=== PATIENT | male | born 1940 | race Caucasian/White ===

== ENCOUNTER 2019-08-16 14:55 | Outpatient (CLI) | payer MEDICARE, SELFPAY ==
--- NOTE | ~2019-08-16 | XR_ITS ---
EXAMINATION: XR wrist RT 2V DATE: 08/16/2019 15:08 INDICATION: Right wrist pain. TECHNIQUE: 2 views of right wrist were obtained. COMPARISON: None. FINDINGS: Bone alignment is normal. No fracture. Joint spaces are normal. There are periarticular home cifications in the wrist and second through fifth metacarpophalangeal joints. IMPRESSION: 1. No fracture. Reviewed, dictated and finalized at location A. DRIVER OPERATOR IMPRESSION: 1. No fracture.
== END 2019-08-16 14:56 | disposition home or self-care (01) ==
LOC: CHSIMG 14:57
PROVIDERS: PCP Family Medicine; Visit Provider Nurse Practitioner Family
DX: M25.531 Pain in right wrist (principal)
CPT/HCPCS: 73100

== ENCOUNTER 2020-01-17 09:32 | Outpatient (CLI) | payer MEDICARE, SELFPAY ==
[2020-01-17 09:49] LABS: Basophils Absolute Auto 0.03 K/mm3 (0.00-0.10); Basophils Percent Auto 0.5 % (0.0-1.0); Eosinophils Absolute Auto 0.09 K/mm3 (0.02-0.50); Eosinophils Percent Auto 1.4 % (1.0-6.0); Hematocrit 40.7 % (37.0-46.0); Hemoglobin 13.8 g/dL (12.4-15.3); Immature Granulocyte Absolute 0.07 K/mm3 (0.00-0.00); Immature Granulocyte Percent A 1.1 % (0.0-0.0); Lymphocytes Percent Auto 28.2 % (18.0-42.0); Mean Corpuscular HGB Conc 33.9 g/dL (32.0-36.0); Mean Corpuscular Hemoglobin 29.5 pg (27.0-31.0); Mean Platelet Volume 9.3 fl (8.7-11.0); Monocytes Absolute Auto 0.36 K/mm3 (0.10-0.90); Monocytes Percent Auto 5.6 % (2.0-11.0); Neutrophils Percent Auto 63.2 % (50.0-70.0); Platelet Count Result 204 K/mm3 (150-420); Red Blood Count 4.68 M/mm3 (4.70-6.10); Red Cell Distribution Width 12.2 % (11.6-14.4); White Blood Count 6.4 K/mm3 (4.8-10.8)
[2020-01-17 10:05] LABS: Microalbumin Urine Random 10.2 mg/L
[2020-01-17 10:12] LABS: Hemoglobin A1C 7.4 % (<5.7)
[2020-01-17 10:40] LABS: Alanine Aminotransferase 17 U/L (16-63); Albumin Level 3.7 g/dL (3.4-5.0); Alkaline Phosphatase 58 U/L (46-116); Anion Gap 12.3 mmol/L (7-16); Aspartate Amino Transferase 19 U/L (15-37); Bilirubin,Total 0.3 mg/dL (0.00-1.00); Blood Urea Nitrogen 17 mg/dL (7-18); Calcium 9.4 mg/dL (8.5-10.1); Carbon Dioxide 29 mmol/L (21-32); Chloride 99 mmol/L (98-108); Cholesterol 145 mg/dL (0-200); Estimated Glomerular Filt Rate > 60; Glucose 319 mg/dL (70-99); HDL Direct 33 mg/dL (40-60); LDL Cholesterol Calculated 81 mg/dL (<130); Magnesium 1.9 mg/dL (1.8-2.4); Osmolality Calculated 295 mOsm/kg (285-295); Potassium 4.3 mmol/L (3.5-5.1); Sodium 136 mmol/L (136-145); Total Protein 7.1 g/dL (6.4-8.2); Triglycerides 156 mg/dL (0-150)
[2020-01-20 11:05] LABS: Vitamin D 25 Hydroxy 28 ng/mL (30-100)
== END 2020-01-17 09:33 | disposition home or self-care (01) ==
LOC: CHSLAB 09:35
PROVIDERS: PCP Nurse Practitioner Family; Visit Provider Nurse Practitioner Family
DX: E78.5 Hyperlipidemia, unspecified (principal); E11.59 Type 2 diabetes mellitus with other circulatory complications; I10 Essential (primary) hypertension; E11.69 Type 2 diabetes mellitus with other specified complication; R42 Dizziness and giddiness; Z79.899 Other long term (current) drug therapy
CPT/HCPCS: 36415; 80053; 80061; 82043; 82306; 83036; 83735; 85025

== ENCOUNTER 2020-03-23 13:11 | Outpatient (RCR) | payer MEDICARE, SELFPAY | END 2020-04-06 14:00 | disposition home or self-care (01) | LOC: CHSSENLIFE 13:11 | PROVIDERS: PCP Nurse Practitioner Family; Visit Provider Psychiatry & Neurology Psychiatry | DX: F32.0 Major depressive disorder, single episode, mild (principal) | CPT/HCPCS: 90792; 90837 ==

== ENCOUNTER 2020-04-04 13:38 | Outpatient (CLI) | payer MEDICARE, SELFPAY ==
[2020-04-04 23:22] LABS: SARS-CoV-2 RNA PCR Negative
== END 2020-04-04 13:39 | disposition home or self-care (01) ==
LOC: CHSLAB 13:40
PROVIDERS: PCP Nurse Practitioner Family; Visit Provider Nurse Practitioner Family
DX: Z20.828 Contact with and (suspected) exposure to other viral communicable diseases (principal)
CPT/HCPCS: 87635; C9803; U0003

== ENCOUNTER 2020-06-15 11:00 | Outpatient (RCR) | payer MEDICARE, SELFPAY ==
[2020-04-11 07:56] VITALS: BMI 24.2
[2020-06-15 10:58] VITALS: BMI 24.1
[2020-06-15 11:01] VITALS: BMI 24.1
== END 2020-06-27 14:01 | disposition home or self-care (01) ==
LOC: ANHDMC 11:00
PROVIDERS: PCP Nurse Practitioner Family
DX: E11.65 Type 2 diabetes mellitus with hyperglycemia (principal); Z71.3 Dietary counseling and surveillance; Z71.89 Other specified counseling
CPT/HCPCS: 97802; 97803; G0108

== ENCOUNTER 2020-08-22 13:00 | Outpatient (RCR) | payer MEDICARE, SELFPAY | END 2020-09-25 15:52 | disposition home or self-care (01) | LOC: ANHDMC 13:00 | PROVIDERS: PCP Nurse Practitioner Family; Referring Provider Internal Medicine Endocrinology, Diabetes & Metabolism | DX: E11.65 Type 2 diabetes mellitus with hyperglycemia (principal); Z71.89 Other specified counseling | CPT/HCPCS: G0108 ==

== ENCOUNTER 2020-11-14 09:39 | Outpatient (CLI) | payer MEDICARE, SELFPAY ==
[2020-11-14 10:04] LABS: Hemoglobin A1C 7.3 % (<5.7)
== END 2020-11-14 09:40 | disposition home or self-care (01) ==
LOC: CHSLAB 09:41
PROVIDERS: PCP Nurse Practitioner Family; Visit Provider Nurse Practitioner Family
DX: E11.9 Type 2 diabetes mellitus without complications (principal)
CPT/HCPCS: 36415; 83036

== ENCOUNTER 2021-04-17 09:48 | Outpatient (CLI) | payer MEDICARE, SELFPAY ==
[2021-04-17 09:58] LABS: Basophils Absolute Auto 0.04 K/mm3 (0.00-0.10); Basophils Percent Auto 0.6 % (0.0-1.0); Eosinophils Absolute Auto 0.07 K/mm3 (0.02-0.50); Eosinophils Percent Auto 1.1 % (1.0-6.0); Hematocrit 44.1 % (37.0-46.0); Hemoglobin 14.9 g/dL (12.4-15.3); Immature Granulocyte Absolute 0.06 K/mm3 (0.00-0.00); Immature Granulocyte Percent A 0.9 % (0.0-0.0); Lymphocytes Percent Auto 19.7 % (18.0-42.0); Mean Corpuscular HGB Conc 33.8 g/dL (32.0-36.0); Mean Corpuscular Hemoglobin 29.6 pg (27.0-31.0); Mean Corpuscular Volume 87.5 fL (78.0-102.0); Mean Platelet Volume 9.2 fl (8.7-11.0); Monocytes Absolute Auto 0.51 K/mm3 (0.10-0.90); Monocytes Percent Auto 7.7 % (2.0-11.0); Neutrophils Absolute Auto 4.6 K/mm3 (1.7-7.2); Platelet Count Result 215 K/mm3 (150-420); Red Blood Count 5.04 M/mm3 (4.70-6.10); Red Cell Distribution Width 12.5 % (11.6-14.4); White Blood Count 6.6 K/mm3 (4.8-10.8)
[2021-04-17 10:10] LABS: Hemoglobin A1C 7.1 % (<5.7)
[2021-04-17 11:17] LABS: Alanine Aminotransferase 19 U/L (16-63); Albumin Level 3.9 g/dL (3.4-5.0); Alkaline Phosphatase 69 U/L (46-116); Anion Gap 11 mmol/L (8-16); Aspartate Amino Transferase 13 U/L (15-37); Bilirubin,Total 0.7 mg/dL (0.00-1.00); Blood Urea Nitrogen 21 mg/dL (7-18); Calcium 9.6 mg/dL (8.5-10.1); Carbon Dioxide 30 mmol/L (21-32); Chloride 102 mmol/L (98-108); Cholesterol 138 mg/dL (0-200); Estimated Glomerular Filt Rate > 60; Glucose 181 mg/dL (70-99); HDL Direct 34 mg/dL (40-60); LDL Cholesterol Calculated 76 mg/dL (<130); Osmolality Calculated 304 mOsm/kg (285-295); Potassium 4.4 mmol/L (3.5-5.1); Sodium 143 mmol/L (136-145); Total Protein 7.1 g/dL (6.4-8.2); Triglycerides 141 mg/dL (0-150)
[2021-04-18 14:13] LABS: Magnesium 2.2 mg/dL (1.8-2.4)
[2021-04-21 14:33] LABS: Vitamin D 25 Hydroxy 29 ng/mL (30-100)
== END 2021-04-17 09:49 | disposition home or self-care (01) ==
LOC: CHSLAB 09:50
PROVIDERS: PCP Nurse Practitioner Family; Visit Provider Nurse Practitioner Family
DX: E11.59 Type 2 diabetes mellitus with other circulatory complications (principal); I10 Essential (primary) hypertension; E11.69 Type 2 diabetes mellitus with other specified complication; Z79.899 Other long term (current) drug therapy
CPT/HCPCS: 36415; 80053; 80061; 82306; 83036; 83735; 85025

== ENCOUNTER 2021-10-04 15:41 | Outpatient (RCR) | payer MEDICARE, SELFPAY ==
--- NOTE | 2021-10-05 06:56 | PTOPEVAL ---
Thank you for referring Eddy Vasquez to [facility] The patient is scheduled to be seen for therapy? __3__x/week for 12 visits. Please review, sign, date and return this plan of care CHEYANNE. I agree with and certify that the following plan of care is medically necessary. Referring Physician Date Admitting Provider: Attending Provider: Krysta Lopes NP Referring Provider: *PT Outpatient Evaluation Start: 10/04/21 15:44 Freq: Status: Active Protocol: Document 10/04/21 15:45 IVETTE (Rec: 10/04/21 17:32 IVETET [email or web address]) Therapy Assessment Status Assessment Status Assessment Status Evaluation Outpatient Past Medical History Neurological History Hx Neurological Disorders No Significant History Cardiovascular History Hx Hypertension Yes Respiratory History Hx Respiratory Disorders No Significant History Genitourinary History Hx Genitourinary Disorders No Significant History Musculoskeletal History Hx Musculoskeletal Disorders No Significant History Hematological History Hx Hematological Disorders No Significant History Endocrine History Hx Diabetes Yes HEENT History Hx HEENT Disorders No Significant History Integumentary History Hx Skin Disorders No Significant History Psychosocial History Hx Anxiety Yes Hx Depression Yes Pain History History of Any Previous or Ongoing No Significant History Instance of Pain Anesthesia History Hx Anesthesia Reactions No Significant History Evaluation Information Problem Diagnosis BPPV, weakness Onset 09/27/21 Subjective Information Pt. reports that he began to Query Text:As Reported By Patient/ notice some dizziness while Family making his bed. He reports that he bent over and noticed he was dizzy. He reports that the dizziness is only noticable with bending forward to the floor. He reports that he has also noticed developing weakness into both of his legs. He notices that it is difficult to get up off the ground. He reports that his activity level has been decreased over the past several months. he reports he has underwent testing without any significant findings. He reports that his goal is to reduce his dizzines
== END 2021-10-16 09:33 | disposition home or self-care (01) ==
LOC: CHSPT 15:41
PROVIDERS: PCP Nurse Practitioner Family; Visit Provider Nurse Practitioner Family
DX: H81.10 Benign paroxysmal vertigo, unspecified ear (principal); R53.1 Weakness
CPT/HCPCS: 97110; 97112; 97161

== ENCOUNTER 2022-03-18 10:00 | Outpatient (RCR) | payer MEDICARE, SELFPAY ==
--- NOTE | 2022-03-15 09:52 | OTOPEVAL1 ---
Evaluation Information Assessment Status Evaluation Diagnosis L hand pain, L hand numbness/tingling Onset 02/22/22 Subjective Information The patient reports he worked for [employer] where he gripped tools tightly. The patient reports numbness and tingling in B thumbs, pain in B 2nd digit, and stiffness in B hands with decreased ability to make a full grasp. 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 Reported Pain Level Pain Score 8: Self Report Assessment OT Clinical Summary The patient is an 81 year old male who was referred to outpatient OT due to B hand pain and numbness/tingling. 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 The patient previously experienced no pain, WNL digit ROM and full service supervisor/pinch strength, and no issues performing daily tasks such as playing the guitar. The patient requires the skills of OT to address current deficits and improve the patient's ability to engage in leisure activities. Plan of Care Interventions Therapeutic Exercise,Manual Therapy,Therapeutic Activities,Hot Pack/Cold Pack,Electrical Stimulation OT Services Indicated Yes These treatments will address the objective and functional deficits as defined above. The patient will be advanced safely and appropriately in order for the patient to progress towards his/her prior level of function. Additional exercises will be introduced and as well as a comprehensive home exercise program upon discharge, if needed, ?to ensure carryover of functional gains achieved in the clinic. This treatment plan has been reviewed and agreement upon by the patient.
--- NOTE | 2022-03-21 12:19 | PTOPEVAL1 ---
Assessment and note entered by Amelie Strange, PT Evaluation Information Assessment Status Evaluation Diagnosis Anathesia/parasthesia of skin; LE weakness Onset 03/12/22 Subjective Information Eddy Vasquez reports that he notices weakness in his legs when he tries to get up from the floor in his garage. He denies pain, numbness, and tingling in his legs. He reports he likes to lanny with his lawnmower and other things in the garage and it requires him to get down on all fours often. He is having trouble getting back up to standing without something to push up on. Reported Pain Level Pain Score 0: Self Report Pain Score 0: Self Report Assessment PT Clinical Summary Eddy Vasquez presents with complaints of weakness his legs when getting up from kneeling or quadruped when working in his garage. He denies pain, numbness, tingling, or falls. He objectively demonstrates functional lower extremity weakness with squatting and kneeling, decreased bilateral hip and core strength, and increased fall risk per his 5 times sit to stand time. He will benefit from skilled PT to address these limitations. Plan of Care Interventions Neuro Re-education,Therapeutic Activities, Therapeutic Exercise PT Services Indicated Yes Treatment Frequency and 2 times a week for 12 visits Duration These treatments will address the objective and functional deficits as defined above. The patient will be advanced safely and appropriately in order for the patient to progress towards his/her prior level of function. Additional exercises will be introduced and as well as a comprehensive home exercise program upon discharge, if needed, ?to ensure carryover of functional gains achieved in the clinic. This treatment plan has been reviewed and agreement upon by the patient.
--- NOTE | 2022-04-19 11:11 | OTOPPROG ---
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 The patient did not make progress in pain symptoms and stiffness during the morning which affects his ability to perform leisure tasks of playing the guitar. Per patient report, the patent's pain has decreased after therapy sessions with improvement in digit AROM and function of B hands following treatment. The patient continues to require skilled OT to address digit ROM, hand strength and pain in order to improve patient's quality of life to perform desired tasks and IADLs. The patient to continue to engage in skilled OT 1x/week for 10 visits. Plan of Care Interventions Therapeutic Exercise,Manual Therapy,Therapeutic Activities,Hot Pack/Cold Pack,Electrical Stimulation,Self-Care/Home Management,Ultrasound OT Services Indicated Yes Treatment Frequency and 1x/week for 10 visits. Duration These treatments will address the objective and functional deficits as defined above. The patient will be advanced safely and appropriately in order for the patient to progress towards his/her prior level of function. Additional exercises will be introduced and as well as a comprehensive home exercise program upon discharge, if needed, ?to ensure carryover of functional gains achieved in the clinic. This treatment plan has been reviewed and agreement upon by the patient.
--- NOTE | 2022-07-10 14:45 | PCPTNOTE ---
07/10/22: The patient has not attended skilled PT since 04/25/22. He is being discharged. Goals were not met as of last visit. Amelie Strange, PT
== END 2022-04-25 10:03 | disposition still patient (30) ==
LOC: CHSOT 10:00
PROVIDERS: PCP Nurse Practitioner Family; Visit Provider Nurse Practitioner Family
DX: M79.642 Pain in left hand (principal); R20.0 Anesthesia of skin
CPT/HCPCS: 97110; 97112; 97140; 97161; 97165; 97530

== ENCOUNTER 2022-04-29 08:30 | Outpatient (CLI) | payer MEDICARE, SELFPAY ==
--- NOTE | ~2022-04-29 | XR_ITS ---
EXAMINATION: XR ribs LT 2V w CXR 2V DATE: 04/29/2022 09:14 INDICATION: Left chest pain. TECHNIQUE: Frontal and lateral views of the chest and 2 views on 3 radiographs of the left ribs were obtained. COMPARISON: CT abdomen and pelvis 02/23/2013 FINDINGS: CHEST TWO VIEWS: There is no pneumonia, pleural effusion, pneumothorax or the heart size is normal. T here are old healed right rib fractures. LEFT RIBS: There is no acute left rib fracture. IMPRESSION: 1. No acute rib fracture. Reviewed, dictated and finalized at location A. IMPRESSION: 1. No acute rib fracture.
== END 2022-04-29 08:31 | disposition home or self-care (01) ==
LOC: CHSIMG 08:32
PROVIDERS: PCP Nurse Practitioner Family; Visit Provider Nurse Practitioner Family
DX: R07.81 Pleurodynia (principal)
CPT/HCPCS: 71046; 71100

== ENCOUNTER 2022-05-07 09:10 | Outpatient (CLI) | payer MEDICARE, SELFPAY ==
--- NOTE | ~2022-05-07 | XR_ITS ---
XR wrist LT 2V DATE: 05/07/2022 09:36 INDICATION: Left wrist pain, pain at base of thumb after fall 3 days ago TECHNIQUE: AP and lateral views COMPARISON: 12/09/2018 left hand FINDINGS: There is chondrocalcinosis at the triangular cartilage and wrist joint. No fracture, dislocation, periosteal reaction or bone destruction is detected. 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
== END 2022-05-07 09:11 | disposition home or self-care (01) ==
LOC: CHSIMG 09:12
PROVIDERS: PCP Nurse Practitioner Family; Visit Provider Nurse Practitioner Family
DX: M25.532 Pain in left wrist (principal)
CPT/HCPCS: 73100

== ENCOUNTER 2022-05-09 10:30 | Outpatient (CLI) | payer MEDICARE, SELFPAY ==
[2022-05-09 10:44] LABS: Basophils Absolute Auto 0.03 K/mm3 (0.00-0.10); Basophils Percent Auto 0.4 % (0.0-1.0); Eosinophils Absolute Auto 0.07 K/mm3 (0.02-0.50); Hematocrit 41.4 % (37.0-46.0); Hemoglobin 13.9 g/dL (12.4-15.3); Immature Granulocyte Absolute 0.07 K/mm3 (0.00-0.00); Lymphocytes Absolute Auto 1.78 K/mm3 (1.10-4.50); Lymphocytes Percent Auto 24.7 % (18.0-42.0); Mean Corpuscular HGB Conc 33.6 g/dL (32.0-36.0); Mean Corpuscular Hemoglobin 29.7 pg (27.0-31.0); Mean Corpuscular Volume 88.5 fL (78.0-102.0); Mean Platelet Volume 9.2 fl (8.7-11.0); Monocytes Absolute Auto 0.42 K/mm3 (0.10-0.90); Monocytes Percent Auto 5.8 % (2.0-11.0); Neutrophils Absolute Auto 4.9 K/mm3 (1.7-7.2); Neutrophils Percent Auto 67.1 % (50.0-70.0); Platelet Count Result 210 K/mm3 (150-420); Red Blood Count 4.68 M/mm3 (4.70-6.10); Red Cell Distribution Width 12.3 % (11.6-14.4); White Blood Count 7.2 K/mm3 (4.8-10.8)
[2022-05-09 10:56] LABS: Creatinine Urine 25.97 mg/dL (40-278); MALB Creatinine Ratio 57.7 mg/g (0-30)
[2022-05-09 11:05] LABS: Alanine Aminotransferase 12 U/L (16-63); Albumin Level 3.7 g/dL (3.4-5.0); Alkaline Phosphatase 71 U/L (46-116); Anion Gap 7 mmol/L (8-16); Aspartate Amino Transferase 14 U/L (15-37); Bilirubin,Total 0.3 mg/dL (0.00-1.00); Blood Urea Nitrogen 23 mg/dL (7-18); Calcium 9.2 mg/dL (8.5-10.1); Carbon Dioxide 28 mmol/L (21-32); Chloride 106 mmol/L (98-108); Cholesterol 142 mg/dL (0-200); Estimated Glomerular Filt Rate > 60; Glucose 197 mg/dL (70-99); HDL Direct 38 mg/dL (40-60); LDL Cholesterol Calculated 75 mg/dL (<130); Osmolality Calculated 300 mOsm/kg (285-295); Potassium 4.2 mmol/L (3.5-5.1); Sodium 141 mmol/L (136-145); Triglycerides 144 mg/dL (0-150)
[2022-05-09 11:08] LABS: Hemoglobin A1C 7.7 % (<5.7)
== END 2022-05-09 10:31 | disposition home or self-care (01) ==
LOC: CHSLAB 10:32
PROVIDERS: PCP Nurse Practitioner Family; Visit Provider Nurse Practitioner Family
DX: E78.5 Hyperlipidemia, unspecified (principal); E11.59 Type 2 diabetes mellitus with other circulatory complications; I10 Essential (primary) hypertension; E11.69 Type 2 diabetes mellitus with other specified complication
CPT/HCPCS: 36415; 80053; 80061; 82043; 83036; 85025

== ENCOUNTER 2022-05-10 14:43 | Outpatient (CLI) | payer MEDICARE, SELFPAY ==
--- NOTE | ~2022-05-10 | CT_ITS ---
EXAMINATION: CT brain wo con DATE: 05/10/2022 14:59 INDICATION: Left anterior head injury and loss of consciousness post fall 6 days prior TECHNIQUE: Computed tomography (CT) of the head was performed without intravenous contrast. Sagittal and coronal reconstructions were performed. The mA was adjusted according to patient size. Iterative reconstruction technique was employed. The dose-length product was 605.33 mGy-cm. COMPARISON: head CT dated 03/02/2015 FINDINGS: No fracture. No acute intracranial hemorrhage, acute infarction or abnormal extra axial fluid collect ion. There is moderate to severe scattered white matter hypoattenuation consistent with chronic small vessel ischemic disease. Symmetric prominence of the sulci and ventricles consistent with moderate a ge-appropriate diffuse cerebral volume loss. No mass/mass effect. Sclerotic wall thickening at the le ft maxillary sinus likely sequela of chronic sinusitis. The orbits and mastoid air cells are normal. IMPRESSION: 1. No fracture or acute intracranial process. 2. Age-related changes including moderate diffuse volume loss and moderate to severe scattered white matter hypoattenuation consistent with chronic small vessel ischemic disease. Reviewed, dictated and finalized at location B. IMPRESSION: 1. No fracture or acute intracranial process. 2. Age-related changes including moderate diffuse volume loss and moderate to s evere scattered white matter hypoattenuation consistent with chronic small vess el ischemic disease.
== END 2022-05-10 14:44 | disposition home or self-care (01) ==
LOC: CHSIMG 14:46
PROVIDERS: PCP Nurse Practitioner Family; Visit Provider Nurse Practitioner Family
DX: S09.90XA Unspecified injury of head, initial encounter (principal)
CPT/HCPCS: 70450

== ENCOUNTER 2022-06-12 09:21 | Outpatient (CLI) | payer SELFPAY | END 2022-06-12 09:22 | disposition home or self-care (01) | PROVIDERS: PCP Nurse Practitioner Family; Visit Provider Nurse Practitioner Family | DX: E11.9 Type 2 diabetes mellitus without complications (principal) | CPT/HCPCS: 99199 ==

== ENCOUNTER 2022-06-24 10:06 | Outpatient (RCR) | payer MEDICARE, SELFPAY ==
--- NOTE | 2022-06-24 13:29 | OTOPREEVAL ---
Assessment and note entered by Roseann Castellanos OT Evaluation Information Assessment Status Progress Assessment Status Re-evaluation Diagnosis L hand pain, L hand numbness/tingling Diagnosis L wrist pain Onset 02/22/22 Onset May 2022 Subjective Information The patient reports he worked for [employer] where he gripped tools tightly. The patient reports numbness and tingling in B thumbs, pain in B 2nd digit, and stiffness in B hands with decreased ability to make a full grasp. 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 Reported Pain Level Pain Score 0: Self Report Pain Score 0: Self Report Assessment OT Clinical Summary The patient has demonstrated significant progress in digit AROM, house sitter strength and pinch strength affecting his ability to use B hands during morning activities. The patient did not make progress in pain symptoms and stiffness during the morning which affects his ability to perform leisure tasks of playing the guitar. Per patient report, the patent's pain has decreased after therapy sessions with improvement in digit AROM and function of B hands following treatment. The patient continues to require skilled OT to address digit ROM, hand strength and pain in order to improve patient's quality of life to perform desired tasks and IADLs. The patient to continue to engage in skilled OT 1x/week for 10 visits. OT Clinical Summary The patient is an 82 year old male who was referred to outpatient OT due to L wrist pain. The patient demonstrates decreased wrist strength, house sitter/pinch strength, decreased fine motor coordination and pain symptoms that affect his ability to perform self care tasks such as buttoning his shirt. The patient previously demonstrated no pain and increase house sitter strength. The patient requires skilled OT to address current deficits and return to OF. Plan of Care Interventions Therapeutic Exercise,Ultrasound,Manual Therapy, Therapeutic Activities,Hot Pack/Cold Pack, Electrical Stimulation,Self-Care/Home Management Interventions Therapeutic Exercise,Manual Therapy,Neuro Re- education,Therapeutic Activities,Hot Pack/Cold P
== END 2022-07-23 23:59 | disposition home or self-care (01) ==
LOC: CHSOT 10:06
PROVIDERS: PCP Nurse Practitioner Family; Visit Provider Nurse Practitioner Family
DX: M79.642 Pain in left hand (principal); R20.0 Anesthesia of skin
CPT/HCPCS: 97110; 97140; 97165; 97530

== ENCOUNTER 2022-07-18 07:46 | Outpatient (CLI) | payer MEDICARE, SELFPAY ==
--- NOTE | ~2022-07-18 | MR_ITS ---
EXAMINATION: MR hand LT wo con DATE: 07/18/2022 08:36 INDICATION: 2 months of pain and swelling at the left hand TECHNIQUE: Magnetic resonance imaging (MRI) of the left hand was performed without intravenous contra st to include the metacarpals and proximal phalanges. Sequences included sagittal, coronal, and axial proton-density weighted fast spin echo without and with fat saturation. COMPARISON: 05/07/2022 FINDINGS: Bone alignment is normal. No fracture or pathologic marrow replacing process. The flexor and extensor tendons are normal with no tenosynovitis. Although suboptimally evaluated at the margin of the field -of-view imaging, thereappears be a tear of the triangular fibrocartilage complex. Mild osteoarthriti s at the triscaphe, first carpometacarpal and first metacarpophalangeal joints. No increased signal s uggesting possible erosions along the dorsal and volar margins of the lunate, the capitate and along the palmar margin of the distal pole of the scaphoid which could be related to inflammatory or guadalupe lline arthropathy such as calcium pyrophosphate deposition (CPPD) disease or gout. The latter would b e favored given the chondrocalcinosis seen at the wrist joint, the triangular fibrocartilage complex and along the palmar margin of the distal pole of the scaphoid. Thickening and mild increased signal of the ligaments at the dorsal aspect of the first carpometacarpal joint where there is an additional tiny focus of calcification on the prior radiographs which could represent either sequela of chronic sprain or more likely additional dystrophic calcification related to a crystalline enthesitis. There is hypertrophic change at the first metacarpal origin of the radial collateral ligament suggesting s equela of chronic trauma. Foci of susceptibility artifact along the skin surface at the thenar eminen ce potentially related to prior surgery, potentially carpal tunnel release a appears to be some scarr ing superficial to the carpal tunnel are IMPRESSION: 1. Thickening of the stabilizing ligaments of the dorsal aspect of the first carpometacarpal joint wh ere there is a small dystrophic calcification on the prior radiographs suggests either sequela of old trauma or more likely a crystalline enthesitis related to either calcium pyrophosphate deposition (C PPD) disease or gout given the distal chondrocalcinosis at the triscaphe and wrist joint including th e triangular fibrocartilage complex also evident on prior radiographs. 2. Suggestion of a few possible small carpal erosions also suspicious for crystalline arthropathy alt [place] differential would include either other inflammatory arthritis or degenerative cystic change re lated to osteoarthritis. Reviewed, dictated and finalized at location A. ARIAL MATHEMATICIAN IMPRESSION: 1. Thickening of the stabilizing ligaments of the dorsal aspect of the first ca rpometacarpal joint where there is a small dystrophic calcification on the prio r radiographs suggests either sequela of old trauma or more likely a crystallin e enthesitis related to either calcium pyrophosphate deposition (CPPD) disease or gout given the distal chondrocalcinosis at the triscaphe and wrist joint inc luding the triangular fibrocartilage complex also evident on prior radiographs. 2. Suggestion of a few possible small carpal erosions also suspicious for cryst alline arthropathy although differential would include either other inflammator y arthritis or degenerative cystic change related to osteoarthritis.
== END 2022-07-18 07:47 | disposition home or self-care (01) ==
LOC: CHSIMG 07:51
PROVIDERS: PCP Nurse Practitioner Family; Visit Provider Nurse Practitioner Family
DX: S69.90XA Unspecified injury of unspecified wrist, hand and finger(s), initial encounter (principal); M25.532 Pain in left wrist; R93.6 Abnormal findings on diagnostic imaging of limbs
CPT/HCPCS: 73218

== ENCOUNTER 2022-10-22 08:37 | Outpatient (CLI) | payer MEDICARE, SELFPAY ==
--- NOTE | 2022-10-22 11:00 | NEURO_ITS ---
Impression: # Diabetic complains of numbness of hands. 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 Nerve Conduction Studies Anti Sensory Summary Table Stim Site NR Peak (ms) P-T Amp (?V) Site1 Site2 Delta-P (ms) Dist (cm) Sunny (m/s) Left Median Anti Sensory (2-3nd Digit) NO RESPONSE Wrist NR Wrist 2-3nd Digit 14.0 Wrist NR Wrist 2-3nd Digit 14.0 Right Median Anti Sensory (2-3nd Digit) NO RESPONSE Wrist 5.2 8.4 Wrist 2-3nd Digit 5.2 14.0 27 Wrist NR Wrist 2-3nd Digit 5.2 14.0 27 Left Radial Anti Sensory (Base 1st Digit) Wrist 2.8 6.7 Wrist Base 1st Digit 2.8 0.0 Right Radial Anti Sensory (Base 1st Digit) Wrist 2.5 12.7 Wrist Base 1st Digit 2.5 0.0 Left Ulnar Anti Sensory (5th Digit) Wrist 2.7 11.0 Wrist 5th Digit 2.7 14.0 52 Right Ulnar Anti Sensory (5th Digit) Wrist 2.8 21.5 Wrist 5th Digit 2.8 14.0 50 Motor Summary Table Stim Site NR Onset (ms) O-P Amp (mV) Site1 Site2 Delta-0 (ms) Dist (cm) Sunny (m/s) Left Median Motor (Abd Poll Brev) NO RESPONSE Wrist NR Elbow NR Right Median Motor (Abd Poll Brev) Wrist 6.8 0.6 Elbow Wrist 4.8 28.0 58 Elbow 11.6 1.2 Left Ulnar Motor (Abd Dig Minimi) Wrist 3.0 1.2 A Elbow Wrist 6.1 30.0 49 A Elbow 9.1 3.2 B Elbow Wrist 3.9 23.0 59 B Elbow 6.9 3.3 Right Ulnar Motor (Abd Dig Minimi) Wrist 2.9 5.1 A Elbow Wrist 5.9 29.0 49 A Elbow 8.8 4.0 B Elbow Wrist 3.6 21.0 58 B Elbow 6.5 3.4 F Wave Studies NR F-Lat (ms) L-R F-Lat (ms) Left Median (Mrkrs) (Abd Poll Brev) NO RESPONSE NR Right Median (Mrkrs) (Abd Poll Brev) 35.71 Left Ulnar (Mrkrs) (Abd Dig Min) 31.60 0.58 Right Ulnar (Mrkrs) (Abd Dig Min) 32.19 0.58 EMG Side Muscle Nerve Root Ins Act Fibs Amp Dur Recrt Comment Right 1stDorInt Ulnar C8-T1 Nml Nml Decr >12ms Reduced Right Ext Indicis Radial (Post Int) C7-8 Nml Nml Nml Nml Nml Right Ext Digitorum Radial (Post Int) C7-8 Nml Nml Nml Nml Nml Right BrachioRad Radial C5-6 Nml Nml Nml Nml Nml Right PronatorTeres Median C6-7 Nml Nml Nml Nml Nml Right Abd Poll Brev Median C8-T1 Nml Nml Nml Nml Nml Left 1stDorInt Ulnar C8-T1 Nml Nml Decr >12ms Reduced Left Ext Indicis Radial (Post Int) C7-8 Nml Nml Nml Nml Nml Left Ext Digitorum Radial (Post Int) C7-8 Nml Nml Nml Nml Nml Left BrachioRad Radial C5-6 Nml Nml Nml Nml Nml Left PronatorTeres Median C6-7 Nml Nml Decr >12ms Reduced Left Abd Poll Brev Median C8-T1 Nml Nml Decr >12ms Reduced Right ABD Dig Min Ulnar C8-T1 Nml Nml Decr >12ms Reduced Left ABD Dig Min Ulnar C8-T1 Nml Nml Decr >12ms Reduced MTDD
== END 2022-10-22 08:38 | disposition home or self-care (01) ==
PROVIDERS: PCP Nurse Practitioner Family; Visit Provider Nurse Practitioner Family
DX: E11.40 Type 2 diabetes mellitus with diabetic neuropathy, unspecified (principal); G56.03 Carpal tunnel syndrome, bilateral upper limbs
CPT/HCPCS: 95886; 95911

== ENCOUNTER 2023-02-04 10:07 | Outpatient (CLI) | payer OTHER, SELFPAY ==
[2023-02-04 10:23] LABS: Basophils Absolute Auto 0.02 K/mm3 (0.00-0.10); Basophils Percent Auto 0.3 % (0.0-1.0); Eosinophils Absolute Auto 0.05 K/mm3 (0.02-0.50); Eosinophils Percent Auto 0.7 % (1.0-6.0); Hematocrit 41.2 % (37.0-46.0); Hemoglobin 14.1 g/dL (12.4-15.3); Immature Granulocyte Absolute 0.09 K/mm3 (0.00-0.00); Immature Granulocyte Percent A 1.3 % (0.0-0.0); Lymphocytes Percent Auto 21.7 % (18.0-42.0); Mean Corpuscular HGB Conc 34.2 g/dL (32.0-36.0); Mean Corpuscular Hemoglobin 30.4 pg (27.0-31.0); Mean Corpuscular Volume 88.8 fL (78.0-102.0); Mean Platelet Volume 9.3 fl (8.7-11.0); Monocytes Absolute Auto 0.41 K/mm3 (0.10-0.90); Monocytes Percent Auto 5.9 % (2.0-11.0); Neutrophils Absolute Auto 4.9 K/mm3 (1.7-7.2); Neutrophils Percent Auto 70.1 % (50.0-70.0); Platelet Count Result 201 K/mm3 (150-420); Red Blood Count 4.64 M/mm3 (4.70-6.10); Red Cell Distribution Width 11.9 % (11.6-14.4); White Blood Count 6.9 K/mm3 (4.8-10.8)
[2023-02-04 10:59] LABS: Alanine Aminotransferase 19 U/L (16-63); Albumin Level 3.5 g/dL (3.4-5.0); Alkaline Phosphatase 75 U/L (46-116); Aspartate Amino Transferase 11 U/L (15-37); Bilirubin,Total 0.4 mg/dL (0.00-1.00); Blood Urea Nitrogen 24 mg/dL (7-18); Calcium 9.1 mg/dL (8.5-10.1); Chloride 102 mmol/L (98-108); Cholesterol 178 mg/dL (0-200); Estimated Glomerular Filt Rate > 60; HDL Direct 39 mg/dL (40-60); LDL Cholesterol Calculated 86 mg/dL (<130); Osmolality Calculated 309 mOsm/kg (285-295); Prostate Specific Antigen 1.2 ng/mL (< OR = 4.0); Sodium 139 mmol/L (136-145); Total Protein 6.7 g/dL (6.4-8.2); Triglycerides 267 mg/dL (0-150)
[2023-02-04 11:10] LABS: Anion Gap 9 mmol/L (8-16); Carbon Dioxide 28 mmol/L (21-32)
[2023-02-04 11:16] LABS: Glucose 413 mg/dL (70-99)
[2023-02-04 11:26] LABS: Appearance Urine Clear (Clear); Bilirubin Urine Negative (Negative); Blood Urine Negative (Negative); Color Urine Light Yellow (Yellow); Glucose Urine UA 3+ (Negative); Ketones Urine Negative (Negative); Leukocyte Esterase Ur Negative LEU/UL (Negative); Nitrate Urine Negative (Negative); Protein Urine Negative (Negative); Specific Grav Ur <= 1.005 (1.010-1.020); Urobilinogen Urine 0.2 mg/dL (0.2-1.0); pH Urine 6.5 (5.0-8.0)
[2023-02-04 11:40] LABS: Add Urine Microscopic? YES; Bacteria Urine Trace /hpf; RBC Urine None seen /hpf (0-2); Squamous Epithelial Cell Urine Rare /hpf (Few); WBC Urine None seen /hpf (0-3)
[2023-02-06 18:03] LABS: Vitamin D 25 Hydroxy 27 ng/mL (30-100)
== END 2023-02-04 10:08 | disposition home or self-care (01) ==
PROVIDERS: PCP Nurse Practitioner Family; Visit Provider Nurse Practitioner Family
DX: I10 Essential (primary) hypertension (principal); E78.5 Hyperlipidemia, unspecified; E11.69 Type 2 diabetes mellitus with other specified complication; R35.0 Frequency of micturition; E11.9 Type 2 diabetes mellitus without complications; Z79.899 Other long term (current) drug therapy
CPT/HCPCS: 36415; 80053; 80061; 81001; 82306; 84153; 85025

== ENCOUNTER 2023-02-19 10:00 | Outpatient (CLI) | payer OTHER, SELFPAY ==
--- NOTE | 2023-02-19 10:23 | ECG_ITS ---
Measurements Intervals [place] Rate: 58 P: 19 NM: 218 QRS: 4 QRSD: 98 T: 25 QT: 433 QTc: 427 Interpretive Statements SINUS BRADYCARDIA WITH FIRST DEGREE AV BLOCK BASELINE ARTIFACT BORDERLINE ECG NO PREVIOUS ECG AVAILABLE FOR COMPARISON Electronically Signed On 02-19-2023 12:22:31 CDT by Nima Vazquez M.D.
[2023-02-19 10:53] LABS: Glucose 288 mg/dL (70-99)
== END 2023-02-19 10:01 | disposition home or self-care (01) ==
LOC: CHSLAB 10:03
PROVIDERS: PCP Nurse Practitioner Family; Visit Provider Anesthesiology
DX: Z01.818 Encounter for other preprocedural examination (principal); E11.9 Type 2 diabetes mellitus without complications; R73.09 Other abnormal glucose; R00.1 Bradycardia, unspecified
CPT/HCPCS: 36415; 82947; 93005

== ENCOUNTER 2023-02-24 03:33 | Day surgery (SDC) | payer MEDICARE, SELFPAY ==
[2023-02-18 14:02] VITALS: BMI 19.2
--- NOTE | 2023-02-18 14:07 | PC.NURSE ---
Report to the Outpatient Waiting Room, entrance under the green pavilion located off [facility], at time ___0830____ on date ___02/24/23____. Planned Procedure Time: ___1030 . Time changes happen often and if your time is changed the preop area will call you the afternoon before. - You and your visitor will be asked to self-screen and do not enter if you have any COVID symptoms. - A mask is optional within the hospital at this time. Patients may have clear liquids (water, carbonated beverages, clear teas, apple juice) until 3 hours prior to surgery (0730 AM) with a maximum of 20 ounces. - No food from midnight until time of surgery - Infants may have breast milk until 4 hours before surgery, formula 6 hours prior to surgery. - Children will be allowed to drink immediately following surgery. If applicable, please bring a bottle or sippy cup to assist with drinking. Juice, water, soda, and popsicles are readily available. For infants on formula, please bring formula the day of surgery. Pacifiers are allowed. Take the following medications with a SIP of water the morning of surgery: _CARVEDILOL__ DO NOT STOP ANY OF YOUR OTHER PRESCRIPTION MEDICATIONS PRIOR TO SURGERY ?EXCEPT THE FOLLOWING Medications to discontinue per physician N/A Date to take last dose Please no make-up, nail mauritian, hairspray, perfume, deodorant, or body powder the day of surgery. No jewelry (including any body piercings) or valuables the day of surgery, leave them at home. Please take a shower or bath the night before, or the morning of, surgery with an antibacterial soap. Wear comfortable, loose fitting clothing. Children are encouraged to wear pajamas. - Jewelry must be removed prior to entering the operating room. Rings and piercings that are not removed may be cut off. - The hospital will not accept responsibility for valuables. - Please leave all valuables, including medications, at home the day of surgery. If you are going home after surgery, a licensed minibus driver must drive you home. - NO public transportation without another adult if you receive anesthesia. - We recommend that an adult stay with you for 24 hours following discharge. - We also recommend that you do not drive, make important decision, drink alcoholic beverages, or take any drugs that were not prescribed by your health care provider for at least 24 hours after your discharge time. For Pediatric surgeries, we recommend two adults accompany the child home. Follow any additional instructions given to you from your surgeon. If you or anyone in your household have experienced Covid symptoms in the past week, please notify your surgeon or the nurse liaison at the phone number below for possible testing. Telephone instructions given to ___PATIENT and asked if any additional questions and then verbalized understanding. Patient advised to call surgeon office or pre surgery nurse liaison [phone] if any additional questions.
--- NOTE | 2023-02-24 07:08 | WPDHPUPDATE1 ---
History and Physical Update Update Date/Time: 02/24/23 07:08 History and Physical has been reviewed, including an updated exam of the patient. There are NO changes in the patient's condition. Risks, benefits, and alternatives have been discussed and questions answered. Patient agrees to proceed with procedure.
[2023-02-24] MEDS: ACETAMINOPHEN 500 MG TABLET 1000 MG PO (09:02)
[2023-02-24] MEDS: LACTATED RINGERS 1,000 ML 30 ML IV CONT (09:15)
[2023-02-24 09:59] VITALS: BP 176/74; PULSE 64; RESP 16; TEMP 36.2; O2SAT 99
[2023-02-24] MEDS: KETOROLAC 15 MG/ML VIAL (*BKC) IV PUSH (10:02)
--- NOTE | 2023-02-24 10:10 | WPDANESEPPF ---
Anes - Initial Pre Proc Eval Procedure: Operation Date: 02/24/23 10:30 Proposed Procedures p Left Carpal Tunnel Release, Bilateral Hand Injections - Karl Abdi MD Date/Time: 02/24/23 10:10 Surgeon: Karl Abdi MD Pre Op Diagnosis: Left Carpal Tunnel syndrome, mark hand arthritis Patient Data Age: 82 Gender: M Height: 1.73 m Weight: 64.6 kg Last Vital Signs Temp 36.2 C L 02/24/23 09:59 Pulse 64 02/24/23 09:59 Resp 16 02/24/23 09:59 BP 176/74 H 02/24/23 09:59 Pulse Ox 99 02/24/23 09:59 O2 Del Method Room Air 02/24/23 09:59 Allergies Allergy/AdvReac Type Severity Reaction Status Date / Time No Known Allergies Allergy Verified 02/24/23 08:34 Home Medications Medication Instructions Recorded Confirmed Type lisinopril 20 See Rx Instructions .Route 05/28/22 02/24/23 Rx mg-hydrochlorothiazide 12.5 mg .COMPLEX #90 tabs tablet carvedilol 6.25 mg tablet See Rx Instructions .Route 07/02/22 02/24/23 Rx .COMPLEX #180 tabs glimepiride 1 mg tablet 1 mg PO BID 90 days #180 tabs 07/22/22 02/24/23 Rx simvastatin 20 mg tablet 20 mg PO DAILY #90 tabs 07/22/22 02/24/23 Rx dulaglutide 1.5 mg/0.5 mL 1.5 mg (0.5 mL) subcut WEEKLY #6 mL 08/06/22 02/24/23 Rx subcutaneous pen injector (Trulicity) empagliflozin 25 mg tablet See Rx Instructions .Route 12/25/22 02/24/23 Rx (Jardiance) .COMPLEX #90 tabs cholecalciferol (vitamin D3) 50 50 mcg PO DAILY #30 caps 02/10/23 02/24/23 Rx mcg (2,000 unit) capsule magnesium glycinate 200 mg PO .HS 02/18/23 02/24/23 History tramadol 50 mg tablet 50 mg PO Q6H PRN pain #14 tabs 02/24/23 Rx Patient hx anesthesia problems: none Family hx anesthesia problems: none Results Review: All pre-operative results and documents have been reviewed as part of the pre-operative evaluation. [facility] Past Medical History Medical History Calcific tendinitis of left shoulder GERD (gastroesophageal reflux disease) Hyperlipidemia associated with type 2 diabetes mellitus Hypertension associated with diabetes Left carpal tunnel syndrome Major depression, recurrent Stiffness of finger joint of left hand Type 2 diabetes mellitus Surgical History Surgical History History of release of tendon (~05/2018) Family History Family History Father No problems noted. Mother No problems noted. Other Diabetes mellitus Social History Social History Smoking status: Never smoker Second hand tobacco smoke exposure: No Alcohol intake: current Drinks per week: 2 Substance use: never Substance use type: does not use Lack of Transportation: No Lack of Food: Never True Current Housing: I Have Housing Concerned About Future Housing: No Difficulty Paying Gas/Electric Bills: No Difficulty Paying for Meds: No Currently Unemployed: No Education: High School Diploma/GED Difficulty w/ Childcare or Family Care: No Living arrangements: alone Additional living arrangements comments: in 2018 Occupation/Education: retired Spiritual care concerns: No Anes - Eval Final PreProcedure Day of Procedure 02/24/23 10:10 Patient weight: normal Heart: regular rate and rhythm Lungs: clear to auscultation Airway: Mallampati scale class II Neurological: alert and oriented Last oral intake: >/= 8 hours ASA classification: III Emergent: no Anesthetic plan: proceed Anesthesia type and monitoring: general GIVS and standard monitoring Results Review: All pre-operative results and documents have been reviewed as part of the pre-operative evaluation. Informed Consent: The patient's anesthetic plan and its attendant risks and benefits were discussed with the patient/family/POA.
[2023-02-24] MEDS: ceFAZolin 2 GM/D5W 50 ML 2 GM/50 ML BAG IVPB (10:59)
[2023-02-24] MEDS: BUPivacaine HCL 0.5% 10 ML AMP INFILTRATE (11:31)
[2023-02-24] MEDS: methylPREDNISolone ACETATE 40 MG/ML VIAL 80 MG IM (11:32)
[2023-02-24] MEDS: LIDOCAINE HCL 2% LOCAL INJ 20 ML VIAL 10 ML INFILTRATE (11:34)
[2023-02-24] MEDS: BUPIVACAINE/EPINEPHRINE 0.5% 30 ML VIAL 10 ML INFILTRATE (11:35)
[2023-02-24 11:47] VITALS: BP 122/63; PULSE 68; RESP 16; O2SAT 96
--- NOTE | 2023-02-24 11:48 | W.PM.PROC2 ---
Procedure Note - Detailed Date of Procedure 02/24/23 Pre-op Diagnosis Left Carpal Tunnel syndrome, mark hand arthritis Post-op Diagnosis Same Procedure Performed Left carpal tunnel release, bilateral hand injection Depo-Medrol Surgeon Karl Abdi MD Technical Program Manager 1st technician assistant Anesthesia MAC Indications The patient has history, exam findings, and electrodiagnostic findings consistent with carpal tunnel syndrome. Conservative treatment with bracing/ splinting, activity modifications, medication, ergonomics, injections has failed. Symptoms are daily and affect ability to use hand. The patient desires operative treatment. In addition he has arthritis of both hands. Desires cortisone injection while under sedation. Description of Procedure After informed consent was given, the operative extremity was marked in the preoperative holding area. Intravenous antibiotics were given. The patient was taken to the operating room and underwent conscious sedation by the anesthesia team. A time-out was performed confirming patient, procedure, and operative site. Local infiltrate at the carpal tunnel was done with 0.5% marcaine. Prepping and draping was done using chloraprep skin solution with usual surgical sterile technique. Anatomic landmarks marked on skin. Hand was exsanguinated and arm tourniquet inflated to 225mmHg. Incision was made with #15 blade knife in skin crease on volar palm. Hemostasis was achieved with electrocautery. Careful dissection was carried down to the transverse carpal ligament. Retractors were placed. Ligament overlying median nerve was incised in line with skin incision using nikolai blade. Proximal and distal release was done with metzenbaum scissors under direct visualization. Mosquito clamp was placed deep to ligament to protect nerve during release. The nerve was inspected and noted to be intact with mild flattening. Tendons had good excursion. The tourniquet was then released and pressure held. Bleeding points were coagulated with bipolar cautery. The wound was thoroughly irrigated with antibiotic solution. The skin was closed with 4-0 nylon interrupted suture. A sterile dressing was applied. Good capillary refill in the fingers and thumb was noted. The patient was transported to the recovery room in stable condition. All sponge, needle, instrument counts were correct at the end of the case. 25 gauge needle then used to inject 40 mg of Depo-Medrol and 3 cc of 0.5% Marcaine plain into the middle and ring finger metacarpal phalangeal joints left hand. Half solution was divided and placed into each joint. Sterile dressing applied. 25 gauge needle then used to inject 40 mg of Depo-Medrol and 3 cc of 0.5% Marcaine plain into the middle and ring finger metacarpal phalangeal joints right hand. Half solution was divided and placed into each joint. Sterile dressing applied. Estimated Blood Loss 2 Packing No Pathology None sent Complications None Condition Stable Disposition PACU [facility] Billing Surgery - Charge Forward: Surgery Billing ([id number], [id number] X 2)
[2023-02-24 12:00] VITALS: BP 136/68; PULSE 65; RESP 16; O2SAT 95
[2023-02-24 12:30] VITALS: BP 161/77; PULSE 64; RESP 16; O2SAT 95
[2023-02-24 13:00] VITALS: BP 156/99; PULSE 72; RESP 16; O2SAT 99
[2023-02-24 17:01] LABS: Glucose Point of Care 160 mg/dl (65-105)
[2023-02-25 13:58] LABS: Glucose Point of Care 209 mg/dl (65-105)
== END 2023-02-24 13:12 | disposition home or self-care (01) ==
PROVIDERS: PCP Nurse Practitioner Family; Visit Provider Orthopaedic Surgery
PROC: (CPT 64721; principal; 2023-02-24 10:30)
DX: G56.02 Carpal tunnel syndrome, left upper limb (principal); M19.042 Primary osteoarthritis, left hand; M19.041 Primary osteoarthritis, right hand; I10 Essential (primary) hypertension; E11.9 Type 2 diabetes mellitus without complications; E78.5 Hyperlipidemia, unspecified; F33.9 Major depressive disorder, recurrent, unspecified; K21.9 Gastro-esophageal reflux disease without esophagitis; Z79.899 Other long term (current) drug therapy; Z79.84 Long term (current) use of oral hypoglycemic drugs
CPT/HCPCS: 64721; 20600; 82948; A9270; J0690; J1030; J1100; J1885; J2405; J2704; J3010; J7120

== ENCOUNTER 2023-06-03 13:56 | Outpatient (RCR) | payer MEDICARE, SELFPAY ==
--- NOTE | 2023-06-06 08:43 | BUOTOPEVAL ---
Assessment and note entered by Roseann Castellanos OT Evaluation Information Assessment Status Evaluation Diagnosis Carpal tunnel syndrome, left upper limb Onset 05/27/23 Subjective Information The patient reports that he is having a hard time buttoning his jeans and his shirts. He has pain in palm of hand at night but the pain goes away eventually and does not disrupt his sleep. The patient reports severe numbness and tingling in first three fingers and weakness that make it difficult to perform grooming/dressing tasks. Reported Pain Level Pain Score 0: Self Report Assessment OT Clinical Summary The patient is an 83 year old male who was referred to outpatient OT due to L carpal tunnel release resulting in numbness/tingling, hand weakness and decreased coordination. The patient previously demonstrate WFL fine motor coordination , no numbness/tingling and improved privacy specialist/pinch strength, the patient now demonstrates significant deficits with strength, sensation and coordination. The patient requires skilled OT to address these deficits and return to PLOF in order to perform ADLs with independence. Plan of Care Interventions Therapeutic Exercise,Manual Therapy,Neuro Re- education,Therapeutic Activities,Hot Pack/Cold Pack,Electrical Stimulation,Sensory Integrative Techn,Self-Care/Home Management,Prosthetic Training,Ultrasound OT Services Indicated Yes Treatment Frequency and 2x/week for 10 visits. Duration These treatments will address the objective and functional deficits as defined above. The patient will be advanced safely and appropriately in order for the patient to progress towards his/her prior level of function. Additional exercises will be introduced and as well as a comprehensive home exercise program upon discharge, if needed, ?to ensure carryover of functional gains achieved in the clinic. This treatment plan has been reviewed and agreement upon by the patient.
--- NOTE | 2023-07-14 15:23 | OTOPPROG ---
Assessment and note entered by Roseann Castellanos OT Evaluation Information Assessment Status Progress Subjective Information The patient reports that his L hand is worse than his R and the left is the hand he had surgery on, the patient reports that he wants to improve the dexterity in his L hand and strength in R hand. He stated that he has been doing stretches at home. 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 The patient demonstrates limited progress toward goals due to the patient's decreased attendance to therapy and limited engagement in HEP, the therapist educated the patient on the importance of attendance and completing exercises. The patient to continue to address deficits and improve dexterity/strength in order to use B hands during ADLs. Plan of Care Interventions Therapeutic Exercise,Manual Therapy,Neuro Re- education,Therapeutic Activities,Hot Pack/Cold Pack,Sensory Integrative Techn,Self-Care/Home Management,Ultrasound OT Services Indicated Yes Treatment Frequency and 2x/week for 10 visits. Duration These treatments will address the objective and functional deficits as defined above. The patient will be advanced safely and appropriately in order for the patient to progress towards his/her prior level of function. Additional exercises will be introduced and as well as a comprehensive home exercise program upon discharge, if needed, ?to ensure carryover of functional gains achieved in the clinic. This treatment plan has been reviewed and agreement upon by the patient.
--- NOTE | 2023-07-25 08:11 | PCOTNOTE ---
Patient cancelled appointment 07/21/23 because he could not get his car out of his garage due to cold.
--- NOTE | 2023-07-25 16:45 | PCOTNOTE ---
The patient cancelled due to not getting out into the cold 07/25/23.
--- NOTE | 2023-08-05 16:06 | OTOPDC ---
Assessment and note entered by Roseann Castellanos, OT Evaluation Information Assessment Status Discharge Subjective Information The patient stated, I can tell I've gotten a little bit better. The patient stated he has always had his strength but can't feel with his first three digits of L hand and make it hard for him to do his daily tasks. The patient stated he has a hard time with fastening a nut and bolt together. Reported Pain Level Pain Score 0: Self Report Assessment OT Clinical Summary The patient demonstrates significant progress in fine motor coordination leading to decreased risk of dropping items during daily tasks and maintaining independence with manual tasks. 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 The patient was educated on HEP to maintain progress and make further progress at home, the patient does not require skilled OT at this time due to plateau in progress. Plan of Care OT Services Indicated No
--- NOTE | 2023-08-08 11:12 | BUOTOPDC ---
Assessment and note entered by Roseann Castellanos, OT Evaluation Information Assessment Status Discharge Diagnosis Carpal tunnel syndrome, left upper limb Onset 05/27/23 Subjective Information The patient stated, I can tell I've gotten a little bit better. The patient stated he has always had his strength but can't feel with his first three digits of L hand and make it hard for him to do his daily tasks. The patient stated he has a hard time with fastening a nut and bolt together. Reported Pain Level Pain Score 0: Self Report Pain Score 0: Self Report Pain Score 0: Self Report Pain Score 0: Self Report Pain Score 0: Self Report Pain Score 0: Self Report Pain Score 0: Self Report Pain Score 0: Self Report Pain Score 0: Self Report Pain Score 0: Self Report Pain Score 0: Self Report Pain Score 0: Self Report Additional Pain Score Comments NT due to patient not present Additional Pain Score Comments Pt. reports having numbness in in L thumb, index finer, and middle finger. Additional Pain Score Comments Pt. denies having any pain. Assessment OT Clinical Summary The patient demonstrates significant progress in fine motor coordination leading to decreased risk of dropping items during daily tasks and maintaining independence with manual tasks. 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 The patient was educated on HEP to maintain progress and make further progress at home, the patient does not require skilled OT at this time due to plateau in progress. Plan of Care Interventions Therapeutic Exercise,Manual Therapy,Neuro Re- education,Therapeutic Activities,Hot Pack/Cold Pack,Electrical Stimulation,Sensory Integrative Techn,Self-Care/Home Management,Check Out for Orthotic/Pr,Ultrasound OT Services Indicated No Treatment Frequency and 2x/week for 10 visits. Duration
== END 2023-08-05 10:00 | disposition home or self-care (01) ==
LOC: CHSOT 13:56
PROVIDERS: PCP Nurse Practitioner Family; Visit Provider Orthopaedic Surgery
DX: G56.02 Carpal tunnel syndrome, left upper limb (principal)
CPT/HCPCS: 97110; 97140; 97165; 97530

== ENCOUNTER 2023-07-29 09:36 | Outpatient (CLI) | payer MEDICARE, SELFPAY ==
[2023-07-29 09:49] LABS: Basophils Absolute Auto 0.05 K/mm3 (0.00-0.10); Basophils Percent Auto 0.7 % (0.0-1.0); Eosinophils Absolute Auto 0.06 K/mm3 (0.02-0.50); Eosinophils Percent Auto 0.9 % (1.0-6.0); Hematocrit 43.3 % (37.0-46.0); Hemoglobin 14.6 g/dL (12.4-15.3); Immature Granulocyte Percent A 1.4 % (0.0-0.0); Lymphocytes Absolute Auto 1.87 K/mm3 (1.10-4.50); Lymphocytes Percent Auto 26.9 % (18.0-42.0); Mean Corpuscular HGB Conc 33.7 g/dL (32.0-36.0); Mean Corpuscular Hemoglobin 29.2 pg (27.0-31.0); Mean Corpuscular Volume 86.6 fL (78.0-102.0); Mean Platelet Volume 9.1 fl (8.7-11.0); Monocytes Absolute Auto 0.39 K/mm3 (0.10-0.90); Monocytes Percent Auto 5.6 % (2.0-11.0); Neutrophils Absolute Auto 4.5 K/mm3 (1.7-7.2); Neutrophils Percent Auto 64.5 % (50.0-70.0); Platelet Count Result 202 K/mm3 (150-420); Red Cell Distribution Width 11.9 % (11.6-14.4)
[2023-07-29 10:01] LABS: Hemoglobin A1C 11.3 % (<5.7)
[2023-07-29 10:10] LABS: Appearance Urine Clear (Clear); Bilirubin Urine Negative (Negative); Blood Urine Negative (Negative); Color Urine Light Yellow (Yellow); Glucose Urine UA 3+ (Negative); Ketones Urine Negative (Negative); Leukocyte Esterase Ur Negative LEU/UL (Negative); Nitrate Urine Negative (Negative); Protein Urine Negative (Negative); Urobilinogen Urine 0.2 mg/dL (0.2-1.0)
[2023-07-29 10:15] LABS: Add Urine Microscopic? YES; Bacteria Urine Rare /hpf; RBC Urine None seen /hpf (0-2); WBC Urine None seen /hpf (0-3)
[2023-07-29 10:46] LABS: Alanine Aminotransferase 9 U/L (16-63); Albumin Level 3.5 g/dL (3.4-5.0); Alkaline Phosphatase 58 U/L (46-116); Anion Gap 9 mmol/L (8-16); Aspartate Amino Transferase 17 U/L (15-37); Bilirubin,Total 0.6 mg/dL (0.00-1.00); Blood Urea Nitrogen 23 mg/dL (7-18); Calcium 9.1 mg/dL (8.5-10.1); Carbon Dioxide 31 mmol/L (21-32); Chloride 101 mmol/L (98-108); Cholesterol 190 mg/dL (0-200); Estimated Glomerular Filt Rate > 60; Glucose 264 mg/dL (70-99); HDL Direct 43 mg/dL (40-60); LDL Cholesterol Calculated 111 mg/dL (<130); Osmolality Calculated 304 mOsm/kg (285-295); Potassium 4.3 mmol/L (3.5-5.1); Prostate Specific Antigen 1.1 ng/mL (< OR = 4.0); Sodium 141 mmol/L (136-145); Total Protein 6.8 g/dL (6.4-8.2); Triglycerides 181 mg/dL (0-150)
[2023-07-31 11:38] LABS: Vitamin D 25 Hydroxy 36 ng/mL (30-100)
== END 2023-07-29 09:37 | disposition home or self-care (01) ==
LOC: CHSLAB 09:38
PROVIDERS: PCP Nurse Practitioner Family; Visit Provider Nurse Practitioner Family
DX: E78.5 Hyperlipidemia, unspecified (principal); R39.15 Urgency of urination; R53.1 Weakness; Z12.5 Encounter for screening for malignant neoplasm of prostate; I10 Essential (primary) hypertension; Z87.898 Personal history of other specified conditions; E11.69 Type 2 diabetes mellitus with other specified complication; E11.59 Type 2 diabetes mellitus with other circulatory complications
CPT/HCPCS: 36415; 80053; 80061; 81001; 82306; 83036; 83735; 84153; 85025; G0103

== ENCOUNTER 2023-10-29 12:02 | Outpatient (CLI) | payer MEDICARE, SELFPAY ==
--- NOTE | 2023-10-29 12:12 | ECG_ITS ---
SEE SCANNED COPY FOR CONFIRMED REPORT MTDD
[2023-10-29 12:14] LABS: Basophils Absolute Auto 0.03 K/mm3 (0.00-0.10); Basophils Percent Auto 0.4 % (0.0-1.0); Eosinophils Absolute Auto 0.06 K/mm3 (0.02-0.50); Eosinophils Percent Auto 0.8 % (1.0-6.0); Hematocrit 40.8 % (37.0-46.0); Hemoglobin 14.1 g/dL (12.4-15.3); Immature Granulocyte Absolute 0.12 K/mm3 (0.00-0.00); Immature Granulocyte Percent A 1.7 % (0.0-0.0); Lymphocytes Absolute Auto 1.84 K/mm3 (1.10-4.50); Lymphocytes Percent Auto 25.7 % (18.0-42.0); Mean Corpuscular HGB Conc 34.6 g/dL (32-36); Mean Corpuscular Hemoglobin 30.1 pg (27.0-31.0); Mean Platelet Volume 9.1 fl (8.7-11.0); Monocytes Absolute Auto 0.39 K/mm3 (0.10-0.90); Monocytes Percent Auto 5.4 % (2.0-11.0); Neutrophils Absolute Auto 4.73 K/mm3 (1.70-7.20); Platelet Count Result 206 K/mm3 (150-420); Red Blood Count 4.69 M/mm3 (4.70-6.10); Red Cell Distribution Width 12.2 % (11.6-14.4); White Blood Count 7.2 K/mm3 (4.8-10.8)
[2023-10-29 12:53] LABS: Hemoglobin A1C 10.6 % (<5.7)
[2023-10-29 13:48] LABS: Alanine Aminotransferase 14 U/L (16-63); Albumin Level 3.5 g/dL (3.4-5.0); Alkaline Phosphatase 67 U/L (46-116); Anion Gap 9 mmol/L (4-12); Aspartate Amino Transferase 36 U/L (15-37); Bilirubin,Total 0.3 mg/dL (0.00-1.00); Blood Urea Nitrogen 15 mg/dL (7-18); Calcium 8.8 mg/dL (8.5-10.1); Carbon Dioxide 29 mmol/L (21-32); Chloride 104 mmol/L (98-108); Cholesterol 193 mg/dL (0-200); Estimated Glomerular Filt Rate > 60; Free T4 Free Thyroxine 0.85 ng/dL (0.76-1.46); Glucose 251 mg/dL (70-99); HDL Direct 42 mg/dL (40-60); Iron 81 ug/dL (65-175); LDL Cholesterol Calculated 112 mg/dL (<130); Osmolality Calculated 302 mOsm/kg (285-295); Potassium 4.6 mmol/L (3.5-5.1); Sodium 142 mmol/L (136-145); Thyroid Stimulating Hormone 2.67 uIU/mL (0.36-3.74); Total Protein 6.6 g/dL (6.4-8.2); Triglycerides 197 mg/dL (0-150); Vitamin B12 508 pg/mL (193-986)
[2023-10-30 13:59] LABS: Vitamin D 25 Hydroxy 41 ng/mL (30-100)
[2023-11-01 17:04] LABS: Testosterone Free 44.2 pg/mL (30.0-135.0); Testosterone Total 256 ng/dL (250-1100)
== END 2023-10-29 12:03 | disposition home or self-care (01) ==
LOC: CHSLAB 12:04
PROVIDERS: PCP Nurse Practitioner Family; Visit Provider Nurse Practitioner Family
DX: E11.59 Type 2 diabetes mellitus with other circulatory complications (principal); I10 Essential (primary) hypertension; R42 Dizziness and giddiness; E11.69 Type 2 diabetes mellitus with other specified complication; E78.5 Hyperlipidemia, unspecified; Z79.899 Other long term (current) drug therapy
CPT/HCPCS: 36415; 80053; 80061; 82306; 82607; 83036; 83540; 83735; 84402; 84403; 84439; 84443; 85025; 93005

== ENCOUNTER 2023-11-11 14:04 | Outpatient (RCR) | payer MEDICARE, SELFPAY ==
--- NOTE | 2023-11-11 13:50 | OTOPEVAL1 ---
Assessment and note entered by Roseann Castellanos OT Evaluation Information Assessment Status Evaluation Diagnosis Carpal tunnel syndrome R UE Subjective Information The patient reports that he is unable to go fishing anymore with difficulty threading his string through the hook, playing guitar, and buttoning his shirts. He reports that he cannot feel with his L hand digits 1-3 anymore and he has no dexterity in L UE. The patient stated that he wants to be able to use his hand better. Reported Pain Level Pain Score 0: Self Report Assessment OT Clinical Summary The patient is an 83 year old male who was referred to outpatient therapy due to L carpal tunnel syndrome, s/p release that has caused sensation deficits that result in decreased pinch strength and coordination. The patient demonstrates moderately impaired L lateral pinch strength and L fine motor coordination that affect his ability to perform ADLs and leisure activities. The patient requires skilled OT to address deficits and return to maximal independence. Plan of Care Interventions Therapeutic Exercise,Manual Therapy,Neuro Re- education,Therapeutic Activities,Hot Pack/Cold Pack,Electrical Stimulation,Sensory Integrative Techn,Self-Care/Home Management,Prosthetic Training,Ultrasound OT Services Indicated Yes Treatment Frequency and 2x/week for 10 visits. Duration These treatments will address the objective and functional deficits as defined above. The patient will be advanced safely and appropriately in order for the patient to progress towards his/her prior level of function. Additional exercises will be introduced and as well as a comprehensive home exercise program upon discharge, if needed, ?to ensure carryover of functional gains achieved in the clinic. This treatment plan has been reviewed and agreement upon by the patient.
--- NOTE | 2023-12-12 11:28 | OTOPDC ---
Assessment and note entered by Roseann Castellanos OT Evaluation Information Assessment Status Discharge Reported Pain Level Pain Score 0: Self Report Assessment OT Clinical Summary The patient demonstrates significant progress in lateral pinch strength, HEP education and fine motor coordination making patient more independence to perform ADLs and homemaking tasks using small movements of his hand. He continues to demonstrate severe sensation deficits, after visit with hand specialist, the patient will be having surgery on L hand to rework nerves of hand and repair function. The patient is to call and make an appointment to schedule surgery, therapist educated the patient on importance of early innervation and to continue with UE HEP to maintain function achieved during therapy. He demonstrates 5.5 lb increase in lateral pinch and met goal for fine motor coordination performing 9- hole peg test in <55 seconds. He scored 36.4% on QuickDASH questionnaire at the time of discharge and demonstrates minimally increased function of hand. The patient is discharged at this time due to meeting goals at highest level of function at this time prior to surgery. To re-evaluate patient upon completion of surgery and referral from MD if needed. Plan of Care OT Services Indicated No
== END 2023-12-12 14:02 | disposition home or self-care (01) ==
LOC: CHSOT 14:04
PROVIDERS: Visit Provider Nurse Practitioner Family
DX: G56.01 Carpal tunnel syndrome, right upper limb (principal)
CPT/HCPCS: 97110; 97112; 97165; 97530

== ENCOUNTER 2024-02-03 15:52 | Outpatient (NON) | payer MEDICARE, SELFPAY | END 2024-02-03 15:53 | disposition home or self-care (01) | LOC: CHSLAB 15:54 | PROVIDERS: Visit Provider Family Medicine | DX: L57.0 Actinic keratosis (principal) | CPT/HCPCS: 88305 ==

== ENCOUNTER 2024-02-24 13:39 | Emergency (ER) | payer MEDICARE, SELFPAY ==
--- NOTE | ~2024-02-24 | CT_ITS ---
EXAMINATION: CT facial bones wo con DATE: 02/24/2024 14:08 INDICATION: Right mandibular pain. Fall. TECHNIQUE: Computed tomography (CT) of the facial bones and maxillofacial region was performed withou t intravenous contrast. Automated exposure control and iterative reconstruction technique were employ ed. The dose-length product was 360.42 mGy-cm. COMPARISON: None. FINDINGS: There are likely changes of ocular lens replacement surgeries. There is rightward deviation of anterior nasal septum and leftward deviation of posterior nasal septum. There is mild mucosal thi ckening in the paranasal sinuses. There is an oblique fracture of neck of right mandibular ramus. The inferior fracture fragment demonstrates 3 mm posterior displacement, 2 mm lateral displacement, and impaction. IMPRESSION: 1. Oblique fracture of neck of right mandibular ramus. Reviewed, dictated and finalized at location A.
[2024-02-24 13:40] VITALS: BP 153/95; PULSE 68; RESP 18; TEMP 36.5; O2SAT 98
[2024-02-24 13:49] VITALS: BP 153/95; PULSE 68; RESP 18; TEMP 36.5; O2SAT 98
--- NOTE | 2024-02-24 13:58 | ED.HEATRA ---
HPI - Head Injury General Chief complaint: Trauma Stated complaint: jaw pain Source: patient Mode of arrival: ambulatory Limitations: no limitations History of Present Illness HPI Narrative: Patient is 81-year-old male with a significant past medical history that presents today for Related Data Home Medications Medication Instructions Recorded Confirmed duloxetine 30 mg capsule,delayed 30 mg PO DAILY 02/24/24 02/24/24 release oxycodone 5 mg tablet 5 mg PO DAILY 02/24/24 02/24/24 Allergies Allergy/AdvReac Type Severity Reaction Status Date / Time No Known Allergies Allergy Verified 02/24/24 13:41 [facility] Past Medical History Medical History Calcific tendinitis of left shoulder GERD (gastroesophageal reflux disease) Hyperlipidemia associated with type 2 diabetes mellitus Hypertension associated with diabetes Left carpal tunnel syndrome Major depression, recurrent Right carpal tunnel syndrome Stiffness of finger joint of left hand Type 2 diabetes mellitus Surgical History Surgical History History of release of tendon (~05/2018) Family History Family History Father No problems noted. Mother No problems noted. Other Diabetes mellitus Social History Social History (Updated 01/14/24 @ 13:16 by Sanjuana Gonzalez RN) Smoking status: Never smoker Second hand tobacco smoke exposure: No Alcohol intake: current Drinks per week: 3 Substance use: never Substance use type: does not use Do You Feel Safe in your Home?: Yes Lack of Transportation: No Lack of Food: Never True Current Housing: I Have Housing Concerned About Future Housing: No Difficulty Paying Gas/Electric Bills: No Difficulty Paying for Meds: No Currently Unemployed: No Education: High School Diploma/GED Difficulty w/ Childcare or Family Care: No Living arrangements: alone Additional living arrangements comments: in 2018 Occupation/Education: retired Spiritual care concerns: No Course Reevaluation(s) Reevaluation #1: CT scan showed a displaced fracture of the right mandible. He has been accepted at [facility] for ADD transfer to see the maxillofacial a surgeon. Date: 02/24/24 Time: 15:17 Vital Signs Vital signs: Vital Signs Oxygen Delivery Room Air 02/24/24 13:39 Temperature 97.7 F 02/24/24 13:49 Pulse Rate 68 02/24/24 13:49 Respiratory Rate 18 02/24/24 13:49 Blood Pressure 153/95 H 02/24/24 13:49 Pulse Oximetry 98 02/24/24 13:49 Oxygen Delivery Room Air 02/24/24 13:49 Transfer Transfered to: [facility] Transfer rationale: maxillofacial surgeon Accepting physician: Dr. Vail Discharge Plan Discharge Clinical Impression: Fracture of mandible, Facial injury Patient Disposition: Acute Care Hospital Condition: Stable Instructions: Jaw Fracture in Adults (ED) Prescriptions: No Action oxycodone 5 mg tablet 5 mg PO DAILY duloxetine 30 mg capsule,delayed release(DR/EC) 30 mg PO DAILY Jardiance 25 mg tablet See Rx Instructions .ROUTE .COMPLEX Qty: 90 3RF Dose Instruction: TAKE 1 TABLET DAILY Rx Instructions: TAKE 1 TABLET DAILY cholecalciferol (vitamin D3) 50 mcg (2,000 unit) capsule 50 mcg PO DAILY Qty: 90 2RF meloxicam 15 mg tablet 15 mg PO DAILY Qty: 90 3RF lisinopril-hydrochlorothiazide 20-12.5 mg tablet See Rx Instructions .ROUTE .COMPLEX Qty: 90 3RF Dose Instruction: TAKE 1 TABLET DAILY Rx Instructions: TAKE 1 TABLET DAILY carvedilol 6.25 mg tablet See Rx Instructions .ROUTE .COMPLEX Qty: 180 3RF Dose Instruction: TAKE 1 TABLET TWICE A DAY Rx Instructions: TAKE 1 TABLET TWICE A DAY simvastatin 20 mg tablet See
[2024-02-24] MEDS: KETOROLAC (*BKC) 60 MG/2 ML VIAL IM (14:47)
[2024-02-24 15:16] VITALS: BP 162/82; PULSE 68; RESP 18; TEMP 36.5; O2SAT 97
--- NOTE | 2024-02-24 15:53 | PC.NURSE ---
Pt resting comfortably in his room. Waiting on friend to arrive to ED so that he may give him his keys to his house.
--- NOTE | 2024-02-24 15:59 | PC.NURSE ---
Pt denies any neck tenderness upon palpation. No C-collar recommended at this time. Pt reports that he is pain free. No neuro status changes noted. Pt denies any other injury. None noted, aside from facial injuries noted on arrival. Moves all extremities well. Ambulates in pt room with no difficulty.
--- NOTE | 2024-02-24 16:16 | PC.NURSE ---
[facility] reports 30 min arrival time for transfer of pt.
[2024-02-24 16:50] VITALS: BP 180/95; PULSE 67; RESP 20; TEMP 36.3; O2SAT 99
--- NOTE | 2024-02-24 17:23 | PC.NURSE ---
PT CONTINUES TO AWAIT ARRIVAL OF EMS FOR TRANSPORT. [facility] ARRIVES IN ER TO STATE THAT THEY ARE AWAITING THE ARRIVAL OF A BLS TRUCK FOR TRANSPORT. [facility] CALLED FOR A STATUS UPDATE, TO NOTIFY THEM WHEN PT LEAVES ER AT [phone]. PT IS SITTING IN CHAIR IN EXAM ROOM WITHOUT DISTRESS, AMBULATORY TO RR WITHOUT DIFFICULTY. FRIEND HAS CAME AND DROPPED OF PT'S CELL PHONE AND LOCKED UP PT'S HOUSE. WILL CONTINUE TO MONITOR.
== END 2024-02-24 17:35 | disposition short-term general hospital (02) ==
PROVIDERS: Emergency Provider Family Medicine; PCP Nurse Practitioner Family
DX: S02.609A Fracture of mandible, unspecified, initial encounter for closed fracture (principal); E11.9 Type 2 diabetes mellitus without complications; I10 Essential (primary) hypertension; E78.5 Hyperlipidemia, unspecified; Z79.891 Long term (current) use of opiate analgesic; W18.39XA Other fall on same level, initial encounter
CPT/HCPCS: 70486; 96372; 99285; J1885

== ENCOUNTER 2024-03-24 08:51 | Outpatient (RCR) | payer MEDICARE, SELFPAY ==
--- NOTE | 2024-03-26 08:54 | BUOTOPEVAL ---
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 The patient previously was experiencing mild numbness , weakness, and moderate difficulty with fine motor coordination tasks. He now demonstrates significant issues of L UE with severe numbness, scored moderately below norms for fine motor coordination, significant hand and pinch weakness that affects his ability to perform cooking tasks safely, perform grooming and dressing tasks with fine motor control, and engage in IADLs of working in his garage and playing guitar. The patient requires skilled OT to address muscle weakness, coordination skills and instruction on HEP and adaptive techniques needed to maximize independence and decrease risk of injury. Plan of Care Interventions Therapeutic Exercise,Manual Therapy,Neuro Re- education,Therapeutic Activities,Hot Pack/Cold Pack,Electrical Stimulation,Sensory Integrative Techn,Self-Care/Home Management,Check Out for Orthotic/Pr OT Services Indicated Yes Treatment Frequency and 2x/week for 10 visits. Duration These treatments will address the objective and functional deficits as defined above. The patient will be advanced safely and appropriately in order for the patient to progress towards his/her prior level of function. Additional exercises will be introduced and as well as a comprehensive home exercise program upon discharge, if needed, ?to ensure carryover of functional gains achieved in the clinic. This treatment plan has been reviewed and agreement upon by the patient.
--- NOTE | 2024-03-26 08:54 | OPREHPOC ---
Outpatient Therapy Plan of Care This is a Multidisciplinary Plan of Care that may contain components documented by all disciplines (PT, OT, and ST.) OT Problem 1 OT Problem #1 Knowledge Deficit OT Goal 1 Goal / Goal Update The patient will demonstrate 100% knowledge and return demonstration of UE HEP, use of adaptive tools and techniques, and scar massage implementation in order to improve strength and function of L hand. Target Visit 20 OT Problem 2 OT Problem #2 Impaired Range of Motion OT Goal 1 Goal / Goal Update The patient will demonstrate increased AROM of L hand with no space between thumb and small finger during opposition and >40 degrees wrist flexion and >45 degrees wrist extension of L hand/wrist needed to achieve dexterity of hand. 1.5 cm between thumb and small finger digit opposition L wrist flexion: 38 degrees L wrist extension: 45 degrees OT Problem 3 OT Problem #3 Impaired Strength OT Goal 1 Goal / Goal Update The patient will demonstrate increase UE strength of L wrist by demonstrating 5/5 muscle strength, > 40 lbs of tire center manager strength, >3 lbs of lateral pinch strength and >2 lbs of two point pinch strength that is needed to improve the coordination of hand for using tools in garage. Target Visit 20 OT Problem 4 OT Problem #4 Impaired Coordination OT Goal 1 Goal / Goal Update Demonstrate increased fine motor coordination performing 9-hole peg test in <75 seconds in order to use small movements of hand during cooking tasks. Target Visit 20
--- NOTE | 2024-05-12 15:46 | BUOTOPEVAL ---
Assessment and note entered by Roseann Castellanos, OT Evaluation Information Assessment Status Progress Diagnosis Severe median neuropathy Other ICD-10 Condition Codes ( Carpal tunnel syndrome OT) Reported Pain Level Pain Score 0: Self Report Pain Score 0: Self Report Pain Score 0: Self Report Pain Score 0: Self Report Pain Score 0: Self Report Pain Score 0: Self Report Pain Score 0: Self Report Pain Score 0: Self Report Pain Score 0: Self Report Pain Score 0: Self Report Assessment OT Clinical Summary The patient demonstrates significant progress in fine motor coordination, emergency department director strength, pinch strength, wrist strength, and wrist ROM at this time that has increased strength of L hand and resulted in decreased times of dropping items during daily tasks. The patient demonstrates difficulty performing digit opposition to small finger, moderately impaired sensation of L hand and demonstrates moderately below norm for fine motor coordination. These deficits affect his ability to fully use his hand for ADLs and IADLs such as playing guitar and meal preparation. The patient to return to MD next week to determine continued POC and discuss options and prognosis for present surgery and diagnosis. Therapist educated patient on UE HEP and to communicate with therapist on what he finds at the doctor. The patient demonstrates understanding of UE HEP and to assess at later date with continued POC. Plan of Care Interventions Therapeutic Exercise,Manual Therapy,Therapeutic Activities,Sensory Integrative Techn,Self-Care/ Home Management,Prosthetic Training OT Services Indicated Yes Treatment Frequency and 1x/week for 10 visits. Duration These treatments will address the objective and functional deficits as defined above. The patient will be advanced safely and appropriately in order for the patient to progress towards his/her prior level of function. Additional exercises will be introduced and as well as a comprehensive home exercise program upon discharge, if needed, ?to ensure carryover of functional gains achieved in the clinic. This treatment plan has been reviewed and agreement upon by the patient.
--- NOTE | 2024-05-12 15:46 | OPREHPOC ---
Outpatient Therapy Plan of Care This is a Multidisciplinary Plan of Care that may contain components documented by all disciplines (PT, OT, and ST.) OT Problem 1 OT Problem #1 Knowledge Deficit OT Goal 1 Goal / Goal Update The patient will demonstrate 100% knowledge and return demonstration of UE HEP, use of adaptive tools and techniques, and scar massage implementation in order to improve strength and function of L hand. GOAL MET Target Visit 20 Progress Met OT Problem 2 OT Problem #2 Impaired Range of Motion OT Goal 1 Goal / Goal Update The patient will demonstrate increased AROM of L hand with no space between thumb and small finger during opposition and >40 degrees wrist flexion and >45 degrees wrist extension of L hand/wrist needed to achieve dexterity of hand. PN 05/07/2024: 1.5 cm between thumb and small finger digit opposition L wrist flexion: 45 degrees L wrist extension: 61 degrees Target Visit 10 Progress Partially Met OT Problem 3 OT Problem #3 Impaired Strength OT Goal 1 Goal / Goal Update The patient will demonstrate increase UE strength of L wrist by demonstrating 5/5 muscle strength, > 40 lbs of rod bending machine operator strength, >3 lbs of lateral pinch strength and >2 lbs of two point pinch strength that is needed to improve the coordination of hand for using tools in garage. PN 05/07/24: MMT: 5/5 Generator Rebuilder: L - 38 lbs, R - 45 lbs Lateral Pinch: 5 lbs 2-pt pinch: 2 lbs Target Visit 20 Progress Partially Met OT Problem 4 OT Problem #4 Impaired Coordination OT Goal 1 Goal / Goal Update Demonstrate increased fine motor coordination performing 9-hole peg test in <75 seconds in order to use small movements of hand during cooking tasks. 9-hole: 85 seconds Target Visit 20 Progress Partially Met
== END 2024-06-22 23:59 | disposition home or self-care (01) ==
LOC: CHSOT 08:51
DX: G56.02 Carpal tunnel syndrome, left upper limb (principal)
CPT/HCPCS: 97110; 97140; 97166; 97530

== ENCOUNTER 2024-04-13 08:05 | Emergency (ER) | payer MEDICARE, SELFPAY ==
--- NOTE | ~2024-04-13 | XR_ITS ---
Right ankle Technique: AP, oblique, and lateral views were obtained. Clinical History: Injury Findings: Suspected tiny avulsion fracture of dorsal aspect of the talar head. No other fracture or d islocation. Osseous alignment is anatomic. Ankle mortise and other visualized joint spaces are preser suraj. Soft tissues are otherwise unremarkable. Impression: Suspected tiny avulsion fracture from the dorsal aspect of the talar head. Reviewed, dictated and finalized at location M. Impression: Suspected tiny avulsion fracture from the dorsal aspect of the talar head.
[2024-04-13 08:05] VITALS: BP 123/72; PULSE 76; RESP 20; TEMP 36.3; O2SAT 99
--- NOTE | 2024-04-13 08:16 | ED.LOWEXIN ---
HPI - Extremity Injury (Lower) General Chief Complaint: Extremity Injury, Lower Stated Complaint: ANKLE INJURY Time Seen by Provider: 04/13/24 08:12 Source: patient Mode of arrival: ambulatory History of Present Illness HPI Narrative: patient is 81-year-old male a significant past medical history presents today for right ankle injury. Patient states he was picking weeds bushes and twisted his right ankle. He says most pains on the lateral and medial malleolus area. States it does hurt to walk using walking stick to walk. He denies any other injuries or any other pain. complaint: ankle injury ( Right) Onset (ago): hour(s) Injury: Right: ankle Type of Injury: inversion Place: home Severity: mild Severity scale (1-10): 3 Relieving factors: nothing Exacerbating factors: nothing Context: direct blow Associated symptoms: swelling Other symptoms: none Related Data Home Medications Medication Instructions Recorded Confirmed duloxetine 30 mg capsule,delayed 30 mg PO DAILY 02/24/24 04/13/24 release oxycodone 5 mg tablet 5 mg PO DAILY 02/24/24 04/13/24 Allergies Allergy/AdvReac Type Severity Reaction Status Date / Time No Known Allergies Allergy Verified 04/13/24 08:28 Review of Systems Review of Systems: All systems reviewed & are unremarkable except as noted in HPI and below Constitutional: Constitutional: Reports as per HPI Eyes: Eyes: Reports as per HPI ENT: Reports system reviewed and no additional complaints, except as documented Cardiovascular: Cardiovascular: Reports as per HPI Respiratory: Respiratory: Reports as per HPI Gastrointestinal: Gastrointestinal: Reports as per HPI Genitourinary: Genitourinary: Reports no additional male genitourinary complaints Musculoskeletal: Musculoskeletal: Reports no additional musculoskeletal complaints Integumentary/Breasts: Skin/Breast: Reports system reviewed and no additional complaints, except as docu Neurologic: Reports system reviewed and no additional complaints, except as documented Psychiatric: Psychiatric: Reports no additional psychiatric complaints Endocrine: Endocrine: Reports no additional endocrine complaints Hematologic/Lymphatic: Hematologic/Lymphatic: Reports no additional hematologic/lymphatic complaints Allergic/Immunologic: Allergic/Immunologic: Reports no additional allergic/immunologic complaints PMFSH Past Medical History Medical History Calcific tendinitis of left shoulder GERD (gastroesophageal reflux disease) Hyperlipidemia associated with type 2 diabetes mellitus Hypertension associated with diabetes Left carpal tunnel syndrome Major depression, recurrent Right carpal tunnel syndrome Stiffness of finger joint of left hand Type 2 diabetes mellitus Surgical History Surgical History History of release of tendon (~05/2018) Family History Family History Father No problems noted. Mother No problems noted. Other Diabetes mellitus Social History Social History Smoking status: Never smoker Second hand tobacco smoke exposure: No Alcohol intake: current Drinks per week: 3 Substance use: never Substance use type: does not use Do You Feel Safe in your Home?: Yes Lack of Transportation: No Lack of Food: Never True Current Housing: I Have Housing Concerned About Future Housing: No Difficulty Paying Gas/Electric Bills: No Difficulty Paying for Meds: No Currently Unemployed: No Education: High School Diploma/GED Difficulty w/ Childcare or Family Care: No Living arrangements: alone Additional living arrangements comments: in 2018 Occupation/Education: retired Spiritual care concerns: No Course Course Emergency C
[2024-04-13 09:28] VITALS: BP 122/70; PULSE 72; RESP 16; O2SAT 98
--- NOTE | 2024-04-13 09:44 | PC.NURSE ---
+PMS POST JUS AND AIRCAST APPLICATION.
--- NOTE | 2024-04-13 09:47 | PC.NURSE ---
SPLINT AND JUS APPLIED BY ERP.
== END 2024-04-13 09:28 | disposition home or self-care (01) ==
PROVIDERS: Emergency Provider Family Medicine; PCP Nurse Practitioner Family
DX: S92.101A Unspecified fracture of right talus, initial encounter for closed fracture (principal); X50.0XXA Overexertion from strenuous movement or load, initial encounter; Y92.009 Unspecified place in unspecified non-institutional (private) residence as the place of occurrence of the external cause
CPT/HCPCS: 29515; 73610; 99284; L4350

== ENCOUNTER 2024-08-18 16:49 | Emergency (ER) | payer MEDICARE, SELFPAY ==
[2024-08-18] VITALS (8 sets, daily range): BP systolic 162–195; BP diastolic 82–108; PULSE 67–88; RESP 16–18; TEMP 36.6–36.7; O2SAT 96–99
--- NOTE | ~2024-08-18 | CT_ITS ---
History: Fall or PROCEDURE: CT head without contrast. COMPARISON: 05/10/2022 TECHNIQUE: Axial imaging of the head performed from the skull base to the vertex without IV contrast. Sagittal a nd coronal reformations obtained. DLP: 681 mGy-cm FINDINGS: The ventricles are enlarged. The dilatation of the ventricles is proportional to the degree of sulcal prominence, not uncommon in the senescent brain. Decreased attenuation is identified within the periventricular white matter, likely secondary to micr ovascular ischemic disease, in a patient of this age. There is no mass, mass effect or midline shift. There is no abnormal extra-axial fluid collection or intracranial hemorrhage. Visualized paranasal sinuses are clear. The mastoid air cells are well aerated. No acute displaced fractures within the overlying cranium. Impression: No acute intracranial hemorrhage or suspicious mass effect. Reviewed, dictated and finalized at location A. E[employer]ION[employer]ORTS SCOUT Impression: No acute intracranial hemorrhage or suspicious mass effect.
--- NOTE | ~2024-08-18 | CT_ITS ---
History: Fall PROCEDURE: CT cervical spine without intravenous contrast. COMPARISON: None TECHNIQUE: Multiple contiguous axial images of the cervical spine were performed without the administration of i ntravenous contrast. DLP: 342 mGy-cm FINDINGS: Acute fracture of the base of the odontoid process is identified with trace anterior displacement of the superior fracture fragment. Significant degenerative disease is also noted, with osteophyte formation, disc space narrowing, endp late changes and vacuum phenomena. No additional fractures are appreciated. The airway is patent. The bilateral lung apices are unremarkable. No soft tissue abnormality is present. The airway is unremarkable. Impression: Acute fracture of the base of the odontoid process with trace anterior displacement of the superior f racture fragment. This would be considered a type II fracture, which is unstable and has a high risk of nonunion. These findings were discussed with Dr. Cancino at 6:00 PM on 08/18/2024 Reviewed, dictated and finalized at location A. [facility] Impression: Acute fracture of the base of the odontoid process with trace anterior displace ment of the superior fracture fragment. This would be considered a type II fracture, which is unstable and has a high r isk of nonunion. These findings were discussed with Dr. Cancino at 6:00 PM on 08/18/2024
--- NOTE | ~2024-08-18 | XR_ITS ---
HISTORY: left thumb pain COMPARISON: 12/09/2018 TECHNIQUE: 3 views of the left hand were performed. FINDINGS: No acute fracture is identified. The joint spaces are preserved. The carpal arcs are intact. Bone mineralization is age-appropriate. No significant soft tissue swelling. No radiopaque foreign body is identified. Significant degenerative disease is identified, with osteophyte formation and joint space narrowing. Irregularity of the contour of the first metacarpal phalangeal joint as well as the distal interphala ngeal joint space, unchanged from 2019, likely representing chronic degenerative disease. IMPRESSION: Significant degenerative disease, without acute fracture or dislocation within the left hand, (specif ically the left first digit) as detailed above. Reviewed, dictated and finalized at location A. RESCENT LAMP REPLACER IMPRESSION: Significant degenerative disease, without acute fracture or dislocation within the left hand, (specifically the left first digit) as detailed above.
--- NOTE | ~2024-08-18 | XR_ITS ---
CHEST RADIOGRAPH CLINICAL HISTORY: accidental fall . COMPARISON: 04/29/2022 TECHNIQUE: Single portable view of the chest. FINDINGS The cardiomediastinal silhouette is unremarkable. Multiple prior right-sided rib fractures are identified. Blunting of the left costophrenic sulcus is now noted, an interval change for which a left-sided pleu ral effusion is suspected. The remainder of the lungs are clear. IMPRESSION: Left-sided pleural effusion without focal infiltrate. Reviewed, dictated and finalized at location A. ING EQUIPMENT MECHANIC
--- NOTE | ~2024-08-18 | XR_ITS ---
HISTORY: accidental fall COMPARISON: None TECHNIQUE: Single frontal view of the pelvis was performed FINDINGS: Age-appropriate mineralization is present. Superior lateral joint space narrowing and sclerosis is identified within the bilateral femoral aceta bular joint spaces. No acute fracture or dislocation is appreciated. IMPRESSION: Degenerative disease, without acute fracture or dislocation, as detailed above. Reviewed, dictated and finalized at location A. ORY TUTOR
--- OUTSIDE RECORDS SUMMARY | 2024-08-18 16:51 | XMS_ITS | Referral Summary ---
Author Organization [facility] Address [address] [place] [address] Care Team Providers Care District Court Reporter Name Role Phone Elise Bradford MD Primary Care P rovider Karl Abdi MD Unavailable [phone] Encounters Date Type Department Care Team Description 05/31/2024 12:45 PM PRINT MACHINE OPERATOR Office Visit [facility] Surgery [address] [facility] [address] [place] [address] Lucila Cuevas MD Carpal tunnel syndrome of left wrist (Primary Dx) 05/31/2024 11:30 AM PRINT MACHINE OPERATOR Therapy [facility] Occupational Therapy [address] [facility] [address] [place] [address] Darren Patricia OT Carpal tunnel syndrome of left wrist (Primary Dx) 05/27/2024 Telephone [facility] Surgery [address] [facility] [address] [place] [id number] Aretha Magallanes from Last 3 Months Allergies No known active allergies Medications lisinopril-hydr oCHLOROthiazide (ZESTORETIC) 20-12.5 mg per tabletIndicatio ns:hypertension Take 1 tablet by mouth every morning Active simvastatin (ZOCOR) 20 mg tabletIndicatio ns:hyperlipidem ia Take 1 tablet (20 mg total) by mouth every morning Active empagliflozin (JARDIANCE) 25 mg tabletIndicatio ns:type 2 diabetes mellitus Take 1 tablet (25 mg total) by mouth every morning Active carvediloL (COREG) 6.25 mg tabletIndicatio ns:hypertension Take 1 tablet (6.25 mg total) by mouth 2 (two) times a day Active glimepiride (AMARYL) 1 mg tabletIndicatio ns:type 2 diabetes mellitus Take 1 tablet (1 mg total) by mouth 2 (two) times a day Active meloxicam (MOBIC) 15 mg tabletIndicatio ns:Osteoarthrit is,arthritis Take 1 tablet (15 mg total) by mouth every morning [address] (CYMBALTA) 30 mg capsuleIndicati ons:Anxiety with Depression Take 1 capsule (30 mg total) by mouth every morning 4 Active Mounjaro 5 mg/0.5 mL pen injectorIndicat ions:type 2 diabetes mellitus Inject 5 mg under the skin once a week Takes on Friday 4 Active oxyCODONE (ROXICODONE) 5 mg immediate release tabletIndicatio ns:Pain Take 1 tablet (5 mg total) by mouth every 4 (four) hours as needed for pain 15 tablet 4 Active Additional Information Patient not taking.Reported on 05/31/2024 chlorhexidine (PERIDEX) 0.12 % solution Apply 15 mL to the mouth or throat 2 (two) times a day 120 mL 4 Active Additional Information Patient not taking.Reported on 05/31/2024 Active Problems Problem Noted Date Diagnosed Date Left median nerve neuropathy 01/21/2024 Carpal tunnel syndrome of left wrist 01/21/2024 Immunizations Name Administration Dates Next Due Influenza, Quad, Adjuvantate d, Intramuscular 03/25/2023 Influenza, Quadrivalent, Hig h Dose, Preservative Free, Intrr 04/07/2022,05/10/2021,02/22/2020 Influenza, Trivalent, High D ose, Split, Preservative Free, Intramuscular 03/29/2018,03/31/2017,03/31/2016 Pneumococcal Conjugate PCV 13 03/31/2017 Social History Tobacco Use Types Packs/Day Years Used Date Smoking Tobacco: Never Passive Smoke Exposure: Past Smokeless Tobacco: Never Tobacco Cessation:Counseling Given: Not Answered AUDIT-C Answer Date Recorded Q1: How often do you have a drink containing alcohol? 4 or more times a week 01/27/2024 Q2: How many drinks containi ng alcohol do you have on a typical day when you are drinking? 1 or 2 Q3: How often do you have si x or more drinks on one occasion? Never 01/27/2024 Personal Safety Answer Date Recorded Have you ever been in or are you currently in a harmful physical or emotional relationship or is someone making you feel afraid or unsafe? Denies 02/24/2024 Sex and Gender Information Value Date Recorded Sex Assigned at Not on file Legal Sex Male 12:00 AM PRINT MACHINE OPERATOR Gender Identity Not on file Sexual Orientation Not on file Last Filed Vital Signs Vital Sign Reading Time Taken Comments Blood Pressure 172/88 02/24/2024 10:00 PM CDT Pulse 64 02/24/2024 10:00 PM CDT Temperature 37 C (98.6 F) 02/24/2024 6:35 PM CDT Respiratory Rate 15 02/24/2024 10:00 PM CDT Oxygen Saturation 96% 02/24/2024 10:00 PM CDT Inhaled Oxygen Concentration - - Weight 63.5 kg (140 lb) 02/24/2024 6:35 PM CDT Height 172.7 cm (5' 8 ) 02/24/2024 6:35 PM CDT Body Mass Index 21.29 02/24/2024 6:35 PM CDT Plan of Treatment Not on file Insurance [employer]IC[employer] [facility] MEDICARE Address: [address] [place] [id number] [employer] [facility] MED[facility] Address: [address] [place] [phone] Advance Directives For more information, please contact: [phone] * Full Code (Latest Code Status on File) Date Activated Date Inactivated Comments 01/27/2024 6:13 PM 01/28/2024 1:[address] Reporter Relationship Specialty Start Date End Date Elise Bradford MD [address] [place] [address] PCP - General Ophthalmology 11/12/23 Karl Abdi MD [address] [address] [place] [address] Referring Physician Orthopedic Surgery 01/21/24
--- OUTSIDE RECORDS SUMMARY | 2024-08-18 16:51 | XMS_ITS | Clinical Summary ---
Author Organization [facility] Address [address] [place] [address] Care Team Providers Care Systems Administrator Name Role Phone Elise Slaughter MD Primary Care Provider [phone] Allergies No known active allergies Medications lisinopril-hydr oCHLOROthiazide (ZESTORETIC) 20-12.5 MG tablet Take 1 tablet by mouth daily. Active simvastatin (ZOCOR) 20 MG tablet Take 1 tablet (20 mg total) by mouth daily. Active empagliflozin (JARDIANCE) 25 MG tablet Take 1 tablet (25 mg total) by mouth daily. Active carvedilol (COREG) 6.25 MG tablet Take 1 tablet (6.25 mg total) by mouth 2 (two) times daily. Active glimepiride (AMARYL) 1 MG tablet Take 1 tablet (1 mg total) by mouth 2 (two) times a day. Active dulaglutide (TRULICITY) 4.5 MG/0.5ML injection (PEN) Inject 4.5 mg into the skin once a week. Active DULoxetine (CYMBALTA) 30 MG capsule Take 1 capsule (30 mg total) by mouth daily. 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 Gender Identity Not on file Sexual Orientation Not on file Last Filed Vital Signs Vital Sign Reading Time Taken Comments Blood Pressure 151/78 09/24/2023 12:47 PM CDT Pulse 69 09/24/2023 12:47 PM CDT Temperature 36.2 C (97.2 F) 09/24/2023 11:19 AM CDT Respiratory Rate 16 09/24/2023 12:47 PM CDT Oxygen Saturation 98% 09/24/2023 12:47 PM CDT Inhaled Oxygen Concentration - - Weight 63.5 kg (140 lb) 09/16/2023 2:57 PM CDT Height 172.7 cm (5' 8 ) 09/16/2023 2:57 PM CDT Body Mass Index 21.29 09/16/2023 2:57 PM CDT Plan of Treatment Health Maintenance Due Date Last Done Comments DTaP, Tdap and Td Vaccines (1 - Tdap) 1960 Zoster Vaccines (1 of 2) 1991 Annual Medicare Wellness Visit 2006 RSV Immunization or 60+ Years (1 - 1-dose 75+ series) 2016 Pneumococcal Vaccine: 65+ Years (2 of 2 - PPSV23 or PCV20) 03/31/2018 03/31/2017 COVID-19 Vaccine ( - season) 2024 03/25/2023, 01/22/2022, 04/16/2021, Additional history exists Influenza Adult (#1) 2024 03/29/2018, 03/31/2017, 03/31/2016 Meningococcal B Vaccine Aged Out No l onger eligible based on patient's age to complete this topic Meningococcal Vaccine Aged Out No vianey guido eligible based on patient's age to complete this topic RSV Immunizations Under 20 Months Aged Out No longer eligible based on patient's age to complete this topic Medical Devices Implanted Type Area Medical Librarian Device Identifier Shelf Expiration Date Model / Serial / Lot Tecnis Simplicity System Implanted:Qty: 1 on 08/27/2023 by Elise Slaughter MD at [facility] Right: Eye [employer] [id number] 11/26/2025 DCB00 / [id number] / [id number] Tecnis 1-Piece Implanted:Qty: 1 on 09/24/2023 by Elise Slaughter MD at [facility] Left: Eye DCB00 / [id number] / Insurance [facility] Care Teams Systems Administrator Relationship Specialty Start Date End Date Elise Slaughter MD [address] [place] [address] [place] [address] PCP - General OPHTHALMOLOGY 08/26/23
--- OUTSIDE RECORDS SUMMARY | 2024-08-18 16:51 | XMS_ITS | Clinical Summary ---
Author Organization [facility] Address [address] [place] [address] Care Team Providers Care Tractor Crane Operator Name Role Phone Elise Bradford MD Primary Care P rovider Karl Abdi MD Unavailable [phone] Allergies No known active allergies Medications lisinopril-hydr [...] the skin once a week Takes on Fridays 4 Active oxyCODONE (ROXICODONE) 5 mg immediate [...] Carpal tunnel syndrome of left wrist 01/21/2024 Encounters Date Type Department Care Team Description 05/31/2024 12:45 PM RUBBER GOODS INSPECTOR TESTER Office Visit [facility] Surgery [address] [place] [address] 6th [place] [address] Lucila Cuevas MD Carpal tunnel syndrome of left wrist (Primary Dx) 05/31/2024 11:30 AM RUBBER GOODS INSPECTOR TESTER Therapy [facility] Occupational Therapy [address] [place] [address] 6th [place] [address] Darren Patricia OT Carpal tunnel syndrome of left wrist (Primary Dx) 05/27/2024 Telephone [facility] Surgery [address] [place] [address] 6th [place] [address] Aretha Magallanes from Last 3 Months Immunizations Name Administration Dates Next Due Influenza, Quad, Adjuvantate d, Intramuscular 03/25/2023 Influenza, Quadrivalent, Hig h Dose, Preservative Free, Intrr 04/07/2022,05/10/2021,02/22/2020 Influenza, Trivalent, High D ose, Split, Preservative Free, Intramuscular 03/29/2018,03/31/2017,03/31/2016 Pneumococcal Conjugate PCV 13 03/31/2017 Surgical History Surgery Date Site/Laterality Comments CATARACT EXTRACTION W/ INTRAOCULAR LENS IMPLANT Bilateral right-08/2023, left- 09/2023 CARPAL TUNNEL RELEASE 02/04/2023 - 03/06/2023 Left COLONOSCOPY last one 2020 Medical History Medical History Date Comments Hypertension Type 2 diabetes mellitus (HCC) Social History Tobacco Use Types Packs/Day Years [...] on file Legal Sex Male 12:00 AM RUBBER GOODS INSPECTOR TESTER Gender Identity Not on file Sexual Orientation Not on file Obstetrics History Last Filed Vital Signs Vital Sign Reading [...] 02/24/2024 6:35 PM CDT Plan of Treatment Health Maintenance Due Date Last Done Comments Depression Screening 1941 DTaP/Tdap/Td Vaccine (1 - Tdap) 1952 Hepatitis B Screening 1959 Zoster Vaccine (1 of 2) 1991 Well Visit 65+ 2006 Pneumococcal vaccine 65+ (2 of 2 - PPSV23 or PCV20) 03/31/2018 03/31/2017 Covid-19 Vaccine (6 - 4-2 5 season) 2024 03/25/2023, 01/22/2022, 04/16/2021, Additional history exists Influenza Vaccine (#1) 2024 , 04/07/2022, 05/10/2021, Additional history exists Fall Risk Assessment 01/27/2025 01/28/2024 Insurance [employer] Advance Directives For more information, please contact: [phone] * Full Code (Latest Code Status on File) Date Activated Date Inactivated Comments 01/27/2024 6:13 PM 01/28/2024 1:38 PM Care Teams Tractor Crane Operator Relationship Specialty Start Date End Date Elise Brafdord MD [address] [place] [address] PCP - General Ophthalmology 11/12/23 Karl Abdi MD [address] [address] Referring Physician Orthopedic Surgery 01/21/24
--- NOTE | 2024-08-18 17:02 | ED.FALL ---
HPI - Fall General Chief Complaint: Fall Stated Complaint: FALL Time Seen by Provider: 08/18/24 17:02 Source: patient Mode of arrival: ambulatory Limitations: no limitations History of Present Illness HPI Narrative: 84-year-old male with a history of depression, hypertension, diabetes mellitus, dyslipidemia, GERD, tendinitis of the left shoulder, carpal tunnel presents to the ED after he fell down 15 steps at home 1 hour ago. He angie attempting to do something on the wall and lost balance before he fell. He presents with -- head injury with abrasion on the top of his head. no loss of consciousness. -- neck pain. He had placement of a C-collar. No motor or sensory involvement of the upper and lower extremities. he was able to pass urine after the injury. -- Right arm, left posterior abrasion -- left thumb injury complaint: fall Onset (ago): hour(s) ( 1 hour ago) Fall from: standing Fall witnessed: no Place fall occurred: home Loss of consciousness: none Prolonged down time: no Symptoms prior to fall: none Context: tripped/slipped Location of injury: head Location of injury - extremities: Left: hand Severity: moderate Quality: aching Associated symptoms (after fall): neck pain Related Data Home Medications ?Medication ?Instructions ?Recorded ?Confirmed ?Last Taken ?Type duloxetine 30 mg capsule,delayed 30 mg PO DAILY 02/24/24 07/05/24 Unknown History release oxycodone 5 mg tablet 5 mg PO DAILY 02/24/24 07/05/24 Unknown History Allergies Allergy/AdvReac Type Severity Reaction Status Date / Time No Known Allergies Allergy Verified 08/18/24 17:01 Review of Systems Review of Systems: All systems reviewed & are unremarkable except as noted in HPI and below Constitutional: Constitutional: Reports as per HPI and Reports no additional constitutional complaints Eyes: Eyes: Reports as per HPI and Reports no additional eye complaints ENT: Reports system reviewed and no additional complaints, except as documented and Reports as per HPI Cardiovascular: Cardiovascular: Reports as per HPI and Reports no additional cardiovascular complaints Respiratory: Respiratory: Reports as per HPI and Reports no additional respiratory complaints Gastrointestinal: Gastrointestinal: Reports as per HPI and Reports no additional gastrointestinal complaints Genitourinary: Genitourinary: Reports no additional male genitourinary complaints, Reports as per HPI and Reports urinary frequency Musculoskeletal: Comments: Neck pain Integumentary/Breasts: Comments: multiple abrasions on top of his head, right arm left posterior chest Neurologic: Reports system reviewed and no additional complaints, except as documented and Reports as per HPI Psychiatric: Psychiatric: Reports no additional psychiatric complaints and Reports as per HPI Endocrine: Endocrine: Reports no additional endocrine complaints and Reports as per HPI Hematologic/Lymphatic: Hematologic/Lymphatic: Reports no additional hematologic/lymphatic complaints and Reports as per HPI Allergic/Immunologic: Allergic/Immunologic: Reports no additional allergic/immunologic complaints and Reports as per HPI [facility] Past Medical History Medical History Right carpal tunnel syndrome Stiffness of finger joint of left hand Left carpal tunnel syndrome GERD (gastroesophageal reflux disease) Calcific tendinitis of left shoulder Major depression, recurrent Type 2 diabetes mellitus Hypertension associated with diabetes Hyperlipidemia associated with type 2 diabetes mellitus Surgical History Surgical History History of release of tendon (~05/2018) Family History Family History Father No problems noted. Mother No problems noted. Other Diabetes mellitus Social History Social History Smoking status: Never smoker Second hand tobacco smoke exposure: No Alcohol intake: current Drinks per week: 3 Substance use: never Substance use type: does not use Do You Feel Safe in your Home?: Yes Lack of Transportation: No Lack of Food: Never True Current Housing: I Have Housing Concerned About Future Housing: No Difficulty Paying Gas/Electric Bills: No Difficulty Paying for Meds: No Currently Unemployed: No Education: High School Diploma/GED Difficulty w/ Childcare or Family Care: No Living arrangements: alone Additional living arrangements comments: in 2018 Occupation/Education: retired Spiritual care concerns: No Exam Const: General: alert Orientation/consciousness: patient oriented x3 Limitations: no limitations HENMT: Head: normal to inspection Head images:  1. abrasion on the top of his head Ears: external ears normal Face/Nose/Sinus: Normal external nose present Face and sinus: normal facial exam Mouth: Yes Normal oral and palatal mucosa present Throat: posterior oropharynx normal Eyes: Conjunctivae: conjunctivae normal Pupils: Equal, round and reactive pupils present EOM: EOMs intact bilaterally Direct Ophthalmoscopy: no photophobia Neck: Neck: normal visual inspection, no lymphadenopathy and no meningeal signs Chest: Chest palpation & inspection: normal inspection of the chest Resp: Effort & Inspection: normal respiratory effort Auscultation: clear to auscultation bilaterally Other: no chest wall tenderness Cardio: Rate: regular rate Rhythm: regular rhythm GI: Auscultation: normal bowel sounds : General: Yes no CVA tenderness Back/Spine/Pelvis: Back: no CVA tenderness Other: no spinal tenderness. Skin: General skin exam: normal color Other: Multiple bruises on the top of his head, right arm, left posterior chest Neuro: General: patient oriented x3, moves all extremities, no meningeal signs, no focal motor deficits and CN's II-XI intact bilaterally Cranial nerves: Yes Nystagmus not present Speech: normal speech Extrem: General: normal to inspection and no clubbing, cyanosis or edema Other: left thumb pain and swelling right arm bruising Psych: Mental Status: mental status grossly normal Affect: normal affect Attitude: cooperative Course Course Emergency Course: accidental fall head injury-- CT of the head did not show any acute findings. neck pain-- acute fracture of the base of the odontoid with anterior displacement of the superior fragment. No evidence of spinal cord compression. abrasion left posterior chest wall-- left pleural effusion, Chest x-ray revealed left pleural effusion. H&H is noted be 14.2/41.5. multiple abrasions left thumb contusion Vital Signs Vital signs: Vital Signs Temperature 36.6 C 08/18/24 16:50 Pulse Rate 67 08/18/24 16:50 Respiratory Rate 18 08/18/24 16:50 Blood Pressure 195/96 H 08/18/24 16:50 Pulse Oximetry 98 08/18/24 16:50 Oxygen Delivery Room Air 08/18/24 16:50 Temperature 36.6 C 08/18/24 16:50 Pulse Rate 88 08/18/24 18:19 Respiratory Rate 18 08/18/24 18:19 Blood Pressure 174/91 H 08/18/24 18:19 Pulse Oximetry 97 08/18/24 18:19 Oxygen Delivery Room Air 08/18/24 18:19 MDM - Fall MDM Narrative Medical decision making narrative: Accidental fall odontoid fracture chest trauma with left pleural effusion head injury Differential Diagnosis Differential diagnosis: Likely concussion without loss of consciousness Lab Data Attestation: I reviewed the patient's lab results. 08/18/24 17:54 08/18/24 17:54 Labs: Lab Results 08/18/24 08/18/24 Range/Units 17:25 17:54 WBC 6.6 (4.8-10.8) K/mm3 RBC 4.80 (4.70-6.10) M/mm3 Hgb 14.2 (12.4-15.3) g/dL Hct 41.5 (37.0-46.0) % MCV 86.5 (78.0-102.0) fL MCH 29.6 (27.0-31.0) pg MCHC 34.2 (32-36) g/dL RDW 12.0 (11.6-14.4) % Plt Count 227 (150-420) K/mm3 MPV 9.7 (8.7-11.0) fl Immature Gran % (Auto) 1.8 H (0.0-0.0) % Neut % (Auto) 71.3 H (50.0-70.0) % Lymph % (Auto) 19.4 (18.0-42.0) % [place] % (Auto) 6.1 (2.0-11.0) % Eos % (Auto) 0.8 L (1.0-6.0) % Baso % (Auto) 0.6 (0.0-1.0) % Lymph # (Auto) 1.27 (1.10-4.50) K/mm3 [place] # (Auto) 0.40 (0.10-0.90) K/mm3 Eos # (Auto) 0.05 (0.02-0.50) K/mm3 Baso # (Auto) 0.04 (0.00-0.10) K/mm3 Abs Immat Gran (auto) 0.12 H (0.00-0.00) K/mm3 Absolute Neuts (auto) 4.67 (1.70-7.20) K/mm3 Absolute Nucleated RBC 0.00 (0.00-0.00) K/mm3 Nucleated RBC % 0.0 (0-0.0) % Sodium 137 (136-145) mmol/L Potassium 3.9 (3.5-5.1) mmol/L Chloride 98 (98-108) mmol/L Carbon Dioxide 30 (21-32) mmol/L Anion Gap 9 (4-12) mmol/L BUN 20 H (7-18) mg/dL Creatinine 1.13 (0.70-1.30) mg/dL Estim Creat Clear Calc 40 ml/min Estimated GFR > 60 (59 - ) Glucose 435 H* (70-99) mg/dL Calculated Osmolality 305 H (285-295) mOsm/kg Calcium 9.6 (8.5-10.1) mg/dL Total Bilirubin 0.4 (0.00-1.00) mg/dL AST 32 (15-37) U/L ALT 22 (16-63) U/L Alkaline Phosphatase 116 (46-116) U/L Total Protein Pending Albumin 3.7 (3.4-5.0) g/dL Lipase 126 H (16-77) U/L Urine Color Light yellow (Yellow) Urine Appearance Clear (Clear) Urine pH 6.5 (5.0-8.0) Ur Specific [place] 1.010 (1.010-1.020) Urine Protein Negative (Negative) Urine Glucose (UA) 3+ H (Negative) Urine Ketones Negative (Negative) Ur Blood (Man) Negative (Negative) Urine Nitrate Negative (Negative) Urine Bilirubin Negative (Negative) Urine Urobilinogen 0.2 (0.2-1.0) mg/dL Leukocyte Esterase Rfl Negative (Negative) SKY/UL ECG Data EKG #1: ECG completion date: 08/18/24 ECG completion time: 18:34 Interpretation: normal sinus rhythm with first-degree AV block. Normal axis. No ST elevation. Discharge Plan Discharge Clinical Impression: Accidental fall Qualifiers: Encounter type: initial encounter Qualified Code(s): W19.XXXA - Unspecified fall, initial encounter Odontoid fracture Qualifiers: Encounter type: initial encounter Fracture type: closed Qualified Code(s): S12.100A - Unspecified displaced fracture of second cervical vertebra, initial encounter for closed fracture Chest trauma Qualifiers: Encounter type: initial encounter Qualified Code(s): S29.9XXA - Unspecified injury of thorax, initial encounter Hyperglycemia due to type 2 diabetes mellitus Qualifiers: Diabetes mellitus correction insulin use: without local company intermodal truck driver use Qualified Code(s): E11.65 - Type 2 diabetes mellitus with hyperglycemia Patient Disposition: Still a Patient Condition: Unstable Additional Instructions: transfer patient to [facility] in [place]. Patient has been accepted by trauma surgeon Dr. Khoury Patient Language: Georgian Prescriptions: No Action oxycodone 5 mg tablet 5 mg PO DAILY duloxetine 30 mg capsule,delayed release(DR/EC) 30 mg PO DAILY (DME) crutches See Rx Instructions .Route .MEDSUPPLY Qty: 1 0RF Rx Instructions: As directed diclofenac sodium 3 % gel 1 applic topical BID PRN (Reason: pain) Qty: 100 2RF Rx Instructions: Apply to hands magnesium chelate, malate 125 mg magnesium capsule 125 mg PO .hs Qty: 30 1RF cholecalciferol (vitamin D3) 50 mcg (2,000 unit) capsule 50 mcg PO DAILY Qty: 90 2RF meloxicam 15 mg tablet 15 mg PO DAILY Qty: 90 3RF lisinopril-hydrochlorothiazide 20-12.5 mg tablet See Rx Instructions .ROUTE .COMPLEX Qty: 90 3RF Dose Instruction: TAKE 1 TABLET DAILY Rx Instructions: TAKE 1 TABLET DAILY carvedilol 6.25 mg tablet See Rx Instructions .ROUTE .COMPLEX Qty: 180 3RF Dose Instruction: TAKE 1 TABLET TWICE A DAY Rx Instructions: TAKE 1 TABLET TWICE A DAY Mounjaro 5 mg/0.5 mL pen injector See Rx Instructions .ROUTE .COMPLEX Qty: 2 11RF Dose Instruction: INJECT THE CONTENTS OF ONE PEN SUBCUTANEOUSLY WEEKLY DIRECTED Rx Instructions: INJECT THE CONTENTS OF ONE PEN SUBCUTANEOUSLY WEEKLY DIRECTED simvastatin 20 mg tablet See Rx Instructions .ROUTE .COMPLEX Qty: 90 3RF Dose Instruction: TAKE 1 TABLET BY MOUTH DAILY Rx Instructions: TAKE 1 TABLET BY MOUTH DAILY glimepiride 1 mg tablet See Rx Instructions .ROUTE .COMPLEX Qty: 180 3RF Dose Instruction: TAKE 1 TABLET BY MOUTH TWICE DAILY WITH MEALS Rx Instructions: TAKE 1 TABLET BY MOUTH TWICE DAILY WITH MEALS Jardiance 25 mg tablet See Rx Instructions .ROUTE .COMPLEX Qty: 90 3RF Dose Instruction: TAKE 1 TABLET BY MOUTH DAILY Rx Instructions: TAKE 1 TABLET BY MOUTH DAILY Follow-up/Referrals: Krysta Lopes NP [Primary Care Provider] - Time of Disposition: 18:33
--- OUTSIDE RECORDS SUMMARY | 2024-08-18 17:20 | XMS_ITS | Clinical Summary ---
Author Organization [facility] Address [address] [place] [address] Care Team Providers Care Commissary Clerk Name Role Phone Elise Bradford MD Primary Care P rovider Karl Abdi MD Unavailable [phone] Allergies No known active allergies Medications lisinopril-hydr [...] Department Care Team Description 05/31/2024 12:45 PM ENGRAVER OPTICAL FRAMES Office Visit [facility] Surgery [address] [place] [address] 6th [place] [address] Lucila Cuevas MD Carpal tunnel syndrome of left wrist (Primary Dx) 05/31/2024 11:30 AM ENGRAVER OPTICAL FRAMES Therapy [facility] Occupational Therapy [address] [place] [address] 6th [place] [address] Darren Patricia OT Carpal tunnel syndrome of left wrist (Primary Dx) 05/27/2024 Telephone [facility] Surgery [address] [place] [address] 6th [place] [address] Aretha Magallanes from Last 3 Months Immunizations [...] on file Legal Sex Male 12:00 AM ENGRAVER OPTICAL FRAMES Gender Identity Not on file Sexual Orientation [...] Advance Directives For more information, please contact: [phone] * Full Code (Latest Code Status on File) Date Activated Date Inactivated Comments 01/27/2024 6:13 PM 01/28/2024 1:38 PM Care Teams Commissary Clerk Relationship Specialty Start Date End Date Elise Bradford MD [address] [place] [address] PCP - General Ophthalmology 11/12/23 Karl Abdi MD [address] [address] Referring Physician Orthopedic Surgery 01/21/24
--- OUTSIDE RECORDS SUMMARY | 2024-08-18 17:20 | XMS_ITS | Clinical Summary ---
Author Organization [facility] Address [address] [place] [address] Care Team Providers Care Capsule Filling Machine Operator Name Role Phone Elise Slaughter MD Primary Care Provider [phone] Allergies No known active allergies Medications lisinopril-hydr [...] on file Legal Sex Male 10:00 AM LOCATOR SPECIALIST Gender Identity Not on file Sexual Orientation [...] this topic Medical Devices Implanted Type Area Telescope Maintenance Device Identifier Shelf Expiration Date Model / Serial / Lot Tecnis Simplicity System Implanted:Qty: 1 on 08/27/2023 by Elise Slaughter MD at [facility] Right: Eye [employer] [id number] 11/26/2025 DCB00 / [id number] / [id number] Tecnis 1-Piece Implanted:Qty: 1 on 09/24/2023 by Elise Slaughter MD at [facility] Left: Eye DCB00 / [id number] / Insurance [facility] Care Teams Capsule Filling Machine Operator Relationship Specialty Start Date End Date Elise Slaughter MD [address] [place] [address] [place] [address] PCP - General OPHTHALMOLOGY 08/26/23
--- OUTSIDE RECORDS SUMMARY | 2024-08-18 17:20 | XMS_ITS | Referral Summary ---
Author Organization [facility] Address [address] [place] [address] Care Team Providers Care Electrician Rectifier Maintenance Name Role Phone Elise Bradford MD Primary Care P rovider Karl Abdi MD Unavailable [phone] Encounters Date Type Department Care Team Description 05/31/2024 12:45 PM STUDENT LOAN COUNSELOR Office Visit [facility] Surgery [address] [facility] 6th [place] [address] Lucila Cuevas MD Carpal tunnel syndrome of left wrist (Primary Dx) 05/31/2024 11:30 AM STUDENT LOAN COUNSELOR Therapy [facility] Occupational Therapy [address] [facility] 6th [place] [address] Darren Patricia OT Carpal tunnel syndrome of left wrist (Primary Dx) 05/27/2024 Telephone [facility] Surgery [address] [facility] 6th [place] [id number] Aretha Magallanes from Last 3 Months Allergies [...] on file Legal Sex Male 12:00 AM STUDENT LOAN COUNSELOR Gender Identity Not on file Sexual Orientation [...] Treatment Not on file Insurance MED[employer] MEDICARE SOLUTIONS Advance Directives For more information, please contact: [phone] * Full Code (Latest Code Status on File) Date Activated Date Inactivated Comments 01/27/2024 6:13 PM 01/28/2024 1:38 PM Care Teams Electrician Rectifier Maintenance Relationship Specialty Start Date End Date Elise Bradford MD [address] [place] [address] PCP - General Ophthalmology 11/12/23 Karl Abdi MD [address] [facility] [address] [place] [address] Referring Physician Orthopedic Surgery 01/21/24
[2024-08-18 17:42] LABS: Add Urine Microscopic? NO; Appearance Urine Clear (Clear); Bilirubin Urine Negative (Negative); Blood Urine Negative (Negative); Color Urine Light Yellow (Yellow); Glucose Urine UA 3+ (Negative); Ketones Urine Negative (Negative); Leukocyte Esterase Ur Negative LEU/UL (Negative); Nitrate Urine Negative (Negative); Protein Urine Negative (Negative); Urobilinogen Urine 0.2 mg/dL (0.2-1.0); pH Urine 6.5 (5.0-8.0)
[2024-08-18 18:10] LABS: Basophils Absolute Auto 0.04 K/mm3 (0.00-0.10); Basophils Percent Auto 0.6 % (0.0-1.0); Eosinophils Absolute Auto 0.05 K/mm3 (0.02-0.50); Eosinophils Percent Auto 0.8 % (1.0-6.0); Hematocrit 41.5 % (37.0-46.0); Hemoglobin 14.2 g/dL (12.4-15.3); Immature Granulocyte Absolute 0.12 K/mm3 (0.00-0.00); Immature Granulocyte Percent A 1.8 % (0.0-0.0); Lymphocytes Absolute Auto 1.27 K/mm3 (1.10-4.50); Lymphocytes Percent Auto 19.4 % (18.0-42.0); Mean Corpuscular HGB Conc 34.2 g/dL (32-36); Mean Corpuscular Hemoglobin 29.6 pg (27.0-31.0); Mean Corpuscular Volume 86.5 fL (78.0-102.0); Mean Platelet Volume 9.7 fl (8.7-11.0); Monocytes Percent Auto 6.1 % (2.0-11.0); Neutrophils Absolute Auto 4.67 K/mm3 (1.70-7.20); Neutrophils Percent Auto 71.3 % (50.0-70.0); Platelet Count Result 227 K/mm3 (150-420); White Blood Count 6.6 K/mm3 (4.8-10.8)
[2024-08-18 18:28] LABS: Alanine Aminotransferase 22 U/L (16-63); Albumin Level 3.7 g/dL (3.4-5.0); Alkaline Phosphatase 116 U/L (46-116); Anion Gap 9 mmol/L (4-12); Aspartate Amino Transferase 32 U/L (15-37); Bilirubin,Total 0.4 mg/dL (0.00-1.00); Blood Urea Nitrogen 20 mg/dL (7-18); Calcium 9.6 mg/dL (8.5-10.1); Carbon Dioxide 30 mmol/L (21-32); Chloride 98 mmol/L (98-108); Estimated CRCL calculation 40 ml/min; Estimated Glomerular Filt Rate > 60; Lipase 126 U/L (16-77); Osmolality Calculated 305 mOsm/kg (285-295); Potassium 3.9 mmol/L (3.5-5.1); Sodium 137 mmol/L (136-145)
[2024-08-18 18:30] LABS: Glucose 435 mg/dL (70-99)
--- NOTE | 2024-08-18 18:30 | ECG_ITS ---
Test Date: 2024-08-18 18:34:15 Measurements Intervals [place] Rate: 75 P: 45 WA: 222 QRS: -6 QRSD: 86 T: 18 QT: 379 QTc: 424 Interpretive Statements SINUS RHYTHM WITH FIRST DEGREE AV BLOCK CONSIDER INFERIOR INFARCT, AGE INDETERMINATE BASELINE ARTIFACT- I, II, III, AVR, AVL, AVF, V2, V4-V6 ABNORMAL ECG No previous ECG available for comparison Electronically Signed On 08-19-2024 05:34:31 MECHANICAL MAINTENANCE by Pastor Mathis D.O.
[2024-08-18 18:42] LABS: Total Protein 7.3 g/dL (6.4-8.2)
[2024-08-18] MEDS: INSULIN HUMAN REGULAR (*BKC) 1,000 UNITS/10 ML VIAL 5 UNITS SUB-Q (18:44)
== END 2024-08-18 19:09 | disposition short-term general hospital (02) ==
PROVIDERS: Emergency Provider Internal Medicine Critical Care Medicine; PCP Nurse Practitioner Family
DX: S12.100A Unspecified displaced fracture of second cervical vertebra, initial encounter for closed fracture (principal); S29.9XXA Unspecified injury of thorax, initial encounter; S00.01XA Abrasion of scalp, initial encounter; E11.65 Type 2 diabetes mellitus with hyperglycemia; I10 Essential (primary) hypertension; W10.9XXA Fall (on) (from) unspecified stairs and steps, initial encounter; Y92.009 Unspecified place in unspecified non-institutional (private) residence as the place of occurrence of the external cause
CPT/HCPCS: 36415; 70450; 71045; 72125; 72170; 73130; 80053; 81003; 83690; 85025; 93005; 99285; J1815; L0150

== ENCOUNTER 2024-08-20 10:46 | Observation (INO) | payer MEDICARE, SELFPAY ==
[2024-08-20] VITALS (7 sets, daily range): BP systolic 126–167; BP diastolic 68–86; PULSE 16–96; RESP 18–77; TEMP 35.9–36.7; O2SAT 96–98; BMI 20.3
--- NOTE | 2024-08-20 10:58 | ED.FALL ---
HPI - Fall General Chief Complaint: Fall Stated Complaint: neck pain Time Seen by Provider: 08/20/24 10:58 Source: patient History of Present Illness HPI Narrative: patient came to our emergency room 2 days ago because of he fell down 15 steps at home, came to our emergency at that time,, CT cervical spine showed acute fracture of the base of the odontoid process with trace anterior displacement of the posterior fracture fragments. Patient was transferred to [facility] at that time, was discharged few hours later on C-collar, the tramadol and Robaxin. Patient did not refill the prescription yet. Patient lives alone, is telling me that he cannot take care of himself and would like help. Including rehab and/or half-way. Related Data Home Medications ?Medication ?Instructions ?Recorded ?Confirmed ?Last Taken ?Type oxycodone 5 mg tablet 5 mg PO DAILY 02/24/24 07/05/24 Unknown History Allergies Allergy/AdvReac Type Severity Reaction Status Date / Time No Known Allergies Allergy Verified 08/20/24 11:01 Review of Systems Review of Systems: All systems reviewed & are unremarkable except as noted in HPI and below PMFSH Past Medical History Medical History Right carpal tunnel syndrome Stiffness of finger joint of left hand Left carpal tunnel syndrome GERD (gastroesophageal reflux disease) Calcific tendinitis of left shoulder Major depression, recurrent Type 2 diabetes mellitus Hypertension associated with diabetes Hyperlipidemia associated with type 2 diabetes mellitus Surgical History Surgical History History of release of tendon (~05/2018) Family History Family History Father No problems noted. Mother No problems noted. Other Diabetes mellitus Social History Social History Smoking status: Never smoker Second hand tobacco smoke exposure: No Alcohol intake: current Drinks per week: 3 Substance use: never Substance use type: does not use Do You Feel Safe in your Home?: Yes Lack of Transportation: No Lack of Food: Never True Current Housing: I Have Housing Concerned About Future Housing: No Difficulty Paying Gas/Electric Bills: No Difficulty Paying for Meds: No Currently Unemployed: No Education: High School Diploma/GED Difficulty w/ Childcare or Family Care: No Living arrangements: alone Additional living arrangements comments: in 2018 Occupation/Education: retired Spiritual care concerns: No Exam Narrative: General appearance: Well-developed, well-nourished Skin: Normal color Head: Normocephalic, nontraumatic Eyes: Clear conjunctiva ENT: Oropharynx normal, ears normal, nose normal Neck: C-collar on Chest and respiratory: Airway patent, no respiratory distress, no accessory muscle use Heart: Regular rate/rhythm Abdomen: Soft, nontender, no organomegaly, quiet bowel sounds Vascular: Normal peripheral pulses, normal capillary refill. Musculoskeletal: Normal range of motion, nontender back Neurologic: Alert and oriented ?3, MAINTENANCE PIPEFITTER is normal as tested, no gross motor deficit Course Vital Signs Vital signs: Vital Signs Temperature 36.6 C 08/20/24 10:49 Pulse Rate 77 08/20/24 10:49 Respiratory Rate 20 08/20/24 10:49 Blood Pressure 126/78 08/20/24 10:49 Pulse Oximetry 98 08/20/24 10:49 Oxygen Delivery Room Air 08/20/24 10:49 Temperature 36.6 C 08/20/24 10:49 Pulse Rate 77 08/20/24 10:49 Respiratory Rate 20 08/20/24 10:49 Blood Pressure 126/78 08/20/24 10:49 Pulse Oximetry 98 08/20/24 10:49 Oxygen Delivery Room Air 08/20/24 10:49 MDM - Fall MDM Narrative Medical decision making narrative: patient came with neck pain and inability to take care of himself, lives alone, history of neck fracture 2 days ago. Vital signs are stable Physical examination showing a patient with C-collar on Differential diagnosis: cervical fracture, non compliant with treatment, , unable to manage care without assistant farm operations manager product inspection coordinator/ physical therapy evaluation and management came to the emergency room and requested to admit patient 24 hour observation for [facility] facility placement tomorrow. No IV access or blood workup or imaging are required at this time. Differential Diagnosis Differential diagnosis: Likely other ( as above) Medical Records Attestation: I reviewed the patient's medical records. Lab Data Attestation: I reviewed the patient's lab results. Critical Care Time Critical Care Time Critical Care Time: No Discharge Plan Discharge Clinical Impression: Neck fracture, Unable to manage residence-related activities Patient Disposition: Still a Patient Condition: Stable Patient Language: Barbadian Prescriptions: No Action oxycodone 5 mg tablet 5 mg PO DAILY diclofenac sodium 3 % gel 1 applic topical BID PRN (Reason: pain) Qty: 100 2RF Rx Instructions: Apply to hands magnesium chelate, malate 125 mg magnesium capsule 125 mg PO .hs Qty: 30 1RF cholecalciferol (vitamin D3) 50 mcg (2,000 unit) capsule 50 mcg PO DAILY Qty: 90 2RF meloxicam 15 mg tablet 15 mg PO DAILY Qty: 90 3RF Mounjaro 5 mg/0.5 mL pen injector See Rx Instructions .ROUTE .COMPLEX Qty: 2 11RF Dose Instruction: INJECT THE CONTENTS OF ONE PEN SUBCUTANEOUSLY WEEKLY DIRECTED Rx Instructions: INJECT THE CONTENTS OF ONE PEN SUBCUTANEOUSLY WEEKLY DIRECTED simvastatin 20 mg tablet See Rx Instructions .ROUTE .COMPLEX Qty: 90 3RF Dose Instruction: TAKE 1 TABLET BY MOUTH DAILY Rx Instructions: TAKE 1 TABLET BY MOUTH DAILY Follow-up/Referrals: Krysta Lopes NP [Primary Care Provider] -
--- OUTSIDE RECORDS SUMMARY | 2024-08-20 10:58 | XMS_ITS | Referral Summary ---
Author Organization [facility] Address [address] [place] [address] Care Team Providers Care Safety Assistant Name Role Phone Elise Bradford MD Primary Care P rovider Karl Abdi MD Unavailable [phone] Encounters Date Type Department Care Team Description 05/31/2024 12:45 PM CIRCUIT RECORDER Office Visit [facility] Surgery [address] [facility] 6th [place] [address] Lucila Cuevas MD Carpal tunnel syndrome of left wrist (Primary Dx) 05/31/2024 11:30 AM CIRCUIT RECORDER Therapy [facility] Occupational Therapy [address] [facility] 6th [place] [address] Darren Patricia OT Carpal tunnel syndrome of left wrist (Primary Dx) 05/27/[address] [facility] Surgery [address] [facility] 6th [place] [phone] Aretha Magallanes from Last 3 Months Allergies [...] on file Legal Sex Male 12:00 AM CIRCUIT RECORDER Gender Identity Not on file Sexual Orientation [...] Advance Directives For more information, please contact: [phone] * Full Code (Latest Code Status on File) Date Activated Date Inactivated Comments 01/27/2024 6:13 PM 01/28/2024 1:38 PM Care Teams Safety Assistant Relationship Specialty Start Date End Date Elise Bradford MD [address] [place] [address] PCP - General Ophthalmology 11/12/23 Karl Abdi MD [address] [facility] [address] [place] [address] Referring Physician Orthopedic Surgery 01/21/24
--- OUTSIDE RECORDS SUMMARY | 2024-08-20 10:58 | XMS_ITS | Encounter Summary ---
Author Organization [facility] - [facility] Address [address] [place] [address] Care Team Providers Care Director Of Email Marketing Name Role Phone Krysta Lopes Primary Care Provider [phone] Elise Slaughter MD Unavailable [phone] Reason for Referral * (Routine) - New Request Specialty Diagnoses / Procedures Referred By Contac t Referred To Contact Procedures OT eval and treat Alisha Virk FNP [address] [address] Phone: tel: fax: Referral ID Status Reason Start Date Expiration Date V isits Requested Visits Authorized [id number] New Request 08/18/2024 08/18/2025 1 1 P MANAGER * (Routine) - New Request Specialty Diagnoses / Procedures Referred By Contac t Referred To Contact Procedures PT eval and treat Alisha Virk FNP [address] [address] Phone: tel: fax: Referral ID Status Reason Start Date Expiration Date V isits Requested Visits Authorized [id number] New Request 08/18/2024 08/18/2025 1 1 P MANAGER * Imaging (Urgent) - New Request Specialty Diagnoses / Procedures Referred By Contac t Referred To Contact RADIOLOGY Procedures CT CHEST+ABD+PEL W CON [facility] [address] [place] [address] Phone: tel: fax: Referral ID Status Reason Start Date Expiration Date V isits Requested Visits Authorized New Request 08/18/2024 08/18/2025 1 1 P MANAGER * Imaging (Emergency) - New Request Specialty Diagnoses / Procedures Referred By Contac t Referred To Contact RADIOLOGY Procedures CT LUMB SPINE WO CON [facility] [address] [place] [address] Phone: tel: fax: Referral ID Status Reason Start Date Expiration Date V isits Requested Visits Authorized New Request 08/18/2024 08/18/2025 1 1 P MANAGER * Imaging (Urgent) - New Request Specialty Diagnoses / Procedures Referred By Contac t Referred To Contact RADIOLOGY Procedures CT THOR SPINE WO CON [facility] [address] [place] [address] Phone: tel: fax: Referral ID Status Reason Start Date Expiration Date V isits Requested Visits Authorized New Request 08/18/2024 08/18/2025 1 1 P MANAGER Reason for Visit * Reason Comments Trauma * Auth/Cert Specialty Diagnoses / Procedures Referred By Contac t Referred To Contact Diagnoses Fall CATEGORY 3 TRAUMA Procedures NONE Damaris Holguin MD [address] [address] Phone: tel: fax: Referral ID Status Reason Start Date Expiration Date Visits Re quested Visits Authorized [id number] 1 1 Encounter Details Date Type Department Care Team (Latest Contact Info) Description 08/18/2024 8:14 PM SLEEP MANAGER - 08/19/2024 3:08 PM SLEEP MANAGER Hospital Encounter [facility] [address] [place] [address] Damaris Holguin MD [address] [place] [address] Trauma Discharge Disposition: Home with Home Health Care Social History Tobacco Use Types Packs/Day Years Used Date Smoking Tobacco: Never Smokeless Tobacco: Never Alcohol Use Standard Drinks/Week Comments Yes 1.7 (1 standard drink = 0.6 oz p ure alcohol) [facility] Utilities Answer Date Recorded In the past 12 months has e [employer], gas, oil, or water [employer] threatened to shut off services in your home? No 08/19/2024 Humiliation, Afraid, Rape, and Kick questionnair e Answer Date Recorded Within the last year, have y ou been afraid of your partner or ex-partner? No 08/19/2024 Within the last year, have y ou been humiliated or emotionally abused in other ways by your partner or ex-partner? No Within the last year, have y ou been kicked, hit, slapped, or otherwise physically hurt by your partner or ex-partner? No 08/19/2024 Within the last year, have y ou been raped or forced to have any kind of sexual activity by your partner or ex-partner? No 08/19/2024 AUDIT-C Answer Date Recorded Q1: How often do you have a drink containing alc ohol? 2-3 times a week 08/18/2024 Q2: How many drinks containi ng alcohol do you have on a typical day when you are drinking? 1 or 2 08/18/2024 Q3: How often do you have si x or more drinks on one occasion? Never 08/18/2024 Overall Financial Resource Strain (CARDIA) Answe r Date Recorded How hard is it for you to pa y for the very basics like food, housing, medical care, and heating? Not very hard 08/19/2024 Hunger Vital Sign Answer Date Recorded Within the past 12 months, y ou worried that your food would run out before you got the money to buy more. Never true 08/19/19 25 Within the past 12 months, t he food you bought just didn't last and you didn't have money to get more. Never true 08/19/2024 PRAPARE - Transportation Answer Date Re corded In the past 12 months, has l ack of transportation kept you from medical appointments or from getting medications? No 08/07 In the past 12 months, has l ack of transportation kept you from meetings, work, or from getting things needed for daily living? No 08/19/2024 Housing Stability Vital Sign Answer Flako e Recorded In the last 12 months, was t here a time when you were not able to pay the mortgage or rent on time? No 08/19/2024 In the past 12 months, how m any times have you moved where you were living? 0 08/19/2024 At any time in the past 12 m [facility], were you homeless or living in a long term (including now)? No 08/19/2024 Sex and Gender Information Value Date Recorded Sex Assigned at Male 08/18/2024 8:20 PM SLEEP MANAGER Legal Sex Male 10:00 AM SLEEP MANAGER Gender Identity Not on file Sexual Orientation Not on file documented as of this encounter Last Filed Vital Signs Vital Sign Reading Time Taken Comments Blood Pressure 158/71 08/19/2024 11:46 AM SLEEP MANAGER Pulse 65 08/19/2024 11:46 AM SLEEP MANAGER Temperature 36.6 C (97.8 F) 08/19/2024 7:32 AM SLEEP MANAGER Respiratory Rate 17 08/19/2024 3:30 AM SLEEP MANAGER Oxygen Saturation 96% 08/19/2024 11:46 AM SLEEP MANAGER Inhaled Oxygen Concentration - - Weight 63.5 kg (140 lb) 08/18/2024 8:21 PM SLEEP MANAGER Height 172.7 cm (5' 8 ) 08/18/2024 8:21 PM SLEEP MANAGER Body Mass Index 21.29 08/18/2024 8:21 PM SLEEP MANAGER documented in this encounter Functional Status * Question Answer Date of Assessment Author Status Do you have serious difficulty walking or climbing stairs? No 08/19/2024 4:23 AM SLEEP MANAGER Nazia Wharton, RN Ac tive * Question Answer Date of Assessment Author Status Do you have difficulty dressing or bathing? No 08/19/2024 4:23 AM SLEEP MANAGER Nazia Wharton R N Active Because of a physical, mental, or emotional condition, do you have difficulty doing errands alone such as visiting a doctor's office or shopping? No 08/19/2024 4:23 AM Nazia Bejarano RN Act yovany * Are you deaf or do you have serious difficulty hearing Answer Date of Assessment Author Status Yes 08/19/2024 4:23 AM Nazia Bejarano RN Active * Are you blind or do you have serious difficulty seeing, even when wearing glasses? Answer Date of Assessment Author Status Yes 08/19/2024 4:23 AM Nazia Bejarano RN Active * Do you have serious difficulty walking or climbing stairs? Answer Date of Assessment Author Status No 08/19/2024 4:23 AM Nazia Bejarano RN Active * Do you have difficulty dressing or bathing? Answer Date of Assessment Author Status No 08/19/2024 4:23 AM Nazia Bejarano RN Active * Because of a physical, mental, or emotional condition, do you have difficulty doing errands alone such as visiting a doctor's office or shopping? Answer Date of Assessment Author Status No 08/19/2024 4:23 AM Nazia Bejarano RN Active documented as of this encounter Mental Status * Question Answer Entry Date Author Status Because of a physical, mental, or emotional condition, do you have serious difficulty concentrating, remembering, or making decisions? No 08/19/2024 4:23 AM Nazia Bejarano R N Active * Because of a physical, mental, or emotional condition, do you have serious difficulty concentrating, remembering, or making decisions? Answer Entry Date Author Status No 08/19/2024 4:23 AM Nazia Bejarano RN Active documented in this encounter Discharge Instructions * Discharge Instructions* Radha Hernandez MD - 08/18/2024 10:19 PM SLEEP MANAGER Spine Surgery Discharge Instructions: Do not drive or operate heavy machinery while taking narcotic pain medication Avoid bending/twisting your back No lifting greater than 10 lbs Walking every day is encouraged Okay to shower with soft shower collar in place C Collar at all times when up and out of bed and while in bed Avoid taking NSAIDs (Ibuprofen, Advil, naproxen sodium, etc) because it can decrease the rate of fusion Trauma services discharge instructions Call today to schedule a hospital discharge follow up and to discuss incidental finding found on CTscan: Right lower lobe pulmonary nodule measuring less than 0.6 cm. P MANAGER P MANAGER documented in this encounter Medications at Time of Discharge carvedilol (COREG) 6.25 MG tablet Take 1 tablet (6.25 mg total) by mouth 2 (two) times daily. Diclofenac Sodium 3 % Gel Apply 1 Application topically 2 (two) times daily as needed (pain). DULoxetine (CYMBALTA) 30 MG capsule Take 1 capsule (30 mg total) by mouth daily. 08/18/2023 empagliflozin (JARDIANCE) 25 MG tablet Take 1 tablet (25 mg total) by mouth daily. glimepiride (AMARYL) 1 MG tablet Take 1 tablet (1 mg total) by mouth 2 (two) times a day. lisinopril-hydro CHLOROthiazide (ZESTORETIC) 20-12.5 MG tablet Take 1 tablet by mouth daily. methocarbamol (ROBAXIN) 500 MG tabletIndication s:Muscle Spasm with Pain Take 1 tablet (500 mg total) by mouth every 8 (eight) hours for 3 days. Indications: Muscle Spasm with Pain 9 tablet 08/19/2024 simvastatin (ZOCOR) 20 MG tablet Take 1 tablet (20 mg total) by mouth daily. tirzepatide (MOUNJARO) 5 MG/0.5ML injection Inject 5 mg into the skin once a week. 12/31/2023 traMADol (ULTRAM) 50 MG tabletIndication s:Acute Pain < 3 Day Supply Take 1 tablet (50 mg total) by mouth every 6 (six) hours as needed for Pain. Indications: Acute Pain < 3 Day Supply 10 tablet 08/19/2024 documented as of this encounter Progress Notes * Inocencia Escobar RN - 08/19/2024 1:09 PM CST D/c home with hh P MANAGER * Ernestina Wharton OT - 08/19/2024 12:30 PM CSTSummary: OT evaluation OT Initial Evaluation Discharge Recommendation: home with assistance P/T home health OT home health DME equipment recommendation: Activity Recommendation for quality analyst/technical writer: up with SBA 08/19/24 1200 Therapy Visit OT Received On 08/19/24 Reason for admission Pt s/p fall down 12 steps with + LOC. He was admitted 08/18 with a C2 odontoid fx and a R acute avulsion fx coronoid process - ulna...PMH: arthritis, DM, HTN, peripheral neuropathy...Orders: eval and treat...Activity: ambulate, [place] at all times, RUE NWB Ordering Provider CONSTANTINE Mariscal Verified Two Patient Identifiers Yes Patient consents to therapy Yes Acute Inpatient OT Time Calculation OT Start Time 1205 OT Stop Time 1230 OT Time Calculation (min) 25 min Precautions Weight Bearing Status RUE;NWB Neck Brace Applied (Cachil Dehe J on at all times) General Precautions Chair Alarm;Fall Risk Subjective Subjective Pt sitting in a chair upon arrival and agreeable to evaluation - pt is agreeable to evaluation Prior Function PLOF Comments Pt lives alone in a 1 story home with 4 steps to enter with HR x 2. Laundry is in thebasement with 15 steps with HR x 1....Bathroom: tub/shower with grab bars along with tall toilet with sink close...Baseline: independent with self care, mobility, and IADLs. Walks about 5 miles per day...Neighbors can assist and do check on the daily. They can assist with IADLs...Falls: 3 (2 in theyard while doing work)...AE: none Pain Pain Yes Pain Score 8 Location neck Activity Tolerance Endurance Endurance does not limit participation in activity Vision - Basic Assessment Current Vision Wears glasses all the time Vision - Complex Assessment Acuity Able to read employee name badge without difficulty;Able to read clock/calendar on wall without difficulty Additional Comments Pt reports no changes in vision since admit Cognition Overall Cognitive Status WFL Arousal/Alertness Appropriate responses to stimuli Attention Span Appears intact Memory Appears intact Orientation Level Oriented X4 (off by 2 days for day) Following Commands Follows all commands and directions without difficulty Safety Judgment Decreased awareness of need for safety Awareness of Errors Assistance required to identify errors made Deficits Fully aware of deficits Problem Solving Able to problem solve independently Motor Planning Appears intact Perseveration Not present Initiation Appears intact Other (Comment) Pt educated on precautions Overall Extremity Assessment Upper Extremity BUE AROM and strength WFLs Hand Function Gross Grasp Functional Coordination Functional Sensation Light Touch No apparent deficits ADL Eating/Feeding Assistance Independent;Sitting in chair Grooming Assistance Independent;Standing at sink Grooming Deficit Wash/dry hands LE Dressing Assistance Independent;Sitting in chair LE Dressing Deficit Thread RLE into pants;Thread LLE into pants;Pull up over hips;Don/doff R sock;Don/doff L sock Toileting Assistance Independent Bed Mobility Rolling Modified independence Supine to Sit Modified independence Sit to Supine Modified independence Other (Comment) from a flat bed Functional Transfers Sit to Stand Independent Bed to Chair Independent Toilet Transfers Independent Functional Mobility Pt completed functional mobility within his room and hallway 25' and 150' SBA progressing to independence post education on safety and need for pacing of task for personal safety Balance Sitting - Static Independent Sitting - Dynamic Independent Standing - Static Independent Standing - Dynamic Independent Assessment Occupational Profile and History Complexity Moderate (Expanded) Performance Skills Deficits Education;Functional mobility Performance Deficit Level Low (1-3 deficits) Clinical Decision Making Low (no modifications) Complexity Level of Evaluation Low Prognosis Good OT Assess/Eval Other (Comment) Pt reports that at baseline he is independent with self care, mobility, and IADLs. Pt educated on precautions, log roll, and need for assist in the home with pt verbalizing understanding. He was able to complete self care and mobility this date. OT will sign off at this time as he has no further acute care needs. Patient/Family Training Precautions precautions Discharge Recommendation OT Recommendation Home with assistance;Home OT;Home PT OT Equipment Recommended Currently has DME in Place Plan Progress Discontinue OT OT - Next Appointment 08/19/24 If this is the last treatment note, it will serve as the discharge summary Yes End of Session End of Session Safety Call light within reach;Chair alarm set/activated;Nursing aware of session Education: Primary Learners Name: Eddy Vasquez Primary Language of learner: Palestinian Patient was educated on precautions therapy plan. Education was completed one to one this date. Preference of learning new concepts one to one Barriers to education this date were physical impairment. Response to education this date verbalized understanding demos adequately. P MANAGER * Ольга Low, PT - 08/19/2024 12:30 PM CSTSummary: PT EVAL PT Initial Evaluation Discharge Recommendation: home with assistance - home PT/OT safety evaluations No skilled P/T during hospitalization DME equipment recommendation: none Activity Recommendation for quality analyst/technical writer: pt was up independently without AD during therapy session, defer to nursing; maintain spinal precautions with Cachil Dehe J collar donned, maintain NWB RUE 08/19/24 1230 Therapy Visit Ordering Provider CONSTANTINE Mariscal PT Received On 08/19/24 Subjective RN ok'd therapy session. Pt received in sitting in chair at bedside and agreeable to therapy session. Reason for admission Pt s/p fall down 12 steps with + LOC. He was admitted 08/18 with a C2 odontoid fx and a R acute avulsion fx coronoid process - ulna...PMH: arthritis, DM, HTN, peripheral neuropathy...Orders: eval and treat...Activity: ambulate, dot [place] at all times, RUE NWB Verified Two Patient Identifiers Yes Patient consents to therapy Yes Acute Inpatient PT Time Calculation PT Start Time 1205 PT Stop Time 1230 PT Time Calculation (min) 25 min Precautions Spine Precautions Bending;Lifting;Twisting Lifting Precautions Yes Weight Bearing Status RUE;NWB Neck Brace Applied Yes (Cachil Dehe J on at all times) General Precautions Chair Alarm;Fall Risk;Aspiration;Bed Alarm Instructed on Precautions Yes;Verbalizes understanding;Demonstrates understanding Other IV access, telemetry, spinal precautions with C[place]il De[place] J collar donned, NWB RUE Prior Function PLOF Comments Pt lives alone in a 1 story home with 4 steps to enter with HR x 2. Laundry is in thebasement with 15 steps with HR x 1....Bathroom: tub/shower with grab bars along with tall toilet with sink close...Baseline: independent with self care, mobility, and IADLs. Walks about 5 miles per day...Neighbors can assist and do check on the daily. They can assist with IADLs...Falls: 3 (2 in theyard while doing work)...AE: none Pain Pain Yes Pain Score 8 Location neck Activity Tolerance Endurance Endurance does not limit participation in activity Vision - Basic Assessment Current Vision Wears glasses all the time Vision - Complex Assessment Acuity Able to read employee name badge without difficulty;Able to read clock/calendar on wall without difficulty Additional Comments Pt reports no changes in vision since admit Cognition Overall Cognitive Status WFL Arousal/Alertness Appropriate responses to stimuli Attention Span Appears intact Memory Appears intact Orientation Level Oriented X4 (off by 2 days for day) Following Commands Follows all commands and directions without difficulty Safety Judgment Decreased awareness of need for safety Awareness of Errors Assistance required to identify errors made Deficits Fully aware of deficits Problem Solving Able to problem solve independently Comments educated pt regarding spinal precautions, importance of proper pacing during mobility for safety with [place] J collar donned, NWB RUE; pt able to demonstrate compliance with all throughout mobility Motor Planning Appears intact Perseveration Not present Initiation Appears intact Other (Comment) Pt educated on precautions Sensation Light Touch No apparent deficits RLE Assessment RLE Comment MMT: no resistance applied, pt able to move extremity against gravity in sitting into hip flex, knee ext, ankle DF through ROM WFL LLE Assessment LLE Comment MMT: no resistance applied, pt able to move extremity against gravity in sitting into hip flex, knee ext, ankle DF through ROM WFL Bed Mobility Rolling Modified independence Supine to Sit Modified independence Sit to Supine Modified independence Other (Comment) with bed flat, instructed pt regarding proper log roll technique to maintain spinalprecautions and pt demonstrates proper technique; pt maintains NWB RUE as well; C[place] De[place] J collar donned TRANSFERS Sit to Stand Modified independence Other (Comment) pt stands from bed, toilet and chair; requires LUE support; pt maintains NWB RUE; C[place] J collar donned Gait Gait Assistance Independent;With gait belt Assistive Device None Other (Comment) pt amb 20 feet, 150 feet, demonstrates continuous step through gait pattern, no LOB, proper abdias/pacing after instruction; pt maintains NWB RUE; C[place] De[place] J collar donned Stairs Stair Management Assistance Modified independence;With gait belt Stair Management Technique Step to pattern;Forward;One rail L Number of Stairs 4 Other (Comment) requires instruction for step to pattern for safety and then pt demonstrates with proper technique; pt maintains NWB RUE; C[place]il Dehe J collar donned Balance Sitting - Static Independent Sitting - Dynamic Independent Standing - Static Independent Standing - Dynamic Independent;Support of one upper extremity Other (Comment) no LOB during gait without AD nor during stairs negotiation with one handrail use Assessment Personal Factors/Comorbidities Impacting Care 3-4 personal factors/comorbidities Examination of Body Systems Low (1-2 Elements) Clinical Presentation of Patient Stable uncomplicated Complexity Level of Evaluation Low Prognosis Good PT Assess/Eval Other (Comment) Pt is an 84 year old male who was admitted with C2 odontoid fx and aR acute avulsion fx coronoid process - ulna and NWB RUE. At baseline, pt was independent with ADLs,IADLs, bed mobility, transfers, gait without device and stairs negotiation. Pt participates in therapy evaluation and demonstrates the ability to perform bed mobility, transfers, gait without AD and stairs negotiation with one handrail use, all with modified independence/independence and good safety awareness. Pt appears to be close to baseline functional status and pt agrees. Pt does not demonstrate additional inpatient P/T needs at this time and therefore P/T will sign off. Anticipate pt willrequire assist for IADLs and PT/OT home safety evaluation upon discharge from this hospital. Patient/Family Training Other (Comment) educated pt regarding fall precautions, spinal precautions with Darryl rock, NWBud RUE, discharge rec including assist for IADLs, proper pacing for safety, stairs negotiation;pt reports understanding and willingness to comply Discharge Recommendation PT Recommendation Home with assistance;Home OT;Home PT (safety evaluations) PT Equipment Recommended No DME Needed Plan Progress Discontinue PT PT Frequency One time visit PT - Next Appointment 08/19/24 If this is the last treatment note,it will serve as the discharge summary Yes End of Session End of Session Safety Chair alarm set/activated;Call light within reach;Nursing aware of session;Transfer status education Interdisciplinary Collaboration OT and RN-functional status, position in chair, discharge rec End of Session Comment pt sitting in chair at bedside, needs within reach, Darryl rock Education: Primary Learners Name: Eddy Vasquez Primary Language of learner: Palestinian Patient was educated on precautions therapy plan safety stair training joint protection. Education was completed one to one verbal this date. Preference of learning new concepts one to one verbal Barriers to education this date were none. Response to education this date verbalized understanding demos adequately. P MANAGER * Inocencia Escobar RN - 08/19/2024 11:37 AM CST Pt up with instructional writer walked in hallway, gait steady pt states ' he walks 5 miles each day.' I can believe it. Went over color care and pad care. Pt voiced understanding and said he has help. Did talk about no pillows and no driving. Pt voiced understanding. Will continue to monitor for education needsand care plan changes Problem: Reduced risk for falls/injury Goal: Reduced Risk for Falls/Injury Outcome: Met This Shift Goal: Reduced Risk of Confusion (Acute vs Chronic) Outcome: Met This Shift Goal: Reduced Risk of Altered Elimination Outcome: Progressing Goal: Reduced Risk of Polypharmacy Outcome: Completed Problem: Discharge Planning Goal: Knowledge of discharge instructions Outcome: Progressing Problem: Pain control/comfort Goal: Promote pain control/comfort Outcome: Progressing Problem: Skin integrity, Impaired-wound Goal: Absence of new skin breakdown Outcome: Completed Goal: Evidence of wound healing Outcome: Completed P MANAGER * CHAPLAIN Donna - 08/19/2024 11:30 AM CST Pt received Sacrament of the Sick today from Fr. Gomez. P MANAGER * Karie Law RN - 08/19/2024 11:10 AM CST 08/19/24 1103 Referral Data Source of Information Patient Patient Information Primary Caregiver Self Current living Situation Alone (Street level no stairs to enter home.) Type of Residence Private residence Support System Immediate family;Friends;Neighbors Are you employed? Retired Recent Hospitalization Recent Hospitalization within 30 days No Baseline ADL's Functional Status Independent Active DME Other (comment) (Stated none) Behavior Oriented;Cooperative Communication Talks;Understands speaking;Understands Palestinian Psychosocial Need Indicator Mental health concerns No Diagnosis/prognosis resulting in poor adjustment or coping with illness No Diagnosis/prognosis with anticipated outcome of major lifestyle changes, including change in intermediate teacher living environment No Complex Family concerns No Abuse and/or neglect of elder, adult or child No Psychiatric and/or substance abuse issues affecting current hospitalization No Homelessness with lack of safe discharge environment No Need for guardianship petition No Involuntary patient No DC screening tool This is a screening tool it does not take the place of a physical or occupational therapy evaluation. The screening is to screen the patient for what services and destination would be beneficial for patient for next level of care Conversation with the patient/family Will the patient be returning to prior living situation with no new identified needs? Yes Based on the screening the DC plan for consideration is: Patient expects to be discharged to: Home with home health care ([facility] accepted: SN/PT/OT) Adequate Resources Available Adequate Resources Yes Met with patient in room. Patient stated he lives alone/one level home: stairs to basement only. Reported that he is Ind withADL's/IADL's.: stated he does drive or able to take taxi if needed. PCP: Dr. Lopes : Pharm: [facility] Patient stated that he has had HHS in the past: no preference of [facility] agency: agreeable to [facility]:SN/PT/OT : Kati with [facility] has accepted. Reported that he has supportive neighbors/friends in the area Transport: I need help with a ride to home, I would be agreeable to a taxi if is set up. CM will continue to follow. Readmission Risk: 10 1300: Per Unit Nurse: Patient will dc to home today: needs transport via [employer] or Cab. Message to SCOTT Zavala specialist to set up transport Per Sally: [employer] full will need to be [employer]. P MANAGER P MANAGER P MANAGER P MANAGER P MANAGER * Karie Law RN - 08/19/2024 10:39 AM CST 08/19/24 1030 Interdisciplinary Group Conference Team Members Present Case/Care management;Nursing Patient Current Status Paient current status Inpatient Barriers to Discharge Inpatient Review Barriers to Discharge Inpatient No Barrier- Medical Milestone in Process No Barrier- Medical Milestone in Process follow up Cachil Dehe j collar on at all times: PT/OT to eval. Gen diet. Patient expects to be discharged to Patient expects to be discharged to: Home or Self care no new needs P MANAGER * Anita Hutchinson PA-C - 08/19/2024 7:44 AM CST Images from the original note were not included. TRAUMA TERTIARY SURVEY ANITA HUTCHINSON PA-C, 08/19/2024, 1:03 PM [place] [id number] [facility] ACUTE CARE SURGERY SERVICE: EMERGENCY SURGERY, TRAUMA, SURGICAL CRITICAL CARE [address] [place] [id number] TO CONTACT PROVIDERS: Trauma Surgeon/Critical Care Outside Sales Account Executive MD: [id number] Emergency Surgery MD: [id number] Advanced Practice Provider - Trauma: [id number] Advanced Practice Provider - Emergency Surgery [id number] Name: Eddy Vasquez Date of : 1940 Room/Bed: [facility] Date: 08/19/2024 Time: 1:03 PM Mechanism of Injury: Fall CHIEF COMPLAINT: None List all new injuries indentified in this survey: None Plan for new injuries found: none P MANAGER * Cinhtya Fortune - 08/18/2024 8:45 PM CST Consult to Spiritual Care regarding: Trauma 2 Consult from: RN People present: Medical team Need Identified: support Interventions: active listening, care and prayer Patient Eddy crawford that had a tumble and is okay. Follow up needs: Yes, as needed P MANAGER documented in this encounter H&P Notes * CONSTANTINE Mariscal - 08/18/2024 9:19 PM CST Images from the original note were not included. TRAUMA HISTORY AND PHYSICAL CONSTANTINE MARISCAL, 08/18/2024, 9:[address] ACUTE CARE SURGERY SERVICE: EMERGENCY SURGERY, TRAUMA, SURGICAL CRITICAL CARE [address] [place] [id number] TO CONTACT PROVIDERS: Critical Care Outside Sales Account Executive/Trauma Surgeon MD: [id number] Emergency Surgery MD: [id number] Advanced Practice Provider - Trauma: [id number] Advanced Practice Provider - Emergency Surgery [id number] Name: Eddy Vasquez Date of : 1940 Room/Bed: OOED/OOED Date: 08/18/2024 Time: 9:19 PM CHIEF COMPLAINT: neck pain Category 3 Trauma. Mechanism of Injury: Fall. PRIMARY SURVEY Airway: Airway Patent Breathing: Clear to auscultation bilaterally; Supplemental Oxygen: No Circulation: radial=2+/4, femoral=2+/4, dorsalis pedis=2+/4, bilaterally. Disability: PERRL, Arrival GCS: Eye: E4: Opens spontaneously Verbal: V5: Orientated Motor: M6: Obeys commands Total: 15 Exposure: Patient was completely exposed and covered with warm blankets HISTORY OF PRESENT ILLNESS: Eddy Vasquez is a 84-year-old male brought in by EMS, ground, transfer from outlying facility as a Category 3 trauma and was in cervical collar, but not boarded on presentation. The patient was involved in a fall down stairs, with loss of consciousness. Per report, Eddy Vasquez was standing at the top of his stairs when he lost his footing causing him to tumble down the stairs. He believes he lost consciousness for a few seconds. Pt was seen at an O[facility] where he was found to have sustained a c2 odontoid fx. The patient was transferred to [facility] trauma service for further evaluation and a higher level of care. Upon arrival, the patient is GCS 15, A&O x4, endorses neck pain, right elbow pain and left thumb pain. Images of the left thumb were completed at F and found to be negative. He has a hx of peripheral neuropathy. He says his n/t in his bilateral feet is not new or worsening than usual. He denies TEIXEIRA, visual changes, unilateral weakness, SOB, N/V, abd pain. PAST MEDICAL HISTORY: Past Medical History: Diagnosis Date Arthritis Diabetes mellitus ([facility]/HCC) Hypertension PAST SURGICAL HISTORY: History reviewed. No pertinent surgical history. ALLERGIES: No Known Allergies HOME MEDICATIONS: Prior to Admission medications Medication Sig Start Date End Date Taking? Authorizing Provider carvedilol (COREG) 6.25 MG tablet Take 1 tablet (6.25 mg total) by mouth 2 (two) times daily. Default History Genericprovider dulaglutide (TRULICITY) 4.5 MG/0.5ML injection (PEN) Inject 4.5 mg into the skin once a week. Default History Genericprovider DULoxetine (CYMBALTA) 30 MG capsule Take 1 capsule (30 mg total) by mouth daily. 08/18/23 Default History Genericprovider empagliflozin (JARDIANCE) 25 MG tablet Take 1 tablet (25 mg total) by mouth daily. Default History Genericprovider glimepiride (AMARYL) 1 MG tablet Take 1 tablet (1 mg total) by mouth 2 (two) times a day. Default History Genericprovider lisinopril-hydroCHLOROthiazide (ZESTORETIC) 20-12.5 MG tablet Take 1 tablet by mouth daily. DefaultHistory Genericprovider simvastatin (ZOCOR) 20 MG tablet Take 1 tablet (20 mg total) by mouth daily. Default History Genericprovider SOCIAL HISTORY: Social History Tobacco Use Smoking status: Never Smokeless tobacco: Never Substance Use Topics Alcohol use: Yes Alcohol/week: 1.7 standard drinks of alcohol Types: 1 Cans of beer per week FAMILY HISTORY: unknown REVIEW OF SYSTEMS: Pertinent items are noted in HPI. A 12 point comprehensive review of systems was otherwise negative. PHYSICAL EXAMINATION: ED Triage Vitals [08/18/242020] Encounter Vitals Group BP (!) 195/97 Systolic BP Percentile Diastolic BP Percentile Pulse 77 Resp 18 Temp 98.2 ??F (36.8 ??C) Temp src Oral SpO2 96 % Weight 63.5 kg (140 lb) Height 1.727 m (5' 8 ) Head Circumference Peak Flow Pain Score Pain Loc Pain Education Exclude from Growth Chart GCS: 15 General appearance: Lying on stretcher. NAD, Appears comfortable Neurological: Grossly normal neurological examination, appropriate, and conversant, Alert and oriented, Following commands Scalp: Skin intact, no lacerations or lesions noted Face: Structural elements stable, facial soft tissue normal Eyes: Tracking without difficulty, extra-ocular muscles intact Ears: Hearing intact, not deaf, No deformity noted in bilateral ears Nose: Nasal septum midline, no rhinorrhea or epistaxis Mouth: Mucous membranes moist, bottom dentures Neck: Trachea midline, Symmetric, Tenderness noted over cervical spine, Cervical collar in place Chest: No dyspnea or respiratory distress noted, sufficient air movement, broadly clear, Clear, no wheezes, rales or rhonchi, symmetric air entry Heart: S1 and S2 normal, normal rate Abdomen: soft, nontender, nondistended Pelvis: stable pelvis, no signs of structural deformity and Rectal: no lesions or tenderness noted, grossly normal genitourinary exam Back exam: soft tissues broadly normal, no step-offs noted on thoracic or lumbar spine Musculoskeletal: COLES spontaneously and purposefully. Strength and sensation are intact. Right elbowtender with palpation Skin: normal coloration and turgor. Skin tear to right upper arm Psychiatric: Mood and affect appropriate, alert, and oriented LABORATORY RESULTS: No results for input(s): WBC , HGB , HCT , PLT , APTT , INR , PTT , NA , K , CL , CO2 , AGAP , BUN , CR , BUNCREATININ , GLU , CA , TP , ALB , TBIL , ALKP , AST , ALT , MAGNESIUM , PHOS in the last 168 hours. Invalid input(s): LACTATE No results found for: PH , PCO2 , PO2 , [id number] , BICARBWB , BASEDEFICIT , BASEEXCESS No results for input(s): ABORH in the last 168 hours. No results for input(s): CKTOTAL in the last 168 hours. IMAGING: Radiology Results (Last 48 hours) None ASSESSMENT: Eddy Vasquez is a 84-year-old male who presented as a trauma involved in a Fall. INJURY SUMMARY: Head: None Cervical Spine: C2 odontoid fx Thoracic/Lumbar Spine: None Chest: None Abdomen/Pelvis: None Extremities: acute avulsion fracture of the coronoid process of the ulna Skin/Soft tissue: Skin tear right upper arm Incidental finding: Right lower lobe pulmonary nodule measuring less than 0.6 cm. HOSPITAL DIAGNOSES: Fall PLAN: Patient Disposition: IMCU #C2 odontoid fx NSGY Dr Fiore No acute neurosurgical intervention warranted at this time Recommend blood glucose 140-180 mg/dL Cachil Dehe J in place Neuro checks q4hr Awaiting official recs- appreciate assistance #acute avulsion fracture of the coronoid process of the ulna Orthopedic surgery Dr Shayy Benton VIA HALO Sling to right arm NWB. However, May use platform walker if needed. 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 Cosigned by Damaris Holguin MD at 08/20/2024 4:31 AM SLEEP MANAGER P MANAGER P MANAGER Associated attestation - Damaris Holguin MD - 08/20/2024 4:31 AM SLEEP MANAGER I, DAMARIS HOLGUIN MD, participated in the care of this patient today and discussed the plan of care with CONSTANTINE Tee, who shared in this visit. I have reviewed the MATILDE's documentation and agree with the findings except as I have documented. I personally spent 35 minutes, caring for this patient. DAMARIS HOLGUIN MD documented in this encounter Nursing Notes * Inocencia Escobar, RN - 08/19/2024 2:54 PM CST Talked with Alecia and pt. Covered all the D/C orders. Even reinforced the no driving and no pillow.Talked with daughter and pt about skin and pad changes. Daughter worried that he needs to come withthem. Encouraged he to come visit him and see what is going on at his house. P MANAGER documented in this encounter ED Notes * Jen Rivas RN - 08/18/2024 8:40 PM CST ED Handoff to Inpatient Note Triage chief complaint: Trauma Mental Status: A&Ox4 ED Overview: trauma transfer with odontoid fx after fall down 12 stairs today. Patient is A&Ox4, wearing [place] c-collar. Sensation intact. Moves all ext. C/o some pain to right elbow, left hand. Xrays done prehospital, pending them faxing us the reads as they were not sent over. Trauma admitting. No blood thinners. Pt c/o some acid reflux c/o on arrival, states prior chronic hx of this, protonix given down here. O2 demands: On room air Vitals: Blood pressure (!) 165/92, pulse 81, temperature 98.2 ??F (36.8 ??C), temperature source Oral, resp. rate 26, height 1.727 m (5' 8 ), weight 63.5 kg (140 lb), SpO2 97%. Critical lab results: No critical labs reported. Lines/Drains/Airways: 18g right forearm Pending Results: CT scan results pending Special equipment needed: C-collar; needing c-spine precautions Mobility: unable to ambulate Fall risk: yes Sitter: No Family/social needs: none identified Patient Belongings: Isolation: No active isolations Any held meds and reasons: None held Consults: None If any critical questions, call [facility] at [phone] ED Provider Diagnosis: Clinical Impression C2 cervical fracture ([facility] (Primary) Pain of left thumb Abrasion of right elbow Fall Admitting Provider: Damaris Holguin MD Medical History: Past Medical History: Diagnosis Date Arthritis Diabetes mellitus ([facility]) Hypertension Current Facility-Administered Medications Medication Dose Route Frequency Provider Last Rate Last Admin sodium chloride 0.9% infusion Intravenous Continuous Alisha Hutchinson NP Current Outpatient Medications Medication Sig Dispense Refill carvedilol (COREG) 6.25 MG tablet Take 1 tablet (6.25 mg total) by mouth 2 (two) times daily. dulaglutide (TRULICITY) 4.5 MG/0.5ML injection (PEN) Inject 4.5 mg into the skin once a week. DULoxetine (CYMBALTA) 30 MG capsule Take 1 capsule (30 mg total) by mouth daily. empagliflozin (JARDIANCE) 25 MG tablet Take 1 tablet (25 mg total) by mouth daily. glimepiride (AMARYL) 1 MG tablet Take 1 tablet (1 mg total) by mouth 2 (two) times a day. lisinopril-hydroCHLOROthiazide (ZESTORETIC) 20-12.5 MG tablet Take 1 tablet by mouth daily. simvastatin (ZOCOR) 20 MG tablet Take 1 tablet (20 mg total) by mouth daily. P MANAGER * Jen Rivas RN - 08/18/2024 8:37 PM CST Patient here as a cat 3 trauma transfer after a mechanical fall down 12 stairs [employer] today. Patient has an odontoid fx. C-spine precautions maintained throughout entirety of time in ER. Patient A&Ox4. Moving all extremities, neurovascularly intact, sensation intact. P MANAGER * Brii Post MD - 08/18/2024 8:31 PM CST Emergency Department Note Chief Complaint Chief Complaint Patient presents with Trauma History of Present Illness Patient presents as a trauma transfer from outside facility after a fall down 15 stairs. He complains of pain to the neck, left thumb, and right elbow. He was found to have a C2 odontoid fracture at outside facility. Imaging results weren't sent with patient. He has an abrasion of the right elbow and left thumb pain, no reports of LOC, not on blood thinners. Medical History ALLERGIES: Review of patient's allergies indicates: No Known Allergies MEDICATIONS: Prior to Admission medications Medication Sig Start Date End Date Taking? Authorizing Provider carvedilol (COREG) 6.25 MG tablet Take 1 tablet (6.25 mg total) by mouth 2 (two) times daily. Yes Default History Genericprovider Diclofenac Sodium 3 % Gel Apply 1 Application topically 2 (two) times daily as needed (pain). Yes Default History Genericprovider dulaglutide (TRULICITY) 4.5 MG/0.5ML injection (PEN) Inject 4.5 mg into the skin once a week. Yes Default History Genericprovider DULoxetine (CYMBALTA) 30 MG capsule Take 1 capsule (30 mg total) by mouth daily. 08/18/23 Yes Default History Genericprovider empagliflozin (JARDIANCE) 25 MG tablet Take 1 tablet (25 mg total) by mouth daily. Yes Default History Genericprovider glimepiride (AMARYL) 1 MG tablet Take 1 tablet (1 mg total) by mouth 2 (two) times a day. Yes Default History Genericprovider lisinopril-hydroCHLOROthiazide (ZESTORETIC) 20-12.5 MG tablet Take 1 tablet by mouth daily. Yes Default History Genericprovider simvastatin (ZOCOR) 20 MG tablet Take 1 tablet (20 mg total) by mouth daily. Yes Default History Genericprovider PAST MEDICAL HISTORY: Past Medical History: Diagnosis Date Arthritis Diabetes mellitus ([facility]/HCC) Hypertension PAST SURGICAL HISTORY: History reviewed. No pertinent surgical history. FAMILY HISTORY: No family history on file. SOCIAL HISTORY: Social History Tobacco Use Smoking status: Never Smokeless tobacco: Never Substance Use Topics Alcohol use: Yes Alcohol/week: 1.7 standard drinks of alcohol Types: 1 Cans of beer per week Drug use: Never Review of Systems Review of Systems Physical Exam Filed Vitals: 08/18/24 2025 08/18/24 2118 08/18/24 2358 08/19/24 0330 BP: (!) 165/92 (!) 163/104 (!) 146/72 131/71 Pulse: 81 81 79 71 Resp: 26 16 17 Temp: 98.2 ??F (36.8 ??C) 98.4 ??F (36.9 ??C) 97.9 ??F (36.6 ??C) TempSrc: Oral Oral Oral SpO2: 97% 98% 96% 95% Weight: Height: Physical Exam Diagnostic Studies / Procedures PULSE OX INTERPRETATION: SpO2: 96 %, Oxygen delivery: Room air, Interpretation: No hypoxia at this time EKG: No results found for this visit on 08/18/24. LABORATORY STUDIES: Results for orders placed or performed during the hospital encounter of 08/18/24 POCT glucose Result Value Ref Range GLUCOSE POC 236 (H) 70 - 109 POCT glucose Result Value Ref Range GLUCOSE POC 153 (H) 70 - 109 IMAGING STUDIES XR ELBOW RT M3V Final Result by User, [id number] (08/18 2127) [address] [address] INDICATION: Pain trauma COMPARISON: None TECHNIQUE: * Two radiographic images of the right humerus. * Three radiographic images of the right elbow. FINDINGS: Tiny osseous fragment adjacent to the medial aspect of the coronoid process of the ulna, best visualized on the AP view of the humerus and AP view of the elbow. This does not appear to be well-corticated. No evidence of elbow dislocation. No elbow effusion. No other acute osseous abnormality identified in the humerus or elbow. Limited evaluation of the shoulder exhibits no gross acute abnormality. Chronic degenerative changes of the acromioclavicular joint. No soft tissue emphysema. IMPRESSION: 1. Possible acute avulsion fracture of the coronoid process of the ulna. 2. No other acute osseous or articular abnormality identified in the humerus or elbow. 3. No elbow effusion. Referred By: LUIS A HUTCHINSON Interpreted By: Tony Cardoza MD, 08/18/2024 9:14 PM XR HUMERUS RT MIN 2V Final Result by User, [id number] (08/18 2127) [address] [address] INDICATION: Pain trauma COMPARISON: None TECHNIQUE: * Two radiographic images of the right humerus. * Three radiographic images of the right elbow. FINDINGS: Tiny osseous fragment adjacent to the medial aspect of the coronoid process of the ulna, best visualized on the AP view of the humerus and AP view of the elbow. This does not appear to be well-corticated. No evidence of elbow dislocation. No elbow effusion. No other acute osseous abnormality identified in the humerus or elbow. Limited evaluation of the shoulder exhibits no gross acute abnormality. Chronic degenerative changes of the acromioclavicular joint. No soft tissue emphysema. IMPRESSION: 1. Possible acute avulsion fracture of the coronoid process of the ulna. 2. No other acute osseous or articular abnormality identified in the humerus or elbow. 3. No elbow effusion. Referred By: LUIS A HUTCHINSON Interpreted By: Tony Cardoza MD, 08/18/2024 9:[address] THOR SPINE WO CON Final Result by User, [id number] (08/18 2143) [facility] [address], [place] [address] INDICATION: Trauma, fall COMPARISON: None TECHNIQUE: CT images of the chest, abdomen, and pelvis were obtained following the administration of IV contrast. Delayed images were also obtained. CT images of the thoracic spine were obtained without the readministration of IV contrast. CT images of the lumbar spine were obtained without the readministration of IV contrast. Radiation dose reduction technique utilized. FINDINGS: CHEST: Thoracic aorta exhibits no acute abnormality. Cardiac chambers within normal size limits. No significant pericardial effusion. No mediastinal, hilar, or axillary lymphadenopathy. No suspicious thyroid nodule. Esophagus within normal limits. Trachea and central airways are patent. No pneumothorax. No focal airspace consolidation. No pleural effusion. 0.3 cm solid nodule in the right lower lobe, axial image 86. Though this study is not optimized for evaluation for pulmonary emboli, there are no filling defects in the main or segmental pulmonary arteries to suggest pulmonary embolism. ABDOMEN/PELVIS: Normal size liver. No suspicious hepatic lesion. Gallbladder within normal limits. 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 No retroperitoneal lymphadenopathy. Large stool burden in the rectum and descending colon, with moderate colonic stool burden overall. Cecal diverticulosis. Normal appearing appendix. No free gas the abdomen or pelvis. No mesenteric lymphadenopathy. Stomach and duodenum within normal limits. Normal size spleen, exhibiting a physiologic arterial phase contrast enhancement pattern. Pancreas within normal limits. Adrenal glands within normal limits. Kidneys enhance symmetrically. Bilateral renal cortical scarring. Benign-appearing renal cystic foci for which no further follow-up is recommended. No hydronephrosis or hydroureter. On delayed imaging, excreted contrast partially opacifies normal appearing ureters which exhibit physiologic peristalsis. Urinary bladder within normal limits for degree of distention. Prostatomegaly measuring 5.4 cm transversely. No pelvic lymphadenopathy or significant free fluid. Incidental note of benign pelvic phleboliths. THORACIC SPINE: Normal alignment of the thoracic spine without evidence of traumatic subluxation. Vertebral body heights are maintained. Chronic multilevel degenerative disc disease. No evidence of significant impingement on the spinal canal or significant neural foraminal stenosis. No evidence of acute fracture of the thoracic spine. LUMBAR SPINE: Five lumbar type vertebral bodies. No evidence of traumatic subluxation of the lumbar spine. 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 Vertebral body heights and disc spaces are maintained. Posterior disc osteophyte complexes throughout the lumbar spine. Multilevel facet and ligamentous hypertrophy. Moderate spinal canal stenosis L1-L2, L2-L3, L3-L4, and moderate to severe spinal canal stenosis at L4-L5. At least moderate bilateral foraminal stenosis L1-L2, L2-L3, L3-L4, and L4-L5. No acute fracture of the lumbar spine. OTHER MSK: Pelvis is intact. Chronic degenerative changes of the hips, pubic symphysis, and sacroiliac joints. Sternum is intact. No acute rib fracture. Clavicles and visualized aspects of the scapulae are intact. Chronic degenerative changes of the glenohumeral joints. Limited visualization of the inferior cervical structures exhibits no gross acute abnormality; chronic multilevel degenerative change present. C2 odontoid fracture identified on earlier cervical CT is not within the field of view. Visualized body wall exhibits no acute abnormality. IMPRESSION: 1. No evidence of acute traumatic injury in the chest, abdomen, pelvis, or thoracic/lumbar spine. 2. Right lower lobe pulmonary nodule measuring less than 0.6 cm. Per Fleischner Society guidelines, for a low risk patient no further follow-up is indicated. For a high risk patient, optional CT in 12 months. Referred By: LUIS A HUTCHINSON Interpreted By: Tony Cardoza MD, 08/18/2024 9:[address] LUMB SPINE WO CON Final Result by User, [id number] (08/18 2143) [address] [address] INDICATION: Trauma, fall COMPARISON: None TECHNIQUE: CT images of the chest, abdomen, and pelvis were obtained following the administration of IV contrast. Delayed images were also obtained. CT images of the thoracic spine were obtained without the readministration of IV contrast. CT images of the lumbar spine were obtained without the readministration of IV contrast. Radiation dose reduction technique utilized. FINDINGS: CHEST: Thoracic aorta exhibits no acute abnormality. Cardiac chambers within normal size limits. No significant pericardial effusion. No mediastinal, hilar, or axillary lymphadenopathy. No suspicious thyroid nodule. Esophagus within normal limits. Trachea and central airways are patent. No pneumothorax. No focal airspace consolidation. No pleural effusion. 0.3 cm solid nodule in the right lower lobe, axial image 86. Though this study is not optimized for evaluation for pulmonary emboli, there are no filling defects in the main or segmental pulmonary arteries to suggest pulmonary embolism. ABDOMEN/PELVIS: Normal size liver. No suspicious hepatic lesion. Gallbladder within normal limits. 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 No retroperitoneal lymphadenopathy. Large stool burden in the rectum and descending colon, with moderate colonic stool burden overall. Cecal diverticulosis. Normal appearing appendix. No free gas the abdomen or pelvis. No mesenteric lymphadenopathy. Stomach and duodenum within normal limits. Normal size spleen, exhibiting a physiologic arterial phase contrast enhancement pattern. Pancreas within normal limits. Adrenal glands within normal limits. Kidneys enhance symmetrically. Bilateral renal cortical scarring. Benign-appearing renal cystic foci for which no further follow-up is recommended. No hydronephrosis or hydroureter. On delayed imaging, excreted contrast partially opacifies normal appearing ureters which exhibit physiologic peristalsis. Urinary bladder within normal limits for degree of distention. Prostatomegaly measuring 5.4 cm transversely. No pelvic lymphadenopathy or significant free fluid. Incidental note of benign pelvic phleboliths. THORACIC SPINE: Normal alignment of the thoracic spine without evidence of traumatic subluxation. Vertebral body heights are maintained. Chronic multilevel degenerative disc disease. No evidence of significant impingement on the spinal canal or significant neural foraminal stenosis. No evidence of acute fracture of the thoracic spine. LUMBAR SPINE: Five lumbar type vertebral bodies. No evidence of traumatic subluxation of the lumbar spine. 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 Vertebral body heights and disc spaces are maintained. Posterior disc osteophyte complexes throughout the lumbar spine. Multilevel facet and ligamentous hypertrophy. Moderate spinal canal stenosis L1-L2, L2-L3, L3-L4, and moderate to severe spinal canal stenosis at L4-L5. At least moderate bilateral foraminal stenosis L1-L2, L2-L3, L3-L4, and L4-L5. No acute fracture of the lumbar spine. OTHER MSK: Pelvis is intact. Chronic degenerative changes of the hips, pubic symphysis, and sacroiliac joints. Sternum is intact. No acute rib fracture. Clavicles and visualized aspects of the scapulae are intact. Chronic degenerative changes of the glenohumeral joints. Limited visualization of the inferior cervical structures exhibits no gross acute abnormality; chronic multilevel degenerative change present. C2 odontoid fracture identified on earlier cervical CT is not within the field of view. Visualized body wall exhibits no acute abnormality. IMPRESSION: 1. No evidence of acute traumatic injury in the chest, abdomen, pelvis, or thoracic/lumbar spine. 2. Right lower lobe pulmonary nodule measuring less than 0.6 cm. Per Fleischner Society guidelines, for a low risk patient no further follow-up is indicated. For a high risk patient, optional CT in 12 months. Referred By: LUIS A HUTCHINSON Interpreted By: Tony Cardoza MD, 08/18/2024 9:[address] CHEST+ABD+PEL W CON Final Result by User, [id number] (08/18 2143) [address] [address] INDICATION: Trauma, fall COMPARISON: None TECHNIQUE: CT images of the chest, abdomen, and pelvis were obtained following the administration of IV contrast. Delayed images were also obtained. CT images of the thoracic spine were obtained without the readministration of IV contrast. CT images of the lumbar spine were obtained without the readministration of IV contrast. Radiation dose reduction technique utilized. FINDINGS: CHEST: Thoracic aorta exhibits no acute abnormality. Cardiac chambers within normal size limits. No significant pericardial effusion. No mediastinal, hilar, or axillary lymphadenopathy. No suspicious thyroid nodule. Esophagus within normal limits. Trachea and central airways are patent. No pneumothorax. No focal airspace consolidation. No pleural effusion. 0.3 cm solid nodule in the right lower lobe, axial image 86. Though this study is not optimized for evaluation for pulmonary emboli, there are no filling defects in the main or segmental pulmonary arteries to suggest pulmonary embolism. ABDOMEN/PELVIS: Normal size liver. No suspicious hepatic lesion. Gallbladder within normal limits. 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 No retroperitoneal lymphadenopathy. Large stool burden in the rectum and descending colon, with moderate colonic stool burden overall. Cecal diverticulosis. Normal appearing appendix. No free gas the abdomen or pelvis. No mesenteric lymphadenopathy. Stomach and duodenum within normal limits. Normal size spleen, exhibiting a physiologic arterial phase contrast enhancement pattern. Pancreas within normal limits. Adrenal glands within normal limits. Kidneys enhance symmetrically. Bilateral renal cortical scarring. Benign-appearing renal cystic foci for which no further follow-up is recommended. No hydronephrosis or hydroureter. On delayed imaging, excreted contrast partially opacifies normal appearing ureters which exhibit physiologic peristalsis. Urinary bladder within normal limits for degree of distention. Prostatomegaly measuring 5.4 cm transversely. No pelvic lymphadenopathy or significant free fluid. Incidental note of benign pelvic phleboliths. THORACIC SPINE: Normal alignment of the thoracic spine without evidence of traumatic subluxation. Vertebral body heights are maintained. Chronic multilevel degenerative disc disease. No evidence of significant impingement on the spinal canal or significant neural foraminal stenosis. No evidence of acute fracture of the thoracic spine. LUMBAR SPINE: Five lumbar type vertebral bodies. No evidence of traumatic subluxation of the lumbar spine. 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 Vertebral body heights and disc spaces are maintained. Posterior disc osteophyte complexes throughout the lumbar spine. Multilevel facet and ligamentous hypertrophy. Moderate spinal canal stenosis L1-L2, L2-L3, L3-L4, and moderate to severe spinal canal stenosis at L4-L5. At least moderate bilateral foraminal stenosis L1-L2, L2-L3, L3-L4, and L4-L5. No acute fracture of the lumbar spine. OTHER MSK: Pelvis is intact. Chronic degenerative changes of the hips, pubic symphysis, and sacroiliac joints. Sternum is intact. No acute rib fracture. Clavicles and visualized aspects of the scapulae are intact. Chronic degenerative changes of the glenohumeral joints. Limited visualization of the inferior cervical structures exhibits no gross acute abnormality; chronic multilevel degenerative change present. C2 odontoid fracture identified on earlier cervical CT is not within the field of view. Visualized body wall exhibits no acute abnormality. IMPRESSION: 1. No evidence of acute traumatic injury in the chest, abdomen, pelvis, or thoracic/lumbar spine. 2. Right lower lobe pulmonary nodule measuring less than 0.6 cm. Per Fleischner Society guidelines, for a low risk patient no further follow-up is indicated. For a high risk patient, optional CT in 12 months. Referred By: LUIS A HUTCHINSON Interpreted By: Tony Cardoza MD, 08/18/2024 9:22 PM ED Course / Medical Decision Making History Source: Patient External records reviewed: Previous ER visits Discussion with external provider: Admitting provider: Trauma surgery, Dr. Holguin Social determinates of health: None Chronic illnesses impacting care: None Tests considered and not ordered: None MDM Number of Diagnoses or Management Options Abrasion of right elbow: new and requires workup C2 cervical fracture (CMS/HCC HHS/HCC): new and requires workup Fall: new and requires workup Pain of left thumb: new and requires workup Diagnosis management comments: Ddx: Fracture, solid organ injury Patient a trauma transfer for admission for C2 fracture. C-collar changed to Cachil Dehe-J. Seen by Dr. Holguin at bedside who will admit and direct ongoing evaluation and treatment. Risk of Complications, Morbidity, and/or Mortality Presenting problems: moderate Diagnostic procedures: moderate Management options: moderate Patient Progress Patient progress: stable Medications sodium chloride 0.9% infusion ( Intravenous Not Given 08/18/242212) bacitracin ointment ( Topical Given 08/19/244) senna-docusate (SENOKOT-S) 8.6-50 MG tablet 1 tablet (1 tablet Oral Given 08/19/24 014) lidocaine 4 % patch 1 patch (1 patch Transdermal Not Given 08/19/24 0002) naLOXone (NARCAN) injection 0.4 mg (has no administration in time range) ondansetron (ZOFRAN) injection 4 mg (has no administration in time range) acetaminophen (TYLENOL) tablet 975 mg (975 mg Oral Given 08/19/24 014) carvedilol (COREG) tablet 6.25 mg (6.25 mg Oral Given 08/19/24142) Diclofenac Sodium 3 % GEL 1 Application (has no administration in time range) DULoxetine (CYMBALTA) capsule 30 mg (has no administration in time range) lisinopril (PRINIVIL) tablet 20 mg (has no administration in time range) And hydroCHLOROthiazide (HYDRODIURIL) tablet 12.5 mg (has no administration in time range) atorvastatin (LIPITOR) tablet 10 mg (has no administration in time range) pantoprazole EC (PROTONIX) tablet 40 mg (has no administration in time range) insulin lispro (HUMALOG/ADMELOG) injection 0-6 Units ( Subcutaneous Not Given 08/19/2410) dextrose (GLUTOSE) 40 % oral gel 37.5-75 g (has no administration in time range) dextrose 10 % bolus infusion 125-250 mL (has no administration in time range) glucagon injection 1 mg (has no administration in time range) celecoxib (CeleBREX) capsule 100 mg (100 mg Oral Given 08/19/24142) methocarbamol (ROBAXIN) tablet 500 mg (500 mg Oral Given 08/19/24624) traMADol (ULTRAM) tablet 50 mg (has no administration in time range) oxyCODONE immediate release (ROXICODONE) tablet 5 mg (5 mg Oral Given 08/18/242334) pantoprazole (PROTONIX) 40 mg in sodium chloride (PF) 0.9 % 10 mL IV (40 mg Intravenous Given 08/18/242032) iopamidol (ISOVUE-370) 76 % injection 100 mL (100 mLs Intravenous Given 08/18/242101) methocarbamol (ROBAXIN) tablet 500 mg (500 mg Oral Given 08/19/24142) SNOMED CT(R) 1. C2 cervical fracture (CMS/HCC HHS/HCC) FRACTURE OF SECOND CERVICAL VERTEBRA 2. Pain of left thumb PAIN IN LEFT THUMB 3. Abrasion of right elbow ABRASION OF SKIN OF RIGHT ELBOW REGION 4. Fall FALL Current Discharge Medication List Disposition: Admit Follow-Up: Krysta Lopes, [facility] [address] [facility] [address] Follow up Hospital discharge follow and to discuss incidental finding found on CT: Right lower lobe pulmonarynodule measuring less than 0.6 cm. Brii Post MD 08/19/2024 6:40 AM Brii Post MD 08/19/24639 P MANAGER * Nidhi Worthy RN - 08/18/2024 8:28 PM CST See trauma chart. P MANAGER * Jen Rivas RN - 08/18/2024 8:28 PM CST Trauma chart closed, bed request being placed for [facility] admission, patient stable. Patient neurovascularly intact. Moving all extremities, sensation intact, A&Ox4, c-collar Cachil Dehe J remaining in place, appropriate sizing and fit ensured. P MANAGER * Gracia Holt RN - 08/18/2024 8:14 PM CST Bed: C Expected date: Expected time: Means of arrival: Comments: Trauma txf P MANAGER documented in this encounter Plan of Treatment Not on file documented as of this encounter Procedures Procedure Name Priority Date/Time Associated Diagnosis Comments POCT GLUCOSE - RAMOS DOCKED DEVICE Routine 08/19/2024 12:51 PM SLEEP MANAGER BASIC METABOLIC PANEL Routine 08/19/2024 7:30 AM SLEEP MANAGER CBC W/DIFF AUTOMATED Routine 08/19/2024 7:30 AM SLEEP MANAGER PHOSPHORUS, INORGANIC PHOSPHATE Routine 08/19/2024 7:30 AM SLEEP MANAGER MAGNESIUM Routine 08/19/2024 7:30 AM SLEEP MANAGER POCT GLUCOSE - RAMOS DOCKED DEVICE Routine 08/19/2024 6:09 AM SLEEP MANAGER POCT GLUCOSE - RAMOS DOCKED DEVICE Routine 08/18/2024 11:59 PM SLEEP MANAGER XR HUMERUS RT MIN 2V STAT 08/18/2024 9:05 PM SLEEP MANAGER XR ELBOW RT M3V STAT 08/18/2024 9:[address] THOR SPINE WO CON STAT 08/18/2024 9:[address] LUMB SPINE WO CON STAT 08/18/2024 9:[address] CHEST+ABD+PEL W CON STAT 08/18/2024 9:02 PM SLEEP MANAGER documented in this encounter Results * (ABNORMAL) POCT glucose (08/19/2024 12:51 PM SLEEP MANAGER) GLUCOSE POC 230(H) 70 - 109 08/19/2024 2:23 PM SLEEP MANAGER [facility] 08/19/2024 12:5 1 PM SLEEP MANAGER Damaris Holguin MD POCT ORDERABLES - DEVICE Final Result Performing Organization Address City/[facility]/ZIP Co de Phone Number [facility] [address] [place] [address], [id number] * PHOSPHORUS, INORGANIC PHOSPHATE (08/19/2024 7:30 AM SLEEP MANAGER) PHOSPHORUS 3.9 2.5 - 4.9 MG/DL 08/19/2024 8:40 AM SLEEP MANAGER [facility] 08/19/2024 7:30 AM SLEEP MANAGER us Damaris Holguin MD LABORATORY Final Result Performing Organization Address [facility]/ZIP Co de Phone Number [facility] [address] [place] [address], [id number] * MAGNESIUM (08/19/2024 7:30 AM SLEEP MANAGER) MAGNESIUM 2.4 1.6 - 2.6 MG/DL 08/19/2024 8:40 AM SLEEP MANAGER [facility] 08/19/2024 7:30 AM SLEEP MANAGER Damaris Holguin MD LABORATORY Final Result [facility] [address] [place] [address], [id number] * (ABNORMAL) BASIC METABOLIC PANEL (08/19/2024 7:30 AM SLEEP MANAGER) SODIUM S/P/B 137 136 - 145 MMOL/L 08/19/2024 8:40 AM [facility] POTASSIUM S/P/B 3.9 3.5 - 5.1 MMOL/L 08/19/2024 8:40 AM [facility] CHLORIDE S/P/B 104 97 - 115 MMOL/L 08/19/2024 8:40 AM [facility] CO2 27.1 21.0 - 32.0 MMOL/L 08/19/2024 8:40 AM [facility] GLUCOSE 204(H) 74 - 106 MG/DL 08/19/2024 8:40 AM [facility] BUN 17 7 - 18 MG/DL 08/19/2024 8:40 AM [facility] CREATININE S/P/B 0.78 0.70 - 1.30 MG/DL 08/19/2024 8:40 AM [facility] CALCIUM S/P/B 9.4 8.5 - 10.1 MG/DL 08/19/2024 8:40 AM [facility] ANION GAP 5.9 2.0 - 10.0 MMOL/L 08/19/2024 8:40 AM [facility] OSMOLALITY (CALC) 291 MOSM/KG 025 8:40 AM [facility] Comment:REFERENCE RANGE NOT ESTABLISHED GFR ESTIMATE 88(L) >90 ML/MIN/1. 73 M2 08/19/2024 8:40 AM SLEEP MANAGER [facility] GFR NOTES GFR REFERENCE S: 08/19/2024 8:40 AM SLEEP MANAGER [facility] Comment: THE ESTIMATED GFR IS CALCULATED USING THE 2020 CKD-EPI EQUATION. THE FOLLOWING CATEGORIES FOR GRADING RENAL FUNCTION ARE RECOMMENDED BY THE INTERNATIONAL SOCIETY OF NEPHROLOGY (KDIGO 2012 CLINICAL PRACTICE GUIDELINE). G1,NORMAL OR HIGH: >89 ml/min/1.73 m2 G2,MILDLY DECREASED: 60-89 ml/min/1.73 m2 G3A,MILDLY TO MODERATELY DECREASED: 45-59 ml/min/1.73 m2 G3B,MODERATELY TO SEVERELY DECREASED: 30-44 ml/min/1.73 m2 G4,SEVERELY DECREASED: 15-29 ml/min/1.73 m2 G5,KIDNEY FAILURE: <15 ml/min/1.73 m2 08/19/2024 7:30 AM SLEEP MANAGER us Damaris Holguin MD LABORATORY Final Result [facility] [address] [place] [id number], [id number] * (ABNORMAL) CBC W/DIFF AUTOMATED (08/19/2024 7:30 AM SLEEP MANAGER) WBC 9.83 4.00 - 10.80 x10'3/uL 08/19/2024 8:17 AM SLEEP MANAGER [facility] RBC 4.68 4.50 - 6.10 x10'6/uL 08/19/2024 8:17 AM [facility] HGB 14.0 12.0 - 16.0 G/DL 08/19/2024 8:17 AM [facility] HCT 40.9 37.0 - 52.0 % 08/19/2024 8:17 AM [facility] MCV 87.4 78.0 - 100.0 FL 08/19/2024 8:17 AM [facility] MCH 29.9 27.0 - 31.0 PG 08/19/2024 8:17 AM [facility] MCHC 34.2 33.0 - 36.0 G/DL 08/19/2024 8:17 AM [facility] RDW 12.4 11.5 - 14.5 % 08/19/2024 8:17 AM [facility] PLT 231 150 - 350 x10'3/uL 08/19/2024 8:17 AM [facility] MPV 9.9 7.4 - 10.4 FL 08/19/2024 8:17 AM [facility] DIFFERENTIAL TYPE AUTOMATED DIFFERENTIAL 08/19/2024 8:17 AM [facility] SEG NEUTROPHILS 71.6 % 8:17 AM [facility] LYMPHOCYTES 18.6 % 08/19/2024 8:17 AM [facility] MONOCYTES 8.0 % 08/19/2024 8:17 AM [facility] EOSINOPHILS 0.4 % 08/19/2024 8:17 AM [facility] BASOPHILS 0.5 % 08/19/2024 8:17 AM [facility] IMMATURE GRANS % 0.9 % 08/19/19 8:17 AM [facility] ABS. NEUTROPHILS 7.03 1.60 - 8.30 x10'3/uL 08/19/2024 8:17 AM [facility] ABS. LYMPHOCYTES 1.83 0.80 - 4.70 x10'3/uL 08/19/2024 8:17 AM [facility] ABS. MONOCYTES 0.79 0.00 - 1.50 x10'3/uL 08/19/2024 8:17 AM [facility] ABS. EOSINOPHILS 0.04 0.00 - 0.40 x10'3/uL 08/19/2024 8:17 AM [facility] ABS. BASOPHILS 0.05 0.00 - 0.20 x10'3/uL 08/19/2024 8:17 AM SLEEP MANAGER [facility] ABS. IMMATURE GRANULOCYTES 0.09(H) 0.00 - 0.03 x10'3/uL 08/19/2024 8:17 AM SLEEP MANAGER [facility] ABS. NUCLEATED RBC'S 0.00 0.00 - 0.01 x10'3/uL 08/19/2024 8:17 AM SLEEP MANAGER [facility] NRBC % 0.0 % 08/19/2024 8:17 AM SLEEP MANAGER [facility] 08/19/2024 7:30 AM SLEEP MANAGER us Damaris Holguin MD LABORATORY Final Result Performing Organization Address [facility]/[place] Co de Phone Number [facility] [address] [place] [address], [place] [phone] * (ABNORMAL) POCT glucose (08/19/2024 6:09 AM SLEEP MANAGER) GLUCOSE POC 153(H) 70 - 109 08/19/2024 6:11 AM SLEEP MANAGER [facility] 08/19/2024 6:09 AM SLEEP MANAGER us Damaris Holguin MD POCT ORDERABLES - DEVICE Final Result Performing Organization Address [facility] de Phone Number [facility] [address] [place] [address], [place] [phone] * (ABNORMAL) POCT glucose (08/18/2024 11:59 PM SLEEP MANAGER) GLUCOSE POC 236(H) 70 - 109 08/19/2024 12:02 AM SLEEP MANAGER [facility] 08/18/2024 11:5 9 PM SLEEP MANAGER us Damaris Holguin MD POCT ORDERABLES - DEVICE Final Result Performing Organization Address [facility]/[place] Co de Phone Number [id number] [address], [id number] * XR HUMERUS RT MIN 2V (08/18/2024 9:05 PM SLEEP MANAGER) Anatomical Region Laterality Modality Humerus Radiographic Bre ging 08/18/2024 9:14 PM SLEEP MANAGER Impressions 08/18/2024 9:27 PM SLEEP MANAGER IMPRESSION: 1. Possible acute avulsion fracture of the coronoid process of the ulna. 2. No other acute osseous or articular abnormality identified in the humerus or elbow. 3. No elbow effusion. Referred By: LUIS A HUTCHINSON Interpreted By: Tony Cardoza MD, 08/18/2024 9:14 PM Narrative 08/18/2024 9:27 PM SLEEP MANAGER [place] [address] INDICATION: Pain trauma COMPARISON: None TECHNIQUE: * Two radiographic images of the right humerus. * Three radiographic images of the right elbow. FINDINGS: Tiny osseous fragment adjacent to the medial aspect of the coronoid process of the ulna, best visualized on the AP view of the humerus and AP view of the elbow. This does not appear to be well-corticated. No evidence of elbow dislocation. No elbow effusion. No other acute osseous abnormality identified in the humerus or elbow. Limited evaluation of the shoulder exhibits no gross acute abnormality. Chronic degenerative changes of the acromioclavicular joint. No soft tissue emphysema. Procedure Note Tony Cardoza MD - 08/18/2024 [place] [address] INDICATION: Pain trauma COMPARISON: None TECHNIQUE: * Two radiographic images of the right humerus. * Three radiographic images of the right elbow. FINDINGS: Tiny osseous fragment adjacent to the medial aspect of the coronoidprocess of the ulna, best visualized on the AP view of the humerus and APview of the elbow. This does not appear to be well-corticated. No evidenceof elbow dislocation. No elbow effusion. No other acute osseous abnormality identified in the humerus or elbow. Limited evaluation of the shoulder exhibits no gross acute abnormality.Chronic degenerative changes of the acromioclavicular joint. No softtissue emphysema. IMPRESSION: 1. Possible acute avulsion fracture of the coronoid process of the ulna. 2. No other acute osseous or articular abnormality identified in thehumerus or elbow. 3. No elbow effusion. Referred By: LUIS A HUTCHINSON Interpreted By: Tony Cardoza MD, 08/18/2024 9:14 PM Alisha Virk [facility] Final Resul t * XR ELBOW RT M3V (08/18/2024 9:05 PM SLEEP MANAGER) Anatomical Region Laterality Modality Elbow Radiographic Bre ging 08/18/2024 9:14 PM SLEEP MANAGER Impressions 08/18/2024 9:27 PM SLEEP MANAGER IMPRESSION: 1. Possible acute avulsion fracture of the coronoid process of the ulna. 2. No other acute osseous or articular abnormality identified in the humerus or elbow. 3. No elbow effusion. Referred By: LUIS A HUTCHINSON Interpreted By: Tony Cardoza MD, 08/18/2024 9:14 PM Narrative 08/18/2024 9:27 PM SLEEP MANAGER [address] [address] INDICATION: Pain trauma COMPARISON: None TECHNIQUE: * Two radiographic images of the right humerus. * Three radiographic images of the right elbow. FINDINGS: Tiny osseous fragment adjacent to the medial aspect of the coronoid process of the ulna, best visualized on the AP view of the humerus and AP view of the elbow. This does not appear to be well-corticated. No evidence of elbow dislocation. No elbow effusion. No other acute osseous abnormality identified in the humerus or elbow. Limited evaluation of the shoulder exhibits no gross acute abnormality. Chronic degenerative changes of the acromioclavicular joint. No soft tissue emphysema. Procedure Note Tony Cardoza MD - 08/18/[address] [address] INDICATION: Pain trauma COMPARISON: None TECHNIQUE: * Two radiographic images of the right humerus. * Three radiographic images of the right elbow. FINDINGS: Tiny osseous fragment adjacent to the medial aspect of the coronoidprocess of the ulna, best visualized on the AP view of the humerus and APview of the elbow. This does not appear to be well-corticated. No evidenceof elbow dislocation. No elbow effusion. No other acute osseous abnormality identified in the humerus or elbow. Limited evaluation of the shoulder exhibits no gross acute abnormality.Chronic degenerative changes of the acromioclavicular joint. No softtissue emphysema. IMPRESSION: 1. Possible acute avulsion fracture of the coronoid process of the ulna. 2. No other acute osseous or articular abnormality identified in thehumerus or elbow. 3. No elbow effusion. Referred By: LUIS A HUTCHINSON Interpreted By: Tony Cardoza MD, 08/18/2024 9:14 PM Alisha Virk [facility] Final Resul t * CT CHEST+ABD+PEL W CON (08/18/2024 9:02 PM SLEEP MANAGER) Anatomical Region Laterality Modality Chest, Abdomen, Pelvis Computed Tomography 08/18/2024 9:22 PM SLEEP MANAGER Impressions 08/18/2024 9:43 PM SLEEP MANAGER IMPRESSION: 1. No evidence of acute traumatic injury in the chest, abdomen, pelvis, or thoracic/lumbar spine. 2. Right lower lobe pulmonary nodule measuring less than 0.6 cm. Per Fleischner Society guidelines, for a low risk patient no further follow-up is indicated. For a high risk patient, optional CT in 12 months. Referred By: LUIS A HUTCHINSON Interpreted By: Tony Cardoza MD, 08/18/2024 9:22 PM Narrative 08/18/2024 9:43 PM SLEEP MANAGER [address] [address] INDICATION: Trauma, fall COMPARISON: None TECHNIQUE: CT images of the chest, abdomen, and pelvis were obtained following the administration of IV contrast. Delayed images were also obtained. CT images of the thoracic spine were obtained without the readministration of IV contrast. CT images of the lumbar spine were obtained without the readministration of IV contrast. Radiation dose reduction technique utilized. FINDINGS: CHEST: Thoracic aorta exhibits no acute abnormality. Cardiac chambers within normal size limits. No significant pericardial effusion. No mediastinal, hilar, or axillary lymphadenopathy. No suspicious thyroid nodule. Esophagus within normal limits. Trachea and central airways are patent. No pneumothorax. No focal airspace consolidation. No pleural effusion. 0.3 cm solid nodule in the right lower lobe, axial image 86. Though this study is not optimized for evaluation for pulmonary emboli, there are no filling defects in the main or segmental pulmonary arteries to suggest pulmonary embolism. ABDOMEN/PELVIS: Normal size liver. No suspicious hepatic lesion. Gallbladder within normal limits. 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 No retroperitoneal lymphadenopathy. Large stool burden in the rectum and descending colon, with moderate colonic stool burden overall. Cecal diverticulosis. Normal appearing appendix. No free gas the abdomen or pelvis. No mesenteric lymphadenopathy. Stomach and duodenum within normal limits. Normal size spleen, exhibiting a physiologic arterial phase contrast enhancement pattern. Pancreas within normal limits. Adrenal glands within normal limits. Kidneys enhance symmetrically. Bilateral renal cortical scarring. Benign- appearing renal cystic foci for which no further follow-up is recommended. No hydronephrosis or hydroureter. On delayed imaging, excreted contrast partially opacifies normal appearing ureters which exhibit physiologic peristalsis. Urinary bladder within normal limits for degree of distention. Prostatomegaly measuring 5.4 cm transversely. No pelvic lymphadenopathy or significant free fluid. Incidental note of benign pelvic phleboliths. THORACIC SPINE: Normal alignment of the thoracic spine without evidence of traumatic subluxation. Vertebral body heights are maintained. Chronic multilevel degenerative disc disease. No evidence of significant impingement on the spinal canal or significant neural foraminal stenosis. No evidence of acute fracture of the thoracic spine. LUMBAR SPINE: Five lumbar type vertebral bodies. No evidence of traumatic subluxation of the lumbar spine. 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 Vertebral body heights and disc spaces are maintained. Posterior disc osteophyte complexes throughout the lumbar spine. Multilevel facet and ligamentous hypertrophy. Moderate spinal canal stenosis L1-L2, L2-L3, L3-L4, and moderate to severe spinal canal stenosis at L4-L5. At least moderate bilateral foraminal stenosis L1-L2, L2-L3, L3-L4, and L4-L5. No acute fracture of the lumbar spine. OTHER MSK: Pelvis is intact. Chronic degenerative changes of the hips, pubic symphysis, and sacroiliac joints. Sternum is intact. No acute rib fracture. Clavicles and visualized aspects of the scapulae are intact. Chronic degenerative changes of the glenohumeral joints. Limited visualization of the inferior cervical structures exhibits no gross acute abnormality; chronic multilevel degenerative change present. C2 odontoid fracture identified on earlier cervical CT is not within the field of view. Visualized body wall exhibits no acute abnormality. Procedure Note Tony Cardoza MD - 08/18/2024 [place] [id number] INDICATION: Trauma, fall COMPARISON: None TECHNIQUE: CT images of the chest, abdomen, and pelvis were obtained following theadministration of IV contrast. Delayed images were also obtained. CT images of the thoracic spine were obtained without the readministrationof IV contrast. CT images of the lumbar spine were obtained without the readministrationof IV contrast. Radiation dose reduction technique utilized. FINDINGS: CHEST: Thoracic aorta exhibits no acute abnormality. Cardiac chambers withinnormal size limits. No significant pericardial effusion. No mediastinal, hilar, or axillary lymphadenopathy. No suspicious thyroidnodule. Esophagus within normal limits. Trachea and central airways are patent. No pneumothorax. No focal airspaceconsolidation. No pleural effusion. 0.3 cm solid nodule in the right lowerlobe, axial image 86. Though this study is not optimized for evaluation for pulmonary emboli,there are no filling defects in the main or segmental pulmonary arteriesto suggest pulmonary embolism. ABDOMEN/PELVIS: Normal size liver. No suspicious hepatic lesion. Gallbladder within normallimits. 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 Noretroperitoneal lymphadenopathy. Large stool burden in the rectum and descending colon, with moderatecolonic stool burden overall. Cecal diverticulosis. Normal appearingappendix. No free gas the abdomen or pelvis. No mesentericlymphadenopathy. Stomach and duodenum within normal limits. Normal size spleen, exhibiting a physiologic arterial phase contrastenhancement pattern. Pancreas within normal limits. Adrenal glands withinnormal limits. Kidneys enhance symmetrically. Bilateral renal cortical scarring.Benign- appearing renal cystic foci for which no further follow-up isrecommended. No hydronephrosis or hydroureter. On delayed imaging,excreted contrast partially opacifies normal appearing ureters whichexhibit physiologic peristalsis. Urinary bladder within normal limits for degree of distention.Prostatomegaly measuring 5.4 cm transversely. No pelvic lymphadenopathy orsignificant free fluid. Incidental note of benign pelvic phleboliths. THORACIC SPINE: Normal alignment of the thoracic spine without evidence of traumaticsubluxation. Vertebral body heights are maintained. Chronic multileveldegenerative disc disease. No evidence of significant impingement on thespinal canal or significant neural foraminal stenosis. No evidence ofacute fracture of the thoracic spine. LUMBAR SPINE: Five lumbar type vertebral bodies. No evidence of traumatic subluxation ofthe lumbar spine. Trace chronic grade 1 anterolisthesis of L5 on [id number] to bilateral L5 pars defects. Vertebral body heights and discspaces are maintained. Posterior disc osteophyte complexes throughout thelumbar spine. Multilevel facet and ligamentous hypertrophy. Moderatespinal canal stenosis L1-L2, L2-L3, L3-L4, and moderate to severe spinalcanal stenosis at L4-L5. At least moderate bilateral foraminal stenosisL1-L2, L2-L3, L3-L4, and L4-L5. No acute fracture of the lumbar spine. OTHER MSK: Pelvis is intact. Chronic degenerative changes of the hips, pubicsymphysis, and sacroiliac joints. Sternum is intact. No acute rib fracture. Clavicles and visualized aspects of the scapulae are intact. Chronicdegenerative changes of the glenohumeral joints. Limited visualization of the inferior cervical structures exhibits nogross acute abnormality; chronic multilevel degenerative change present.C2 odontoid fracture identified on earlier cervical CT is not within thefield of view. Visualized body wall exhibits no acute abnormality. IMPRESSION: 1. No evidence of acute traumatic injury in the chest, abdomen, pelvis,or thoracic/lumbar spine. 2. Right lower lobe pulmonary nodule measuring less than 0.6 cm. PerFleischner Society guidelines, for a low risk patient no further follow-upis indicated. For a high risk patient, optional CT in 12 months. Referred By: LUIS A HUTCHINSON Interpreted By: Tony Cardoza MD, 08/18/2024 9:22 PM Damaris Holguin MD CT Final Result * CT LUMB SPINE WO CON (08/18/2024 9:02 PM SLEEP MANAGER) Anatomical Region Laterality Modality Spine Computed Tomogra phy 08/18/2024 9:22 PM SLEEP MANAGER Impressions 08/18/2024 9:43 PM SLEEP MANAGER IMPRESSION: 1. No evidence of acute traumatic injury in the chest, abdomen, pelvis, or thoracic/lumbar spine. 2. Right lower lobe pulmonary nodule measuring less than 0.6 cm. Per Fleischner Society guidelines, for a low risk patient no further follow-up is indicated. For a high risk patient, optional CT in 12 months. Referred By: LUIS A HUTCHINSON Interpreted By: Tony Cardoza MD, 08/18/2024 9:22 PM Narrative 08/18/2024 9:43 PM SLEEP MANAGER [address] [address] INDICATION: Trauma, fall COMPARISON: None TECHNIQUE: CT images of the chest, abdomen, and pelvis were obtained following the administration of IV contrast. Delayed images were also obtained. CT images of the thoracic spine were obtained without the readministration of IV contrast. CT images of the lumbar spine were obtained without the readministration of IV contrast. Radiation dose reduction technique utilized. FINDINGS: CHEST: Thoracic aorta exhibits no acute abnormality. Cardiac chambers within normal size limits. No significant pericardial effusion. No mediastinal, hilar, or axillary lymphadenopathy. No suspicious thyroid nodule. Esophagus within normal limits. Trachea and central airways are patent. No pneumothorax. No focal airspace consolidation. No pleural effusion. 0.3 cm solid nodule in the right lower lobe, axial image 86. Though this study is not optimized for evaluation for pulmonary emboli, there are no filling defects in the main or segmental pulmonary arteries to suggest pulmonary embolism. ABDOMEN/PELVIS: Normal size liver. No suspicious hepatic lesion. Gallbladder within normal limits. 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 No retroperitoneal lymphadenopathy. Large stool burden in the rectum and descending colon, with moderate colonic stool burden overall. Cecal diverticulosis. Normal appearing appendix. No free gas the abdomen or pelvis. No mesenteric lymphadenopathy. Stomach and duodenum within normal limits. Normal size spleen, exhibiting a physiologic arterial phase contrast enhancement pattern. Pancreas within normal limits. Adrenal glands within normal limits. Kidneys enhance symmetrically. Bilateral renal cortical scarring. Benign- appearing renal cystic foci for which no further follow-up is recommended. No hydronephrosis or hydroureter. On delayed imaging, excreted contrast partially opacifies normal appearing ureters which exhibit physiologic peristalsis. Urinary bladder within normal limits for degree of distention. Prostatomegaly measuring 5.4 cm transversely. No pelvic lymphadenopathy or significant free fluid. Incidental note of benign pelvic phleboliths. THORACIC SPINE: Normal alignment of the thoracic spine without evidence of traumatic subluxation. Vertebral body heights are maintained. Chronic multilevel degenerative disc disease. No evidence of significant impingement on the spinal canal or significant neural foraminal stenosis. No evidence of acute fracture of the thoracic spine. LUMBAR SPINE: Five lumbar type vertebral bodies. No evidence of traumatic subluxation of the lumbar spine. 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 Vertebral body heights and disc spaces are maintained. Posterior disc osteophyte complexes throughout the lumbar spine. Multilevel facet and ligamentous hypertrophy. Moderate spinal canal stenosis L1-L2, L2-L3, L3-L4, and moderate to severe spinal canal stenosis at L4-L5. At least moderate bilateral foraminal stenosis L1-L2, L2-L3, L3-L4, and L4-L5. No acute fracture of the lumbar spine. OTHER MSK: Pelvis is intact. Chronic degenerative changes of the hips, pubic symphysis, and sacroiliac joints. Sternum is intact. No acute rib fracture. Clavicles and visualized aspects of the scapulae are intact. Chronic degenerative changes of the glenohumeral joints. Limited visualization of the inferior cervical structures exhibits no gross acute abnormality; chronic multilevel degenerative change present. C2 odontoid fracture identified on earlier cervical CT is not within the field of view. Visualized body wall exhibits no acute abnormality. Procedure Note Tony Cardoza MD - 08/18/[address] [address] INDICATION: Trauma, fall COMPARISON: None TECHNIQUE: CT images of the chest, abdomen, and pelvis were obtained following theadministration of IV contrast. Delayed images were also obtained. CT images of the thoracic spine were obtained without the readministrationof IV contrast. CT images of the lumbar spine were obtained without the readministrationof IV contrast. Radiation dose reduction technique utilized. FINDINGS: CHEST: Thoracic aorta exhibits no acute abnormality. Cardiac chambers withinnormal size limits. No significant pericardial effusion. No mediastinal, hilar, or axillary lymphadenopathy. No suspicious thyroidnodule. Esophagus within normal limits. Trachea and central airways are patent. No pneumothorax. No focal airspaceconsolidation. No pleural effusion. 0.3 cm solid nodule in the right lowerlobe, axial image 86. Though this study is not optimized for evaluation for pulmonary emboli,there are no filling defects in the main or segmental pulmonary arteriesto suggest pulmonary embolism. ABDOMEN/PELVIS: Normal size liver. No suspicious hepatic lesion. Gallbladder within normallimits. 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 Noretroperitoneal lymphadenopathy. Large stool burden in the rectum and descending colon, with moderatecolonic stool burden overall. Cecal diverticulosis. Normal appearingappendix. No free gas the abdomen or pelvis. No mesentericlymphadenopathy. Stomach and duodenum within normal limits. Normal size spleen, exhibiting a physiologic arterial phase contrastenhancement pattern. Pancreas within normal limits. Adrenal glands withinnormal limits. Kidneys enhance symmetrically. Bilateral renal cortical scarring.Benign- appearing renal cystic foci for which no further follow-up isrecommended. No hydronephrosis or hydroureter. On delayed imaging,excreted contrast partially opacifies normal appearing ureters whichexhibit physiologic peristalsis. Urinary bladder within normal limits for degree of distention.Prostatomegaly measuring 5.4 cm transversely. No pelvic lymphadenopathy orsignificant free fluid. Incidental note of benign pelvic phleboliths. THORACIC SPINE: Normal alignment of the thoracic spine without evidence of traumaticsubluxation. Vertebral body heights are maintained. Chronic multileveldegenerative disc disease. No evidence of significant impingement on thespinal canal or significant neural foraminal stenosis. No evidence ofacute fracture of the thoracic spine. LUMBAR SPINE: Five lumbar type vertebral bodies. No evidence of traumatic subluxation ofthe lumbar spine. Trace chronic grade 1 anterolisthesis of L5 on [id number] to bilateral L5 pars defects. Vertebral body heights and discspaces are maintained. Posterior disc osteophyte complexes throughout thelumbar spine. Multilevel facet and ligamentous hypertrophy. Moderatespinal canal stenosis L1-L2, L2-L3, L3-L4, and moderate to severe spinalcanal stenosis at L4-L5. At least moderate bilateral foraminal stenosisL1-L2, L2-L3, L3-L4, and L4-L5. No acute fracture of the lumbar spine. OTHER MSK: Pelvis is intact. Chronic degenerative changes of the hips, pubicsymphysis, and sacroiliac joints. Sternum is intact. No acute rib fracture. Clavicles and visualized aspects of the scapulae are intact. Chronicdegenerative changes of the glenohumeral joints. Limited visualization of the inferior cervical structures exhibits nogross acute abnormality; chronic multilevel degenerative change present.C2 odontoid fracture identified on earlier cervical CT is not within thefield of view. Visualized body wall exhibits no acute abnormality. IMPRESSION: 1. No evidence of acute traumatic injury in the chest, abdomen, pelvis,or thoracic/lumbar spine. 2. Right lower lobe pulmonary nodule measuring less than 0.6 cm. PerFleischner Society guidelines, for a low risk patient no further follow-upis indicated. For a high risk patient, optional CT in 12 months. Referred By: LUIS A HUTCHINSON Interpreted By: Tony Cardoza MD, 08/18/2024 9:22 PM us Damaris Holguin MD CT Final Result * CT THOR SPINE WO CON (08/18/2024 9:02 PM SLEEP MANAGER) Anatomical Region Laterality Modality Spine Computed Tomogra phy 08/18/2024 9:22 PM SLEEP MANAGER Impressions 08/18/2024 9:43 PM SLEEP MANAGER IMPRESSION: 1. No evidence of acute traumatic injury in the chest, abdomen, pelvis, or thoracic/lumbar spine. 2. Right lower lobe pulmonary nodule measuring less than 0.6 cm. Per Fleischner Society guidelines, for a low risk patient no further follow-up is indicated. For a high risk patient, optional CT in 12 months. Referred By: LUIS A HUTCHINSON Interpreted By: Tony Cardoza MD, 08/18/2024 9:22 PM Narrative 08/18/2024 9:43 PM SLEEP MANAGER [address] [address] INDICATION: Trauma, fall COMPARISON: None TECHNIQUE: CT images of the chest, abdomen, and pelvis were obtained following the administration of IV contrast. Delayed images were also obtained. CT images of the thoracic spine were obtained without the readministration of IV contrast. CT images of the lumbar spine were obtained without the readministration of IV contrast. Radiation dose reduction technique utilized. FINDINGS: CHEST: Thoracic aorta exhibits no acute abnormality. Cardiac chambers within normal size limits. No significant pericardial effusion. No mediastinal, hilar, or axillary lymphadenopathy. No suspicious thyroid nodule. Esophagus within normal limits. Trachea and central airways are patent. No pneumothorax. No focal airspace consolidation. No pleural effusion. 0.3 cm solid nodule in the right lower lobe, axial image 86. Though this study is not optimized for evaluation for pulmonary emboli, there are no filling defects in the main or segmental pulmonary arteries to suggest pulmonary embolism. ABDOMEN/PELVIS: Normal size liver. No suspicious hepatic lesion. Gallbladder within normal limits. 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 No retroperitoneal lymphadenopathy. Large stool burden in the rectum and descending colon, with moderate colonic stool burden overall. Cecal diverticulosis. Normal appearing appendix. No free gas the abdomen or pelvis. No mesenteric lymphadenopathy. Stomach and duodenum within normal limits. Normal size spleen, exhibiting a physiologic arterial phase contrast enhancement pattern. Pancreas within normal limits. Adrenal glands within normal limits. Kidneys enhance symmetrically. Bilateral renal cortical scarring. Benign- appearing renal cystic foci for which no further follow-up is recommended. No hydronephrosis or hydroureter. On delayed imaging, excreted contrast partially opacifies normal appearing ureters which exhibit physiologic peristalsis. Urinary bladder within normal limits for degree of distention. Prostatomegaly measuring 5.4 cm transversely. No pelvic lymphadenopathy or significant free fluid. Incidental note of benign pelvic phleboliths. THORACIC SPINE: Normal alignment of the thoracic spine without evidence of traumatic subluxation. Vertebral body heights are maintained. Chronic multilevel degenerative disc disease. No evidence of significant impingement on the spinal canal or significant neural foraminal stenosis. No evidence of acute fracture of the thoracic spine. LUMBAR SPINE: Five lumbar type vertebral bodies. No evidence of traumatic subluxation of the lumbar spine. 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 Vertebral body heights and disc spaces are maintained. Posterior disc osteophyte complexes throughout the lumbar spine. Multilevel facet and ligamentous hypertrophy. Moderate spinal canal stenosis L1-L2, L2-L3, L3-L4, and moderate to severe spinal canal stenosis at L4-L5. At least moderate bilateral foraminal stenosis L1-L2, L2-L3, L3-L4, and L4-L5. No acute fracture of the lumbar spine. OTHER MSK: Pelvis is intact. Chronic degenerative changes of the hips, pubic symphysis, and sacroiliac joints. Sternum is intact. No acute rib fracture. Clavicles and visualized aspects of the scapulae are intact. Chronic degenerative changes of the glenohumeral joints. Limited visualization of the inferior cervical structures exhibits no gross acute abnormality; chronic multilevel degenerative change present. C2 odontoid fracture identified on earlier cervical CT is not within the field of view. Visualized body wall exhibits no acute abnormality. Procedure Note Tony Cardoza MD - 08/18/[address] [address] INDICATION: Trauma, fall COMPARISON: None TECHNIQUE: CT images of the chest, abdomen, and pelvis were obtained following theadministration of IV contrast. Delayed images were also obtained. CT images of the thoracic spine were obtained without the readministrationof IV contrast. CT images of the lumbar spine were obtained without the readministrationof IV contrast. Radiation dose reduction technique utilized. FINDINGS: CHEST: Thoracic aorta exhibits no acute abnormality. Cardiac chambers withinnormal size limits. No significant pericardial effusion. No mediastinal, hilar, or axillary lymphadenopathy. No suspicious thyroidnodule. Esophagus within normal limits. Trachea and central airways are patent. No pneumothorax. No focal airspaceconsolidation. No pleural effusion. 0.3 cm solid nodule in the right lowerlobe, axial image 86. Though this study is not optimized for evaluation for pulmonary emboli,there are no filling defects in the main or segmental pulmonary arteriesto suggest pulmonary embolism. ABDOMEN/PELVIS: Normal size liver. No suspicious hepatic lesion. Gallbladder within normallimits. 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 Noretroperitoneal lymphadenopathy. Large stool burden in the rectum and descending colon, with moderatecolonic stool burden overall. Cecal diverticulosis. Normal appearingappendix. No free gas the abdomen or pelvis. No mesentericlymphadenopathy. Stomach and duodenum within normal limits. Normal size spleen, exhibiting a physiologic arterial phase contrastenhancement pattern. Pancreas within normal limits. Adrenal glands withinnormal limits. Kidneys enhance symmetrically. Bilateral renal cortical scarring.Benign- appearing renal cystic foci for which no further follow-up isrecommended. No hydronephrosis or hydroureter. On delayed imaging,excreted contrast partially opacifies normal appearing ureters whichexhibit physiologic peristalsis. Urinary bladder within normal limits for degree of distention.Prostatomegaly measuring 5.4 cm transversely. No pelvic lymphadenopathy orsignificant free fluid. Incidental note of benign pelvic phleboliths. THORACIC SPINE: Normal alignment of the thoracic spine without evidence of traumaticsubluxation. Vertebral body heights are maintained. Chronic multileveldegenerative disc disease. No evidence of significant impingement on thespinal canal or significant neural foraminal stenosis. No evidence ofacute fracture of the thoracic spine. LUMBAR SPINE: Five lumbar type vertebral bodies. No evidence of traumatic subluxation ofthe lumbar spine. Trace chronic grade 1 anterolisthesis of L5 on [id number] to bilateral L5 pars defects. Vertebral body heights and discspaces are maintained. Posterior disc osteophyte complexes throughout thelumbar spine. Multilevel facet and ligamentous hypertrophy. Moderatespinal canal stenosis L1-L2, L2-L3, L3-L4, and moderate to severe spinalcanal stenosis at L4-L5. At least moderate bilateral foraminal stenosisL1-L2, L2-L3, L3-L4, and L4-L5. No acute fracture of the lumbar spine. OTHER MSK: Pelvis is intact. Chronic degenerative changes of the hips, pubicsymphysis, and sacroiliac joints. Sternum is intact. No acute rib fracture. Clavicles and visualized aspects of the scapulae are intact. Chronicdegenerative changes of the glenohumeral joints. Limited visualization of the inferior cervical structures exhibits nogross acute abnormality; chronic multilevel degenerative change present.C2 odontoid fracture identified on earlier cervical CT is not within thefield of view. Visualized body wall exhibits no acute abnormality. IMPRESSION: 1. No evidence of acute traumatic injury in the chest, abdomen, pelvis,or thoracic/lumbar spine. 2. Right lower lobe pulmonary nodule measuring less than 0.6 cm. PerFleischner Society guidelines, for a low risk patient no further follow-upis indicated. For a high risk patient, optional CT in 12 months. Referred By: LUIS A HUTCHINSON Interpreted By: Tony Cardoza MD, 08/18/2024 9:22 PM Damaris Holguin MD CT Final Result documented in this encounter Visit Diagnoses Diagnosis Fall- Primary Unspecified fall C2 cervical fracture ([facility]) Closed fracture of second cervical vertebra without mention of spinal cord injury Pain of left thumb Pain in limb Abrasion of right elbow Elbow, forearm, and wrist, abrasion or friction burn, without mention of infection Fall Unspecified fall C2 cervical fracture ([facility]) Closed fracture of second cervical vertebra without mention of spinal cord injury Abrasion of right elbow Elbow, forearm, and wrist, abrasion or friction burn, without mention of infection Pain of left thumb Pain in limb documented in this encounter Admitting Diagnoses Diagnosis Fall Unspecified fall C2 cervical fracture ([facility]) Closed fracture of second cervical vertebra without mention of spinal cord injury Abrasion of right elbow Elbow, forearm, and wrist, abrasion or friction burn, without mention of infection Pain of left thumb Pain in limb documented in this encounter Administered Medications Inactive Administered Medications - up to 3 most recent administrations Medication Order MAR Action Action Date Dose Rate Site acetaminophen (TYLENOL) tablet 975 mg 975 mg, Oral, Every 6 hours, First dose on Fri08/18/24 at 2245, Until Discontinued, Maximum dose of acetaminophen is 4000 mg from all sources in 24 hours. Given 08/19/2024 2:20 PM SLEEP MANAGER 975 mg Given 08/19/2024 9:56 AM SLEEP MANAGER 975 mg Given 08/19/2024 1:43 AM SLEEP MANAGER 975 mg atorvastatin (LIPITOR) tablet 10 mg 10 mg, Oral, Nightly at bedtime, First dose (after last modification) on Fri08/19/24 at 2100, Until Discontinued bacitracin ointment Topical, 2 times daily, First dose on Fri08/18/24 at 2130, Until Discontinued, Apply a light coat to sutures, beny and/or abrasions Given 08/19/2024 9:56 AM SLEEP MANAGER Given 08/19/2024 1:44 AM SLEEP MANAGER carvedilol (COREG) tablet 6.25 mg 6.25 mg, Oral, 2 times daily, First dose on Fri08/18/24 at 2315, Until Discontinued, Take with meal or snack Given 08/19/2024 9:58 AM SLEEP MANAGER 6.25 mg Given 08/19/2024 1:43 AM SLEEP MANAGER 6.25 mg celecoxib (CeleBREX) capsule 100 mg 100 mg, Oral, 2 times daily, First dose on Fri08/18/24 at 2330, Until Discontinued Given 08/19/2024 9:57 AM SLEEP MANAGER 100 mg Given 08/19/2024 1:43 AM SLEEP MANAGER 100 mg dextrose (GLUTOSE) 40 % oral gel 37.5-75 g 37.5-75 g (15-30 g of dextrose), Oral, As needed, Low blood sugar, Starting on Fri08/18/24 at 2301, Until Fri08/19/24 at 1708, If patient is verbally responsive and taking thickened liquids or oral medications: Blood glucose less than 50 mg/dL - give 30 g of dextrose; repeat until blood glucose reaches 70 mg/dL Blood glucose 50-69 mg/dL - give 15 g of dextrose; repeat until blood glucose reaches 70 mg/dL 37.5 g of glucose gel = 15 g of dextrose dextrose 10 % bolus infusion 125-250 mL 125-250 mL, Intravenous, Administer over 15 Minutes, As needed, Low Blood Sugar, Starting on Fri08/18/24 at 2301, Until Fri08/19/24 at 1708, If patient is verbally responsive and NPO or unable to swallow: Blood glucose less than 50 mg/dL - give 250 mL (25 g) and repeat until blood glucose reaches 70 mg/dL Blood glucose 50-69 mg/dL - give 125 mL (12.5 g) and repeat until blood glucose reaches 70 mg/dL If patient is verbally Unresponsive and NPO or unable to swallow: Blood glucose less than 70 mg/dL - give 250 mL (25 g), repeat until blood glucose reaches 70 mg/dL DULoxetine (CYMBALTA) capsule 30 mg 30 mg, Oral, Daily, First dose on Fri08/19/24 at 0900, Until Discontinued, Swallow capsule whole or it may be opened and the contents sprinkled on applesauce. Given 08/19/2024 9:56 AM SLEEP MANAGER 30 mg glucagon injection 1 mg 1 mg, Intramuscular, Once as needed, Other, Low blood sugar, 1 dose, Starting on Fri08/18/24 at 2301, Until Fri08/19/24 at 1708, If patient is verbally UNresponsive and no IV access with blood glucose less than 70 mg/dL. Do NOT repeat administration. hydroCHLOROthiazide (HYDRODIURIL) tablet 12.5 mg 12.5 mg, Oral, Daily, First dose on Fri08/19/24 at 0900, Until Discontinued Given 08/19/2024 9:57 AM SLEEP MANAGER 12.5 mg insulin lispro (HUMALOG/ADMELOG) injection 0-6 Units 0-6 Units, Subcutaneous, 4 times daily before meals and nightly, First dose on Fri08/18/24 at 2330, Until Discontinued, From sliding scale insulin subcut med order set - For TDI less than 30 units Blood Glucose: (Less than 70, Initiate Hypoglycemia Standing Orders) (70 - 149, administer 0 units) (150 - 199, administer 1 units) (200 - 249, administer 2 units) (250 - 299, administer 3 units) (300 - 349, administer 4 units) (Greater than 349, administer 6 units and Call Physician) Given 08/19/2024 12:57 PM SLEEP MANAGER 2 Units Left Arm Given 08/19/2024 1:44 AM SLEEP MANAGER 3 Units Le ft Arm iopamidol (ISOVUE-370) 76 % injection 100 mL 100 mL, Intravenous, IMG once as needed, Contrast, 1 dose, Starting on Fri08/18/24 at 2102, Until Fri08/18/24 at 2102 Given 08/18/2024 9:02 PM SLEEP MANAGER 100 mLs lidocaine 4 % patch 1 patch 1 patch, Transdermal, Administer over 12 Hours, Every 24 hours, First dose on Fri08/18/24 at 2130, Until Discontinued lisinopril (PRINIVIL) tablet 20 mg 20 mg, Oral, Daily, First dose on Fri08/19/24 at 0900, Until Discontinued Given 08/19/2024 9:57 AM SLEEP MANAGER 20 mg methocarbamol (ROBAXIN) tablet 500 mg 500 mg, Oral, Once, 1 dose, On Fri08/18/24 at 2330 Given 08/19/2024 1:43 AM SLEEP MANAGER 500 mg methocarbamol (ROBAXIN) tablet 500 mg 500 mg, Oral, Every 8 hours, First dose on Fri08/19/24 at 0600, Until Discontinued Given 08/19/2024 2:20 PM SLEEP MANAGER 500 mg Given 08/19/2024 6:25 AM SLEEP MANAGER 500 mg naLOXone (NARCAN) injection 0.4 mg 0.4 mg, Intravenous, As needed, Opioid reversal, Starting on Fri08/18/24 at 2119, Until Fri08/19/24 at 1708, IM administration: Anterolateral aspect of thigh ondansetron (ZOFRAN) injection 4 mg 4 mg, Intravenous, Every 8 hours PRN, Nausea, Vomiting, Starting on Fri08/18/24 at 2119, Until Fri08/19/24 at 1708, Use PRN antiemetics in this order to achieve relief of nausea and/or vomiting: Ondansetron first followed by Metoclopramide oxyCODONE immediate release (ROXICODONE) tablet 5 mg 5 mg, Oral, Every 6 hours PRN, Severe pain (Scale 8 - 10), Starting on Fri08/18/24 at 2307, Until Fri08/19/24 at 1708 Given 08/18/2024 11:35 PM SLEEP MANAGER 5 mg pantoprazole (PROTONIX) 40 mg in sodium chloride (PF) 0.9 % 10 mL IV 40 mg, Intravenous, Once, 1 dose, On Fri08/18/24 at 2030, Reconstitute each 40 mg vial with 10 mL normal saline to a final concentration of 4 mg/mL. Administer intravenously over a period of a least 2 minutes. Given 08/18/2024 8:33 PM SLEEP MANAGER 40 mg pantoprazole EC (PROTONIX) tablet 40 mg 40 mg, Oral, Daily, First dose on Fri08/19/24 at 0900, Until Discontinued, Do not break, chew, or crush. Given 08/19/2024 9:58 AM SLEEP MANAGER 40 mg senna-docusate (SENOKOT-S) 8.6-50 MG tablet 1 tablet 1 tablet, Oral, 2 times daily, First dose on Fri08/18/24 at 2130, Until Discontinued, Hold for loose stools. Tablet may be crushed and given via TF. Given 08/19/2024 1:43 AM SLEEP MANAGER 1 ta blet sodium chloride 0.9% infusion at 75 mL/hr, Intravenous, Continuous, Starting on Fri08/18/24 at 2100, Until Fri08/19/24 at 1708, Stop fluids when taking adequate PO traMADol (ULTRAM) tablet 50 mg 50 mg, Oral, Every 6 hours PRN, Moderate pain (Scale 4 - 7), Mild pain (Scale 1 - 3), Starting on Fri08/18/24 at 2307, Until Fri08/19/24 at 1708 Given 08/19/2024 9:57 AM SLEEP MANAGER 50 mg documented in this encounter Active and Recently Administered Medications Times are shown in SLEEP MANAGER. Scheduled Medication Order 08/17/2024 08/18/2024 08/19/2024 acetaminophen (TYLENOL) tablet 975 mg 975 mg, Oral, Every 6 hours, First dose on Fri08/18/24 at 2245, Until Discontinued, Maximum dose of acetaminophen is 4000 mg from all sources in 24 hours. 0143 (Given - Provid er: Nazia Wharton RN)0956 (Given - Provider: Inocencia Escobar RN)1420 (Given - Provider: Inocencia Escobar RN) atorvastatin (LIPITOR) tablet 10 mg 10 mg, Oral, Nightly at bedtime, First dose (after last modification) on Fri08/19/24 at 2100, Until Discontinued bacitracin ointment Topical, 2 times daily, First dose on Fri08/18/24 at 2130, Until Discontinued, Apply a light coat to sutures, beny and/or abrasions 0144 (Given - Provid er: Nazia Wharton RN)0956 (Given - Provider: Inocencia Escobar RN) carvedilol (COREG) tablet 6.25 mg 6.25 mg, Oral, 2 times daily, First dose on Fri08/18/24 at 2315, Until Discontinued, Take with meal or snack 0143 (Given - Provid er: Nazia Wharton RN)0958 (Given - Provider: Inocencia Escobar RN) celecoxib (CeleBREX) capsule 100 mg 100 mg, Oral, 2 times daily, First dose on Fri08/18/24 at 2330, Until Discontinued 0143 (Given - Provid er: Nazia Wharton RN)0957 (Given - Provider: Inocencia Escobar RN) DULoxetine (CYMBALTA) capsule 30 mg 30 mg, Oral, Daily, First dose on Fri08/19/24 at 0900, Until Discontinued, Swallow capsule whole or it may be opened and the contents sprinkled on applesauce. 0956 (Given - Provid er: Inocencia Escobar RN) hydroCHLOROthiazide (HYDRODIURIL) tablet 12.5 mg(Linked Group 1) 12.5 mg, Oral, Daily, First dose on Fri08/19/24 at 0900, Until Discontinued 956 (Given - Provid er: Inocencia Escobar RN) insulin lispro (HUMALOG/ADMELOG) injection 0-6 Units 0-6 Units, Subcutaneous, 4 times daily before meals and nightly, First dose on Fri08/18/24 at 2330, Until Discontinued, From sliding scale insulin subcut med order set - For TDI less than 30 units Blood Glucose: (Less than 70, Initiate Hypoglycemia Standing Orders) (70 - 149, administer 0 units) (150 - 199, administer 1 units) (200 - 249, administer 2 units) (250 - 299, administer 3 units) (300 - 349, administer 4 units) (Greater than 349, administer 6 units and Call Physician) 0144 (Given - Provid er: Nazia Wharton RN)0610 (Not Given - Provider: Nazia Wharton RN - Reason: NPO)1257 (Given - Provider: Inocencia Escobar RN)1600 (Canceled Entry - Provider: Automatic Discharge Provider - Comment: Automatically canceled at discontinue of medication order) lidocaine 4 % patch 1 patch 1 patch, Transdermal, Administer over 12 Hours, Every 24 hours, First dose on Fri08/18/24 at 2130, Until Discontinued 0002 (Not Given - Provider: Nazia Wharton RN - Reason: Patient/family declined) lisinopril (PRINIVIL) tablet 20 mg(Linked Group 1) 20 mg, Oral, Daily, First dose on Fri08/19/24 at 0900, Until Discontinued 0957 (Given - Provid er: Inocencia Escobar RN) methocarbamol (ROBAXIN) tablet 500 mg (COMPLETED) 500 mg, Oral, Once, 1 dose, On Fri08/18/24 at 2330 0143 (Given - Provid er: Nazia Wharton RN) methocarbamol (ROBAXIN) tablet 500 mg 500 mg, Oral, Every 8 hours, First dose on Fri08/19/24 at 0600, Until Discontinued 0625 (Given - Provid er: Nazia Wharton RN)1420 (Given - Provider: Inocencia Escobar RN) pantoprazole (PROTONIX) 40 mg in sodium chloride (PF) 0.9 % 10 mL IV (COMPLETED) 40 mg, Intravenous, Once, 1 dose, On Fri08/18/24 at 2030, Reconstitute each 40 mg vial with 10 mL normal saline to a final concentration of 4 mg/mL. Administer intravenously over a period of a least 2 minutes. 2032 (Given - Provider: Jen Rivas RN) pantoprazole EC (PROTONIX) tablet 40 mg 40 mg, Oral, Daily, First dose on Fri08/19/24 at 0900, Until Discontinued, Do not break, chew, or crush. 0958 (Given - Provid er: Inocencia Escobar RN) senna-docusate (SENOKOT-S) 8.6-50 MG tablet 1 tablet 1 tablet, Oral, 2 times daily, First dose on Fri08/18/24 at 2130, Until Discontinued, Hold for loose stools. Tablet may be crushed and given via TF. 0143 (Given - Provid er: Nazia Wharton RN)0958 (Not Given - Provider: Inocencia Escobar RN - Reason: Patient/family declined) Continuous Medication Order 08/17/2024 08/18/2024 08/19/2024 sodium chloride 0.9% infusion at 75 mL/hr, Intravenous, Continuous, Starting on Fri08/18/24 at 2100, Until Mehnaz 08/19/24 at 1708, Stop fluids when taking adequate PO 2213 (Not Given - Provider: Nazia Wharton RN - Reason: Other) PRN Medication Order 08/17/2024 08/18/2024 08/19/2024 dextrose (GLUTOSE) 40 % oral gel 37.5-75 g 37.5-75 g (15-30 g of dextrose), Oral, As needed, Low blood sugar, Starting on Fri08/18/24 at 2301, Until Mehnaz 08/19/24 at 1708, If patient is verbally responsive and taking thickened liquids or oral medications: Blood glucose less than 50 mg/dL - give 30 g of dextrose; repeat until blood glucose reaches 70 mg/dL Blood glucose 50-69 mg/dL - give 15 g of dextrose; repeat until blood glucose reaches 70 mg/dL 37.5 g of glucose gel = 15 g of dextrose dextrose 10 % bolus infusion 125-250 mL 125-250 mL, Intravenous, Administer over 15 Minutes, As needed, Low Blood Sugar, Starting on Fri08/18/24 at 2301, Until Mehnaz 08/19/24 at 1708, If patient is verbally responsive and NPO or unable to swallow: Blood glucose less than 50 mg/dL - give 250 mL (25 g) and repeat until blood glucose reaches 70 mg/dL Blood glucose 50-69 mg/dL - give 125 mL (12.5 g) and repeat until blood glucose reaches 70 mg/dL If patient is verbally Unresponsive and NPO or unable to swallow: Blood glucose less than 70 mg/dL - give 250 mL (25 g), repeat until blood glucose reaches 70 mg/dL glucagon injection 1 mg 1 mg, Intramuscular, Once as needed, Other, Low blood sugar, 1 dose, Starting on Fri08/18/24 at 2301, Until Mehnaz 08/19/24 at 1708, If patient is verbally UNresponsive and no IV access with blood glucose less than 70 mg/dL. Do NOT repeat administration. iopamidol (ISOVUE-370) 76 % injection 100 mL (COMPLETED) 100 mL, Intravenous, IMG once as needed, Contrast, 1 dose, Starting on Fri08/18/24 at 2102, Until Fri08/18/24 at 2101 210 (Given - Provider: Dax Eddy, RTR) naLOXone (NARCAN) injection 0.4 mg 0.4 mg, Intravenous, As needed, Opioid reversal, Starting on Fri08/18/24 at 2119, Until Fri08/19/24 at 1708, IM administration: Anterolateral aspect of thigh ondansetron (ZOFRAN) injection 4 mg 4 mg, Intravenous, Every 8 hours PRN, Nausea, Vomiting, Starting on Fri08/18/24 at 2119, Until Fri08/19/24 at 1708, Use PRN antiemetics in this order to achieve relief of nausea and/or vomiting: Ondansetron first followed by Metoclopramide oxyCODONE immediate release (ROXICODONE) tablet 5 mg 5 mg, Oral, Every 6 hours PRN, Severe pain (Scale 8 - 10), Starting on Fri08/18/24 at 2307, Until Fri08/19/24 at 1708 2335 (Given - Provider: Nazia Wharton RN) traMADol (ULTRAM) tablet 50 mg 50 mg, Oral, Every 6 hours PRN, Moderate pain (Scale 4 - 7), Mild pain (Scale 1 - 3), Starting on Fri08/18/24 at 2307, Until Fri08/19/24 at 1708 0957 (Given - Provid er: Inocencia Escobar RN) trolamine salicylate (ASPERCREME) cream 1 Application 1 Application, Topical, 2 times daily PRN, pain, Starting on Fri08/18/24 at 2253, Until Fri08/19/24 at 1708 Linked Groups Order Group 1: lisinopril (PRINIVIL) tablet 20 mgJump to med 20 mg, Oral, Daily, First dose on Fri08/19/24 at 0900, Until Discontinued And hydroCHLOROthiazide (HYDRODIURIL) tablet 12.5 mgJump to med 12.5 mg, Oral, Daily, First dose on Fri08/19/24 at 0900, Until Discontinued documented in this encounter Care Teams Director Of Email Marketing Relationship Specialty Start Date End Date Krysta Lopes FNP [address] [place] [address] PCP - General NURSE PRACTITIONER 08/18/24 Elise Slaughter MD [address] [place] [id number] Consulting Physician OPHTHALMOLOGY 08/18/24 documented as of this encounter
--- OUTSIDE RECORDS SUMMARY | 2024-08-20 10:58 | XMS_ITS | Clinical Summary ---
Author Organization [facility] Address [address] [place] [address] Care Team Providers Care Salesperson Yard Goods Name Role Phone Krysta LopesP Primary Care Provider [phone] Elise Slaughter MD Unavailable [phone] Allergies No known active allergies Medications lisinopril-hyd roCHLOROthiazi de (ZESTORETIC) 20-12.5 MG tablet Take 1 tablet [...] mouth 2 (two) times a day. Active DULoxetine (CYMBALTA) 30 MG capsule Take 1 capsule (30 mg total) by mouth daily. 4 Active Diclofenac Sodium 3 % Gel Apply 1 Application topically 2 (two) times daily as needed (pain). Active tirzepatide (MOUNJARO) 5 MG/0.5ML injection Inject 5 mg into the skin once a week. 4 Active methocarbamol (ROBAXIN) 500 MG tabletIndicati ons:Muscle Spasm with Pain Take 1 tablet (500 mg total) by mouth every 8 (eight) hours for 3 days. Indications: Muscle Spasm with Pain 9 tablet 5 08/22/19 25 Active traMADol (ULTRAM) 50 MG tabletIndicati ons:Acute Pain < 3 Day Supply Take 1 tablet (50 mg total) by mouth every 6 (six) hours as needed for Pain. Indications: Acute Pain < 3 Day Supply 10 tablet 5 Active dulaglutide (TRULICITY) 4.5 MG/0.5ML injection (PEN) Inject 4.5 mg into the skin once a week. 08/19/19 25 Discontin ued(Error ) Active Problems Problem Noted Date Diagnosed Date C2 cervical fracture ([facility]) 5 Abrasion of right elbow 08/19/2024 Pain of left thumb 08/19/2024 Fall 08/18/2024 Encounters Date Type Department Care Team Description 08/18/2024 8:14 PM COFFEE SHOP MANAGER - 08/19/2024 3:08 PM [facility] Hospital Encounter [facility] [address] [place] [address] Deepak Khoury MD Trauma Discharge Disposition: Home with Home Health Care 08/18/2024 Travel from Last 3 Months Social History Tobacco Use Types Packs/Day Years Used Date Smoking Tobacco: Never Smokeless Tobacco: Never Tobacco Cessation:Counseling Given: Not Answered Alcohol Use Standard Drinks/Week Comments Yes 1.7 (1 standard drink = 0.6 oz p ure alcohol) [facility] Utilities Answer Date Recorded In the past 12 months has [facility] [employer], gas, oil, or water Fuzz threatened to shut off services in your [...] any time in the past [address] [facility], were you homeless or living in a skilled nursing (including now)? No 08/19/2024 Sex and Gender Information Value Date Recorded Sex Assigned at Male 08/18/2024 8:20 PM COFFEE SHOP MANAGER Legal Sex Male 10:00 AM COFFEE SHOP MANAGER Gender Identity Not on file Sexual Orientation Not on file Last Filed Vital Signs Vital Sign Reading Time Taken Comments Blood Pressure 158/71 08/19/2024 11:46 AM COFFEE SHOP MANAGER Pulse 65 08/19/2024 11:46 AM COFFEE SHOP MANAGER Temperature 36.6 C (97.8 F) 08/19/2024 7:32 AM COFFEE SHOP MANAGER Respiratory Rate 17 08/19/2024 3:30 AM COFFEE SHOP MANAGER Oxygen Saturation 96% 08/19/2024 11:46 AM COFFEE SHOP MANAGER Inhaled Oxygen Concentration - - Weight 63.5 kg (140 lb) 08/18/2024 8:21 PM COFFEE SHOP MANAGER Height 172.7 cm (5' 8 ) 08/18/2024 8:21 PM COFFEE SHOP MANAGER Body Mass Index 21.29 08/18/2024 8:21 PM COFFEE SHOP MANAGER Plan of Treatment Health Maintenance Due Date [...] this topic Medical Devices Implanted Type Area Rn Unit Manager Device Identifier Shelf Expiration Date Model / Serial / Lot Tecnis Simplicity System Implanted:Qty: 1 on 08/27/2023 by Elise Slaughter MD at [facility] Right: Eye [employer] [id number] 11/26/2025 DCB00 / [id number] / [id number] Tecnis 1-Piece Implanted:Qty: 1 on 09/24/2023 by Elise Slaughter MD at [facility] Left: Eye DCB00 / [id number] / Procedures Procedure Name Priority Date/Time Associated Diagnosis Comments POCT GLUCOSE - RAMOS DOCKED DEVICE Routine 08/19/2024 12:51 PM COFFEE SHOP MANAGER PHOSPHORUS, INORGANIC PHOSPHATE Routine 08/19/2024 7:30 AM COFFEE SHOP MANAGER MAGNESIUM Routine 08/19/2024 7:30 AM COFFEE SHOP MANAGER BASIC METABOLIC PANEL Routine 08/19/2024 7:30 AM COFFEE SHOP MANAGER CBC W/DIFF AUTOMATED Routine 08/19/2024 7:30 AM COFFEE SHOP MANAGER POCT GLUCOSE - RAMOS DOCKED DEVICE Routine 08/19/2024 6:09 AM COFFEE SHOP MANAGER POCT GLUCOSE - RAMOS DOCKED DEVICE Routine 08/18/2024 11:59 PM COFFEE SHOP MANAGER XR HUMERUS RT MIN 2V STAT 08/18/2024 9:05 PM COFFEE SHOP MANAGER XR ELBOW RT M3V STAT 08/18/2024 9:[address] CHEST+ABD+PEL W CON STAT 08/18/2024 9:[address] LUMB SPINE WO CON STAT 08/18/2024 9:[address] THOR SPINE WO CON STAT 08/18/2024 9:02 PM COFFEE SHOP MANAGER from Last 3 Months Results * (ABNORMAL) POCT glucose (08/19/2024 12:51 PM COFFEE SHOP MANAGER) Only the most recent of3 resultswithin the time period is included. Pathologist [facility] GLUCOSE POC 230(H) 70 - 109 08/19/2024 2:23 PM COFFEE SHOP MANAGER [facility] 08/19/2024 12:5 1 PM COFFEE SHOP MANAGER us Deepak Khoury MD POCT ORDERABLES - DEVICE Final Result [facility] [address] [place] [address], [id number] * (ABNORMAL) BASIC METABOLIC PANEL (08/19/2024 7:30 AM COFFEE SHOP MANAGER) SODIUM S/P/B 137 136 - 145 MMOL/L 08/19/2024 8:40 AM [facility] POTASSIUM S/P/B 3.9 3.5 - 5.1 MMOL/L 08/19/2024 8:40 AM [facility] CHLORIDE S/P/B 104 97 - 115 MMOL/L 08/19/2024 8:40 AM [facility] CO2 27.1 21.0 - 32.0 MMOL/L 08/19/2024 8:40 AM [facility] GLUCOSE 204(H) 74 - 106 MG/DL 08/19/2024 8:40 AM [facility] BUN 17 7 - 18 MG/DL 08/19/2024 8:40 AM [facility] CREATININE S/P/B 0.78 0.70 - 1.30 MG/DL 08/19/2024 8:40 AM [facility] CALCIUM S/P/B 9.4 8.5 - 10.1 MG/DL 08/19/2024 8:40 AM [facility] ANION GAP 5.9 2.0 - 10.0 MMOL/L 08/19/2024 8:40 AM [facility] OSMOLALITY (CALC) 291 MOSM/KG 025 8:40 AM [facility] Comment:REFERENCE RANGE NOT ESTABLISHED GFR ESTIMATE 88(L) >90 ML/MIN/1. 73 M2 08/19/2024 8:40 AM [facility] GFR NOTES GFR REFERENCE S: 08/19/2024 8:40 AM [facility] Comment: THE ESTIMATED GFR IS CALCULATED [...] FAILURE: <15 ml/min/1.73 m2 08/19/2024 7:30 AM COFFEE SHOP MANAGER us Deepak Khoury MD LABORATORY Final Result [facility] [address] [place] [address], [id number] * (ABNORMAL) CBC W/DIFF AUTOMATED (08/19/2024 7:30 AM COFFEE SHOP MANAGER) WBC 9.83 4.00 - 10.80 x10'3/uL 08/19/2024 8:17 AM [facility] RBC 4.68 4.50 - 6.10 x10'6/uL 08/19/2024 8:17 AM [facility] HGB 14.0 12.0 - 16.0 G/DL 08/19/2024 8:17 AM [facility] HCT 40.9 37.0 - 52.0 % 08/19/2024 8:17 AM [facility] MCV 87.4 78.0 - 100.0 FL 08/19/2024 8:17 AM [facility] MCH 29.9 27.0 - 31.0 PG 08/19/2024 8:17 AM [facility] MCHC 34.2 33.0 - 36.0 G/DL 08/19/2024 8:17 AM [facility] RDW 12.4 11.5 - 14.5 % 08/19/2024 8:17 AM [facility] PLT 231 150 - 350 x10'3/uL 08/19/2024 8:17 AM [facility] MPV 9.9 7.4 - 10.4 FL 08/19/2024 8:17 AM [facility] DIFFERENTIAL TYPE AUTOMATED DIFFERENTIAL 08/19/2024 8:17 AM [facility] SEG NEUTROPHILS 71.6 % 8:17 AM [facility] LYMPHOCYTES 18.6 % 08/19/2024 8:17 AM [facility] MONOCYTES 8.0 % 08/19/2024 8:17 AM [facility] EOSINOPHILS 0.4 % 08/19/2024 8:17 AM [facility] BASOPHILS 0.5 % 08/19/2024 8:17 AM [facility] IMMATURE GRANS % 0.9 % 08/19/19 8:17 AM [facility] ABS. NEUTROPHILS 7.03 1.60 - 8.30 x10'3/uL 08/19/2024 8:17 AM [facility] ABS. LYMPHOCYTES 1.83 0.80 - 4.70 x10'3/uL 08/19/2024 8:17 AM [facility] ABS. MONOCYTES 0.79 0.00 - 1.50 x10'3/uL 08/19/2024 8:17 AM [facility] ABS. EOSINOPHILS 0.04 0.00 - 0.40 x10'3/uL 08/19/2024 8:17 AM [facility] ABS. BASOPHILS 0.05 0.00 - 0.20 x10'3/uL 08/19/2024 8:17 AM [facility] ABS. IMMATURE GRANULOCYTES 0.09(H) 0.00 - 0.03 x10'3/uL 08/19/2024 8:17 AM [facility] ABS. NUCLEATED RBC'S 0.00 0.00 - 0.01 x10'3/uL 08/19/2024 8:17 AM [facility] NRBC % 0.0 % 08/19/2024 8:17 AM [facility] 08/19/2024 7:30 AM COFFEE SHOP MANAGER us Deepak Khoury MD LABORATORY Final Result Performing Organization Address [facility] de Phone Number [facility] [address] [place] [address], [id number] * PHOSPHORUS, INORGANIC PHOSPHATE (08/19/2024 7:30 AM COFFEE SHOP MANAGER) PHOSPHORUS 3.9 2.5 - 4.9 MG/DL 08/19/2024 8:40 AM COFFEE SHOP MANAGER [facility] 08/19/2024 7:30 AM COFFEE SHOP MANAGER us Deepak Khoury MD LABORATORY Final Result Performing Organization Address [facility] Phone Number [facility] [address] [place] [address], [id number] * MAGNESIUM (08/19/2024 7:30 AM COFFEE SHOP MANAGER) MAGNESIUM 2.4 1.6 - 2.6 MG/DL 08/19/2024 8:40 AM COFFEE SHOP MANAGER [facility] 08/19/2024 7:30 AM COFFEE SHOP MANAGER us Deepak Khoury MD LABORATORY Final Result Performing Organization Address [facility] Phone Number [facility] [address] [place] [address], [id number] * XR HUMERUS RT MIN 2V (08/18/2024 9:05 PM COFFEE SHOP MANAGER) Anatomical Region Laterality Modality Humerus Radiographic Bre ging 08/18/2024 9:14 PM COFFEE SHOP MANAGER Impressions 08/18/2024 9:27 PM COFFEE SHOP MANAGER IMPRESSION: 1. Possible acute avulsion fracture of the coronoid process of the ulna. 2. No other acute osseous or articular abnormality identified in the humerus or elbow. 3. No elbow effusion. Referred By: LUIS A Vanegasally Signed By: Tony Cardoza MD on 08/18/2024 9:27 PM Interpreted By: Tony Cardoza MD, 08/18/2024 9:14 PM Narrative 08/18/2024 9:27 PM COFFEE SHOP MANAGER [address] [address] INDICATION: Pain trauma COMPARISON: None TECHNIQUE: * [...] Procedure Note Tony Cardoza MD - 08/18/[address] [address] INDICATION: Pain trauma COMPARISON: None TECHNIQUE: * [...] By: Tony Cardoza MD, 08/18/2024 9:14 PM us Alisha Pedersen [facility] Final Resul t * XR ELBOW RT M3V (08/18/2024 9:05 PM COFFEE SHOP MANAGER) Anatomical Region Laterality Modality Elbow Radiographic Bre ging 08/18/2024 9:14 PM COFFEE SHOP MANAGER Impressions 08/18/2024 9:27 PM COFFEE SHOP MANAGER IMPRESSION: 1. Possible acute avulsion fracture of the coronoid process of the ulna. 2. No other acute osseous or articular abnormality identified in the humerus or elbow. 3. No elbow effusion. Referred By: LUIS A HUTCHINSON Interpreted By: Tony Cardoza MD, 08/18/2024 9:14 PM Narrative 08/18/2024 9:27 PM COFFEE SHOP MANAGER [place] [address] INDICATION: Pain trauma COMPARISON: None TECHNIQUE: * [...] Procedure Note Tony Cardoza MD - 08/18/[address] [address] INDICATION: Pain trauma COMPARISON: None TECHNIQUE: * [...] Cardoza MD, 08/18/2024 9:14 PM Alisha Virk [facility] Final Resul t * CT THOR SPINE WO CON (08/18/2024 9:02 PM COFFEE SHOP MANAGER) Anatomical Region Laterality Modality Spine Computed Tomogra phy 08/18/2024 9:22 PM COFFEE SHOP MANAGER Impressions 08/18/2024 9:43 PM COFFEE SHOP MANAGER IMPRESSION: 1. No evidence of acute [...] 08/18/2024 9:22 PM Narrative 08/18/2024 9:43 PM COFFEE SHOP MANAGER [address] [address] INDICATION: Trauma, fall COMPARISON: None TECHNIQUE: CT [...] Procedure Note Tony Cardoza MD - 08/18/[address] [address] INDICATION: Trauma, fall COMPARISON: None TECHNIQUE: CT [...] chronic grade 1 anterolisthesis of L5 on [id number] to bilateral L5 pars defects. Vertebral body [...] Tony Cardoza MD, 08/18/2024 9:22 PM us Deepak Khoury MD CT Final Result * CT LUMB SPINE WO CON (08/18/2024 9:02 PM COFFEE SHOP MANAGER) Anatomical Region Laterality Modality Spine Computed Tomogra phy 08/18/2024 9:22 PM COFFEE SHOP MANAGER Impressions 08/18/2024 9:43 PM COFFEE SHOP MANAGER IMPRESSION: 1. No evidence of acute [...] 08/18/2024 9:22 PM Narrative 08/18/2024 9:43 PM COFFEE SHOP MANAGER [address] [address] INDICATION: Trauma, fall COMPARISON: None TECHNIQUE: CT [...] Procedure Note Tony Cardoza MD - 08/18/[address] [address] INDICATION: Trauma, fall COMPARISON: None TECHNIQUE: CT [...] chronic grade 1 anterolisthesis of L5 on [id number] to bilateral L5 pars defects. Vertebral body [...] By: Tony Cardoza MD, 08/18/2024 9:22 PM Deepak Khoury MD CT Final Result * CT CHEST+ABD+PEL W CON (08/18/2024 9:02 PM COFFEE SHOP MANAGER) Anatomical Region Laterality Modality Chest, Abdomen, Pelvis Computed Tomography 08/18/2024 9:22 PM COFFEE SHOP MANAGER Impressions 08/18/2024 9:43 PM COFFEE SHOP MANAGER IMPRESSION: 1. No evidence of acute [...] 08/18/2024 9:22 PM Narrative 08/18/2024 9:43 PM COFFEE SHOP MANAGER [address] [address] INDICATION: Trauma, fall COMPARISON: None TECHNIQUE: CT [...] Procedure Note Tony Cardoza MD - 08/18/2024 [place] [address] INDICATION: Trauma, fall COMPARISON: None TECHNIQUE: CT [...] chronic grade 1 anterolisthesis of L5 on [id number] to bilateral L5 pars defects. Vertebral body [...] By: Tony Cardoza MD, 08/18/2024 9:22 PM [address]ak Khoury MD CT Final Result from Last 3 Months Insurance [facility] Advance Directives * Full Code (Latest Code Status on File) Date Activated Date Inactivated Comments 08/18/2024 9:19 PM 08/19/2024 5:13 PM Care Teams Salesperson Yard Goods Relationship Specialty Start Date End Date Krysta Lopes FNP [address] [place] [address] PCP - General NURSE PRACTITIONER 08/18/24 Elise Slaughter MD [address] [place] [id number] Consulting Physician OPHTHALMOLOGY 08/18/24
--- OUTSIDE RECORDS SUMMARY | 2024-08-20 10:58 | XMS_ITS | Clinical Summary ---
Author Organization [facility] Address [address] [place] [address] Care Team Providers Care Clinical Social Work Therapist Name Role Phone Elise Bradford MD Primary Care P rovider Karl Abdi MD Unavailable [phone] Allergies No known active allergies Medications lisinopril-hydr [...] (15 mg total) by mouth every morning Active DULoxetine DR (CYMBALTA) 30 mg capsuleIndicati [...] Department Care Team Description 05/31/2024 12:45 PM DIRECTOR OF DISTANCE LEARNING Office Visit [facility] Surgery [address] [place] [address] 6th [place] [address] Lucila Cuevas MD Carpal tunnel syndrome of left wrist (Primary Dx) 05/31/2024 11:30 AM DIRECTOR OF DISTANCE LEARNING Therapy [facility] Occupational Therapy [address] [place] [address] [address]th [place] [address] Darren Patricia OT Carpal tunnel syndrome of left wrist (Primary Dx) 05/27/2024 Telephone [facility] Surgery [address] [place] [address] 6th [place] [address] Aretha Magallanes from Last 3 Months Immunizations [...] on file Legal Sex Male 12:00 AM DIRECTOR OF DISTANCE LEARNING Gender Identity Not on file Sexual Orientation [...] Advance Directives For more information, please contact: [phone] * Full Code (Latest Code Status on File) Date Activated Date Inactivated Comments 01/27/2024 6:13 PM 01/28/2024 1:38 PM Care Teams Clinical Social Work Therapist Relationship Specialty Start Date End Date Elise Bradford MD [address] [place] [address] PCP - General Ophthalmology 11/12/23 Karl Abdi MD [address] [address] Referring Physician Orthopedic Surgery 01/21/24
--- NOTE | 2024-08-20 11:25 | PC.NURSE ---
counseling case manager called for NH placement per request of pt
--- NOTE | 2024-08-20 11:43 | PC.NURSE ---
case management here talking with pt
--- NOTE | 2024-08-20 11:55 | PCCCNOTE ---
Requested to see Asa in ED for [facility] placement. Asa fell and has a neck brace on and he states he is unable to take care of himself. His first choice of nursing homes is [facility] and his second choice is [facility]. Faxed referral to [facility] and [facility].
--- NOTE | 2024-08-20 12:22 | PCCCNOTE ---
PASRR Level I completed - queued for review.
--- NOTE | 2024-08-20 13:26 | PC.NURSE ---
ORDER SENT TO PT FOR PT/OT EVAL FOR ALF PLACEMENT
--- NOTE | 2024-08-20 13:59 | PC.NURSE ---
PT HERE FOR EVAL OF PT
--- NOTE | 2024-08-20 14:48 | PCCCNOTE ---
Asa would like for his [facility] insurance to pay for his rehab. Auth most likely will not be approved today. Asa would like to stay at [facility] in a skilled swing bed. If hospitalist agrees to place him in observation an insurance auth will be started.
--- NOTE | 2024-08-20 15:20 | ADMGEN ---
This patient, Eddy Vasquez, was admitted to 2nd Floor Room 208-1. Patient/family oriented to hospital policies and general routines including ID bracelet, bed and alarms, visiting hours, pain management, procedures, bathroom and other care routines, personal items, smoking policy, room service/diet, and visiting hours. Information on how to activate the Rapid Response Team has been discussed. Patient/Family are encouraged to report perceived risks to care and to ask questions if they do not understand what they are told or what they should do.
--- NOTE | 2024-08-20 15:46 | PC.NURSE ---
Confirmed medications with Estefany at [facility], then confirmed medications per patient. All meds placed in system. SUPERVISOR BYPRODUCTS aware.
[2024-08-20] MEDS: methocarbamoL 500 MG TABLET PO (17:05)
--- NOTE | 2024-08-20 18:44 | PC.NURSE ---
Called main pharmacy and spoke with Corine r/t Diclofenac 3% gel. She explains the facility does not stock the 3% but does stock the 1%. Will pass on to speak to MICROFILM EQUIPMENT INSPECTOR in the morning.
[2024-08-20] MEDS: carvediloL 6.25 MG TABLET PO (21:08)
--- NOTE | 2024-08-20 22:39 | PC.NURSE ---
report to funmi glover. all questions answered.
[2024-08-20] MEDS: ZOLPIDEM TARTRATE (*CRX) 5 MG TABLET PO (22:45)
[2024-08-20] MEDS: HYDROcodone/acetaminophen (*CRX) 5-325 MG TABLET 1 TAB PO (22:45)
[2024-08-21] VITALS (7 sets, daily range): BP systolic 126–174; BP diastolic 73–88; PULSE 67–89; RESP 16; TEMP 36.1–36.9; O2SAT 94–99
[2024-08-21 05:20] LABS: Hematocrit 43.4 % (37.0-46.0); Hemoglobin 14.7 g/dL (12.4-15.3); Mean Corpuscular HGB Conc 33.9 g/dL (32-36); Mean Corpuscular Hemoglobin 29.5 pg (27.0-31.0); Mean Corpuscular Volume 87.1 fL (78.0-102.0); Mean Platelet Volume 9.1 fl (8.7-11.0); Platelet Count Result 244 K/mm3 (150-420); Red Blood Count 4.98 M/mm3 (4.70-6.10); Red Cell Distribution Width 12.2 % (11.6-14.4); White Blood Count 9.4 K/mm3 (4.8-10.8)
[2024-08-21 05:42] LABS: Alanine Aminotransferase 17 U/L (16-63); Albumin Level 3.4 g/dL (3.4-5.0); Alkaline Phosphatase 111 U/L (46-116); Anion Gap 9 mmol/L (4-12); Aspartate Amino Transferase 16 U/L (15-37); Bilirubin,Total 0.7 mg/dL (0.00-1.00); Blood Urea Nitrogen 20 mg/dL (7-18); Calcium 8.8 mg/dL (8.5-10.1); Carbon Dioxide 28 mmol/L (21-32); Chloride 103 mmol/L (98-108); Estimated CRCL calculation 48 ml/min; Estimated Glomerular Filt Rate > 60; Glucose 189 mg/dL (70-99); Osmolality Calculated 297 mOsm/kg (285-295); Potassium 4.1 mmol/L (3.5-5.1); Sodium 140 mmol/L (136-145); Total Protein 7.6 g/dL (6.4-8.2)
[2024-08-21] MEDS: SIMVASTATIN 10 MG TABLET 20 MG PO (08:57)
[2024-08-21] MEDS: CHOLECALCIFEROL 1,000 UNITS TABLET 2000 UNITS PO (08:57)
[2024-08-21] MEDS: MELOXICAM 7.5 MG TABLET 15 MG PO (08:57)
[2024-08-21] MEDS: HYDROcodone/acetaminophen (*CRX) 5-325 MG TABLET 1 TAB PO ×2 (08:58→20:45)
[2024-08-21] MEDS: EMPAGLIFLOZIN 25 MG TABLET PO (08:58)
[2024-08-21] MEDS: hydroCHLOROthiazide 12.5 MG CAPSULE PO (08:58)
[2024-08-21] MEDS: methocarbamoL 500 MG TABLET PO ×3 (08:58→17:42)
[2024-08-21] MEDS: lisinopriL 20 MG TABLET PO (08:58)
[2024-08-21] MEDS: carvediloL 6.25 MG TABLET PO ×2 (08:58→20:44)
--- NOTE | 2024-08-21 10:31 | P.HP_ITS ---
H&P: HPI History of Present Illness Date/Time: 08/21/24 10:31 Chief Complaint: Fall/Unable to care for self after cervical fracture Narrative: Patient is an 84-year-old male who presented to the emergency department after he was recently discharged from [facility] due to inability to care for self. Patient had a recent fall down his stairs at home and was found to have a cervical fracture in [facility] and was transferred to [facility] no intervention was done by Neurosurgery patient was placed in a cervical collar and given pain medication as well as muscle relaxants and discha rge to home. Patient presents today because he was unable to care for himself at home and has no available family to assist with his new injury this time patient is requesting either SNF or swing bed for further rehabilitation needs and ability to perform his own ADLs prior to returning home. patient reports past medical history of hypertension, diabetes, and GERD. patient was admitted to the medical unit for pain control and evaluation by PT /OT for placement to swing bed. Review of Systems Review of Systems: All systems reviewed & are unremarkable except as noted in HPI and below PMFSH Past Medical History Medical History Right carpal tunnel syndrome Stiffness of finger joint of left hand Left carpal tunnel syndrome GERD (gastroesophageal reflux disease) Calcific tendinitis of left shoulder Major depression, recurrent Type 2 diabetes mellitus Hypertension associated with diabetes Hyperlipidemia associated with type 2 diabetes mellitus Surgical History Surgical History History of release of tendon (~05/2018) Family History Family History Father No problems noted. Mother No problems noted. Other Diabetes mellitus Social History Social History Smoking status: Never smoker Second hand tobacco smoke exposure: No Alcohol intake: never Drinks per week: 3 Substance use: never Substance use type: does not use Do You Feel Safe in your Home?: Yes Lack of Transportation: No Lack of Food: Never True Current Housing: I Have Housing Concerned About Future Housing: No Difficulty Paying Gas/Electric Bills: No Difficulty Paying for Meds: No Currently Unemployed: No Education: High School Diploma/GED Difficulty w/ Childcare or Family Care: No Living arrangements: alone Additional living arrangements comments: in 2018 Occupation/Education: retired Spiritual care concerns: No Meds Home Medications and Allergies Home Medications ?Medication ?Instructions ?Recorded ?Confirmed ?Type cholecalciferol (vitamin D3) 50 50 mcg PO DAILY #90 caps 07/29/23 08/20/24 Rx mcg (2,000 unit) capsule meloxicam 15 mg tablet 15 mg PO DAILY #90 tabs 10/29/23 08/20/24 Rx tirzepatide 5 mg/0.5 mL See Rx Instructions .Route 03/17/24 08/20/24 Rx subcutaneous pen injector .COMPLEX #2 mL (Mounjaro) simvastatin 20 mg tablet See Rx Instructions .Route 05/12/24 08/20/24 Rx .COMPLEX #90 tabs diclofenac sodium 3 % topical gel 1 applic topical BID PRN pain #100 07/05/24 08/20/24 Rx grams carvedilol 6.25 mg tablet 6.25 mg PO ONCE 08/20/24 08/20/24 History empagliflozin 25 mg tablet 25 mg PO DAILY 08/20/24 08/20/24 History lisinopril 20 1 tablet PO DAILY 08/20/24 08/20/24 History mg-hydrochlorothiazide 12.5 mg tablet Allergies Allergy/AdvReac Type Severity Reaction Status Date / Time No Known Allergies Allergy Verified 08/20/24 11:01 Vital Signs Vital Signs - 24 hr 08/20/24 10:49 08/20/24 12:50 08/20/24 14:51 Temperature 97.8 F 98.0 F Pulse Rate 77 75 73 Respiratory Rate 20 20 18 Blood Pressure 126/78 138/68 144/74 H Pulse Oximetry 98 96 96 Oxygen Delivery Room Air Room Air Room Air 08/20/24 15:25 08/20/24 16:17 08/20/24 17:00 Temperature 96.7 F L Pulse Rate 16 L 75 Respiratory Rate 77 H Blood Pressure 167/76 H 159/86 H Pulse Oximetry 97 97 Oxygen Delivery Room Air Room Air 08/20/24 21:08 08/21/24 00:00 08/21/24 07:10 Temperature 98.4 F 97 F L Pulse Rate 96 89 68 Respiratory Rate 16 16 Blood Pressure 156/88 H 174/82 H Pulse Oximetry 94 99 Oxygen Delivery Room Air Room Air 08/21/24 08:58 Temperature Pulse Rate 68 Respiratory Rate Blood Pressure Pulse Oximetry Oxygen Delivery Exam Narrative: * GENERAL: Alert and oriented x 3 gentleman. No acute distress. * EYES: EOMI. No scleral icterus. PERRLA. * HEENT: Moist mucous membranes. cervical collar in place * LUNGS: Clear to auscultation bilaterally. No accessory muscle use. * CARDIOVASCULAR: Regular rate and rhythm. No murmur. No JVD. S1-S2 * ABDOMEN: Soft, non tenderness and non-distended. * EXTREMITIES: No edema. Non-tender * SKIN: No rashes or lesions. Skin warm, dry. deep tissue bruising * NEUROLOGIC: No focal neurological deficits. CN II-XII grossly intact * PSYCHIATRIC: Appropriate mood and affect. Good judgement and insight. H&P: Results Labs Labs: Short CBC 08/21/24 Range/Units 05:15 WBC 9.4 (4.8-10.8) K/mm3 Hgb 14.7 (12.4-15.3) g/dL Hct 43.4 (37.0-46.0) % Plt Count 244 (150-420) K/mm3 BMP 08/21/24 05:15 Sodium 140 Potassium 4.1 Chloride 103 Carbon Dioxide 28 BUN 20 H Creatinine 0.87 Glucose 189 H Calcium 8.8 Liver Function 08/21/24 Range/Units 05:15 Total Bilirubin 0.7 (0.00-1.00) mg/dL AST 16 (15-37) U/L ALT 17 (16-63) U/L Alkaline Phosphatase 111 (46-116) U/L Albumin 3.4 (3.4-5.0) g/dL Assessment and Plan Assessment and plan (1) Odontoid fracture: Qualifiers: Encounter type: initial encounter Fracture type: closed Qualified Code(s): S12.100A - Unspecified displaced fracture of second cervical vertebra, initial encounter for closed fracture Code(s): S12.110A - Anterior displaced Type II dens fracture, initial encounter for closed fracture Status: Acute Assessment and Plan: patient with fall downstairs CT cervical showing nondisplaced odontoid fracture was transferred to [facility] for evaluation by Neurosurgery * cervical collar in place * pain managment * resumed muscle relaxant * follow-up with Neurosurgery outpatient (2) Frequent falls: Code(s): R29.6 - Repeated falls Status: Acute Assessment and Plan: per patient's records has been seen for multiple falls at home * PT/OT evaluation for possible swing bed placement due to acute fracture unable to care for self and lives by himself (3) Type 2 diabetes mellitus: Code(s): E11.9 - Type 2 diabetes mellitus without complications Status: Acute Assessment and Plan: * Accu-Cheks a.c. HS * sliding scale insulin * hold oral diabetic medications * Diabetic diet * Optimize Jamaal inhibitors and statins. * Watch for hypoglycemia/hypoglycemic protocol ordered (4) Hypertension associated with diabetes: Code(s): E11.59 - Type 2 diabetes mellitus with other circulatory complications; I10 - Essential (primary) hypertension Status: Acute Assessment and Plan: * resume patient's carvedilol, lisinopril, hydrochlorothiazide * BP per unit protocol Plan Code status: Full code per patient DVT prophylaxis: Na Stress ulcer prophylaxis: Na PT/OT notes: PT/ OT evaluation pending for swing Disposition: patient continues admission to the medical unit after inability to senior care after acute neck fracture will have PT/ OT evaluation for possible swing bed placement will continue with pain management. Quality -Patient's previous records reviewed on admission -ER notes reviewed in detail on admission -discussed all findings and current treatment plan with patient/Family/POA -Consultations reviewed for recommendations -Patient's disposition for safe discharge discussed with rn case mgr Dictation performed by [employer] direct speech recognition software, therefore cellophane wrapping examiner variants and typographical errors may occur. Hospitalist MIPS Advance Care Plan I have confirmed that the patient's Advanced Care Plan is present, code status is documented, or surrogate decision maker is listed in patient medical record.: Yes Medication Reconciliation I have utilized all available resources to obtain, update and review the patients current medications (includes all prescriptions, OTC, herbals, cannabis, and nutritional supplements).: Yes The patient is not eligible for med reconciliation; the patient is in a emergent medical situation where delaying treatment would jeopardize the patients health.: No
[2024-08-21] MEDS: ZOLPIDEM TARTRATE (*CRX) 5 MG TABLET PO (20:44)
[2024-08-22] VITALS: BP 137/87; PULSE 67; RESP 17; TEMP 36.5; O2SAT 98
[2024-08-22 07:40] VITALS: BP 130/64; PULSE 67; RESP 18; TEMP 35.6; O2SAT 95
[2024-08-22] MEDS: SIMVASTATIN 10 MG TABLET 20 MG PO (08:59)
[2024-08-22] MEDS: CHOLECALCIFEROL 1,000 UNITS TABLET 2000 UNITS PO (08:59)
[2024-08-22] MEDS: methocarbamoL 500 MG TABLET PO ×3 (08:59→16:53)
[2024-08-22] MEDS: hydroCHLOROthiazide 12.5 MG CAPSULE PO (08:59)
[2024-08-22] MEDS: MELOXICAM 7.5 MG TABLET 15 MG PO (08:59)
[2024-08-22] MEDS: lisinopriL 20 MG TABLET PO (09:00)
[2024-08-22] MEDS: EMPAGLIFLOZIN 25 MG TABLET PO (09:00)
--- NOTE | 2024-08-22 09:55 | P.PNIM_ITS ---
Progress Note: A&P Assessment and Plan (1) Odontoid fracture: Qualifiers: Encounter type: initial encounter Fracture type: closed Qualified Code(s): S12.100A - Unspecified displaced fracture of second cervical vertebra, initial encounter for closed fracture Code(s): S12.110A - Anterior displaced Type II dens fracture, initial encounter for closed fracture Status: Acute Assessment and Plan: patient with fall downstairs CT cervical showing nondisplaced odontoid fracture was transferred to [facility] for evaluation by Neurosurgery * cervical collar in place * pain managment * resumed muscle relaxant * follow-up with Neurosurgery outpatient (2) Frequent falls: Code(s): R29.6 - Repeated falls Status: Acute Assessment and Plan: per patient's records has been seen for multiple falls at home * PT/OT evaluation for possible swing bed placement due to acute fracture unable to care for self and lives by himself (3) Type 2 diabetes mellitus: Code(s): E11.9 - Type 2 diabetes mellitus without complications Status: Acute Assessment and Plan: * Accu-Cheks a.cIdalia HS * sliding scale insulin * hold oral diabetic medications * Diabetic diet * Optimize Jamaal inhibitors and statins. * Watch for hypoglycemia/hypoglycemic protocol ordered (4) Hypertension associated with diabetes: Code(s): E11.59 - Type 2 diabetes mellitus with other circulatory complications; I10 - Essential (primary) hypertension Status: Acute Assessment and Plan: * resume patient's carvedilol, lisinopril, hydrochlorothiazide * BP per unit protocol Plan Code status: Full code per patient DVT prophylaxis: Na Stress ulcer prophylaxis: Na PT/OT notes: PT/ OT evaluation pending for swing Disposition: patient continues admission to the medical unit after inability to halfway after acute neck fracture will have PT/ OT evaluation for possible swing bed placement will continue with pain management. Time Spent With Patient Time with patient: 15 - 25 minutes Subjective Date/time seen: 08/22/24 09:55 Interval history: Patient is 84-year-old male who was admitted for physical and occupational therapy evaluation following a fall with cervical fracture who was unable to care for self at home. 08/22/2024: Patient no complaints, pain is controlled and he continues to wear his C-collar. Plan to D/C to swing bed. Review of Systems Review of Systems: All systems reviewed & are unremarkable except as noted in HPI and below Exam Narrative: * GENERAL: Alert and oriented x 3 gentleman. No acute distress. * EYES: EOMI. No scleral icterus. PERRLA. * HEENT: Moist mucous membranes. cervical collar in place * LUNGS: Clear to auscultation bilaterally. No accessory muscle use. * CARDIOVASCULAR: Regular rate and rhythm. No murmur. No JVD. S1-S2 * ABDOMEN: Soft, non tenderness and non-distended. * EXTREMITIES: No edema. Non-tender * SKIN: No rashes or lesions. Skin warm, dry. deep tissue bruising * NEUROLOGIC: No focal neurological deficits. CN II-XII grossly intact * PSYCHIATRIC: Appropriate mood and affect. Good judgement and insight. Objective Data Vital Signs Vital Signs: Vital Signs - 24 hr 08/21/24 16:35 08/21/24 20:00 08/21/24 20:44 Temperature 97.2 F L Pulse Rate 67 67 67 Respiratory Rate 16 16 Blood Pressure 126/73 Pulse Oximetry 96 96 Oxygen Delivery Room Air Room Air 08/22/24 00:00 08/22/24 07:40 Temperature 97.7 F 96.1 F L Pulse Rate 67 67 Respiratory Rate 17 18 Blood Pressure 137/87 130/64 Pulse Oximetry 98 95 Oxygen Delivery Room Air Room Air Intake/Output Intake/Output: Intake & Output 08/19/24 08/20/24 08/21/24 08/22/24 23:59 23:59 23:59 23:59 Intake Total 720 2340 720 Balance 720 2340 720 Meds/Results Medications: Active Medications Generic Name Dose Route Start Last Admin Trade Name Freq PRN Reason Stop Dose Admin Acetaminophen 650 mg 08/20/24 14:45 Acetaminophen 325 Mg Tablet PO Q4H PRN Mild Pain (1-3) or Fever Hydrocodone Bitart/Acetaminophen 1 tab 08/20/24 14:45 08/21/24 20:45 Hydrocodone/Acetaminophen (*Crx) 5-325 Mg Tablet PO 1 tab Q4H PRN Administration Moderate Pain (4-6) Carvedilol 6.25 mg 08/20/24 21:00 08/21/24 20:44 Carvedilol 6.25 Mg Tablet PO 6.25 mg Q12HR MARIA C Administration Diclofenac Sodium 1 applic 08/20/24 16:16 Diclofenac Sodium 1% 100 Gm Gel (*Bkc) TOPICAL BID PRN pain Empagliflozin 25 mg 08/21/24 09:00 08/22/24 09:00 Empagliflozin 25 Mg Tablet PO 25 mg DAILY MARIA C Administration Hydrochlorothiazide 12.5 mg 08/21/24 09:00 08/22/24 08:59 Hydrochlorothiazide 12.5 Mg Capsule PO 12.5 mg QAM MARIA C Administration Lisinopril 20 mg 08/21/24 09:00 08/22/24 09:00 Lisinopril 20 Mg Tablet PO 20 mg QAM MARIA C Administration Meloxicam 15 mg 08/21/24 09:00 08/22/24 08:59 Meloxicam 7.5 Mg Tablet PO 15 mg DAILY MARIA C Administration Methocarbamol 500 mg 08/20/24 17:00 08/22/24 08:59 Methocarbamol 500 Mg Tablet PO 500 mg TID MARIA C Administration Ondansetron HCl 4 mg 08/20/24 14:45 Ondansetron Inj 4 Mg/2 Ml Vial IV PUSH Q6H PRN Nausea And Vomiting Simvastatin 20 mg 08/21/24 09:00 08/22/24 08:59 Simvastatin 10 Mg Tablet PO 20 mg DAILY MARIA C Administration Vitamin D 2,000 units 08/21/24 09:00 08/22/24 08:59 Cholecalciferol 1,000 Units Tablet PO 2,000 units DAILY MARIA C Administration Zolpidem Tartrate 5 mg 08/20/24 14:45 08/21/24 20:44 Zolpidem Tartrate (*Crx) 5 Mg Tablet PO 5 mg HS PRN Administration Insomnia Quality VTE Prophylaxis VTE prophylaxis: mechanical ordered -Patient's previous records reviewed on admission -ER notes reviewed in detail on admission -discussed all findings and current treatment plan with patient/Family/POA -Consultations reviewed for recommendations -Patient's disposition for safe discharge discussed with correctional casework specialist Dictation performed by [employer] direct speech recognition software, therefore sack department supervisor variants and typographical errors may occur. Hospitalist MIPS Advance Care Plan I have confirmed that the patient's Advanced Care Plan is present, code status is documented, or surrogate decision maker is listed in patient medical record.: Yes Medication Reconciliation I have utilized all available resources to obtain, update and review the patients current medications (includes all prescriptions, OTC, herbals, cannabis, and nutritional supplements).: Yes The patient is not eligible for med reconciliation; the patient is in a emergent medical situation where delaying treatment would jeopardize the patients health.: No
[2024-08-22 10:30] VITALS: PULSE 72
[2024-08-22] MEDS: carvediloL 6.25 MG TABLET PO ×2 (10:30→20:30)
[2024-08-22 16:00] VITALS: BP 101/69; PULSE 75; RESP 20; TEMP 35.7; O2SAT 97
[2024-08-22 20:00] VITALS: PULSE 64; RESP 20; O2SAT 97
[2024-08-22 20:30] VITALS: PULSE 64
[2024-08-22] MEDS: HYDROcodone/acetaminophen (*CRX) 5-325 MG TABLET 1 TAB PO (20:30)
[2024-08-22] MEDS: ZOLPIDEM TARTRATE (*CRX) 5 MG TABLET PO (20:30)
[2024-08-23] VITALS: BP 145/80; PULSE 64; RESP 17; TEMP 36.3; O2SAT 98
[2024-08-23 07:45] VITALS: BP 142/69; PULSE 65; RESP 16; TEMP 36.5; O2SAT 98
[2024-08-23 08:35] VITALS: PULSE 61; RESP 16; O2SAT 98
[2024-08-23] MEDS: hydroCHLOROthiazide 12.5 MG CAPSULE PO (09:28)
[2024-08-23] MEDS: CHOLECALCIFEROL 1,000 UNITS TABLET 2000 UNITS PO (09:28)
[2024-08-23 09:29] VITALS: PULSE 61
[2024-08-23] MEDS: MELOXICAM 7.5 MG TABLET 15 MG PO (09:29)
[2024-08-23] MEDS: EMPAGLIFLOZIN 25 MG TABLET PO (09:29)
[2024-08-23] MEDS: methocarbamoL 500 MG TABLET PO (09:29)
[2024-08-23] MEDS: SIMVASTATIN 10 MG TABLET 20 MG PO (09:29)
[2024-08-23] MEDS: carvediloL 6.25 MG TABLET PO (09:29)
[2024-08-23] MEDS: lisinopriL 20 MG TABLET PO (09:29)
[2024-08-23] MEDS: HYDROcodone/acetaminophen (*CRX) 5-325 MG TABLET 1 TAB PO (09:30)
--- NOTE | 2024-08-23 11:03 | P.DS_ITS ---
DS: Admitting Diagnosis Discharge Date 08/23/2024 Admitting Diagnosis rehab following a cervical fracture unable to care for self DS: Discharge Diagnosis Discharge Diagnosis (1) Odontoid fracture: Qualifiers: Encounter type: initial encounter Fracture type: closed Qualified Code(s): S12.100A - Unspecified displaced fracture of second cervical vertebra, initial encounter for closed fracture Code(s): S12.110A - Anterior displaced Type II dens fracture, initial encounter for closed fracture Status: Acute Assessment and Plan: patient with fall downstairs CT cervical showing nondisplaced odontoid fracture was transferred to [facility] for evaluation by Neurosurgery * cervical collar in place * pain managment * resumed muscle relaxant * follow-up with Neurosurgery outpatient (2) Frequent falls: Code(s): R29.6 - Repeated falls Status: Acute Assessment and Plan: per patient's records has been seen for multiple falls at home * PT/OT evaluation for possible swing bed placement due to acute fracture unable to care for self and lives by himself (3) Type 2 diabetes mellitus: Code(s): E11.9 - Type 2 diabetes mellitus without complications Status: Acute Assessment and Plan: * Accu-Shiraz aIdaliacIdalia HS * sliding scale insulin * hold oral diabetic medications * Diabetic diet * Optimize Jamaal inhibitors and statins. * Watch for hypoglycemia/hypoglycemic protocol ordered (4) Hypertension associated with diabetes: Code(s): E11.59 - Type 2 diabetes mellitus with other circulatory complications; I10 - Essential (primary) hypertension Status: Acute Assessment and Plan: * resume patient's carvedilol, lisinopril, hydrochlorothiazide * BP per unit protocol Plan Disposition: Discharged to [facility] DS: Summary Hospital Course Reason for hospitalization: rehab following a cervical fracture unable to care for self Hospital Course: Patient is an 84-year-old male who presented to the emergency department after he was recently discharged from [facility] due to inability to care for self. Patient had a recent fall down his stairs at home and was found to have a cervical fracture in [facility] and was transferred to [facility] no intervention was done by Neurosurgery patient was placed in a cervical collar and given pain medication as well as muscle relaxants and discharge to home. Patient presents today because he was unable to care for himself at home and has no available family to assist with his new injury this time patient is requesting either SNF or swing bed for further rehabilitation needs and ability to perform his own ADLs prior to returning home. patient reports past medical history of hypertension, diabetes, and GERD. patient was admitted to the medical unit for pain control and evaluation by PT /OT for placement to swing bed. Patient was accepted in to [facility] working well with physical and occupational therapy pain well controlled per patient he received authorization and was discharged to [facility] for continued PT/OT. Patient is concerned about caring for himself at home if continued need may need a shelter facility placement. patient seen and assessed on day discharge in no acute distress and had no further complaints. Time Spent with Patient Time attestation: Total time spent providing and/or coordinating discharge services: Time spent: Greater than 30 minutes Exam Narrative: * GENERAL: Alert and oriented x 3 gentleman. No acute distress. * EYES: EOMI. No scleral icterus. PERRLA. * HEENT: Moist mucous membranes. cervical collar in place * LUNGS: Clear to auscultation bilaterally. No accessory muscle use. * CARDIOVASCULAR: Regular rate and rhythm. No murmur. No JVD. S1-S2 * ABDOMEN: Soft, non tenderness and non-distended. * EXTREMITIES: No edema. Non-tender * SKIN: No rashes or lesions. Skin warm, dry. deep tissue bruising * NEUROLOGIC: No focal neurological deficits. CN II-XII grossly intact * PSYCHIATRIC: Appropriate mood and affect. Good judgement and insight. Discharge Plan Discharge Attending physician on discharge: Quan Barrera Discharging Clinician: Ольга Mcneil Anticipated Discharge Date/Time: 08/23/24 10:59 Patient Disposition: Hospital Swing Bed Activity: as tolerated and other - see discharge instructions Diet: regular Discharge Instructions: Discharged to Swing bed for continued rehabilitation with PT /OT continue to wear C-collar follow up at [place] with Neurosurgery Patient Instructions: Antibiotic Form Patient Language: Danish Stand Alone Forms: General Discharge Information Follow-up/Referrals: Krysta Lopes, FLYER BUILDER [Primary Care Provider] - Discharge Medications: New methocarbamol 500 mg Tablet 500 mg PO TID Qty: 1 0RF Continued lisinopril-hydrochlorothiazide 20-12.5 mg tablet 1 tablet PO DAILY carvedilol 6.25 mg tablet 6.25 mg PO ONCE Rx Instructions: must administer with a meal/food empagliflozin 25 mg tablet 25 mg PO DAILY diclofenac sodium 3 % gel 1 applic topical BID PRN (Reason: pain) Qty: 100 2RF Rx Instructions: Apply to hands cholecalciferol (vitamin D3) 50 mcg (2,000 unit) capsule 50 mcg PO DAILY Qty: 90 2RF meloxicam 15 mg tablet 15 mg PO DAILY Qty: 90 3RF Mounjaro 5 mg/0.5 mL pen injector See Rx Instructions .ROUTE .COMPLEX Qty: 2 11RF Dose Instruction: INJECT THE CONTENTS OF ONE PEN SUBCUTANEOUSLY WEEKLY DIRECTED Patient Comments: Takes on Tuesdays Rx Instructions: INJECT THE CONTENTS OF ONE PEN SUBCUTANEOUSLY WEEKLY DIRECTED simvastatin 20 mg tablet See Rx Instructions .ROUTE .COMPLEX Qty: 90 3RF Dose Instruction: TAKE 1 TABLET BY MOUTH DAILY Rx Instructions: TAKE 1 TABLET BY MOUTH DAILY Date of admission: 08/20/24 14:45 Primary Care Provider: Krysta Lopes Admitting Provider: Quan Barrera Attending physician on admission: Ольга Mcneil Condition: Stable Quality VTE Prophylaxis VTE prophylaxis: mechanical ordered -Patient's previous records reviewed on admission -ER notes reviewed in detail on admission -discussed all findings and current treatment plan with patient/Family/POA -Consultations reviewed for recommendations -Patient's disposition for safe discharge discussed with case briefer Dictation performed by [employer] direct speech recognition software, therefore swimming coach or instructor variants and typographical errors may occur. Hospitalist MIPS Heart Failure (Exclusion) Patient has history of Heart Transplant or Left Ventricular Assistive Device?: No IF YES, STOP HERE Heart Failure (Qualifier) Patient has current or prior documentation of LVEF less than or equal to 40%, or mod/servere depressed LVSF?: No IF NO, STOP HERE
--- NOTE | 2024-08-23 12:25 | PC.NURSE ---
Patient changed to Skilled swing bed status.
--- NOTE | 2024-08-31 13:17 | PC.NURSE ---
Discharge call back attempted, no answer
--- NOTE | 2024-09-02 12:07 | PC.NURSE ---
Discharge call back attempted, no answer
== END 2024-08-23 12:24 | disposition swing bed (61) ==
LOC: CHSED 14:45 → CHS2ND 15:06
PROVIDERS: Admitting Provider Internal Medicine; Emergency Provider Emergency Medicine; PCP Nurse Practitioner Family; Visit Provider Nurse Practitioner Family
DX: S12.110A Anterior displaced Type II dens fracture, initial encounter for closed fracture (principal); Z91.81 History of falling; R29.6 Repeated falls; Z74.2 Need for assistance at home and no other household member able to render care; E11.59 Type 2 diabetes mellitus with other circulatory complications; I15.2 Hypertension secondary to endocrine disorders; E11.69 Type 2 diabetes mellitus with other specified complication; E78.5 Hyperlipidemia, unspecified; K21.9 Gastro-esophageal reflux disease without esophagitis; Z79.85 Long-term (current) use of injectable non-insulin antidiabetic drugs; Z79.899 Other long term (current) drug therapy
CPT/HCPCS: 36415; 80053; 85027; 97161; 97165; 97530; 99285; A9270; G0378; L0150

== ENCOUNTER 2024-08-23 12:25 | Inpatient (IN) | payer MEDICARE, SELFPAY ==
[2024-08-23 12:37] VITALS: BMI 20.3
--- NOTE | 2024-08-23 13:04 | PC.NURSE ---
MILLINERY TEACHER made aware of new swing chart in system and med verified.
[2024-08-23 13:19] VITALS: O2SAT 98
[2024-08-23] MEDS: methocarbamoL 500 MG TABLET PO ×2 (14:13→18:07)
--- OUTSIDE RECORDS SUMMARY | 2024-08-23 15:00 | XMS_ITS | Clinical Summary ---
Author Organization [facility] Address [address] [place] [address] Care Team Providers Care Radiator Cleaner Name Role Phone Elise Bradford MD Primary Care P rovider Karl Abdi MD Unavailable [phone] Allergies No known active allergies Medications lisinopril-hydr [...] Department Care Team Description 05/31/2024 12:45 PM SERVICE OBSERVER Office Visit [facility] Surgery [address] [place] [address] [address] [place] [address] Lucila Cuevas MD Carpal tunnel syndrome of left wrist (Primary Dx) 05/31/2024 11:30 AM SERVICE OBSERVER Therapy [facility] Occupational Therapy [address] [place] [address] [address] [place] [address] Darren Patricia OT Carpal tunnel syndrome of left wrist (Primary Dx) 05/27/2024 Telephone [facility] Surgery [address] [place] [address] [address] [place] [address] Aretha Magallanes from Last 3 Months Immunizations Immunization Administration Dates Next Due Influenza, Quad, Adjuvantate [...] on file Legal Sex Male 12:00 AM SERVICE OBSERVER Gender Identity Not on file Sexual Orientation [...] Risk Assessment 01/27/2025 01/28/2024 Insurance [facility] Address: [address] [address] [place] [address] [facility] Address: [address] [address] [place] [address] Advance Directives For more information, please contact: [phone] * Full Code (Latest Code Status on File) Date Activated Date Inactivated Comments 01/27/2024 6:13 PM 01/28/2024 1:38 PM Care Teams Radiator Cleaner Relationship Specialty Start Date End Date Elise Bradford MD [address] [place] [address] PCP - General Ophthalmology 11/12/23 Karl Abdi MD [address] [address] Referring Physician Orthopedic Surgery 01/21/24
--- OUTSIDE RECORDS SUMMARY | 2024-08-23 15:00 | XMS_ITS | Referral Summary ---
Author Organization [facility] Address [address] [place] [address] Care Team Providers Care Filter Cloth Maker Name Role Phone Elise Bradford MD Primary Care P rovider Karl Abdi MD Unavailable [phone] Encounters Date Type Department Care Team Description 05/31/2024 12:45 PM MITER CUTTER Office Visit [facility] Surgery [address] [place] [address] Lucila Cuevas MD Carpal tunnel syndrome of left wrist (Primary Dx) 05/31/2024 11:30 AM MITER CUTTER Therapy [facility] Occupational Therapy [address] [place] [address] Darren Patricia OT Carpal tunnel syndrome of left wrist (Primary Dx) 05/27/2024 Telephone [facility] Surgery [address] [place] [id number] Aretha Magallanes from Last 3 Months Allergies [...] tunnel syndrome of left wrist 01/21/2024 Immunizations Immunization Administration Dates Next Due Influenza, [...] on file Legal Sex Male 12:00 AM MITER CUTTER Gender Identity Not on file Sexual Orientation [...] Advance Directives For more information, please contact: [phone] * Full Code (Latest Code Status on File) Date Activated Date Inactivated Comments 01/27/2024 6:13 PM 01/28/2024 1:38 PM Care Teams Filter Cloth Maker Relationship Specialty Start Date End Date Elise Bradford MD [address] [place] [address] PCP - General Ophthalmology 11/12/23 Karl Abdi MD 6812 COUNTS INCLUDE 234 BEDS AT [facility] [address] [place] [id number] Referring Physician Orthopedic Surgery 01/21/24
--- OUTSIDE RECORDS SUMMARY | 2024-08-23 15:00 | XMS_ITS | Clinical Summary ---
Author Organization [facility] Address [address] [place] [address] Care Team Providers Care Ply Cutter Name Role Phone Krysta LopesP Primary Care Provider [phone] Elise Slaughter MD Unavailable Allergies No known active allergies Medications lisinopril-hyd [...] the skin once a week. 4 Active traMADol (ULTRAM) 50 MG tabletIndicati ons:Acute Pain < 3 Day Supply Take 1 tablet (50 mg total) by mouth every 6 (six) hours as needed for Pain. Indications: Acute Pain < 3 Day Supply 10 tablet 5 Active dulaglutide (TRULICITY) 4.5 MG/0.5ML injection (PEN) Inject 4.5 mg into the skin once a week. 025 Discontinu ed(Error) methocarbamol (ROBAXIN) 500 MG tabletIndicati ons:Muscle Spasm with Pain Take 1 tablet (500 mg total) by mouth every 8 (eight) hours for 3 days. Indications: Muscle Spasm with Pain 9 tablet 5 025 Active Problems Problem Noted Date Diagnosed Date C2 cervical fracture ([facility]) 5 Abrasion of right elbow 08/19/2024 Pain of left thumb 08/19/2024 Fall 08/18/2024 Encounters Date Type Department Care Team Description 08/18/2024 8:14 PM PHOTOVOLTAIC TESTING TECHNICIAN - 08/19/2024 3:08 PM PHOTOVOLTAIC TESTING TECHNICIAN Hospital Encounter [facility] Intermediate [facility] [address] [place] [address] eDepak Khoury MD Trauma Discharge Disposition: Home with Home Health Care 08/18/2024 Travel from Last 3 Months Social History Tobacco Use Types Packs/Day Years Used Date Smoking Tobacco: Never Smokeless Tobacco: Never Tobacco Cessation:Counseling Given: Not Answered Alcohol Use Standard Drinks/Week Comments Yes 1.7 (1 standard drink = 0.6 oz p ure alcohol) [facility] Utilities Answer Date Recorded In the past 12 months has [facility] [employer], gas, oil, or water [employer] threatened to shut off services in your [...] any time in the past 12 m [facility], were you homeless or living in a custodial (including now)? No 08/19/2024 Sex and Gender Information Value Date Recorded Sex Assigned at Male 08/18/2024 8:20 PM PHOTOVOLTAIC TESTING TECHNICIAN Legal Sex Male 10:00 AM PHOTOVOLTAIC TESTING TECHNICIAN Gender Identity Not on file Sexual Orientation Not on file Last Filed Vital Signs Vital Sign Reading Time Taken Comments Blood Pressure 158/71 08/19/2024 11:46 AM PHOTOVOLTAIC TESTING TECHNICIAN Pulse 65 08/19/2024 11:46 AM PHOTOVOLTAIC TESTING TECHNICIAN Temperature 36.6 C (97.8 F) 08/19/2024 7:32 AM PHOTOVOLTAIC TESTING TECHNICIAN Respiratory Rate 17 08/19/2024 3:30 AM PHOTOVOLTAIC TESTING TECHNICIAN Oxygen Saturation 96% 08/19/2024 11:46 AM PHOTOVOLTAIC TESTING TECHNICIAN Inhaled Oxygen Concentration - - Weight 63.5 kg (140 lb) 08/18/2024 8:21 PM PHOTOVOLTAIC TESTING TECHNICIAN Height 172.7 cm (5' 8 ) 08/18/2024 8:21 PM PHOTOVOLTAIC TESTING TECHNICIAN Body Mass Index 21.29 08/18/2024 8:21 PM PHOTOVOLTAIC TESTING TECHNICIAN Plan of Treatment Health Maintenance Due Date [...] this topic Medical Devices Implanted Type Area Arabic Linguist Device Identifier Shelf Expiration Date Model / Serial / Lot Tecnis Simplicity System Implanted:Qty: 1 on 08/27/2023 by Elise Slaughter MD at [facility] Right: Eye [employer] [id number] 11/26/2025 DCB00 / [id number] / [id number] Tecnis 1-Piece Implanted:Qty: 1 on 09/24/2023 by Elise Slaughter MD at [facility] Left: Eye DCB00 / [id number] / Procedures Procedure Name Priority Date/Time Associated Diagnosis Comments POCT GLUCOSE - RAMOS DOCKED DEVICE Routine 08/19/2024 12:51 PM PHOTOVOLTAIC TESTING TECHNICIAN PHOSPHORUS, INORGANIC PHOSPHATE Routine 08/19/2024 7:30 AM PHOTOVOLTAIC TESTING TECHNICIAN MAGNESIUM Routine 08/19/2024 7:30 AM PHOTOVOLTAIC TESTING TECHNICIAN BASIC METABOLIC PANEL Routine 08/19/2024 7:30 AM PHOTOVOLTAIC TESTING TECHNICIAN CBC W/DIFF AUTOMATED Routine 08/19/2024 7:30 AM PHOTOVOLTAIC TESTING TECHNICIAN POCT GLUCOSE - RAMOS DOCKED DEVICE Routine 08/19/2024 6:09 AM PHOTOVOLTAIC TESTING TECHNICIAN POCT GLUCOSE - RAMOS DOCKED DEVICE Routine 08/18/2024 11:59 PM PHOTOVOLTAIC TESTING TECHNICIAN XR HUMERUS RT MIN 2V STAT 08/18/2024 9:05 PM PHOTOVOLTAIC TESTING TECHNICIAN XR ELBOW RT M3V STAT 08/18/2024 9:05 [address]IC [address]ING TECHNIC[address] CT CHEST+ABD+PEL W CON STAT 08/18/2024 9:[address]IC [address]ING [address]CHNIC[address] CT LUMB SPINE WO CON STAT 08/18/2024 9:02 PM [address]OVOLTAIC TESTING TECHNICIAN CT THOR SPINE WO CON STAT 08/18/2024 9:02 PM PHOTOVOLTAIC TESTING TECHNICIAN from Last 3 Months Results * (ABNORMAL) POCT glucose (08/19/2024 12:51 PM PHOTOVOLTAIC TESTING TECHNICIAN) Only the most recent of3 resultswithin the time period is included. [facility] GLUCOSE POC 230(H) 70 - 109 08/19/2024 2:23 PM PHOTOVOLTAIC TESTING TECHNICIAN [facility] 08/19/2024 12:5 1 PM PHOTOVOLTAIC TESTING TECHNICIAN us Deepak Khoury MD POCT ORDERABLES - DEVICE Final Result [facility] [address] [place] [address], [phone] * (ABNORMAL) BASIC METABOLIC PANEL (08/19/2024 7:30 AM PHOTOVOLTAIC TESTING TECHNICIAN) SODIUM S/P/B 137 136 - 145 MMOL/L 08/19/2024 8:40 AM [facility] POTASSIUM S/P/B 3.9 3.5 - 5.1 MMOL/L 08/19/2024 8:40 AM [facility] CHLORIDE S/P/B 104 97 - 115 MMOL/L 08/19/2024 8:40 AM [facility] CO2 27.1 21.0 - 32.0 MMOL/L 08/19/2024 8:40 AM [facility] GLUCOSE 204(H) 74 - 106 MG/DL 08/19/2024 8:40 AM [facility] BUN 17 7 - 18 MG/DL 08/19/2024 8:40 AM [facility] CREATININE S/P/B 0.78 0.70 - 1.30 MG/DL 08/19/2024 8:40 AM [facility] CALCIUM S/P/B 9.4 8.5 - 10.1 MG/DL 08/19/2024 8:40 AM [facility] ANION GAP 5.9 2.0 - 10.0 MMOL/L 08/19/2024 8:40 AM [facility] OSMOLALITY (CALC) 291 MOSM/KG 025 8:40 AM [facility] Comment:REFERENCE RANGE NOT ESTABLISHED GFR ESTIMATE 88(L) >90 ML/MIN/1. 73 M2 08/19/2024 8:40 AM [facility] GFR NOTES GFR REFERENCE S: 08/19/2024 8:40 AM [facility] Comment: THE ESTIMATED GFR IS CALCULATED [...] FAILURE: <15 ml/min/1.73 m2 08/19/2024 7:30 AM PHOTOVOLTAIC TESTING TECHNICIAN us Deepak Khoury MD LABORATORY Final Result [facility] [address] [place] [address], [phone] * (ABNORMAL) CBC W/DIFF AUTOMATED (08/19/2024 7:30 AM PHOTOVOLTAIC TESTING TECHNICIAN) WBC 9.83 4.00 - 10.80 x10'3/uL 08/19/2024 8:17 AM [facility] RBC 4.68 4.50 - 6.10 x10'6/uL 08/19/2024 8:17 AM [facility] HGB 14.0 12.0 - 16.0 G/DL 08/19/2024 8:17 AM [facility] HCT 40.9 37.0 - 52.0 % 08/19/2024 8:17 AM [facility] MCV 87.4 78.0 - 100.0 FL 08/19/2024 8:17 AM [facility] MCH 29.9 27.0 - 31.0 PG 08/19/2024 8:17 AM [facility] MCHC 34.2 33.0 - 36.0 G/DL 08/19/2024 8:17 AM [facility] RDW 12.4 11.5 - 14.5 % 08/19/2024 8:17 AM [facility] PLT 231 150 - 350 x10'3/uL 08/19/2024 8:17 AM [facility] MPV 9.9 7.4 - 10.4 FL 08/19/2024 8:17 AM [facility] DIFFERENTIAL TYPE AUTOMATED DIFFERENTIAL 08/19/2024 8:17 AM [facility] SEG NEUTROPHILS 71.6 % 8:17 AM [facility] LYMPHOCYTES 18.6 % 08/19/2024 8:17 AM [facility] MONOCYTES 8.0 % 08/19/2024 8:17 AM [facility] EOSINOPHILS 0.4 % 08/19/2024 8:17 AM [facility] BASOPHILS 0.5 % 08/19/2024 8:17 AM [facility] IMMATURE GRANS % 0.9 % 08/19/19 8:17 AM [facility] ABS. NEUTROPHILS 7.03 1.60 - 8.30 x10'3/uL 08/19/2024 8:17 AM [facility] ABS. LYMPHOCYTES 1.83 0.80 - 4.70 x10'3/uL 08/19/2024 8:17 AM [facility] ABS. MONOCYTES 0.79 0.00 - 1.50 x10'3/uL 08/19/2024 8:17 AM [facility] ABS. EOSINOPHILS 0.04 0.00 - 0.40 x10'3/uL 08/19/2024 8:17 AM [facility] ABS. BASOPHILS 0.05 0.00 - 0.20 x10'3/uL 08/19/2024 8:17 AM [facility] ABS. IMMATURE GRANULOCYTES 0.09(H) 0.00 - 0.03 x10'3/uL 08/19/2024 8:17 AM [facility] ABS. NUCLEATED RBC'S 0.00 0.00 - 0.01 x10'3/uL 08/19/2024 8:17 AM [facility] NRBC % 0.0 % 08/19/2024 8:17 AM [facility] 08/19/2024 7:30 AM PHOTOVOLTAIC TESTING TECHNICIAN us Deepak Khoury MD LABORATORY Final Result Performing Organization Address [facility] de Phone Number [facility] [address] [place] [address], [phone] * PHOSPHORUS, INORGANIC PHOSPHATE (08/19/2024 7:30 AM PHOTOVOLTAIC TESTING TECHNICIAN) PHOSPHORUS 3.9 2.5 - 4.9 MG/DL 08/19/2024 8:40 AM PHOTOVOLTAIC TESTING TECHNICIAN [facility] 08/19/2024 7:30 AM PHOTOVOLTAIC TESTING TECHNICIAN us Deepak Khoury MD LABORATORY Final Result Performing Organization Address [facility] Phone Number [facility] [address] [place] [address], [phone] * MAGNESIUM (08/19/2024 7:30 AM PHOTOVOLTAIC TESTING TECHNICIAN) MAGNESIUM 2.4 1.6 - 2.6 MG/DL 08/19/2024 8:40 AM PHOTOVOLTAIC TESTING TECHNICIAN [facility] 08/19/2024 7:30 AM PHOTOVOLTAIC TESTING TECHNICIAN us Deepak Khoury MD LABORATORY Final Result Performing Organization Address [facility] Phone Number [facility] [address] [place] [address], [phone] * XR HUMERUS RT MIN 2V (08/18/2024 9:05 PM PHOTOVOLTAIC TESTING TECHNICIAN) Anatomical Region Laterality Modality Humerus Radiographic Bre ging 08/18/2024 9:14 PM PHOTOVOLTAIC TESTING TECHNICIAN Impressions 08/18/2024 9:27 PM PHOTOVOLTAIC TESTING TECHNICIAN IMPRESSION: 1. Possible acute avulsion fracture of the coronoid process of the ulna. 2. No other acute osseous or articular abnormality identified in the humerus or elbow. 3. No elbow effusion. Referred By: LUIS A HUTCHINSON Interpreted By: Tony Cardoza MD, 08/18/2024 9:14 PM Narrative 08/18/2024 9:27 PM PHOTOVOLTAIC TESTING TECHNICIAN [address] [address] INDICATION: Pain trauma COMPARISON: None TECHNIQUE: * [...] Procedure Note Tony Cardoza MD - 08/18/[address] [address] INDICATION: Pain trauma COMPARISON: None TECHNIQUE: * [...] 08/18/2024 9:14 PM us Alisha Pedersen [facility] Final Resul t * XR ELBOW RT M3V (08/18/2024 9:05 PM PHOTOVOLTAIC TESTING TECHNICIAN) Anatomical Region Laterality Modality Elbow Radiographic Bre ging 08/18/2024 9:14 PM PHOTOVOLTAIC TESTING TECHNICIAN Impressions 08/18/2024 9:27 PM PHOTOVOLTAIC TESTING TECHNICIAN IMPRESSION: 1. Possible acute avulsion fracture of the coronoid process of the ulna. 2. No other acute osseous or articular abnormality identified in the humerus or elbow. 3. No elbow effusion. Referred By: LUIS A HUTCHINSON Interpreted By: Tony Cardoza MD, 08/18/2024 9:14 PM Narrative 08/18/2024 9:27 PM PHOTOVOLTAIC TESTING TECHNICIAN [place] [address] INDICATION: Pain trauma COMPARISON: None TECHNIQUE: * [...] Procedure Note Tony Cardoza MD - 08/18/[address] [address] INDICATION: Pain trauma COMPARISON: None TECHNIQUE: * [...] Cardoza MD, 08/18/2024 9:14 PM Alisha Virk [facility] Final Resul t * CT THOR SPINE WO CON (08/18/2024 9:02 PM PHOTOVOLTAIC TESTING TECHNICIAN) Anatomical Region Laterality Modality Spine Computed Tomogra phy 08/18/2024 9:22 PM PHOTOVOLTAIC TESTING TECHNICIAN Impressions 08/18/2024 9:43 PM PHOTOVOLTAIC TESTING TECHNICIAN IMPRESSION: 1. No evidence of acute traumatic [...] 08/18/2024 9:22 PM Narrative 08/18/2024 9:43 PM PHOTOVOLTAIC TESTING TECHNICIAN [address] [address] INDICATION: Trauma, fall COMPARISON: None TECHNIQUE: CT [...] Procedure Note Tony Cardoza MD - 08/18/[address] [address] INDICATION: Trauma, fall COMPARISON: None TECHNIQUE: CT [...] chronic grade 1 anterolisthesis of L5 on [id number] to bilateral L5 pars defects. Vertebral body [...] LUMB SPINE WO CON (08/18/2024 9:02 PM PHOTOVOLTAIC TESTING TECHNICIAN) Anatomical Region Laterality Modality Spine Computed Tomogra phy 08/18/2024 9:22 PM PHOTOVOLTAIC TESTING TECHNICIAN Impressions 08/18/2024 9:43 PM PHOTOVOLTAIC TESTING TECHNICIAN IMPRESSION: 1. No evidence of acute traumatic [...] 08/18/2024 9:22 PM Narrative 08/18/2024 9:43 PM PHOTOVOLTAIC TESTING TECHNICIAN [address] [address] INDICATION: Trauma, fall COMPARISON: None TECHNIQUE: CT [...] Procedure Note Tony Cardoza MD - 08/18/[address] [address] INDICATION: Trauma, fall COMPARISON: None TECHNIQUE: CT [...] chronic grade 1 anterolisthesis of L5 on [id number] to bilateral L5 pars defects. Vertebral body [...] CT CHEST+ABD+PEL W CON (08/18/2024 9:02 PM PHOTOVOLTAIC TESTING TECHNICIAN) Anatomical Region Laterality Modality Chest, Abdomen, Pelvis Computed Tomography 08/18/2024 9:22 PM PHOTOVOLTAIC TESTING TECHNICIAN Impressions 08/18/2024 9:43 PM PHOTOVOLTAIC TESTING TECHNICIAN IMPRESSION: 1. No evidence of acute traumatic [...] 08/18/2024 9:22 PM Narrative 08/18/2024 9:43 PM PHOTOVOLTAIC TESTING TECHNICIAN [address] [address] INDICATION: Trauma, fall COMPARISON: None TECHNIQUE: CT [...] Procedure Note Tony Cardoza MD - 08/18/2024 [place] [address] INDICATION: Trauma, fall COMPARISON: None TECHNIQUE: CT [...] chronic grade 1 anterolisthesis of L5 on [id number] to bilateral L5 pars defects. Vertebral body [...] Final Result from Last 3 Months Insurance [facility] Advance Directives * Full Code (Latest Code Status on File) Date Activated Date Inactivated Comments 08/18/2024 9:19 PM 08/19/2024 5:13 PM Care Teams Ply Cutter Relationship Specialty Start Date End Date Krysta Lopes FNP [address] [place] [address] PCP - General NURSE PRACTITIONER 08/18/24 Elise Slaughter MD [address] [place] [phone] Consulting Physician OPHTHALMOLOGY 08/18/24
[2024-08-23 16:35] VITALS: BP 150/76; PULSE 73; RESP 16; TEMP 36.1; O2SAT 94
[2024-08-23 20:00] VITALS: PULSE 64; RESP 16; O2SAT 94
[2024-08-23 20:25] VITALS: PULSE 64
[2024-08-23] MEDS: carvediloL 6.25 MG TABLET PO (20:25)
[2024-08-23] MEDS: HYDROcodone/acetaminophen (*CRX) 5-325 MG TABLET 1 TAB PO (20:26)
[2024-08-23] MEDS: traZODone HCL 50 MG TABLET PO (20:26)
[2024-08-24] VITALS: BP 136/67; PULSE 64; RESP 16; TEMP 36.5; O2SAT 97
[2024-08-24 08:00] VITALS: BP 124/81; PULSE 67; RESP 16; TEMP 36.3; O2SAT 97
[2024-08-24 09:06] VITALS: PULSE 67
[2024-08-24] MEDS: carvediloL 6.25 MG TABLET PO ×2 (09:06→20:50)
[2024-08-24] MEDS: HYDROcodone/acetaminophen (*CRX) 5-325 MG TABLET 1 TAB PO ×2 (09:06→20:59)
[2024-08-24] MEDS: MELOXICAM 7.5 MG TABLET 15 MG PO (09:07)
[2024-08-24] MEDS: SIMVASTATIN 10 MG TABLET 20 MG PO (09:07)
[2024-08-24] MEDS: lisinopriL 20 MG TABLET PO (09:08)
[2024-08-24] MEDS: CHOLECALCIFEROL 1,000 UNITS TABLET 2000 UNITS PO (09:08)
[2024-08-24] MEDS: EMPAGLIFLOZIN 25 MG TABLET PO (09:08)
[2024-08-24] MEDS: hydroCHLOROthiazide 12.5 MG CAPSULE PO (09:08)
[2024-08-24] MEDS: methocarbamoL 500 MG TABLET PO ×3 (09:08→17:45)
--- NOTE | 2024-08-24 15:48 | P.HP_ITS ---
H&P: HPI History of Present Illness Date/Time: 08/24/24 15:48 Chief Complaint: REHAB Narrative: Patient is an 84-year-old male who was admitted to [facility] swing bed after he was recently discharged from [facility] due to inability to care for self. Patient had a recent fall down his stairs at home and was found to have a cervical fracture in [facility] and was transferred to [facility] no intervention was done by Neurosurgery patient was placed in a cervical collar and given pain medication as well as muscle relaxants and discharge to home. Patient presents today because he was unable to care for himself at home and has no available family to assist with his new injury at this time he was admitted to swing bed for further rehabilitation needs due to inability to perform his own ADLs prior to returning home. patient reports past medical history of hypertension, diabetes, and GERD. patient was admitted to the rehab for pain control and evaluation by PT /OT. Review of Systems Review of Systems: All systems reviewed & are unremarkable except as noted in HPI and below PMFSH Past Medical History Medical History Right carpal tunnel syndrome Stiffness of finger joint of left hand Left carpal tunnel syndrome GERD (gastroesophageal reflux disease) Calcific tendinitis of left shoulder Major depression, recurrent Type 2 diabetes mellitus Hypertension associated with diabetes Hyperlipidemia associated with type 2 diabetes mellitus Surgical History Surgical History History of release of tendon (~05/2018) Family History Family History Father No problems noted. Mother No problems noted. Other Diabetes mellitus Social History Social History Smoking status: Never smoker Second hand tobacco smoke exposure: No Alcohol intake: never Drinks per week: 3 Substance use: never Substance use type: does not use Do You Feel Safe in your Home?: Yes Lack of Transportation: No Lack of Food: Never True Current Housing: I Have Housing Concerned About Future Housing: No Difficulty Paying Gas/Electric Bills: No Difficulty Paying for Meds: No Currently Unemployed: No Education: High School Diploma/GED Difficulty w/ Childcare or Family Care: No Living arrangements: alone Additional living arrangements comments: in 2018 Occupation/Education: retired Spiritual care concerns: No Meds Home Medications and Allergies Home Medications ?Medication ?Instructions ?Recorded ?Confirmed ?Type cholecalciferol (vitamin D3) 50 50 mcg PO DAILY #90 caps 07/29/23 08/23/24 Rx mcg (2,000 unit) capsule meloxicam 15 mg tablet 15 mg PO DAILY #90 tabs 10/29/23 08/23/24 Rx tirzepatide 5 mg/0.5 mL See Rx Instructions .Route 03/17/24 08/23/24 Rx subcutaneous pen injector .COMPLEX #2 mL (Mounjaro) simvastatin 20 mg tablet See Rx Instructions .Route 05/12/24 08/23/24 Rx .COMPLEX #90 tabs diclofenac sodium 3 % topical gel 1 applic topical BID PRN pain #100 07/05/24 08/23/24 Rx grams carvedilol 6.25 mg tablet 6.25 mg PO ONCE 08/20/24 08/23/24 History empagliflozin 25 mg tablet 25 mg PO DAILY 08/20/24 08/23/24 History lisinopril 20 1 tablet PO DAILY 08/20/24 08/23/24 History mg-hydrochlorothiazide 12.5 mg tablet methocarbamol 500 mg tablet 500 mg PO TID #1 tablet 08/23/24 08/23/24 Rx Allergies Allergy/AdvReac Type Severity Reaction Status Date / Time No Known Allergies Allergy Verified 08/20/24 11:01 Vital Signs Vital Signs - 24 hr 08/23/24 16:35 08/23/24 20:00 08/23/24 20:25 Temperature 97 F L Pulse Rate 73 64 64 Respiratory Rate 16 16 Blood Pressure 150/76 H Pulse Oximetry 94 94 Oxygen Delivery Room Air Room Air 08/24/24 00:00 08/24/24 08:00 08/24/24 09:06 Temperature 97.7 F 97.3 F L Pulse Rate 64 67 67 Respiratory Rate 16 16 Blood Pressure 136/67 124/81 Pulse Oximetry 97 97 Oxygen Delivery Room Air Room Air Exam Narrative: * GENERAL: Alert and oriented x 3 gentleman. No acute distress. * EYES: EOMI. No scleral icterus. PERRLA. * HEENT: Moist mucous membranes. cervical collar in place * LUNGS: Clear to auscultation bilaterally. No accessory muscle use. * CARDIOVASCULAR: Regular rate and rhythm. No murmur. No JVD. S1-S2 * ABDOMEN: Soft, non tenderness and non-distended. * EXTREMITIES: No edema. Non-tender * SKIN: No rashes or lesions. Skin warm, dry. deep tissue bruising * NEUROLOGIC: No focal neurological deficits. CN II-XII grossly intact * PSYCHIATRIC: Appropriate mood and affect. Good judgement and insight. H&P: Results Labs Labs: Short CBC 08/21/24 Range/Units 05:15 WBC 9.4 (4.8-10.8) K/mm3 Hgb 14.7 (12.4-15.3) g/dL Hct 43.4 (37.0-46.0) % Plt Count 244 (150-420) K/mm3 BMP 08/21/24 05:15 Sodium 140 Potassium 4.1 Chloride 103 Carbon Dioxide 28 BUN 20 H Creatinine 0.87 Glucose 189 H Calcium 8.8 Liver Function 08/21/24 Range/Units 05:15 Total Bilirubin 0.7 (0.00-1.00) mg/dL AST 16 (15-37) U/L ALT 17 (16-63) U/L Alkaline Phosphatase 111 (46-116) U/L Albumin 3.4 (3.4-5.0) g/dL Assessment and Plan Assessment and plan (1) Odontoid fracture: Qualifiers: Encounter type: initial encounter Fracture type: closed Qualified Code(s): S12.100A - Unspecified displaced fracture of second cervical vertebra, initial encounter for closed fracture Code(s): S12.110A - Anterior displaced Type II dens fracture, initial encounter for closed fracture Status: Acute Assessment and Plan: patient with fall downstairs CT cervical showing nondisplaced odontoid fracture was transferred to [facility] for evaluation by Neurosurgery * cervical collar in place * pain managment * resumed muscle relaxant * follow-up with Neurosurgery outpatient (2) Frequent falls: Code(s): R29.6 - Repeated falls Status: Acute Assessment and Plan: per patient's records has been seen for multiple falls at home * PT/OT (3) Type 2 diabetes mellitus: Code(s): E11.9 - Type 2 diabetes mellitus without complications Status: Acute Assessment and Plan: * Accu-Cheks jorgecIdalia HS * sliding scale insulin * hold oral diabetic medications * Diabetic diet * Optimize Jamaal inhibitors and statins. * Watch for hypoglycemia/hypoglycemic protocol ordered (4) Hypertension associated with diabetes: Code(s): E11.59 - Type 2 diabetes mellitus with other circulatory complications; I10 - Essential (primary) hypertension Status: Acute Assessment and Plan: * resume patient's carvedilol, lisinopril, hydrochlorothiazide * BP per unit protocol Plan Code status: Full code per patient DVT prophylaxis: Na Stress ulcer prophylaxis: Na PT/OT notes: Swing Bed Disposition: Patient admitted to swing bed may need SNF continue with PT/OT Quality If No VTE Prophylaxis Answer both mechanical and pharmacologic: Reason no mechanical VTE proph: low risk/not indicated -Patient's previous records reviewed on admission -ER notes reviewed in detail on admission -discussed all findings and current treatment plan with patient/Family/POA -Consultations reviewed for recommendations -Patient's disposition for safe discharge discussed with manager case Dictation performed by [employer] direct speech recognition software, therefore instructor knitting variants and typographical errors may occur. Hospitalist MIPS Advance Care Plan I have confirmed that the patient's Advanced Care Plan is present, code status is documented, or surrogate decision maker is listed in patient medical record.: Yes Medication Reconciliation I have utilized all available resources to obtain, update and review the patients current medications (includes all prescriptions, OTC, herbals, cannabis, and nutritional supplements).: Yes The patient is not eligible for med reconciliation; the patient is in a emergent medical situation where delaying treatment would jeopardize the patients health.: No
[2024-08-24 16:35] VITALS: BP 131/71; PULSE 66; RESP 16; TEMP 36.3; O2SAT 100
[2024-08-24] MEDS: DOCUSATE SODIUM 100 MG CAPSULE PO (20:49)
[2024-08-24 20:50] VITALS: PULSE 67
[2024-08-24] MEDS: traZODone HCL 50 MG TABLET PO (21:05)
[2024-08-25] VITALS: BP 155/96; PULSE 67; RESP 20; TEMP 36.6; O2SAT 96
[2024-08-25 08:00] VITALS: BP 153/90; PULSE 72; RESP 14; TEMP 36.6; O2SAT 97
[2024-08-25 10:05] VITALS: PULSE 65
[2024-08-25] MEDS: carvediloL 6.25 MG TABLET PO ×2 (10:05→20:11)
[2024-08-25] MEDS: CHOLECALCIFEROL 1,000 UNITS TABLET 2000 UNITS PO (10:06)
[2024-08-25] MEDS: DOCUSATE SODIUM 100 MG CAPSULE PO ×2 (10:06→20:12)
[2024-08-25] MEDS: lisinopriL 20 MG TABLET PO (10:07)
[2024-08-25] MEDS: hydroCHLOROthiazide 12.5 MG CAPSULE PO (10:07)
[2024-08-25] MEDS: EMPAGLIFLOZIN 25 MG TABLET PO (10:07)
[2024-08-25] MEDS: methocarbamoL 500 MG TABLET PO ×3 (10:08→16:51)
[2024-08-25] MEDS: MELOXICAM 7.5 MG TABLET 15 MG PO (10:08)
[2024-08-25] MEDS: SIMVASTATIN 10 MG TABLET 20 MG PO (10:08)
[2024-08-25 12:00] LABS: Glucose Point of Care 423 mg/dl (65-105)
--- NOTE | 2024-08-25 13:05 | P.PNIM_ITS ---
Progress Note: A&P Assessment and Plan (1) Odontoid fracture: Qualifiers: Encounter type: initial encounter Fracture type: closed Qualified Code(s): S12.100A - Unspecified displaced fracture of second cervical vertebra, initial encounter for closed fracture Code(s): S12.110A - Anterior displaced Type II dens fracture, initial encounter for closed fracture Status: Acute Assessment and Plan: patient with fall downstairs CT cervical showing nondisplaced odontoid fracture was transferred to [facility] for evaluation by Neurosurgery * cervical collar in place * pain managment * resumed muscle relaxant * follow-up with Neurosurgery outpatient 08/25 * no change to current treatment plan (2) Frequent falls: Code(s): R29.6 - Repeated falls Status: Acute Assessment and Plan: per patient's records has been seen for multiple falls at home * PT/OT 08/25 * continue PT and OT * patient would benefit from a wheeled walker for use at home. He is progressing well with use of wheeled walker here. (3) Type 2 diabetes mellitus: Code(s): E11.9 - Type 2 diabetes mellitus without complications Status: Acute Assessment and Plan: * Accu-Cheks a.c. HS * sliding scale insulin * hold oral diabetic medications * Diabetic diet * Optimize Jamaal inhibitors and statins. * Watch for hypoglycemia/hypoglycemic protocol ordered 08/25 * blood sugar ranging in the 400s, currently 423 * will give an additional 10 units of sliding scale now with his highest dose sliding scale for a total of 15 units * will add mealtime insulin 5 units t.i.d. with meals * will also add Lantus 9 units at bedtime tonight * currently on a diabetic diet * continue low-dose sliding scale insulin (4) Hypertension associated with diabetes: Code(s): E11.59 - Type 2 diabetes mellitus with other circulatory complications; I10 - Essential (primary) hypertension Status: Acute Assessment and Plan: * resume patient's carvedilol, lisinopril, hydrochlorothiazide * BP per unit protocol 08/25 * no change Time Spent With Patient Time with patient: 25 - 35 minutes Subjective Date/time seen: 08/25/24 13:05 Interval history: interval history: This is an 84-year-old male With a significant past medical history of GERD, depression, type 2 diabetes mellitus, hypertension, hyperlipidemia who presented to [facility] after being discharged from [facility] due to inability to care for himself. He was found to have a cervical fracture and was placed in a C-collar. He is here for additional rehab. Subjective: patient was noted to have high blood sugar of 423 today. He is currently on a diabetic diet. He denies any fever, chills, nausea, vomiting, diarrhea, abdominal pain, chest pain, shortness a breath. Labs and imaging reviewed. patient has been progressing well with PT and OT with use of wheeled walker. He would benefit from having a wheeled walker for use at home. Review of Systems Review of Systems: All systems reviewed & are unremarkable except as noted in HPI and below Exam Narrative: General: In no acute distress, well nourished Head: atraumatic, no encephalopathy Eyes: EOMI, PERRLA, sclera clear ENT: moist mucous membranes, nasal passages clear, c collar in place Neck: supple, no JVD, no adenopathy, trachea midline Cardiac: Normal S1 and S2. No murmur, gallops or friction rubs, peripheral pulses intact. Respiratory: Lungs clear to auscultation, no adventitious lung sounds, currently on room air Gastrointestinal: soft, non-distended, non-tender, normoactive bowel sounds. : voiding without difficulty. Extremities: moves all extremities well, no edema Skin: clean, dry, intact. No wounds or lesions. Neuro: Alert and oriented x4, cranial nerves intact, no neuro deficits. Psych: normal mood, normal affect, interactive Objective Data Vital Signs Vital Signs: Vital Signs - 24 hr 08/24/24 16:35 08/24/24 20:50 08/25/24 00:00 Temperature 97.4 F L 97.9 F Pulse Rate 66 67 67 Respiratory Rate 16 20 Blood Pressure 131/71 155/96 H Pulse Oximetry 100 96 Oxygen Delivery Room Air Room Air 08/25/24 10:05 Temperature Pulse Rate 65 Respiratory Rate Blood Pressure Pulse Oximetry Oxygen Delivery Intake/Output Intake/Output: Intake & Output 08/22/24 08/23/24 08/24/24 08/25/24 23:59 23:59 23:59 23:59 Intake Total 860 2340 550 Balance 860 2340 550 Meds/Results Medications: Active Medications Generic Name Dose Route Start Last Admin Trade Name Freq PRN Reason Stop Dose Admin Acetaminophen 650 mg 08/23/24 13:19 Acetaminophen 325 Mg Tablet PO Q6H PRN Mild Pain (1-3) or Fever Hydrocodone Bitart/Acetaminophen 1 tab 08/23/24 13:19 08/24/24 20:59 Hydrocodone/Acetaminophen (*Crx) 5-325 Mg Tablet PO 1 tab Q4H PRN Administration Pain Rated 4-6 Carvedilol 6.25 mg 08/23/24 21:00 08/25/24 10:05 Carvedilol 6.25 Mg Tablet PO 6.25 mg Q12HR MARIA C Administration Dextrose 12.5 gm 08/25/24 09:00 Dextrose 50% 25 Gm/50 Ml Syringe IV PUSH PRN PRN Hypoglycemia Protocol Diclofenac Sodium 1 applic 08/23/24 14:56 Diclofenac Sodium 1% 100 Gm Gel (*Bkc) TOPICAL BID PRN Pain Docusate Sodium 100 mg 08/24/24 21:00 08/25/24 10:06 Docusate Sodium 100 Mg Capsule PO 100 mg Q12HR MARIA C Administration Empagliflozin 25 mg 08/24/24 09:00 08/25/24 10:07 Empagliflozin 25 Mg Tablet PO 25 mg DAILY MARIA C Administration Glucagon 1 mg 08/25/24 09:00 Glucagon For Inj 1 Mg Vial IM PRN PRN Hypoglycemia Protocol Glucose 15 gm 08/25/24 09:00 Glucose Oral Gel 15 Gm Of Glucse In 37.5 Gm Tube PO PRN PRN Hypoglycemia Protocol Hydrochlorothiazide 12.5 mg 08/24/24 09:00 08/25/24 10:07 Hydrochlorothiazide 12.5 Mg Capsule PO 12.5 mg QAM MARIA C Administration Dextrose 1,000 mls @ 100 mls/hr 08/25/24 09:00 Dextrose 5% 1,000 Ml IVPB PRN PRN Hypoglycemia Protocol Insulin Human Lispro 2 - 5 units 08/25/24 12:00 Insulin Human Lispro (*Bkc) 1,000 Units/10 Ml Vial SUB-Q TIDWM MARIA C Protocol Lisinopril 20 mg 08/24/24 09:00 08/25/24 10:07 Lisinopril 20 Mg Tablet PO 20 mg QAM MARIA C Administration Meloxicam 15 mg 08/24/24 09:00 08/25/24 10:08 Meloxicam 7.5 Mg Tablet PO 15 mg QAM MARIA C Administration Methocarbamol 500 mg 08/23/24 13:00 08/25/24 10:08 Methocarbamol 500 Mg Tablet PO 500 mg TID MARIA C Administration Ondansetron HCl 4 mg 08/23/24 13:19 Ondansetron Hcl Odt 4 Mg Tablet PO Q6H PRN Nausea And Vomiting Simvastatin 20 mg 08/24/24 09:00 08/25/24 10:08 Simvastatin 10 Mg Tablet PO 20 mg DAILY MARIA C Administration Trazodone HCl 50 mg 08/23/24 13:19 08/24/24 21:05 Trazodone Hcl 50 Mg Tablet PO 50 mg HS PRN Administration Insomnia Vitamin D 2,000 units 08/24/24 09:00 08/25/24 10:06 Cholecalciferol 1,000 Units Tablet PO 2,000 units DAILY MARIA C Administration Labs Labs: Laboratory Results - last 24 hr 08/25/24 11:55 POC Capillary Glucose 423 H
[2024-08-25] MEDS: INSULIN HUMAN LISPRO (*BKC) 1,000 UNITS/10 ML VIAL 10 UNITS SUB-Q (13:49)
[2024-08-25] MEDS: INSULIN HUMAN LISPRO (*BKC) 1,000 UNITS/10 ML VIAL SUB-Q (13:51)
[2024-08-25 16:00] VITALS: BP 159/77; PULSE 72; RESP 17; TEMP 36.1; O2SAT 99
[2024-08-25] MEDS: polyethylene glycoL 3350 17 GM POWD.PACK PO (16:50)
[2024-08-25] MEDS: INSULIN HUMAN LISPRO (*BKC) 1,000 UNITS/10 ML VIAL 5 UNITS SUB-Q (16:51)
[2024-08-25 18:24] LABS: Glucose Point of Care 135 mg/dl (65-105)
[2024-08-25 20:00] VITALS: O2SAT 97
[2024-08-25 20:11] VITALS: PULSE 67
[2024-08-25] MEDS: INSULIN GLARGINE (*BKC) 1,000 UNITS/10 ML VIAL 9 UNITS SUB-Q (20:12)
[2024-08-25 20:34] LABS: Glucose Point of Care 157 mg/dl (65-105)
[2024-08-26] VITALS: BP 131/73; PULSE 66; RESP 18; TEMP 36.6; O2SAT 97
[2024-08-26 08:00] VITALS: BP 116/72; PULSE 74; RESP 18; TEMP 36; O2SAT 96
[2024-08-26 08:17] LABS: Glucose Point of Care 163 mg/dl (65-105)
[2024-08-26] MEDS: lisinopriL 20 MG TABLET PO (09:11)
[2024-08-26] MEDS: CHOLECALCIFEROL 1,000 UNITS TABLET 2000 UNITS PO (09:11)
[2024-08-26] MEDS: SIMVASTATIN 10 MG TABLET 20 MG PO (09:11)
[2024-08-26] MEDS: polyethylene glycoL 3350 17 GM POWD.PACK PO (09:11)
[2024-08-26] MEDS: DOCUSATE SODIUM 100 MG CAPSULE PO ×2 (09:11→20:07)
[2024-08-26] MEDS: methocarbamoL 500 MG TABLET PO ×3 (09:11→17:22)
[2024-08-26 09:12] VITALS: PULSE 78
[2024-08-26] MEDS: hydroCHLOROthiazide 12.5 MG CAPSULE PO (09:12)
[2024-08-26] MEDS: MELOXICAM 7.5 MG TABLET 15 MG PO (09:12)
[2024-08-26] MEDS: EMPAGLIFLOZIN 25 MG TABLET PO (09:12)
[2024-08-26] MEDS: carvediloL 6.25 MG TABLET PO ×2 (09:12→20:04)
[2024-08-26] MEDS: INSULIN HUMAN LISPRO (*BKC) 1,000 UNITS/10 ML VIAL 5 UNITS SUB-Q ×3 (09:14→17:27)
[2024-08-26 12:00] LABS: Glucose Point of Care 211 mg/dl (65-105)
[2024-08-26] MEDS: INSULIN HUMAN LISPRO (*BKC) 1,000 UNITS/10 ML VIAL SUB-Q (12:12)
[2024-08-26 17:06] LABS: Glucose Point of Care 80 mg/dl (65-105)
[2024-08-26 20:00] VITALS: PULSE 63; RESP 18; O2SAT 96
[2024-08-26 20:04] VITALS: PULSE 63
[2024-08-26] MEDS: HYDROcodone/acetaminophen (*CRX) 5-325 MG TABLET 1 TAB PO (20:04)
[2024-08-26] MEDS: traZODone HCL 50 MG TABLET PO (20:04)
[2024-08-26] MEDS: INSULIN GLARGINE (*BKC) 1,000 UNITS/10 ML VIAL 9 UNITS SUB-Q (20:07)
[2024-08-26 20:08] LABS: Glucose Point of Care 119 mg/dl (65-105)
[2024-08-27] VITALS: BP 128/67; PULSE 63; RESP 17; TEMP 36.1; O2SAT 99
[2024-08-27 07:51] LABS: Glucose Point of Care 104 mg/dl (65-105)
[2024-08-27 08:00] VITALS: BP 120/70; PULSE 70; RESP 18; TEMP 36.6; O2SAT 98
[2024-08-27] MEDS: INSULIN HUMAN LISPRO (*BKC) 1,000 UNITS/10 ML VIAL 5 UNITS SUB-Q ×3 (09:32→16:59)
[2024-08-27] MEDS: MELOXICAM 7.5 MG TABLET 15 MG PO (09:33)
[2024-08-27 09:34] VITALS: PULSE 74
[2024-08-27] MEDS: carvediloL 6.25 MG TABLET PO ×2 (09:34→20:18)
[2024-08-27] MEDS: CHOLECALCIFEROL 1,000 UNITS TABLET 2000 UNITS PO (09:34)
[2024-08-27] MEDS: SIMVASTATIN 10 MG TABLET 20 MG PO (09:34)
[2024-08-27] MEDS: hydroCHLOROthiazide 12.5 MG CAPSULE PO (09:34)
[2024-08-27] MEDS: DOCUSATE SODIUM 100 MG CAPSULE PO (09:34)
[2024-08-27] MEDS: polyethylene glycoL 3350 17 GM POWD.PACK PO (09:34)
[2024-08-27] MEDS: methocarbamoL 500 MG TABLET PO ×3 (09:35→16:59)
[2024-08-27] MEDS: lisinopriL 20 MG TABLET PO (09:35)
[2024-08-27] MEDS: EMPAGLIFLOZIN 25 MG TABLET PO (09:39)
[2024-08-27 11:58] LABS: Glucose Point of Care 254 mg/dl (65-105)
[2024-08-27] MEDS: INSULIN HUMAN LISPRO (*BKC) 1,000 UNITS/10 ML VIAL SUB-Q (12:00)
[2024-08-27 16:00] VITALS: BP 120/70; PULSE 78; RESP 18; TEMP 36.6; O2SAT 97
[2024-08-27 16:59] LABS: Glucose Point of Care 84 mg/dl (65-105)
[2024-08-27 20:07] LABS: Glucose Point of Care 175 mg/dl (65-105)
[2024-08-27] MEDS: INSULIN GLARGINE (*BKC) 1,000 UNITS/10 ML VIAL 9 UNITS SUB-Q (20:16)
[2024-08-27 20:18] VITALS: PULSE 62
[2024-08-28] VITALS: BP 141/74; PULSE 62; RESP 16; TEMP 36.2; O2SAT 98
[2024-08-28 08:00] VITALS: BP 136/69; PULSE 72; RESP 17; TEMP 36.4; O2SAT 98
[2024-08-28 08:07] LABS: Glucose Point of Care 99 mg/dl (65-105)
--- NOTE | 2024-08-28 08:34 | P.DS_ITS ---
DS: Admitting Diagnosis Discharge Date 08/28/24 Admitting Diagnosis odontoid fracture weakness frequent falls type 2 diabetes mellitus hypertension DS: Discharge Diagnosis Discharge Diagnosis (1) Odontoid fracture: Qualifiers: Encounter type: initial encounter Fracture type: closed Qualified C ode(s): S12.100A - Unspecified displaced fracture of second cervical vertebra, initial encounter for closed fracture Code(s): S12.110A - Anterior displaced Type II dens fracture, initial encounter for closed fracture Status: Acute Assessment and Plan: patient with fall downstairs CT cervical showing nondisplaced odontoid fracture was transferred to [facility] for evaluation by Neurosurgery * cervical collar in place * pain managment * resumed muscle relaxant * follow-up with Neurosurgery outpatient 08/25 * no change to current treatment plan (2) Frequent falls: Code(s): R29.6 - Repeated falls Status: Acute Assessment and Plan: per patient's records has been seen for multiple falls at home * PT/OT 08/25 * continue PT and OT * patient would benefit from a wheeled walker for use at home. He is progressing well with use of wheeled walker here. (3) Type 2 diabetes mellitus: Code(s): E11.9 - Type 2 diabetes mellitus without complications Status: Acute Assessment and Plan: * Accu-Cheks a.c. HS * sliding scale insulin * hold oral diabetic medications * Diabetic diet * Optimize Jamaal inhibitors and statins. * Watch for hypoglycemia/hypoglycemic protocol ordered 08/25 * blood sugar ranging in the 400s, currently 423 * will give an additional 10 units of sliding scale now with his highest dose sliding scale for a total of 15 units * will add mealtime insulin 5 units t.i.d. with meals * will also add Lantus 9 units at bedtime tonight * currently on a diabetic diet * continue low-dose sliding scale insulin (4) Hypertension associated with diabetes: Code(s): E11.59 - Type 2 diabetes mellitus with other circulatory complications; I10 - Essential (primary) hypertension Status: Acute Assessment and Plan: * resume patient's carvedilol, lisinopril, hydrochlorothiazide * BP per unit protocol 08/25 * no change DS: Summary Hospital Course Reason for hospitalization: odontoid fracture weakness frequent falls type 2 diabetes mellitus hypertension Hospital Course: This is an 84-year-old male With a significant past medical history of GERD, depression, type 2 diabetes mellitus, hypertension, hyperlipidemia who presented to [facility] after being discharged from [facility] due to inability to care for himself. He was found to have a cervical fracture and was placed in a C-collar. He is here for additional rehab. PT and OT worked with patient and he progressed well with a wheeled walker. He was ordered a wheeled walker at home. He is stable for discharge at this time. He will need to follow up with his ortho spine Dr. in 2 weeks. He was instructed to refrain from driving until he is cleared in his C-collar. final diagnosis: odontoid fracture, weakness Status at Discharge Cognitive/behavioral status at discharge: alert oriented x3 Functional status at discharge: independent ambulation Overall status at discharge: patient is progressing back to baseline Time Spent with Patient Time attestation: Total time spent providing and/or coordinating discharge services: Time spent: Greater than 30 minutes Exam Narrative: General: In no acute distress, well nourished Cardiac: Normal S1 and S2. No murmur, gallops or friction rubs, peripheral pulses intact. Respiratory: Lungs clear to auscultation, no adventitious lung sounds, currently on room air Gastrointestinal: soft, non-distended, non-tender, normoactive bowel sounds. : voiding without difficulty. cervical spine: C-collar in place Neuro: Alert and oriented x4 DS: Data Data Completed and Pending Completed studies during hospitalization: none Pending studies at discharge: none Labs on day of discharge: Labs from last 24 hours 08/28/24 08/27/24 08/27/24 08:05 20:02 16:58 POC Capillary Glucose 99 175 H 84 08/27/24 11:57 POC Capillary Glucose 254 H Procedures/Treatments: none Discharge Plan Discharge Attending physician on discharge: Quan Barrera Consulting providers: Ольга Mcneil; Paula Gallegos Discharging Clinician: Paula Gallegos Patient Disposition: Home Health Service Activity: no driving and as tolerated Diet: as tolerated and diabetic Discharge Instructions: Per Care Coordination: [facility] will follow you after discharge for usp and physical therapy. They will plan to see you on Friday or Friday and will call you to schedule. Their phone number is: [phone]. Patient Instructions: Antibiotic Form Patient Language: Hebrew Stand Alone Forms: General Discharge Information Follow-up/Referrals: Krysta Lopes [employer]ISON OFFICER [Primary Care Provider] - 1 week Discharge Medications: New carvedilol [Coreg] 6.25 mg Tablet 6.25 mg PO Q12HR Qty: 60 0RF hydrocodone-acetaminophen 5-325 mg Tablet 1 tablet PO Q4H PRN (Reason: Pain Rated 4-6) Qty: 15 0RF Continued lisinopril-hydrochlorothiazide 20-12.5 mg tablet 1 tablet PO DAILY empagliflozin 25 mg tablet 25 mg PO DAILY methocarbamol 500 mg Tablet 500 mg PO TID Qty: 1 0RF diclofenac sodium 3 % gel 1 applic topical BID PRN (Reason: pain) Qty: 100 2RF Rx Instructions: Apply to hands cholecalciferol (vitamin D3) 50 mcg (2,000 unit) capsule 50 mcg PO DAILY Qty: 90 2RF meloxicam 15 mg tablet 15 mg PO DAILY Qty: 90 3RF Mounjaro 5 mg/0.5 mL pen injector See Rx Instructions .ROUTE .COMPLEX Qty: 2 11RF Dose Instruction: INJECT THE CONTENTS OF ONE PEN SUBCUTANEOUSLY WEEKLY DIRECTED Patient Comments: Takes on Tuesdays Rx Instructions: INJECT THE CONTENTS OF ONE PEN SUBCUTANEOUSLY WEEKLY DIRECTED simvastatin 20 mg tablet See Rx Instructions .ROUTE .COMPLEX Qty: 90 3RF Dose Instruction: TAKE 1 TABLET BY MOUTH DAILY Rx Instructions: TAKE 1 TABLET BY MOUTH DAILY Discontinued carvedilol 6.25 mg tablet 6.25 mg PO ONCE Rx Instructions: must administer with a meal/food Date of admission: 08/23/24 12:25 Primary Care Provider: Krysta Lopes Admitting Provider: Quan Barrera Attending physician on admission: Paula Gallegos Condition: Improved Hospitalist MIPS Heart Failure (Exclusion) Patient has history of Heart Transplant or Left Ventricular Assistive Device?: No IF YES, STOP HERE Heart Failure (Qualifier) Patient has current or prior documentation of LVEF less than or equal to 40%, or mod/servere depressed LVSF?: No IF NO, STOP HERE
[2024-08-28] MEDS: HYDROcodone/acetaminophen (*CRX) 5-325 MG TABLET 1 TAB PO (09:14)
[2024-08-28] MEDS: INSULIN HUMAN LISPRO (*BKC) 1,000 UNITS/10 ML VIAL 5 UNITS SUB-Q (09:14)
[2024-08-28 09:15] VITALS: PULSE 72
[2024-08-28] MEDS: methocarbamoL 500 MG TABLET PO (09:15)
[2024-08-28] MEDS: MELOXICAM 7.5 MG TABLET 15 MG PO (09:15)
[2024-08-28] MEDS: lisinopriL 20 MG TABLET PO (09:15)
[2024-08-28] MEDS: CHOLECALCIFEROL 1,000 UNITS TABLET 2000 UNITS PO (09:15)
[2024-08-28] MEDS: carvediloL 6.25 MG TABLET PO (09:15)
[2024-08-28] MEDS: SIMVASTATIN 10 MG TABLET 20 MG PO (09:15)
[2024-08-28] MEDS: hydroCHLOROthiazide 12.5 MG CAPSULE PO (09:16)
[2024-08-28] MEDS: EMPAGLIFLOZIN 25 MG TABLET PO (09:16)
== END 2024-08-28 11:05 | disposition home health service (06) | DRG 560 ==
PROVIDERS: Admitting Provider Internal Medicine; PCP Nurse Practitioner Family; Visit Provider Nurse Practitioner Acute Care
DX: S12.110D Anterior displaced Type II dens fracture, subsequent encounter for fracture with routine healing (principal); F33.9 Major depressive disorder, recurrent, unspecified; I10 Essential (primary) hypertension; E11.9 Type 2 diabetes mellitus without complications; E78.5 Hyperlipidemia, unspecified; K21.9 Gastro-esophageal reflux disease without esophagitis; M75.32 Calcific tendinitis of left shoulder; W10.9XXD Fall (on) (from) unspecified stairs and steps, subsequent encounter; R29.6 Repeated falls
CPT/HCPCS: 82948; 97110; 97112; 97116; 97161; 97165; 97530; 97535; A9270; J1815

== ENCOUNTER 2024-09-08 12:31 | Outpatient (CLI) | payer MEDICARE, SELFPAY ==
--- NOTE | ~2024-09-08 | CT_ITS ---
EXAMINATION:CT chest high resolution wo co DATE: 09/08/2024 12:44 INDICATION: Solitary pulmonary nodule. TECHNIQUE: Computed tomography (CT) of the chest was performed without intravenous contrast. Automate d exposure control and iterative reconstruction technique were employed. The dose-length product (DLP ) was 115.10 mGy-cm. COMPARISON: Chest single view 08/18/2024 FINDINGS: There is mild scarring in paraspinal right lower lobe. There is a 3 mm nodule in right lowe r lobe. There is a 3 mm nodule in left lower lobe. There is a 2 mm nodule left upper lobe. There is m ild atelectasis in lingula. No pleural effusion. The heart size is normal. There are coronary artery calcifications. No pericardial effusion. There is mild bilateral gynecomastia. There are old healed r ight rib fractures. There is mild chronic anterior wedging of multiple vertebral bodies. There is mil d thoracic spondylosis. IMPRESSION: 1. Small pulmonary nodules, likely benign. Reviewed, dictated and finalized at location A. A ENGINEER
--- OUTSIDE RECORDS SUMMARY | 2024-09-08 13:50 | XMS_ITS | Clinical Summary ---
Author Organization Unknown Care Team Providers Care Spin Tank Tender Name Role Phone JANNIE FAST FOOD SALES ASSISTANT, FRANCOIS Unavailable Unavailable RIGO PHYSICAL THERAPIST, AUDREY Unavailabl e Unavailable JUDY READING PROFESSOR, EULALIA Unavail able Unavailable MARIANNA DURANT COUNSELOR, NELSON Unavailable Unavailable YOUSIF REGISTERED NURSE, CONCHITA Unavailable Unavailable Payers Payer Name Policy Type Policy Number Effective Date Expira tion Date [employer] MEDICARE OON - EPISODIC NO AUTH Problems Condition Name Condition Details Condition Category Status Onset Date Resolution Date Last Treatment Date Treating Clinician Comments NONDISPLACED TYPE II DENS FRACTURE, SUBS FOR FX W ROUTN HEAL Active 217 00:00: 00 TYPE 2 DIABETES MELLITUS WITH OTH CIRCULATORY COMPLICATION S Active 07-07 00:00: 00 HYPERTENSION SECONDARY TO ENDOCRINE DISORDERS Active 07-07 00:00: 00 TYPE 2 DIABETES MELLITUS WITH OTHER SPECIFIED COMPLICATION Active 07-07 00:00: 00 HYPERLIPIDEM IA, UNSPECIFIED Active 07-07 00:00: 00 CARPAL TUNNEL SYNDROME, BILATERAL UPPER LIMBS Active 07-07 00:00: 00 MAJOR DEPRESSIVE DISORDER, RECURRENT, UNSPECIFIED Active 07-07 00:00: 00 REPEATED FALLS Active 07-07 00:00: 00 GROUP HOME (CURRENT) USE OF ORAL HYPOGLYCEMIC DRUGS Active 07-07 00:00: 00 LNG TRM (CRNT) USE INJECTABLE NON-INSULIN ANTIDIABETIC DRUGS Active 07-07 00:00: 00 HISTORY OF FALLING Active 07-07 00:00: 00 Allergies, Adverse Reactions, Alerts Allergy Name Allergy Type Status Severity Reaction(s) Onset Date Inactive Date Treating Clinician Comments NO KNOWN ALLERGIES Propensity to adverse reactions Active 2- 08:50: 28 Medications Ordered Medication Name Filled Medication Name Start Date Stop Date Current Medication? Ordering Clinician Indication Dosage Frequency Signature (SIG) Comments Components carvedilol 6.25 mg tablet 08-31 00:00: 00 Yes [id number] HYPERTENSIO N 1 tablet TWICE DAILY 1 tablet TWICE DAILY (route: oral) Med Classific ation: Cardiovas cular Therapy Agents duloxetine 30 mg capsule,del ayed release 08-31 00:00: 00 Yes [id number] DEPRESSION 1 capsule ONCE DAILY 1 capsule ONCE DAILY (route: oral) Med Classific ation: Central Nervous System Agents glimepiride 1 mg tablet 08-31 00:00: 00 Yes [id number] DIABETES 1 tablet TWICE DAILY 1 tablet TWICE DAILY (route: oral) Med Classific ation: Endocrine hydrocodone 5 mg-acetamin ophen 325 mg tablet 08-31 00:00: 00 Yes [id number] PAIN 1 tablet EVERY 4 HOURS 1 tablet EVERY 4 HOURS (route: oral) Med Classific ation: Analgesic , Anti-infl ammatory or Antipyret ic Jardiance 25 mg tablet 08-31 00:00: 00 Yes [id number] DIABETES 1 tablet ONCE DAILY 1 tablet ONCE DAILY (route: oral) Med Classific ation: Endocrine lisinopril 20 mg-hydrochl orothiazide 12.5 mg tablet 08-31 00:00: 00 Yes [id number] HYPERTENSIO N 1 tablet ONCE DAILY 1 tablet ONCE DAILY (route: oral) Med Classific ation: Cardiovas cular Therapy Agents methocarbam ol 500 mg tablet 08-31 00:00: 00 Yes [id number] PAIN 1 tablet EVERY 8 HOURS 1 tablet EVERY 8 HOURS (route: oral) Med Classific ation: Locomotor System Mounjaro 5 mg/0.5 mL subcutaneou s pen injector 08-31 00:00: 00 Yes [id number] DIABETES 0.5 mL WEEKLY 0.5 mL WEEKLY (route: subcutaneo us) Alternate Route: SUBCUTANE OUS. Med Classific ation: Endocrine simvastatin 20 mg tablet 08-31 00:00: 00 Yes [id number] HIGH CHOLESTEROL 1 tablet ONCE DAILY 1 tablet ONCE DAILY (route: oral) Med Classific ation: Cardiovas cular Therapy Agents tramadol 50 mg tablet 08-31 00:00: 00 Yes [id number] PAIN 1 tablet EVERY 6 HOURS 1 tablet EVERY 6 HOURS (route: oral) Med Classific ation: Analgesic , Anti-infl ammatory or Antipyret ic Immunizations Ordered Immunization Name Filled Immunization Name Date Status Comments Refusal Reason INFLUENZA, TIV (INACTIVATED) 2024-08-31 00:00:00 PNEUMOCOCCAL (PPV), PPV 2024-08-31 00:00:00 Vital Signs Vital Name Observation Time Observation Value Commen ts Temperature 2024-09-07 09:34:00.000 97.9 [degF] Temperature 2024-09-06 16:12:00.000 97.8 [degF] Temperature 2024-09-01 09:26:00.000 98.2 [degF] Temperature 2024-08-31 14:38:00.000 97.3 [degF] BMI (%) 2024-08-31 14:38:00.000 21 kg/m2 Height 2024-08-31 14:38:00.000 68 [in_us] Pulse 2024-09-07 09:34:00.000 73 /min Pulse 2024-09-06 16:12:00.000 72 /min Pulse 2024-09-01 09:26:00.000 68 /min Pulse 2024-08-31 14:38:00.000 66 /min O2 Saturation (%) 2024-09-07 09:34:00.000 94 % O2 Saturation (%) 2024-09-06 16:12:00.000 97 % O2 Saturation (%) 2024-09-01 09:26:00.000 98 % O2 Saturation (%) 2024-08-31 14:38:00.000 92 % Respirations 2024-09-07 09:34:00.000 16 /min Respirations 2024-09-06 16:12:00.000 18 /min Respirations 2024-09-01 09:26:00.000 16 /min Respirations 2024-08-31 14:38:00.000 16 /min Weight (lbs) 2024-08-31 14:38:00.000 141 [lb_av] Systolic Blood Pressure 2024-09-07 09:34:00.000 110 mm [Hg] Systolic Blood Pressure 2024-09-06 16:12:00.000 120 mm [Hg] Systolic Blood Pressure 2024-09-01 09:26:00.000 112 mm [Hg] Systolic Blood Pressure 2024-08-31 14:38:00.000 130 mm [Hg] Diastolic Blood Pressure 2024-09-07 09:34:00.000 62 mm [Hg] Diastolic Blood Pressure 2024-09-06 16:12:00.000 70 mm [Hg] Diastolic Blood Pressure 2024-09-01 09:26:00.000 72 mm [Hg] Diastolic Blood Pressure 2024-08-31 14:38:00.000 72 mm [Hg] Plan of Treatment Planned Activity Planned Date Details Comments Future Scheduled Test HOME HEALT H NURSE WILL ASSESS FOR COMPLICATIONS RELATED TO ODONTOID FRACTURE AND INSTRUCT PATIENT/CAREGIVER ABOUT ACTIVITY RESTRICTIONS, TREATMENT STRATEGIES, PRECAUTIONS, AND SIGNS/SYMPTOMS TO REPORT. [code = HOME HEALTH NURSE WILL ASSESS FOR COMPLICATIONS RELATED TO ODONTOID FRACTURE AND INSTRUCT PATIENT/CAREGIVER ABOUT ACTIVITY RESTRICTIONS, TREATMENT STRATEGIES, PRECAUTIONS, AND SIGNS/SYMPTOMS TO REPORT.] Future Scheduled Test THE CER TIFYING PHYSICIAN, ASSOCIATED PHYSICIAN, NPP OR PA WITHIN THE SAME GROUP MAY APPROVE AND SIGN THE ORDER (ON ANY PAGE) ATTESTING THAT THE COMPREHENSIVE OUTCOME ASSESSMENTS, EVALUATIONS, AND HOME HEALTH CERTIFICATION PLANS SUPPORT HOMEBOUND STATUS. HOME HEALTH WEB-PORTAL DOCUMENTATION ACCESSED BY THE PHYSICIAN MUST BE INCORPORATED INTO THE MEDICAL RECORD TO CORROBORATE THE PHYSICIAN, NPP, OR PAS F2F ENCOUNTER TO SUPPORT ELIGIBILITY FOR HOME HEALTH SERVICES. [code = THE CERTIFYING PHYSICIAN, ASSOCIATED PHYSICIAN, NPP OR PA WITHIN THE SAME GROUP MAY APPROVE AND SIGN THE ORDER (ON ANY PAGE) ATTESTING THAT THE COMPREHENSIVE OUTCOME ASSESSMENTS, EVALUATIONS, AND HOME HEALTH CERTIFICATION PLANS SUPPORT HOMEBOUND STATUS. HOME HEALTH WEB-PORTAL DOCUMENTATION ACCESSED BY THE PHYSICIAN MUST BE INCORPORATED INTO THE MEDICAL RECORD TO CORROBORATE THE PHYSICIAN, NPP, OR PAS F2F ENCOUNTER TO SUPPORT ELIGIBILITY FOR HOME HEALTH SERVICES.] Future Scheduled Test EACH ORDER ED IN-HOME OR TELEHEALTH VISIT, THE SKILLED NURSE WILL CONDUCT A COMPREHENSIVE ASSESSMENT INCLUDING VITAL SIGNS, PAIN, SAFETY, MENTAL/COGNITIVE/PSYCHOSOCIAL STATUS, MED MANAGEMENT, NUTRITION, SKIN INTEGRITY, PRESSURE ULCER PREVENTION, AND PATIENT/CAREGIVER ABILITY TO SUPPORT ORDERED CARE. SKILLED NURSE WILL INSTRUCT ON DISEASE PROCESS, MED MGMT., FALL PREVENTION AND SAFETY, INFECTION CONTROL AND PREVENTION, WARNING SIGNS, ADDRESS RESULTS OUTSIDE OF ORDERED PARAMETERS LISTED ON CARE PLAN, AND COORDINATE DISCHARGE WITH THE TREATING PROVIDER. MAY ACCEPT ORDERS FROM THE FOLLOWING PROVIDER(S) WHO WILL BE CONSULTING ON THE CERTIFIED CARE PLAN: FRANCOIS VALDERRAMA NP [code = EACH ORDERED IN-HOME OR TELEHEALTH VISIT, THE SKILLED NURSE WILL CONDUCT A COMPREHENSIVE ASSESSMENT INCLUDING VITAL SIGNS, PAIN, SAFETY, MENTAL/COGNITIVE/PSYCHOSOCIAL STATUS, MED MANAGEMENT, NUTRITION, SKIN INTEGRITY, PRESSURE ULCER PREVENTION, AND PATIENT/CAREGIVER ABILITY TO SUPPORT ORDERED CARE. SKILLED NURSE WILL INSTRUCT ON DISEASE PROCESS, MED MGMT., FALL PREVENTION AND SAFETY, INFECTION CONTROL AND PREVENTION, WARNING SIGNS, ADDRESS RESULTS OUTSIDE OF ORDERED PARAMETERS LISTED ON CARE PLAN, AND COORDINATE DISCHARGE WITH THE TREATING PROVIDER. MAY ACCEPT ORDERS FROM THE FOLLOWING PROVIDER(S) WHO WILL BE CONSULTING ON THE CERTIFIED CARE PLAN: FRANCOIS VALDERRAMA NP] Future Scheduled Test SKILLED NU RSE TO INSTRUCT PATIENT/CAREGIVER ON WHAT IS HYPERTENSION, HOW TO CHECK HIS/HER BLOOD PRESSURE, AND STRATEGIES TO USE TO CONTROL BLOOD PRESSURE SUCH MONITORING BP, MANAGING BLOOD GLUCOSE RESULTS TO AN ACCEPTABLE RANGE, MONITORING WEIGHTS, ENGAGING IN PHYSICAL ACTIVITY AIMING FOR 150 MINUTES SPREAD THROUGHOUT THE WEEK. [code = SKILLED NURSE TO INSTRUCT PATIENT/CAREGIVER ON WHAT IS HYPERTENSION, HOW TO CHECK HIS/HER BLOOD PRESSURE, AND STRATEGIES TO USE TO CONTROL BLOOD PRESSURE SUCH MONITORING BP, MANAGING BLOOD GLUCOSE RESULTS TO AN ACCEPTABLE RANGE, MONITORING WEIGHTS, ENGAGING IN PHYSICAL ACTIVITY AIMING FOR 150 MINUTES SPREAD THROUGHOUT THE WEEK.] Future Scheduled Test HOME HEALT H NURSE WILL INSTRUCT PATIENT/CAREGIVER ON TYPE 2 DIABETES DISEASE PROCESS, HOW TO CREATE A DIABETIC TOOLKIT TO MANAGE INVENTORY OF SUPPLIES, HOW TO PLAN FOR A SICK-DAY, AND WARNING SIGNS WHEN THE PATIENT EXPERIENCES LOW BLOOD SUGAR. [code = HOME HEALTH NURSE WILL INSTRUCT PATIENT/CAREGIVER ON TYPE 2 DIABETES DISEASE PROCESS, HOW TO CREATE A DIABETIC TOOLKIT TO MANAGE INVENTORY OF SUPPLIES, HOW TO PLAN FOR A SICK-DAY, AND WARNING SIGNS WHEN THE PATIENT EXPERIENCES LOW BLOOD SUGAR.] Future Scheduled Test HOME HEALT H NURSE WILL INSTRUCT AND VERIFY APPROPRIATE STEPS ON HOW THE PATIENT CHECKS OWN BLOOD GLUCOSE AND IMPORTANCE TO TRACK BLOOD RESULTS ON A DAILY LOG OR NOTEBOOK TO MONITOR TRENDS. PATIENT/CAREGIVER OR HOME HEALTH RN WILL PERFORM BLOOD GLUCOSE CHECKS. BLOOD GLUCOSE MONITORING WILL OCCUR DAILY. [code = HOME HEALTH NURSE WILL INSTRUCT AND VERIFY APPROPRIATE STEPS ON HOW THE PATIENT CHECKS OWN BLOOD GLUCOSE AND IMPORTANCE TO TRACK BLOOD RESULTS ON A DAILY LOG OR NOTEBOOK TO MONITOR TRENDS. PATIENT/CAREGIVER OR HOME HEALTH RN WILL PERFORM BLOOD GLUCOSE CHECKS. BLOOD GLUCOSE MONITORING WILL OCCUR DAILY.] Future Scheduled Test HOME HEALT H NURSE WILL INSTRUCT AND VERIFY APPROPRIATE STEPS ON HOW THE PATIENT ADMINISTERS INSULIN INJECTIONS USING AN INJECTION PEN AND IMPORTANCE IN SITE SELECTION AND SYRINGE DISPOSAL. PATIENT WILL ADMINISTER INSULIN INJECTIONS USING AN INJECTION PEN PRESCRIBED BY THE PHYSICIAN. [code = HOME HEALTH NURSE WILL INSTRUCT AND VERIFY APPROPRIATE STEPS ON HOW THE PATIENT ADMINISTERS INSULIN INJECTIONS USING AN INJECTION PEN AND IMPORTANCE IN SITE SELECTION AND SYRINGE DISPOSAL. PATIENT WILL ADMINISTER INSULIN INJECTIONS USING AN INJECTION PEN PRESCRIBED BY THE PHYSICIAN.] Future Scheduled Test SKILLED NU RSE TO OBSERVE AND ASSESS PATIENT WITH GENERALIZED DEPRESSION AND TEACH DEPRESSIVE SYMPTOMS. [code = SKILLED NURSE TO OBSERVE AND ASSESS PATIENT WITH GENERALIZED DEPRESSION AND TEACH DEPRESSIVE SYMPTOMS.] Future Scheduled Test PATIENT RE QUIRED A DELAY IN THE HOME HEALTH START OF CARE/RESUMPTION OF CARE. THE DELAY(S) REQUIRED A NOTIFICATION AND APPROVAL BY THE PHYSICIAN OR ALLOWABLE PRACTITIONER WHICH WAS DONE ON 08/29/24. THE NEW PHYSICIAN ORDERED START OF CARE DATE(S) 08/31/24 PATIENTS REASON(S) TO DELAY HOME HEALTH INCLUDED PATIENT REQUEST. [code = PATIENT REQUIRED A DELAY IN THE HOME HEALTH START OF CARE/RESUMPTION OF CARE. THE DELAY(S) REQUIRED A NOTIFICATION AND APPROVAL BY THE PHYSICIAN OR ALLOWABLE PRACTITIONER WHICH WAS DONE ON 08/29/24. THE NEW PHYSICIAN ORDERED START OF CARE DATE(S) 08/31/24 PATIENTS REASON(S) TO DELAY HOME HEALTH INCLUDED PATIENT REQUEST.] Goal Patient Goal - S OC- 08/31/24: GET CERVICAL COLLAR OFF Goal Provider Goal - PATIENT/CAREGIVER WILL DEMONSTRATE ABILITY TO SELF-MANAGE CARE OF FRACTURE EVIDENCED BY ABSENCE OF COMPLICATIONS, ADHERENCE TO ACTIVITY RESTRICTIONS, TREATMENT STRATEGIES, AND PRECAUTIONS, AND VERBALIZATION OF SIGNS/SYMPTOMS TO REPORT BY END OF HOME HEALTH SERVICES. Goal Provider Goal - A PLAN OF CARE WILL BE ESTABLISHED THAT MEETS ALL PATIENT'S [facility] NEEDS AND COUNTER SIGNED BY PHYSICIAN. Goal Provider Goal - PATIENT WILL BE FREE OF FALLS AND HOSPITALIZATIONS THROUGHOUT EPISODE OF CARE. PATIENT/CAREGIVER WILL UNDERSTAND AND ADHERE TO ORDERED DIET. PATIENT/CAREGIVER WILL INDEPENDENTLY MANAGE MEDICATIONS, UNDERSTAND ANY CHANGES, SIDE EFFECTS TO REPORT BY DISCHARGE. PATIENT WILL BE FREE OF INFECTION AND UNDERSTAND MEASURES OF PREVENTION. PATIENT/CAREGIVER WILL COLLABORATE WITH SKILLED NURSE TO DEVELOP POC AT SOC AND ON AN ONGOING BASIS UPDATES ARE NEEDED. UNDERSTAND PROGRESS MADE/DISCHARGE PLANNING. ADDITIONAL ORDERS WILL BE RECEIVED FROM ALTERNATE PHYSICIANS IN A TIMELY MANNER. Goal Provider Goal - PATIENT/CAREGIVER WILL INDEPENDENTLY DEMONSTRATE HOW TO CHECK HIS/HER OWN BP AND VERBALIZE WHAT STRATEGIES CAN ASSIST TO CONTROL BLOOD PRESSURE. Goal Provider Goal - PATIENT/CAREGIVER WILL VERBALIZE UNDERSTANDING OF TYPE 2 DIABETES AND THE IMPORTANCE OF MANAGING THE BLOOD SUGAR WITHIN THE EXPECTED RANGE. PATIENT/CAREGIVER WILL ESTABLISH A DIABETIC TOOLKIT AND A SICK-DAY PLAN TO PREPARE FOR POTENTIAL CHANGES WITH BLOOD SUGARS RANGES. PATIENT/CAREGIVER WILL VERBALIZE WARNING SIGNS OF LOW BLOOD SUGAR AND WHAT ACTIONS TO TAKE. Goal Provider Goal - PATIENT/CAREGIVER WILL DEMONSTRATE PROPER TECHNIQUE WHEN CHECKING OWN BLOOD GLUCOSE, DEMONSTRATES ADHERES TO WRITING DOWN RESULTS USING A LOGBOOK, FOLLOWS THE PRESCRIBED FREQUENCY OF BLOOD SUGAR CHECKS PRIOR TO DISCHARGING FROM HOME HEALTH SERVICES. Goal Provider Goal - PATIENT/CAREGIVER WILL INDEPENDENTLY DEMONSTRATE PROPER TECHNIQUE WHEN ADMINISTERING INSULIN INJECTIONS USING AN INJECTION PEN. PATIENT/CAREGIVER WILL VERBALIZE UNDERSTANDING OF APPROPRIATE DISPOSAL OF SYRINGES BY THE END OF HOME HEALTH SERVICES. Goal Provider Goal - PATIENT/CAREGIVER WILL VERBALIZE UNDERSTANDING OF THE CONTRIBUTING FACTORS AND SYMPTOMS OF DEPRESSION. Goal Provider Goal - PATIENT WILL RECEIVE HOME HEALTH SERVICES ON ORDERED START DATE. Encounters Start Date/Time End Date/Time Encounter Type Admission Type Attending [facility] Care Department Encounter ID Discharge Date Discharge Status Discharge Condition Discharge Reason Percent Goals Met 2024-08-31 00:00:00 2024-10-29 00:00:00 Outpatient NEW ADMISSION YOUSIF CONCHITA [facility] [id number] [phone]
--- OUTSIDE RECORDS SUMMARY | 2024-09-08 13:50 | XMS_ITS | Clinical Summary ---
Author Organization [facility] Address [address] [place] [address] Care Team Providers Care Operations Administrative Assistant Name Role Phone Krysta LopesP Primary Care Provider [phone] Elise Slaughter MD Unavailable [phone] Allergies No known active allergies Medications [...] Noted Date Diagnosed Date C2 cervical fracture ([facility]) 5 Abrasion of right elbow 08/19/2024 Pain of left thumb 08/19/2024 Fall 08/18/2024 Encounters Date Type Department Care Team Description 08/25/2024 Home Care Visit [facility] Home Care [facility] [address] [place] [address] Saranya Astorga RN SN NON ADMIT SOC 08/18/2024 8:14 PM ACID CUTTER - 08/19/2024 3:08 PM ACID CUTTER Hospital Encounter [facility] Intermediate [facility] [address] [place] [address] Deepak Khoury MD Trauma Discharge Disposition: Home with Home Health Care 08/18/2024 Travel from Last 3 Months Social History Tobacco Use Types Packs/Day Years Used Date Smoking Tobacco: Never Smokeless Tobacco: Never Tobacco Cessation:Counseling Given: Not Answered Alcohol Use Standard Drinks/Week Comments Yes 1.7 (1 standard drink = 0.6 oz p ure alcohol) [facility] Utilities Answer Date Recorded In the past 12 months has [facility] [employer], oil, or water [employer] threatened to shut off services in your [...] any time in the past 12 m [facility], were you homeless or living in a skilled nursing (including now)? No 08/19/2024 Sex and Gender Information Value Date Recorded Sex Assigned at Male 08/18/2024 8:20 PM ACID CUTTER Legal Sex Male 10:00 AM ACID CUTTER Gender Identity Not on file Sexual Orientation Not on file Last Filed Vital Signs Vital Sign Reading Time Taken Comments Blood Pressure 158/71 08/19/2024 11:46 AM ACID CUTTER Pulse 65 08/19/2024 11:46 AM ACID CUTTER Temperature 36.6 C (97.8 F) 08/19/2024 7:32 AM ACID CUTTER Respiratory Rate 17 08/19/2024 3:30 AM ACID CUTTER Oxygen Saturation 96% 08/19/2024 11:46 AM ACID CUTTER Inhaled Oxygen Concentration - - Weight 63.5 kg (140 lb) 08/18/2024 8:21 PM ACID CUTTER Height 172.7 cm (5' 8 ) 08/18/2024 8:21 PM ACID CUTTER Body Mass Index 21.29 08/18/2024 8:21 PM ACID CUTTER Plan of Treatment Health Maintenance Due Date Last Done Comments DTaP, Tdap and Td Vaccines (1 - Tdap) 1960 Zoster Vaccines (1 of 2) 1991 Annual Medicare Wellness Visit 2006 RSV Immunization or 60+ Years (1 - 1-dose 75+ series) 2016 Pneumococcal Vaccine: 65+ Years (2 of 2 - PPSV23 or PCV20) 03/31/2018 03/31/2017 COVID-19 Vaccine ( season) 2024 03/25/2023, 01/22/2022, 04/16/2021, Additional history [...] this topic Medical Devices Implanted Type Area Spring Former Hand Device Identifier Shelf Expiration Date Model / Serial / Lot Tecnis Simplicity System Implanted:Qty: 1 on 08/27/2023 by Elise Slaughter MD at [facility] Right: Eye [employer] [id number] 11/26/2025 DCB00 / [id number] / [id number] Tecnis 1-Piece Implanted:Qty: 1 on 09/24/2023 by Elise Slaughter MD at [facility] Left: Eye DCB00 / [id number] / Procedures Procedure Name Priority Date/Time Associated Diagnosis Comments POCT GLUCOSE - RAMOS DOCKED DEVICE Routine 08/19/2024 12:51 PM ACID CUTTER PHOSPHORUS, INORGANIC PHOSPHATE Routine 08/19/2024 7:30 AM ACID CUTTER MAGNESIUM Routine 08/19/2024 7:30 AM ACID CUTTER BASIC METABOLIC PANEL Routine 08/19/2024 7:30 AM ACID CUTTER CBC W/DIFF AUTOMATED Routine 08/19/2024 7:30 AM ACID CUTTER POCT GLUCOSE - RAMOS DOCKED DEVICE Routine 08/19/2024 6:09 AM ACID CUTTER POCT GLUCOSE - RAMOS DOCKED DEVICE Routine 08/18/2024 11:59 PM ACID CUTTER XR HUMERUS RT MIN 2V STAT 08/18/2024 9:05 PM ACID CUTTER XR ELBOW RT M3V STAT 08/18/2024 9:[address] CHEST+ABD+PEL W CON STAT 08/18/2024 9:[address] LUMB SPINE WO CON STAT 08/18/2024 9:[address] THOR SPINE WO CON STAT 08/18/2024 9:02 PM ACID CUTTER from Last 3 Months Results * (ABNORMAL) POCT glucose (08/19/2024 12:51 PM ACID CUTTER) Only the most recent of3 resultswithin the time period is included. GLUCOSE POC 230(H) 70 - 109 08/19/2024 2:23 PM ACID CUTTER [facility] 08/19/2024 12:5 1 PM ACID CUTTER us Deepak Khoury MD POCT ORDERABLES - DEVICE Final Result [facility] [address] [place] [address], [place] [phone] [id number] * (ABNORMAL) BASIC METABOLIC PANEL (08/19/2024 7:30 AM ACID CUTTER) SODIUM S/P/B 137 136 - 145 MMOL/L 08/19/2024 8:40 AM [facility] POTASSIUM S/P/B 3.9 3.5 - 5.1 MMOL/L 08/19/2024 8:40 AM [facility] CHLORIDE S/P/B 104 97 - 115 MMOL/L 08/19/2024 8:40 AM [facility] CO2 27.1 21.0 - 32.0 MMOL/L 08/19/2024 8:40 AM [facility] GLUCOSE 204(H) 74 - 106 MG/DL 08/19/2024 8:40 AM [facility] BUN 17 7 - 18 MG/DL 08/19/2024 8:40 AM [facility] CREATININE S/P/B 0.78 0.70 - 1.30 MG/DL 08/19/2024 8:40 AM [facility] CALCIUM S/P/B 9.4 8.5 - 10.1 MG/DL 08/19/2024 8:40 AM [facility] ANION GAP 5.9 2.0 - 10.0 MMOL/L 08/19/2024 8:40 AM [facility] OSMOLALITY (CALC) 291 MOSM/KG 025 8:40 AM [facility] Comment:REFERENCE RANGE NOT ESTABLISHED GFR ESTIMATE 88(L) >90 ML/MIN/1. 73 M2 08/19/2024 8:40 AM [facility] GFR NOTES GFR REFERENCE S: 08/19/2024 8:40 AM [facility] Comment: THE ESTIMATED GFR [...] FAILURE: <15 ml/min/1.73 m2 08/19/2024 7:30 AM ACID CUTTER us Deepak Khoury MD LABORATORY Final Result [facility] [address] [place] [address], [id number] * (ABNORMAL) CBC W/DIFF AUTOMATED (08/19/2024 7:30 AM ACID CUTTER) WBC 9.83 4.00 - 10.80 x10'3/uL 08/19/2024 8:17 AM ACID CUTTER [facility] RBC 4.68 4.50 - 6.10 x10'6/uL 08/19/2024 8:17 AM [facility] HGB 14.0 12.0 - 16.0 G/DL 08/19/2024 8:17 AM [facility] HCT 40.9 37.0 - 52.0 % 08/19/2024 8:17 AM [facility] MCV 87.4 78.0 - 100.0 FL 08/19/2024 8:17 AM [facility] MCH 29.9 27.0 - 31.0 PG 08/19/2024 8:17 AM [facility] MCHC 34.2 33.0 - 36.0 G/DL 08/19/2024 8:17 AM [facility] RDW 12.4 11.5 - 14.5 % 08/19/2024 8:17 AM [facility] PLT 231 150 - 350 x10'3/uL 08/19/2024 8:17 AM [facility] MPV 9.9 7.4 - 10.4 FL 08/19/2024 8:17 AM [facility] DIFFERENTIAL TYPE AUTOMATED DIFFERENTIAL 08/19/2024 8:17 AM [facility] SEG NEUTROPHILS 71.6 % 8:17 AM [facility] LYMPHOCYTES 18.6 % 08/19/2024 8:17 AM [facility] MONOCYTES 8.0 % 08/19/2024 8:17 AM [facility] EOSINOPHILS 0.4 % 08/19/2024 8:17 AM [facility] BASOPHILS 0.5 % 08/19/2024 8:17 AM [facility] IMMATURE GRANS % 0.9 % 08/19/19 8:17 AM [facility] ABS. NEUTROPHILS 7.03 1.60 - 8.30 x10'3/uL 08/19/2024 8:17 AM [facility] ABS. LYMPHOCYTES 1.83 0.80 - 4.70 x10'3/uL 08/19/2024 8:17 AM [facility] ABS. MONOCYTES 0.79 0.00 - 1.50 x10'3/uL 08/19/2024 8:17 AM [facility] ABS. EOSINOPHILS 0.04 0.00 - 0.40 x10'3/uL 08/19/2024 8:17 AM [facility] ABS. BASOPHILS 0.05 0.00 - 0.20 x10'3/uL 08/19/2024 8:17 AM [facility] ABS. IMMATURE GRANULOCYTES 0.09(H) 0.00 - 0.03 x10'3/uL 08/19/2024 8:17 AM [facility] ABS. NUCLEATED RBC'S 0.00 0.00 - 0.01 x10'3/uL 08/19/2024 8:17 AM ACID CUTTER [facility] NRBC % 0.0 % 08/19/2024 8:17 AM ACID CUTTER [facility] 08/19/2024 7:30 AM ACID CUTTER us Deepak Khoury MD LABORATORY Final Result Performing Organization Address [facility] Co de Phone Number [facility] [address] [place] [address], [id number] * PHOSPHORUS, INORGANIC PHOSPHATE (08/19/2024 7:30 AM ACID CUTTER) PHOSPHORUS 3.9 2.5 - 4.9 MG/DL 08/19/2024 8:40 AM ACID CUTTER [facility] 08/19/2024 7:30 AM ACID CUTTER us Deepak Khoury MD LABORATORY Final Result Performing Organization Address [facility] de Phone Number [facility] [address] [place] [address], [id number] * MAGNESIUM (08/19/2024 7:30 AM ACID CUTTER) MAGNESIUM 2.4 1.6 - 2.6 MG/DL 08/19/2024 8:40 AM ACID CUTTER [facility] 08/19/2024 7:30 AM ACID CUTTER us Deepak Khoury MD LABORATORY Final Result Performing Organization Address [facility] de Phone Number [facility] [address] [place] [address], [id number] * XR HUMERUS RT MIN 2V (08/18/2024 9:05 PM ACID CUTTER) Anatomical Region Laterality Modality Humerus Radiographic Bre ging 08/18/2024 9:14 PM ACID CUTTER Impressions 08/18/2024 9:27 PM ACID CUTTER IMPRESSION: 1. Possible acute avulsion fracture of the coronoid process of the ulna. 2. No other acute osseous or articular abnormality identified in the humerus or elbow. 3. No elbow effusion. Referred By: LUIS A HUTCHINSON Interpreted By: Tony Cardoza MD, 08/18/2024 9:14 PM Narrative 08/18/2024 9:27 PM ACID CUTTER [place] [address] INDICATION: Pain trauma COMPARISON: None TECHNIQUE: * [...] Procedure Note Tony Cardoza MD - 08/18/2024 [place] [address] INDICATION: Pain trauma COMPARISON: None TECHNIQUE: * [...] Cardoza MD, 08/18/2024 9:14 PM us Alisha Slava Virk [employer] Final Resul t * XR ELBOW RT M3V (08/18/2024 9:05 PM ACID CUTTER) Anatomical Region Laterality Modality Elbow Radiographic Bre ging 08/18/2024 9:14 PM ACID CUTTER Impressions 08/18/2024 9:27 PM ACID CUTTER IMPRESSION: 1. Possible acute avulsion fracture of the coronoid process of the ulna. 2. No other acute osseous or articular abnormality identified in the humerus or elbow. 3. No elbow effusion. Referred By: LUIS A HUTCHINSON Interpreted By: Tony Cardoza MD, 08/18/2024 9:14 PM Narrative 08/18/2024 9:27 PM ACID CUTTER [place] [id number] INDICATION: Pain trauma COMPARISON: None TECHNIQUE: * [...] Procedure Note Tony Cardoza MD - 08/18/[address] [address] INDICATION: Pain trauma COMPARISON: None TECHNIQUE: * [...] Cardoza MD, 08/18/2024 9:14 PM Alisha Virk [facility] Final Resul t * CT THOR SPINE WO CON (08/18/2024 9:02 PM ACID CUTTER) Anatomical Region Laterality Modality Spine Computed Tomogra phy 08/18/2024 9:22 PM ACID CUTTER Impressions 08/18/2024 9:43 PM ACID CUTTER IMPRESSION: 1. No evidence of acute traumatic [...] 08/18/2024 9:22 PM Narrative 08/18/2024 9:43 PM ACID CUTTER [address] [address] INDICATION: Trauma, fall COMPARISON: None TECHNIQUE: CT [...] Procedure Note Tony Cardoza MD - 08/18/2024 [place] [address] INDICATION: Trauma, fall COMPARISON: None TECHNIQUE: CT [...] chronic grade 1 anterolisthesis of L5 on [id number] to bilateral L5 pars defects. Vertebral body [...] LUMB SPINE WO CON (08/18/2024 9:02 PM ACID CUTTER) Anatomical Region Laterality Modality Spine Computed Tomogra phy 08/18/2024 9:22 PM ACID CUTTER Impressions 08/18/2024 9:43 PM ACID CUTTER IMPRESSION: 1. No evidence of acute traumatic [...] 08/18/2024 9:22 PM Narrative 08/18/2024 9:43 PM ACID CUTTER [place] [address] INDICATION: Trauma, fall COMPARISON: None TECHNIQUE: CT [...] Procedure Note Tony Cardoza MD - 08/18/[address] [address] INDICATION: Trauma, fall COMPARISON: None TECHNIQUE: CT [...] chronic grade 1 anterolisthesis of L5 on [id number] to bilateral L5 pars defects. Vertebral body [...] CT CHEST+ABD+PEL W CON (08/18/2024 9:02 PM ACID CUTTER) Anatomical Region Laterality Modality Chest, Abdomen, Pelvis Computed Tomography 08/18/2024 9:22 PM ACID CUTTER Impressions 08/18/2024 9:43 PM ACID CUTTER IMPRESSION: 1. No evidence of acute traumatic [...] 08/18/2024 9:22 PM Narrative 08/18/2024 9:43 PM ACID CUTTER [facility] [address] [place], [place] [address] INDICATION: Trauma, fall COMPARISON: None TECHNIQUE: CT [...] Procedure Note Tony Cardoza MD - 08/18/2024 [place] [address] INDICATION: Trauma, fall COMPARISON: None TECHNIQUE: CT [...] chronic grade 1 anterolisthesis of L5 on [id number] to bilateral L5 pars defects. Vertebral body [...] us Deepak Khoury MD CT Final Result from Last 3 Months Insurance [facility] Advance Directives * Full Code (Latest Code Status on File) Date Activated Date Inactivated Comments 08/18/2024 9:19 PM 08/19/2024 5:13 PM Care Teams Operations Administrative Assistant Relationship Specialty Start Date End Date Krysta Lopes FNP [address] [place] [address] PCP - General NURSE PRACTITIONER 08/18/24 Elise Slaughter MD [address] [place] [id number] Consulting Physician OPHTHALMOLOGY 08/18/24
--- OUTSIDE RECORDS SUMMARY | 2024-09-08 13:50 | XMS_ITS | Referral Summary ---
Author Organization [facility] Address [address] [place] [address] Care Team Providers Care Body Shop Mechanic Name Role Phone Elise Bradford MD Primary Care P rovider Karl Abdi MD Unavailable [phone] Allergies No known active allergies Medications lisinopril-hydr [...] 2 (two) times a day 120 mL Active Additional Information Patient not taking.Reported on [...] on file Legal Sex Male 12:00 AM SHIFT STACKER Gender Identity Not on file Sexual Orientation [...] Treatment Not on file Insurance [employer] Member Subscriber Plan / Payer (Ef fective 2023-Present) Name:Eddy Vasquez Relation to Subscriber:Self Name:Eddy Vasquez Payer ID:[id number] (NAIC) Type:[facility] MEDICARE Address: [place] [id number] MEDICARE SOLUTIONS Advance Directives For more information, please contact: [phone] * Full Code (Latest Code Status on File) Date Activated Date Inactivated Comments 01/27/2024 6:13 PM 01/28/2024 1:38 PM Care Teams Body Shop Mechanic Relationship Specialty Start Date End Date Elise Bradford MD [address] [place] [address] PCP - General Ophthalmology 11/12/23 Karl Abdi MD [address] [facility] [address] [place] [address] Referring Physician Orthopedic Surgery 01/21/24
--- OUTSIDE RECORDS SUMMARY | 2024-09-08 13:50 | XMS_ITS | Clinical Summary ---
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 Gender Identity Not on file Sexual Orientation [...] Pneumococcal vaccine 65+ (2 of 2 - PPSV23) 03/31/2018 03/31/2017 Covid-19 Vaccine (6 - 2023-2 5 season) 2024 03/25/2023, 01/22/2022, 04/16/2021, Additional history exists Influenza Vaccine (#1) 2024 , 04/07/2022, 05/10/2021, Additional history exists Fall Risk Assessment 01/27/2025 01/28/2024 Insurance MEDICARE SOLUTIONS MEDICARE SOLUTIONS Advance Directives For more information, please contact: [phone] * Full Code (Latest Code Status on File) Date Activated Date Inactivated Comments 01/27/2024 6:13 PM 01/28/2024 1:38 PM Care Teams Concrete Bucket Loader Relationship Specialty Start Date End Date Elise Bradford MD [address] [place] [address] PCP - General Ophthalmology 11/12/23 Karl Abdi MD [address] [address] Referring Physician Orthopedic Surgery 01/21/24
--- OUTSIDE RECORDS SUMMARY | 2024-09-08 13:50 | XMS_ITS | Clinical Summary ---
Author Organization Unknown Care Team Providers Care Jingle Writer Name Role Phone JANNIE SENIOR MICROSTRATEGY DEVELOPER, FRANCOIS Unavailable Unavailable RIGO PHYSICAL THERAPIST, AUDREY Unavailabl e Unavailable JUDY ROOF BOLTER OPERATOR, EULALIA Unavail able Unavailable MARIANNA DURANT COUNSELOR, [...] 00 REPEATED FALLS Active 07-07 00:00: 00 INTERMEDIATE (CURRENT) USE OF ORAL HYPOGLYCEMIC DRUGS Active [...] 6.25 mg tablet 08-31 00:00: 00 Yes [id number] HYPERTENSIO N 1 tablet TWICE DAILY 1 tablet TWICE DAILY (route: oral) Med Classific ation: Cardiovas cular Therapy Agents duloxetine 30 mg capsule,del ayed release 08-31 00:00: 00 Yes [id number] DEPRESSION 1 capsule ONCE DAILY 1 capsule ONCE DAILY (route: oral) Med Classific ation: Central Nervous System Agents glimepiride 1 mg tablet 08-31 00:00: 00 Yes [id number] DIABETES 1 tablet TWICE DAILY 1 tablet TWICE DAILY (route: oral) Med Classific ation: Endocrine hydrocodone 5 mg-acetamin ophen 325 mg tablet 08-31 00:00: 00 Yes [id number] PAIN 1 tablet EVERY 4 HOURS 1 tablet EVERY 4 HOURS (route: oral) Med Classific ation: Analgesic , Anti-infl ammatory or Antipyret ic Jardiance 25 mg tablet 08-31 00:00: 00 Yes [id number] DIABETES 1 tablet ONCE DAILY 1 tablet ONCE DAILY (route: oral) Med Classific ation: Endocrine lisinopril 20 mg-hydrochl orothiazide 12.5 mg tablet 08-31 00:00: 00 Yes [id number] HYPERTENSIO N 1 tablet ONCE DAILY 1 tablet ONCE DAILY (route: oral) Med Classific ation: Cardiovas cular Therapy Agents methocarbam ol 500 mg tablet 08-31 00:00: 00 Yes [id number] PAIN 1 tablet EVERY 8 HOURS 1 tablet EVERY 8 HOURS (route: oral) Med Classific ation: Locomotor System Mounjaro 5 mg/0.5 mL subcutaneou s pen injector 08-31 00:00: 00 Yes [id number] DIABETES 0.5 mL WEEKLY 0.5 mL WEEKLY (route: subcutaneo us) Alternate Route: SUBCUTANE OUS. Med Classific ation: Endocrine simvastatin 20 mg tablet 08-31 00:00: 00 Yes [id number] HIGH CHOLESTEROL 1 tablet ONCE DAILY 1 tablet ONCE DAILY (route: oral) Med Classific ation: Cardiovas cular Therapy Agents tramadol 50 mg tablet 08-31 00:00: 00 Yes [id number] PAIN 1 tablet EVERY 6 HOURS 1 [...] WILL BE ESTABLISHED THAT MEETS ALL PATIENT'S DETENTION NEEDS AND COUNTER SIGNED BY PHYSICIAN. Goal [...] End Date/Time Encounter Type Admission Type Attending [facility] Care Facility Care Department Encounter ID Discharge Date Discharge Status Discharge Condition Discharge Reason Percent Goals Met 2024-08-31 00:00:00 2024-10-29 00:00:00 Outpatient NEW ADMISSION [facility] [id number]
== END 2024-09-08 12:32 | disposition home or self-care (01) ==
LOC: CHSIMG 12:31
PROVIDERS: PCP Nurse Practitioner Family; Visit Provider Nurse Practitioner Family
DX: R91.8 Other nonspecific abnormal finding of lung field (principal)
CPT/HCPCS: 71250

== ENCOUNTER 2024-09-23 09:13 | Outpatient (CLI) | payer MEDICARE, SELFPAY ==
--- NOTE | ~2024-09-23 | XR_ITS ---
[id number] Ordering provider: Jay Yadav History: . Odontoid Fracture, Sequela,FOLLOW UP,PAIN . Comparison: None. FINDINGS: VERTEBRAL BODIES: Normal height and alignment. No visible fracture or subluxation. The dens is intact . Degenerative changes of the spine. DISK SPACES: Narrowing of the disc C5-C6 and C6-C7. Multilevel facet joint disease. Multilevel uncove rtebral joint osteoarthritic changes. PARASPINOUS SOFT TISSUES: No prevertebral soft tissue swelling. IMPRESSION: No acute osseous abnormality cervical spine. Multilevel facet joint disease. Reviewed, dictated and finalized at location A.
--- OUTSIDE RECORDS SUMMARY | 2024-09-23 09:37 | XMS_ITS | Referral Summary ---
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 Gender Identity Not on file Sexual [...] to Subscriber:Self Name:Eddy Vasquez Payer ID:[id number] (NAIC) Type:[facility] MEDICARE Address: [place] [id number] MEDICARE SOLUTIONS Advance Directives For more information, please contact: [phone] * Full Code (Latest Code Status on File) Date Activated Date Inactivated Comments 01/27/2024 6:13 PM 01/28/2024 1:38 PM Care Teams Machine Tool Technology Instructor Relationship Specialty Start Date End Date Elise Bradford MD [address] [place] [address] PCP - General Ophthalmology 11/12/23 Karl Abdi MD [address] [facility] [address] [place] [address] Referring Physician Orthopedic Surgery 01/21/24
--- OUTSIDE RECORDS SUMMARY | 2024-09-23 09:37 | XMS_ITS | Clinical Summary ---
Author Organization [facility] Address [address] [place] [address] Care Team Providers Care Neuropsychology Medical Consultant Name Role Phone Krysta LopesP Primary Care Provider [phone] Elise Slaughter MD Unavailable [phone] Allergies No known active allergies Medications lisinopril-hydr [...] week. 4 Active traMADol (ULTRAM) 50 MG tabletIndicatio ns:Acute Pain < 3 Day Supply Take 1 tablet (50 mg total) by mouth every 6 (six) hours as needed for Pain. Indications: Acute Pain < 3 Day Supply 10 tablet 5 Active Active Problems Problem Noted Date Diagnosed Date C2 cervical fracture (CMS/[facility]) Abrasion of right elbow 08/19/2024 Pain of left thumb 08/19/2024 Fall 08/18/2024 Encounters Date Type Department Care Team Description 08/25/2024 Home Care Visit [facility] Home Care [facility] [address] [place] [address] Saranya Astorga RN SN NON ADMIT SOC 08/18/2024 8:14 PM [employer] - 08/19/2024 3:08 PM [employer] Hospital Encounter [facility] Care Unit [address] [place] [address] Deepak Khoury MD Trauma Discharge Disposition: Home with Home Health Care 08/18/2024 Travel from Last 3 Months Social History Tobacco Use Types Packs/Day Years Used Date Smoking Tobacco: Never Smokeless Tobacco: Never Tobacco Cessation:Counseling Given: Not Answered Alcohol Use Standard Drinks/Week Comments Yes 1.7 (1 standard drink = 0.6 oz p ure alcohol) [facility] Utilities Answer Date Recorded In the past 12 months has e [employer], gas, oil, or water [employer] threatened to shut off services in your [...] any time in the past 12 m [facility], were you homeless or living in a snf (including now)? No 08/19/2024 Sex and Gender Information Value Date Recorded Sex Assigned at Male 08/18/2024 8:20 PM [employer] Legal Sex Male 10:00 AM [employer] Gender Identity Not on file Sexual Orientation Not on file Last Filed Vital Signs Vital Sign Reading Time Taken Comments Blood Pressure 158/71 08/19/2024 11:46 AM [employer] Pulse 65 08/19/2024 11:46 AM [employer] Temperature 36.6 C (97.8 F) 08/19/2024 7:32 AM [employer] Respiratory Rate 17 08/19/2024 3:30 AM [employer] Oxygen Saturation 96% 08/19/2024 11:46 AM [employer] Inhaled Oxygen Concentration - - Weight 63.5 kg (140 lb) 08/18/2024 8:21 PM [employer] Height 172.7 cm (5' 8 ) 08/18/2024 8:21 PM [employer] Body Mass Index 21.29 08/18/2024 8:21 PM [employer] Plan of Treatment Health Maintenance Due Date Last Done Comments DTaP, Tdap and Td Vaccines (1 - Tdap) 1960 Zoster Vaccines (1 of 2) 1991 Annual Medicare Wellness Visit 2006 RSV Immunization or 60+ Years (1 - 1-dose 75+ series) 2016 Pneumococcal Vaccine: 65+ Years (2 of 2 - PPSV23 or PCV20) 03/31/2018 03/31/2017 COVID-19 Vaccine (6 - season) 2024 03/25/2023, 01/22/2022, 04/16/2021, Additional [...] this topic Medical Devices Implanted Type Area Draftsperson Device Identifier Shelf Expiration Date Model / Serial / Lot Tecnis Simplicity System Implanted:Qty: 1 on 08/27/2023 by Elise Slaughter MD at [facility] Right: Eye [employer] [id number] 11/26/2025 DCB00 / [id number] / [id number] Tecnis 1-Piece Implanted:Qty: 1 on 09/24/2023 by Elise Slaughter MD at [facility] Left: Eye DCB00 / [id number] / Procedures Procedure Name Priority Date/Time Associated Diagnosis Comments POCT GLUCOSE - RAMOS DOCKED DEVICE Routine 08/19/2024 12:51 PM [employer] PHOSPHORUS, INORGANIC PHOSPHATE Routine 08/19/2024 7:30 AM [employer] MAGNESIUM Routine 08/19/2024 7:30 AM [employer] BASIC METABOLIC PANEL Routine 08/19/2024 7:30 AM [employer] CBC W/DIFF AUTOMATED Routine 08/19/2024 7:30 AM [employer] POCT GLUCOSE - RAMOS DOCKED DEVICE Routine 08/19/2024 6:09 AM [employer] POCT GLUCOSE - RAMOS DOCKED DEVICE Routine 08/18/2024 11:59 PM [employer] XR HUMERUS RT MIN 2V STAT 08/18/2024 9:05 PM [employer] XR ELBOW RT M3V STAT 08/18/2024 9:05 PM [employer] CT CHEST+ABD+PEL W CON STAT 08/18/2024 9:02 PM [employer] CT LUMB SPINE WO CON STAT 08/18/2024 9:02 PM [employer] CT THOR SPINE WO CON STAT 08/18/2024 9:02 PM [employer] from Last 3 Months Results * (ABNORMAL) POCT glucose (08/19/2024 12:51 PM [employer]) Only the most recent of3 resultswithin the time period is included. [facility] GLUCOSE POC 230(H) 70 - 109 08/19/2024 2:23 PM [employer] [facility] 08/19/2024 12:5 1 PM [employer] us Deepak Khoury MD POCT ORDERABLES - DEVICE Final Result [facility] [address] [place] [address], [phone] * (ABNORMAL) BASIC METABOLIC PANEL (08/19/2024 7:30 AM [employer]) Pathologist [facility] SODIUM S/P/B 137 136 - 145 MMOL/L 08/19/2024 8:40 AM [employer] [facility] POTASSIUM S/P/B 3.9 3.5 - 5.1 MMOL/L 08/19/2024 8:40 AM [facility] CHLORIDE S/P/B 104 97 - 115 MMOL/L 08/19/2024 8:40 AM [facility] CO2 27.1 21.0 - 32.0 MMOL/L 08/19/2024 8:40 AM [facility] GLUCOSE 204(H) 74 - 106 MG/DL 08/19/2024 8:40 AM [facility] BUN 17 7 - 18 MG/DL 08/19/2024 8:40 AM [facility] CREATININE S/P/B 0.78 0.70 - 1.30 MG/DL 08/19/2024 8:40 AM [facility] CALCIUM S/P/B 9.4 8.5 - 10.1 MG/DL 08/19/2024 8:40 AM [facility] ANION GAP 5.9 2.0 - 10.0 MMOL/L 08/19/2024 8:40 AM [facility] OSMOLALITY (CALC) 291 MOSM/KG 025 8:40 AM [facility] Comment:REFERENCE RANGE NOT ESTABLISHED GFR ESTIMATE 88(L) >90 ML/MIN/1. 73 M2 08/19/2024 8:40 AM [facility] GFR NOTES GFR REFERENCE S: 08/19/2024 8:40 AM [facility] Comment: THE ESTIMATED GFR IS CALCULATED [...] FAILURE: <15 ml/min/1.73 m2 08/19/2024 7:30 AM [employer] us Deepak Khoury MD LABORATORY Final Result [facility] [address] [place] [address], [phone] * (ABNORMAL) CBC W/DIFF AUTOMATED (08/19/2024 7:30 AM [employer]) Pathologist [facility] WBC 9.83 4.00 - 10.80 x10'3/uL 08/19/2024 8:17 AM [facility] RBC 4.68 4.50 - 6.10 x10'6/uL 08/19/2024 8:17 AM [facility] HGB 14.0 12.0 - 16.0 G/DL 08/19/2024 8:17 AM [facility] HCT 40.9 37.0 - 52.0 % 08/19/2024 8:17 AM [facility] MCV 87.4 78.0 - 100.0 FL 08/19/2024 8:17 AM [facility] MCH 29.9 27.0 - 31.0 PG 08/19/2024 8:17 AM [facility] MCHC 34.2 33.0 - 36.0 G/DL 08/19/2024 8:17 AM [facility] RDW 12.4 11.5 - 14.5 % 08/19/2024 8:17 AM [facility] PLT 231 150 - 350 x10'3/uL 08/19/2024 8:17 AM [facility] MPV 9.9 7.4 - 10.4 FL 08/19/2024 8:17 AM [facility] DIFFERENTIAL TYPE AUTOMATED DIFFERENTIAL 08/19/2024 8:17 AM [facility] SEG NEUTROPHILS 71.6 % 8:17 AM [facility] LYMPHOCYTES 18.6 % 08/19/2024 8:17 AM [facility] MONOCYTES 8.0 % 08/19/2024 8:17 AM [facility] EOSINOPHILS 0.4 % 08/19/2024 8:17 AM [facility] BASOPHILS 0.5 % 08/19/2024 8:17 AM [facility] IMMATURE GRANS % 0.9 % 08/19/19 8:17 AM [facility] ABS. NEUTROPHILS 7.03 1.60 - 8.30 x10'3/uL 08/19/2024 8:17 AM [facility] ABS. LYMPHOCYTES 1.83 0.80 - 4.70 x10'3/uL 08/19/2024 8:17 AM [facility] ABS. MONOCYTES 0.79 0.00 - 1.50 x10'3/uL 08/19/2024 8:17 AM [facility] ABS. EOSINOPHILS 0.04 0.00 - 0.40 x10'3/uL 08/19/2024 8:17 AM [employer] [facility] ABS. BASOPHILS 0.05 0.00 - 0.20 x10'3/uL 08/19/2024 8:17 AM [facility] ABS. IMMATURE GRANULOCYTES 0.09(H) 0.00 - 0.03 x10'3/uL 08/19/2024 8:17 AM [facility] ABS. NUCLEATED RBC'S 0.00 0.00 - 0.01 x10'3/uL 08/19/2024 8:17 AM [employer] [facility] NRBC % 0.0 % 08/19/2024 8:17 AM [facility] 08/19/2024 7:30 AM [employer] us Deepak Khoury MD LABORATORY Final Result [facility] [address] [place] [address], [phone] * PHOSPHORUS, INORGANIC PHOSPHATE (08/19/2024 7:30 AM [employer]) PHOSPHORUS 3.9 2.5 - 4.9 MG/DL 08/19/2024 8:40 AM [employer] [facility] 08/19/2024 7:30 AM [employer] us Deepak Khoury MD LABORATORY Final Result Performing Organization Address [facility] Co de Phone Number [facility] [address] [place] [address], [phone] * MAGNESIUM (08/19/2024 7:30 AM [employer]) MAGNESIUM 2.4 1.6 - 2.6 MG/DL 08/19/2024 8:40 AM [employer] [facility] 08/19/2024 7:30 AM [employer] us Deepak Khoury MD LABORATORY Final Result Performing Organization Address [facility] Co de Phone Number [facility] [address] [place] [address], [phone] * XR HUMERUS RT MIN 2V (08/18/2024 9:05 PM [employer]) Anatomical Region Laterality Modality Humerus Radiographic Bre ging 08/18/2024 9:14 PM [employer] Impressions 08/18/2024 9:27 PM [employer] IMPRESSION: 1. Possible acute avulsion fracture of the coronoid process of the ulna. 2. No other acute osseous or articular abnormality identified in the humerus or elbow. 3. No elbow effusion. Referred By: LUIS A HUTCHINSON Interpreted By: Tony Cardoza MD, 08/18/2024 9:14 PM Narrative 08/18/2024 9:27 PM [employer] [facility] [address] [place], [place] [address] INDICATION: Pain trauma COMPARISON: None TECHNIQUE: * [...] Procedure Note Tony Cardoza MD - 08/18/[address] [address] INDICATION: Pain trauma COMPARISON: None TECHNIQUE: * [...] Cardoza MD, 08/18/2024 9:14 PM us Alisha Virk MINIATURE SET DESIGNER GENERAL IMAGING Final Resul t * XR ELBOW RT M3V (08/18/2024 9:05 PM [employer]) Anatomical Region Laterality Modality Elbow Radiographic Bre ging 08/18/2024 9:14 PM [employer] Impressions 08/18/2024 9:27 PM [employer] IMPRESSION: 1. Possible acute avulsion fracture of the coronoid process of the ulna. 2. No other acute osseous or articular abnormality identified in the humerus or elbow. 3. No elbow effusion. Referred By: LUIS A HUTCHINSON Interpreted By: Tony Cardoza MD, 08/18/2024 9:14 PM Narrative 08/18/2024 9:27 PM [employer] [place] [address] INDICATION: Pain trauma COMPARISON: None TECHNIQUE: * [...] Procedure Note Tony Cardoza MD - 08/18/2024 [place] [address] INDICATION: Pain trauma COMPARISON: None TECHNIQUE: * [...] Cardoza MD, 08/18/2024 9:14 PM Alisha Virk MINIATURE SET DESIGNER GENERAL IMAGING Final Resul t * CT THOR SPINE WO CON (08/18/2024 9:02 PM [employer]) Anatomical Region Laterality Modality Spine Computed Tomogra phy 08/18/2024 9:22 PM [employer] Impressions 08/18/2024 9:43 PM [employer] IMPRESSION: 1. No evidence of acute traumatic [...] 08/18/2024 9:22 PM Narrative 08/18/2024 9:43 PM [employer] [address] [address] INDICATION: Trauma, fall COMPARISON: None TECHNIQUE: CT [...] Procedure Note Tony Cardoza MD - 08/18/[address] [address] INDICATION: Trauma, fall COMPARISON: None TECHNIQUE: CT [...] chronic grade 1 anterolisthesis of L5 on [id number] to bilateral L5 pars defects. Vertebral body [...] LUMB SPINE WO CON (08/18/2024 9:02 PM [employer]) Anatomical Region Laterality Modality Spine Computed Tomogra phy 08/18/2024 9:22 PM [employer] Impressions 08/18/2024 9:43 PM [employer] IMPRESSION: 1. No evidence of acute traumatic [...] 08/18/2024 9:22 PM Narrative 08/18/2024 9:43 PM [employer] [place] [address] INDICATION: Trauma, fall COMPARISON: None TECHNIQUE: CT [...] Procedure Note Tony Cardoza MD - 08/18/[address] [address] INDICATION: Trauma, fall COMPARISON: None TECHNIQUE: CT [...] chronic grade 1 anterolisthesis of L5 on [id number] to bilateral L5 pars defects. Vertebral body [...] CT CHEST+ABD+PEL W CON (08/18/2024 9:02 PM [employer]) Anatomical Region Laterality Modality Chest, Abdomen, Pelvis Computed Tomography 08/18/2024 9:22 PM [employer] Impressions 08/18/2024 9:43 PM [employer] IMPRESSION: 1. No evidence of acute traumatic [...] 08/18/2024 9:22 PM Narrative 08/18/2024 9:43 PM [employer] [address] [address] INDICATION: Trauma, fall COMPARISON: None TECHNIQUE: CT [...] Procedure Note Tony Cardoza MD - 08/18/2024 [place] [address] INDICATION: Trauma, fall COMPARISON: None TECHNIQUE: CT [...] chronic grade 1 anterolisthesis of L5 on [id number] to bilateral L5 pars defects. Vertebral body [...] Final Result from Last 3 Months Insurance [facility] Advance Directives * Full Code (Latest Code Status on File) Date Activated Date Inactivated Comments 08/18/2024 9:19 PM 08/19/2024 5:13 PM Care Teams Neuropsychology Medical Consultant Relationship Specialty Start Date End Date Krysta Lopes, CONSTANTINE [address] [place] [address] PCP - General NURSE PRACTITIONER 08/18/24 Elise Slaughter MD [address] [place] [id number] Consulting Physician OPHTHALMOLOGY 08/18/24
--- OUTSIDE RECORDS SUMMARY | 2024-09-23 09:37 | XMS_ITS | Clinical Summary ---
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
== END 2024-09-23 09:14 | disposition home or self-care (01) ==
LOC: CHSIMG 09:17
PROVIDERS: PCP Nurse Practitioner Family
DX: S12.110S Anterior displaced Type II dens fracture, sequela (principal); M50.30 Other cervical disc degeneration, unspecified cervical region
CPT/HCPCS: 72040

== ENCOUNTER 2025-01-17 11:07 | Outpatient (CLI) | payer MEDICARE, SELFPAY ==
--- OUTSIDE RECORDS SUMMARY | 2025-01-17 11:15 | XMS_ITS | Clinical Summary ---
Author Organization 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 Gender Identity Not on file Sexual Orientation [...] 6:35 PM CDT Height 172.7 cm (5' 8) 02/24/2024 6:35 PM CDT Body Mass Index [...] 2024 03/25/2023, 01/22/2022, 04/16/2021, Additional history exists Fall Risk Assessment 01/27/2025 01/28/2024 Influenza Vaccine (Season Ended) 2025 03/25/2023, 04/07/2022, 05/10/2021, Additional history exists Insurance UHC MEDICARE ADVANTAGE [facility] Address: [address] [address] [place] [address] [facility] MEDICARE ADVANTAGE [facility] Address: [address] [address] [place] [address] Advance Directives For more information, please contact: [phone] * Full Code (Latest Code Status on File) Date Activated Date Inactivated Comments 01/27/2024 6:13 PM 01/28/2024 1:38 PM Care Teams Entry Level Web Developer Relationship Specialty Start Date End Date Elise Bradford MD [address] [place] [address] PCP - General Ophthalmology 11/12/23 Karl Abdi MD [address] [address] Referring Physician Orthopedic Surgery 01/21/24
--- OUTSIDE RECORDS SUMMARY | 2025-01-17 11:15 | XMS_ITS | Referral Summary ---
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 Address: [place] [id number] [facility] Address: [address] [address] [place] [address] Advance Directives For more information, please contact: [phone] * Full Code (Latest Code Status on File) Date Activated Date Inactivated Comments 01/27/2024 6:13 PM 01/28/2024 1:38 PM Care Teams Supervisor Fruit Grading Relationship Specialty Start Date End Date Elise Bradford MD [address] [place] [address] PCP - General Ophthalmology 11/12/23 Karl Abdi MD [address] [address] Referring Physician Orthopedic Surgery 01/21/24
[2025-01-17 11:28] LABS: Hematocrit 42.2 % (37.0-46.0); Hemoglobin 14.1 g/dL (12.4-15.3); Immature Granulocyte Percent A 1.2 % (0.0-0.0); Lymphocytes Absolute Auto 2.05 K/mm3 (1.10-4.50); Mean Corpuscular HGB Conc 33.4 g/dL (32-36); Mean Corpuscular Hemoglobin 29.4 pg (27.0-31.0); Mean Corpuscular Volume 87.9 fL (78.0-102.0); Nucleated Red Blood Cells Absolute Auto 0.00 K/mm3 (0.00-0.00); Nucleated Red Blood Cells Perc 0.0 % (0-0.0); Platelet Count Result 248 K/mm3 (150-420); Red Blood Count 4.80 M/mm3 (4.70-6.10); White Blood Count 9.5 K/mm3 (4.8-10.8)
[2025-01-17 11:56] LABS: Hemoglobin A1C 10.8 % (<5.7)
[2025-01-17 12:16] LABS: Alanine Aminotransferase 9 U/L (6-50); Albumin Level 3.9 g/dL (3.5-5.1); Alkaline Phosphatase 98 U/L (38-126); Anion Gap 4 mmol/L (4-12); Aspartate Amino Transferase 23 U/L (17-59); Bilirubin,Total 0.7 mg/dL (0.2-1.3); Blood Urea Nitrogen 13 mg/dL (9-20); Calcium 9.1 mg/dL (8.4-10.2); Carbon Dioxide 30 mmol/L (22-30); Chloride 100 mmol/L (98-107); Cholesterol 200 mg/dL (0-200); Estimated Glomerular Filt Rate > 60; Glucose 266 mg/dL (65-110); HDL Direct 45 mg/dL; Osmolality Calculated 287 mOsm/kg (285-295); Potassium 5.0 mmol/L (3.4-5.0); Sodium 134 mmol/L (137-145); Total Protein 6.7 g/dL (6.3-8.2); Triglycerides 145 mg/dL (<150)
[2025-01-17 13:24] LABS: MALB Creatinine Ratio 161.1 mg/g (0-30)
== END 2025-01-17 11:08 | disposition home or self-care (01) ==
PROVIDERS: PCP Nurse Practitioner Family; Visit Provider Nurse Practitioner Family
DX: I10 Essential (primary) hypertension (principal); Z13.6 Encounter for screening for cardiovascular disorders; E11.69 Type 2 diabetes mellitus with other specified complication; E78.5 Hyperlipidemia, unspecified; Z79.899 Other long term (current) drug therapy; E11.59 Type 2 diabetes mellitus with other circulatory complications
CPT/HCPCS: 36415; 80053; 80061; 82043; 82306; 83036; 85025

== ENCOUNTER 2025-06-22 18:03 | Emergency (ER) | payer MEDICARE, SELFPAY ==
--- NOTE | ~2025-06-22 | CT_ITS ---
CT cervical spine wo con HISTORY: Fall COMPARISON: 08/18/2024 TECHNIQUE: Axial images of the cervical spine were obtained. Multiplanar reconstruction in the coronal, sagittal and axial reformats to evaluate for cervical fracture. FINDINGS: The images demonstrate healing fracture at the base of the dens is again noted. There is a fracture gap of 3.5 mm in craniocaudad dimension. Surrounding callus formation is noted. Fracture planes remain distinct. No dislocation. There is no high-grade central or foraminal stenosis. Degenera tive changes with disc space narrowing. The visualized aspect of the upper lungs are clear. IMPRESSION: Healing displaced fracture at the base of the dens with increase in fracture gap of 3.5 mm in craniocaudad dimension. All CT scans at this facility are performed using low dose modulation techniques as appropriate to perform exam including the following: automated exposure control; adjustment of the mA and/or kV according to patient size (this includes techniques or standardized protocols for targeted exams where does is matched to indication/reason for exam; i.e. extremities or head); use of iterative reconstruction technique). Reviewed, dictated and finalized at location S. ATE CONTROL TENDER IMPRESSION: Healing displaced fracture at the base of the dens with increase in fracture ga p of 3.5 mm in craniocaudad dimension. All CT scans at this facility are performed using low dose modulation techniqu es as appropriate to perform exam including the following: automated exposure c ontrol; adjustment of the mA and/or kV according to patient size (this includes techniques or standardized protocols for targeted exams where does is matched to indication/reason for exam; i.e. extremities or head); use of iterative madeleine nstruction technique).
--- NOTE | ~2025-06-22 | XR_ITS ---
XR hip RT min 3V w AP pelvis INDICATION: pain COMPARISON: None FINDINGS: AP view the pelvis and 2 views of the right hip demonstrate no acute fracture or dislocation. IMPRESSION: No acute fracture or dislocation. Reviewed, dictated and finalized at location S. INGOT MOLDER
--- NOTE | ~2025-06-22 | XR_ITS ---
XR hand RT min 3V INDICATION: Fall . COMPARISON: None. FINDINGS: Frontal, lateral, and oblique views of the right hand demonstrate no acute fracture or dislocation. IMPRESSION: Radiographic examination of the right hand demonstrates no acute fracture or dislocation. Reviewed, dictated and finalized at location S. KROOM CHIEF IMPRESSION: Radiographic examination of the right hand demonstrates no acute fracture or di slocation.
--- NOTE | ~2025-06-22 | CT_ITS ---
CT brain wo con HISTORY:Fall COMPARISON: None. TECHNIQUE: Axial images were obtained of the head without intravenous contrast. FINDINGS: No acute intracranial hemorrhage, mass effect or midline shift. No extra-axial fluid collections. There is generalized atrophy. Moderate chronic white matter microangiopathic changes are present in the periventricular, subcortical and deep white matter. The calvarium is intact. Visualized paranasal sinuses and mastoid air cells are clear. IMPRESSION: No acute intracranial hemorrhage or extra axial fluid collections. Generalized atrophy. Chronic white matter microangiopathic changes. All CT scans at this facility are performed using low dose modulation techniques as appropriate to perform exam including the following: automated exposure control; use of iterative reconstruction technique; adjustment of the mA and/or kV according to patient size (this includes techniques or standardized protocols for targeted exams where dose is matched to indication/reason for exam). Reviewed, dictated and finalized at location S. ICAL TECHNICIAN IMPRESSION: No acute intracranial hemorrhage or extra axial fluid collections. Generalized atrophy. Chronic white matter microangiopathic changes. All CT scans at this facility are performed using low dose modulation techniqu es as appropriate to perform exam including the following: automated exposure c ontrol; use of iterative reconstruction technique; adjustment of the mA and/or kV according to patient size (this includes techniques or standardized protocol s for targeted exams where dose is matched to indication/reason for exam).
[2025-06-22 18:03] VITALS: BP 172/79; PULSE 79; RESP 16; TEMP 37.3; O2SAT 98
--- NOTE | 2025-06-22 18:07 | ED.FALL ---
HPI - Fall General Chief Complaint: Fall Stated Complaint: fall Time Seen by Provider: 06/22/25 18:06 Source: patient Mode of arrival: ambulatory Limitations: no limitations History of Present Illness HPI Narrative: 85 years old white male came from home by private car complaining of falling down 15 carpeted steps 4 hour prior to arrival. No loss of consciousness. Complaining of right eyebrow laceration, right hand swollen, right hip pain. Patient denies loss of consciousness, neck pain, back pain, chest pain, abdominal pain or other injuries. Patient lives alone, not on anti-platelet or anticoagulant medication. Related Data Home Medications ?Medication ?Instructions ?Recorded ?Confirmed ?Last Taken ?Type empagliflozin 25 mg tablet 25 mg PO DAILY 08/20/24 05/26/25 08/23/24 09:30 History glimepiride 1 mg tablet 1 mg PO BID 01/17/25 05/26/25 Unknown History Allergies Allergy/AdvReac Type Severity Reaction Status Date / Time No Known Allergies Allergy Verified 06/22/25 18:09 Review of Systems Review of Systems: All systems reviewed & are unremarkable except as noted in HPI and below PMFSH Past Medical History Medical History Right carpal tunnel syndrome Stiffness of finger joint of left hand Left carpal tunnel syndrome GERD (gastroesophageal reflux disease) Calcific tendinitis of left shoulder Major depression, recurrent Type 2 diabetes mellitus Hypertension associated with diabetes Hyperlipidemia associated with type 2 diabetes mellitus Surgical History Surgical History History of release of tendon (~05/2018) Family History Family History Father No problems noted. Mother No problems noted. Other Diabetes mellitus Social History Social History Smoking status: Never smoker Second hand tobacco smoke exposure: No Alcohol intake: never Drinks per week: 3 Substance use: never Substance use type: does not use Lack of Transportation: No Lack of Food: Never True Current Housing: I Have Housing Concerned About Future Housing: No Difficulty Paying Gas/Electric Bills: No Difficulty Paying for Meds: No Currently Unemployed: No Education: High School Diploma/GED Difficulty w/ Childcare or Family Care: No Living arrangements: alone Additional living arrangements comments: in 2018 Occupation/Education: retired Spiritual care concerns: No Exam Narrative: General appearance: Well-developed, well-nourished Skin: Normal color, 0.5 cm scratch at the right eyebrow Head: Normocephalic, nontraumatic Eyes: Clear conjunctiva ENT: Oropharynx normal, ears normal, nose normal Neck: Supple, nontender Chest and respiratory: Airway patent, no respiratory distress, no accessory muscle use Heart: Regular rate/rhythm Abdomen: Soft, nontender, no organomegaly, quiet bowel sounds Vascular: Normal peripheral pulses, normal capillary refill. Musculoskeletal: Right hip exam showed no bruises, no swelling, no deformity, slight limited range of motion because of pain. Slide diffuse tenderness of the right hand, no bruises, no swelling, no rash, no deformity Neurologic: Alert and oriented ?3, HYPERTRICHOLOGIST is normal as tested, no gross motor deficit Course Vital Signs Vital signs: Vital Signs Temperature 37.3 C 06/22/25 18:03 Pulse Rate 79 06/22/25 18:03 Respiratory Rate 16 06/22/25 18:03 Blood Pressure 172/79 H 06/22/25 18:03 Pulse Oximetry 98 06/22/25 18:03 Oxygen Delivery Room Air 06/22/25 18:03 Temperature 37.3 C 06/22/25 18:03 Pulse Rate 56 L 06/22/25 19:16 Respiratory Rate 18 06/22/25 19:16 Blood Pressure 163/84 H 06/22/25 19:16 Pulse Oximetry 99 06/22/25 19:16 Oxygen Delivery Room Air 06/22/25 19:16 [facility] MDM Narrative Medical decision making narrative: Patient complaining of right hand, right hip pain after a fall down 15 carpeted steps at home prior to arrival Vital signs stable Physical examination showing limited range of motion of the right hip because of pain, slight tenderness of the dorsal side of the right hand otherwise within normal limit Differential diagnosis contusion, abrasion, fracture CT head without contrast showed no acute abnormality CT cervical spine without contrast showed no acute abnormality X-ray of the right hip and pelvis showed no acute abnormality X-ray of the right hand showed no acute abnormality Diagnosis contusion and right hip pain secondary to a fall The pt was discharged to home.the pt,s condition upon discharge was fair,education was provided to the pt in reference to the final impression,discharge study results,treatment,prognosis and need for follow up . Differential Diagnosis Differential Diagnosis: As above Imaging Data Radiologist's impression: ITS Impressions Head CT 06/22/25 18:51 IMPRESSION: No acute intracranial hemorrhage or extra axial fluid collections. Generalized atrophy. Chronic white matter microangiopathic changes. All CT scans at this facility are performed using low dose modulation techniques as appropriate to perform exam including the following: automated exposure control; use of iterative reconstruction technique; adjustment of the mA and/or kV according to patient size (this includes techniques or standardized protocols for targeted exams where dose is matched to indication/reason for exam). Cervical Spine CT 06/22/25 18:53 IMPRESSION: Healing displaced fracture at the base of the dens with increase in fracture gap of 3.5 mm in craniocaudad dimension. All CT scans at this facility are performed using low dose modulation techniques as appropriate to perform exam including the following: automated exposure control; adjustment of the mA and/or kV according to patient size (this includes techniques or standardized protocols for targeted exams where does is matched to indication/reason for exam; i.e. extremities or head); use of iterative reconstruction technique). Hip/Pelvis X-Ray 06/22/25 18:57 IMPRESSION: No acute fracture or dislocation. Hand X-Ray 06/22/25 18:58 IMPRESSION: Radiographic examination of the right hand demonstrates no acute fracture or dislocation. Critical Care Time Critical Care Time Critical Care Time: No Discharge Plan Discharge Clinical Impression: Fall, Contusion of hip and thigh, Contusion of hand, Abrasion Patient Disposition: Home Condition: Stable Instructions: Contusion in Adults (ED), Abrasion (ED), Hip Pain (ED) Additional Instructions: Return if symptoms are worsening , call your family physician for appointment, take Tylenol, ibuprofen as as needed for aches and pain, continue home medications. Patient Language: Samoan Prescriptions: No Action empagliflozin 25 mg tablet 25 mg PO DAILY carvedilol [Coreg] 6.25 mg Tablet 6.25 mg PO Q12HR Qty: 60 0RF diclofenac sodium 3 % gel 1 applic topical BID PRN (Reason: pain) Qty: 100 2RF Rx Instructions: Apply to hands glimepiride 1 mg tablet 1 mg PO BID Rx Instructions: administer with breakfast meloxicam 15 mg tablet 15 mg PO DAILY Qty: 30 0RF Rx Instructions: Take with food lisinopril-hydrochlorothiazide 20-12.5 mg tablet See Rx Instructions .ROUTE .COMPLEX Qty: 90 3RF Dose Instruction: TAKE 1 TABLET BY MOUTH DAILY Rx Instructions: TAKE 1 TABLET BY MOUTH DAILY duloxetine 30 mg capsule,delayed release(DR/EC) See Rx Instructions .ROUTE .COMPLEX Qty: 30 11RF Dose Instruction: TAKE 1 CAPSULE BY MOUTH DAILY Rx Instructions: TAKE 1 CAPSULE BY MOUTH DAILY Mounjaro 10 mg/0.5 mL pen injector 10 mg subcut WEEKLY Qty: 6 1RF simvastatin 20 mg tablet See Rx Instructions .ROUTE .COMPLEX Qty: 90 3RF Dose Instruction: TAKE 1 TABLET BY MOUTH DAILY Rx Instructions: TAKE 1 TABLET BY MOUTH DAILY Follow-up/Referrals: Krysta Lopes NP [Primary Care Provider, Family Practice]
[2025-06-22 18:47] VITALS: BP 168/88; PULSE 69; RESP 17; O2SAT 97
--- NOTE | 2025-06-22 18:55 | PC.NURSE ---
ASSUMED CARE. REPORT RECEIVED FROM DWAIN PETTY.
[2025-06-22 19:01] VITALS: BP 164/88; PULSE 58; RESP 16; O2SAT 98
--- OUTSIDE RECORDS SUMMARY | 2025-06-22 19:01 | XMS_ITS | Clinical Summary ---
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 Gender Identity Not on file Sexual [...] Pneumococcal vaccine 65+ (2 of 2 - PCV20 or PCV21) 03/31/2018 03/31/2017 Fall Risk Assessment 01/27/2025 01/28/2024 Covid-19 Vaccine (6 - 2024-2 6 season) 2025 03/25/2023, 01/22/2022, 04/16/2021, Additional history exists Influenza Vaccine (#1) 2025 , 04/07/2022, 05/10/2021, Additional history exists Insurance [facility] MEDICARE ADVANTAGE [facility] MEDIC[facility] ADVANTAGE Advance Directives For more information, please contact: [phone] * Full Code (Latest Code Status on File) Date Activated Date Inactivated Comments 01/27/2024 6:13 PM 01/28/2024 1:38 PM Care Teams De Icer Installer Relationship Specialty Start Date End Date Elise Bradford MD [address] [place] [address] PCP - General Ophthalmology 11/12/23 Karl Abdi MD [address] [address] Referring Physician Orthopedic Surgery 01/21/24
--- OUTSIDE RECORDS SUMMARY | 2025-06-22 19:05 | XMS_ITS | Clinical Summary ---
Author Organization [facility] Address [address] [place] [address] Care Team Providers Care Personnel Scheduler Name Role Phone Krysta LopesP Primary Care Provider [phone] Elise Slaughter MD Unavailable [phone] Allergies No known active allergies Medications [...] Noted Date Diagnosed Date C2 cervical fracture 08/19/2024 Abrasion of right elbow 08/19/2024 Pain of left thumb 08/19/2024 Fall 08/18/2024 Social History Tobacco Use Types Packs/Day Years Used Date Smoking Tobacco: Never Smokeless Tobacco: Never Tobacco Cessation:Counseling Given: Not Answered Alcohol Use Standard Drinks/Week Comments Yes 1.7 (1 standard drink = 0.6 oz p ure alcohol) [facility] Utilities Answer Date Recorded In the past 12 months has e Convrrt, Browsy, oil, or water [employer] threatened to shut off services in your [...] any time in the past 12 m [facility], were you homeless or living in a half-way (including now)? No 08/19/2024 Sex and Gender Information Value Date Recorded Sex Assigned at Male 08/18/2024 8:20 PM RESEARCH LABORATORY SPECIALIST Legal Sex Male 10:00 AM RESEARCH LABORATORY SPECIALIST Gender Identity Not on file Sexual Orientation Not on file Last Filed Vital Signs Vital Sign Reading Time Taken Comments Blood Pressure 158/71 08/19/2024 11:46 AM RESEARCH LABORATORY SPECIALIST Pulse 65 08/19/2024 11:46 AM RESEARCH LABORATORY SPECIALIST Temperature 36.6 C (97.8 F) 08/19/2024 7:32 AM RESEARCH LABORATORY SPECIALIST Respiratory Rate 17 08/19/2024 3:30 AM RESEARCH LABORATORY SPECIALIST Oxygen Saturation 96% 08/19/2024 11:46 AM RESEARCH LABORATORY SPECIALIST Inhaled Oxygen Concentration - - Weight 63.5 kg (140 lb) 08/18/2024 8:21 PM RESEARCH LABORATORY SPECIALIST Height 172.7 cm (5' 8) 08/18/2024 8:21 PM RESEARCH LABORATORY SPECIALIST Body Mass Index 21.29 08/18/2024 8:21 PM RESEARCH LABORATORY SPECIALIST Plan of Treatment Health Maintenance Due Date Last Done Comments DTaP, Tdap and Td Vaccines (1 - Tdap) 1960 Zoster Vaccines (1 of 2) 1991 Annual Medicare Wellness Visit 2006 RSV Immunization or 60+ Years (1 - 1-dose 75+ series) 2016 Pneumococcal Vaccine: 50+ Years (2 of 2 - PCV20 or PCV21) 03/31/2018 03/31/2017 COVID-19 Vaccine (6 - season) 2025 03/25/2023, 01/22/2022, 04/16/2021, Additional history exists Influenza Adult (#1) 2025 03/29/2018, 03/31/2017, 03/31/2016 Hepatitis A Vaccines Aged Out No long er eligible based on patient's age to complete this topic Meningococcal B Vaccine Aged Out No l onger eligible based on patient's age to complete this topic Meningococcal Vaccine Aged Out No vianey guido eligible based on patient's age to complete this topic RSV Immunizations Under 20 Months Aged Out No longer eligible based on patient's age to complete this topic Medical Devices Implanted Type Area Managing Consultant Device Identifier Shelf Expiration Date Model / Serial / Lot Tecnis Simplicity System Implanted:Qty: 1 on 08/27/2023 by Elise Slaughter MD at [facility] Right: Eye [employer] [id number] 11/26/2025 DCB00 / [id number] / [id number] Tecnis 1-Piece Implanted:Qty: 1 on 09/24/2023 by Elise Slaughter MD at [facility] Left: Eye DCB00 / [id number] / Insurance Advance Directives * Full Code (Latest Code Status on File) Date Activated Date Inactivated Comments 08/18/2024 9:19 PM 08/19/2024 5:13 PM Care Teams Personnel Scheduler Relationship Specialty Start Date End Date Krysta Lopes FNP [address] [place] [address] PCP - General NURSE PRACTITIONER 08/18/24 Elise Slaughter MD [address] [place] [id number] Consulting Physician OPHTHALMOLOGY 08/18/24
[2025-06-22 19:16] VITALS: BP 163/84; PULSE 56; RESP 18; O2SAT 99
--- NOTE | 2025-06-22 19:26 | PC.NURSE ---
RIGID C COLLAR REMOVED PER DR GARCIA
--- NOTE | 2025-06-22 19:40 | PC.NURSE ---
PATIENT WAS TAKEN DOWN TO BATHROOM VIA WHEEL CHAIR. EDUCATION FOR FALL PREVENTION DISCUSSED. PATIENT VERBALIZED UNDERSTANDING
== END 2025-06-22 19:41 | disposition home or self-care (01) ==
PROVIDERS: Emergency Provider Emergency Medicine; PCP Nurse Practitioner Family
DX: S70.01XA Contusion of right hip, initial encounter (principal); S70.11XA Contusion of right thigh, initial encounter; S60.221A Contusion of right hand, initial encounter; E11.9 Type 2 diabetes mellitus without complications; E78.5 Hyperlipidemia, unspecified; I10 Essential (primary) hypertension; W10.9XXA Fall (on) (from) unspecified stairs and steps, initial encounter
CPT/HCPCS: 70450; 72125; 73130; 73502; 99284; L0150

== ENCOUNTER 2025-07-04 09:13 | Emergency (ER) | payer MEDICARE, SELFPAY ==
--- NOTE | ~2025-07-04 | CT_ITS ---
EXAMINATION: CT hip RT wo con DATE: 07/04/2025 09:54 INDICATION: Right hip pain post fall 4 weeks prior TECHNIQUE: High resolution computed tomography (CT) of the right hip was performed without intravenous contrast. Additional sagittal and coronal reconstructions were performed. Automated exposure control and iterative reconstruction technique were employed. The dose-length product was 229.47 mGy-cm. COMPARISON: Radiographs dated 06/22/2025 FINDINGS: Bone alignment is normal. No fracture. Mild osteoarthritis at the right hip with subarticular cystlike change along the rim of the acetabulum and chondrocalcinosis in the region of the right acetabular labrum. No hip joint effusion. Enthesopathic calcifications at the distal gluteus medias tendon along the greater trochanter and at the proximal hamstring tendons present on the ischial tuberosity. Soft tissues are otherwise unremarkable. Visualized portions of bowels including the appendix are unremarkable. No pathologically enlarged right pelvic or inguinal lymphadenopathy. IMPRESSION: 1. 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 No right hip joint effusion or acute osseous abnormality. 2. Chronic enthesopathy at the distal right gluteus medius and proximal right hamstring tendons. Reviewed, dictated and finalized at location A. NG MACHINE TESTER IMPRESSION: 1. 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 No right hip redd nt effusion or acute osseous abnormality. 2. Chronic enthesopathy at the distal right gluteus medius and proximal right h amstring tendons.
--- NOTE | ~2025-07-04 | CT_ITS ---
EXAMINATION: CT lumbar spine wo con DATE: 07/04/2025 09:54 INDICATION: Low back pain for weeks post fall TECHNIQUE: Computed tomography (CT) of the lumbar spine was performed without intravenous contrast. Automated exposure control and iterative reconstruction technique were employed. The dose-length product was 229.47 mGy-cm. COMPARISON: Lumbar spine radiographs dated 12/18/2010 FINDINGS: L5 bilateral pars interarticularis defects with 8mm anterolisthesis on S1 which without significant interval change since the prior radiographs from 2010. Alignment is otherwise normal. Chronic appearing mild likely physiologic anterior wedging at T11 and minimal at T12 and L1. There are Schmorl's nodes at both sides of the T10-T11 and T11-T12 disc spaces. No acute fractures. Mild disc height loss at L2-L3. 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 Paravertebral soft tissues are otherwise unremarkable. There are couple 2 mm nonobstructing stones at a lower pole calyx of the right kidney. Visualized portion of the appendix is normal. The following disc levels are specifically discussed: T10-T11: The disc does not extend beyond the endplate margin. There is mild bilateral facet joint osteoarthritis. There is mild left neural foraminal stenosis. There is no central canal stenosis. T11-T12: The disc does not extend beyond the endplate margin. There is mild bilateral facet joint osteoarthritis. There is no neural foraminal stenosis. There is no central canal stenosis. T12-L1: The disc does not extend beyond the endplate margin. There is mild left and moderate right facet joint osteoarthritis. There is mild right neural foraminal stenosis. There is no central canal stenosis. L1-L2: Disc is bulging. There is mild left and moderate right facet joint osteoarthritis. There is moderate bilateral neural foraminal stenosis. There is mild central canal stenosis. L2-L3: Disc is bulging. There is mild bilateral facet joint osteoarthritis. There is moderate left and mild to moderate right neural foraminal stenosis. There is mild central canal stenosis. L3-L4: Disc is bulging. There is mild bilateral facet joint osteoarthritis. There is moderate bilateral neural foraminal stenosis. There is mild central canal stenosis. L4-L5: Disc is bulging. There is moderate bilateral facet joint osteoarthritis. There is moderate bilateral neural foraminal stenosis. There is mild central canal stenosis. L5-S1: Disc is bulging. Bilateral pars interarticularis defects and severe bilateral facet joint osteoarthritis. There is moderate bilateral neural foraminal stenosis. There is no central canal stenosis. IMPRESSION: 1. Mild lumbar spondylosis and L5 spondylolysis. No acute osseous abnormality. 2. Couple nonobstructing 2 mm right renal stones. Reviewed, dictated and finalized at location A. REMOVAL SPECIALIST
[2025-07-04 09:13] VITALS: BP 168/87; PULSE 80; RESP 18; TEMP 36.4; O2SAT 100
--- NOTE | 2025-07-04 09:23 | ED.EXTPRO ---
HPI - Extremity Problem General Chief complaint: Extremity Injury, Lower Stated complaint: right hip pain Time Seen by Provider: 07/04/25 09:22 Source: patient Mode of arrival: ambulatory Limitations: no limitations History of Present Illness HPI Narrative: 85 years old white male came to the ED by private car from home complaining of right hip and right groin pain after a 15 steps fall on the 17 of this month. X-ray of the right hip at that time showed no acute abnormality patient was discharged home with a diagnosis of right hip contusion. Patient is scheduled for physical therapy this morning at 10:00 a.m.. Came to our emergency room Related Data Home Medications ?Medication ?Instructions ?Recorded ?Confirmed ?Last Taken ?Type empagliflozin 25 mg tablet 25 mg PO DAILY 08/20/24 06/27/25 08/23/24 09:30 History glimepiride 1 mg tablet 1 mg PO BID 01/17/25 06/27/25 Unknown History Allergies Allergy/AdvReac Type Severity Reaction Status Date / Time No Known Allergies Allergy Verified 07/04/25 09:24 [facility] Past Medical History Medical History Right carpal tunnel syndrome Stiffness of finger joint of left hand Left carpal tunnel syndrome GERD (gastroesophageal reflux disease) Calcific tendinitis of left shoulder Major depression, recurrent Type 2 diabetes mellitus Hypertension associated with diabetes Hyperlipidemia associated with type 2 diabetes mellitus Surgical History Surgical History History of release of tendon (~05/2018) Family History Family History Father No problems noted. Mother No problems noted. Other Diabetes mellitus Social History Social History Smoking status: Never smoker Second hand tobacco smoke exposure: No Alcohol intake: never Drinks per week: 3 Substance use: never Substance use type: does not use Lack of Transportation: No Lack of Food: Never True Current Housing: I Have Housing Concerned About Future Housing: No Difficulty Paying Gas/Electric Bills: No Difficulty Paying for Meds: No Currently Unemployed: No Education: High School Diploma/GED Difficulty w/ Childcare or Family Care: No Living arrangements: alone Additional living arrangements comments: in 2018 Occupation/Education: retired Spiritual care concerns: No Course Vital Signs Vital signs: Vital Signs Temperature 36.4 C L 07/04/25 09:13 Pulse Rate 80 07/04/25 09:13 Respiratory Rate 18 07/04/25 09:13 Blood Pressure 168/87 H 07/04/25 09:13 Pulse Oximetry 100 07/04/25 09:13 Oxygen Delivery Room Air 07/04/25 09:13 Temperature 36.4 C L 07/04/25 09:13 Pulse Rate 80 07/04/25 09:13 Respiratory Rate 18 07/04/25 09:13 Blood Pressure 168/87 H 07/04/25 09:13 Pulse Oximetry 100 07/04/25 09:13 Oxygen Delivery Room Air 07/04/25 09:13 MDM MDM Narrative Medical decision making narrative: Right hip pain status post a fall June 22. Patient did not go to his physical therapy today and decided to come to us instead complaining that his right hip is still hurting. Differential diagnosis contusion, sprain/strain, less likely fracture CT CT right hip and lumbar spine showed no acute abnormalities Differential Diagnosis Differential Diagnosis: As above Imaging Data Radiologist's impression: ITS Impressions Hip CT 07/04/25 10:02 IMPRESSION: 1. 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 No right hip joint effusion or acute osseous abnormality. 2. Chronic enthesopathy at the distal right gluteus medius and proximal right hamstring tendons. Lumbar Spine CT 07/04/25 10:08 IMPRESSION: 1. Mild lumbar spondylosis and L5 spondylolysis. No acute osseous abnormality. 2. Couple nonobstructing 2 mm right renal stones. Discharge Plan Discharge Clinical Impression: Hip pain, right Patient Disposition: Home Condition: Stable Instructions: Hip Pain (ED) Additional Instructions: Return if symptoms are worsening , call your family physician for appointment, take Tylenol, ibuprofen as as needed for aches and pain, continue home medications. Patient Language: Scottish Prescriptions: No Action empagliflozin 25 mg tablet 25 mg PO DAILY carvedilol [Coreg] 6.25 mg Tablet 6.25 mg PO Q12HR Qty: 60 0RF diclofenac sodium 3 % gel 1 applic topical BID PRN (Reason: pain) Qty: 100 2RF Rx Instructions: Apply to hands glimepiride 1 mg tablet 1 mg PO BID Rx Instructions: administer with breakfast meloxicam 15 mg tablet 15 mg PO DAILY Qty: 30 0RF Rx Instructions: Take with food lisinopril-hydrochlorothiazide 20-12.5 mg tablet See Rx Instructions .ROUTE .COMPLEX Qty: 90 3RF Dose Instruction: TAKE 1 TABLET BY MOUTH DAILY Rx Instructions: TAKE 1 TABLET BY MOUTH DAILY duloxetine 30 mg capsule,delayed release(DR/EC) See Rx Instructions .ROUTE .COMPLEX Qty: 30 11RF Dose Instruction: TAKE 1 CAPSULE BY MOUTH DAILY Rx Instructions: TAKE 1 CAPSULE BY MOUTH DAILY Mounjaro 10 mg/0.5 mL pen injector 10 mg subcut WEEKLY Qty: 6 1RF simvastatin 20 mg tablet See Rx Instructions .ROUTE .COMPLEX Qty: 90 3RF Dose Instruction: TAKE 1 TABLET BY MOUTH DAILY Rx Instructions: TAKE 1 TABLET BY MOUTH DAILY Follow-up/Referrals: Krysta Lopes NP [Primary Care Provider, Family Practice]
--- OUTSIDE RECORDS SUMMARY | 2025-07-04 09:36 | XMS_ITS | Clinical Summary ---
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 Gender Identity Not on file Sexual Orientation [...] , 04/07/2022, 05/10/2021, Additional history exists Insurance [facility] MEDIC[facility] ADVANTAGE [facility] Advance Directives For more information, please contact: [phone] * Full Code (Latest Code Status on File) Date Activated Date Inactivated Comments 01/27/2024 6:13 PM 01/28/2024 1:38 PM Care Teams Supervising Editor Trailer Relationship Specialty Start Date End Date Elise Bradford MD [address] [place] [address] PCP - General Ophthalmology 11/12/23 Karl Abdi MD [address] [address] Referring Physician Orthopedic Surgery 01/21/24
--- OUTSIDE RECORDS SUMMARY | 2025-07-04 09:36 | XMS_ITS | Clinical Summary ---
Author Organization [facility] Address [address] [place] [address] Care Team Providers Care Makeup Sales Advisor Name Role Phone Krysta LopesP Primary Care Provider [phone] Elise Slaughter MD Unavailable [phone] Allergies No known active allergies Medications [...] drink = 0.6 oz p ure alcohol) [facility] Utilities Answer Date Recorded In the past 12 months has e [employer], [employer], oil, or water [employer] threatened to shut off services in your [...] any time in the past 12 m [facility], were you homeless or living in a jail (including now)? No 08/19/2024 Sex and Gender Information Value Date Recorded Sex Assigned at Male 08/18/2024 8:20 PM SALES ACCOUNT DIRECTOR Legal Sex Male 10:00 AM SALES ACCOUNT DIRECTOR Gender Identity Not on file Sexual Orientation Not on file Last Filed Vital Signs Vital Sign Reading Time Taken Comments Blood Pressure 158/71 08/19/2024 11:46 AM SALES ACCOUNT DIRECTOR Pulse 65 08/19/2024 11:46 AM SALES ACCOUNT DIRECTOR Temperature 36.6 C (97.8 F) 08/19/2024 7:32 AM SALES ACCOUNT DIRECTOR Respiratory Rate 17 08/19/2024 3:30 AM SALES ACCOUNT DIRECTOR Oxygen Saturation 96% 08/19/2024 11:46 AM SALES ACCOUNT DIRECTOR Inhaled Oxygen Concentration - - Weight 63.5 kg (140 lb) 08/18/2024 8:21 PM SALES ACCOUNT DIRECTOR Height 172.7 cm (5' 8) 08/18/2024 8:21 PM SALES ACCOUNT DIRECTOR Body Mass Index 21.29 08/18/2024 8:21 PM SALES ACCOUNT DIRECTOR Plan of Treatment Health Maintenance Due Date [...] this topic Medical Devices Implanted Type Area Hand Woodworking Sander Device Identifier Shelf Expiration Date Model / Serial / Lot Tecnis Simplicity System Implanted:Qty: 1 on 08/27/2023 by Elise Slaughter MD at [facility] Right: Eye [employer] [id number] 11/26/2025 DCB00 / [id number] / [id number] Tecnis 1-Piece Implanted:Qty: 1 on 09/24/2023 by Elise Slaughter MD at [facility] Left: Eye DCB00 / [id number] / Insurance Advance Directives * Full Code (Latest Code Status on File) Date Activated Date Inactivated Comments 08/18/2024 9:19 PM 08/19/2024 5:13 PM Care Teams Makeup Sales Advisor Relationship Specialty Start Date End Date Krysta Lopes FNP [address] [place] [address] PCP - General NURSE PRACTITIONER 08/18/24 Elise Slaughter MD [address] [place] [id number] Consulting Physician OPHTHALMOLOGY 08/18/24
[2025-07-04] MEDS: ACETAMINOPHEN 325 MG TABLET 650 MG PO (10:15)
[2025-07-04] MEDS: IBUPROFEN 600 MG TABLET PO (10:15)
--- OUTSIDE RECORDS SUMMARY | 2025-07-04 10:23 | XMS_ITS | Clinical Summary ---
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 Gender Identity Not on file Sexual Orientation [...] , 04/07/2022, 05/10/2021, Additional history exists Insurance [facility] MEDICARE ADVANTAGE [facility] MEDICARE ADVANTAGE Advance Directives For more information, please contact: [phone] * Full Code (Latest Code Status on File) Date Activated Date Inactivated Comments 01/27/2024 6:13 PM 01/28/2024 1:38 PM Care Teams Paper Plate Machine Tender Relationship Specialty Start Date End Date Elise Bradford MD [address] [place] [address] PCP - General Ophthalmology 11/12/23 Karl Abdi MD [address] [address] Referring Physician Orthopedic Surgery 01/21/24
--- OUTSIDE RECORDS SUMMARY | 2025-07-04 10:23 | XMS_ITS | Clinical Summary ---
Author Organization [facility] Address [address] [place] [address] Care Team Providers Care Pharmacy Clinical Specialist Name Role Phone Krysta LopesP Primary Care Provider [phone] Elise Slaughter MD Unavailable [phone] Allergies No known active allergies Medications [...] drink = 0.6 oz p ure alcohol) [facility] Utilities Answer Date Recorded In the past 12 months has e [employer], [employer], oil, or water [employer] threatened to shut off services in your [...] Sex Assigned at Male 08/18/2024 8:20 PM MEDICAL DATA ANALYST Legal Sex Male 10:00 AM MEDICAL DATA ANALYST Gender Identity Not on file Sexual Orientation Not on file Last Filed Vital Signs Vital Sign Reading Time Taken Comments Blood Pressure 158/71 08/19/2024 11:46 AM MEDICAL DATA ANALYST Pulse 65 08/19/2024 11:46 AM MEDICAL DATA ANALYST Temperature 36.6 C (97.8 F) 08/19/2024 7:32 AM MEDICAL DATA ANALYST Respiratory Rate 17 08/19/2024 3:30 AM MEDICAL DATA ANALYST Oxygen Saturation 96% 08/19/2024 11:46 AM MEDICAL DATA ANALYST Inhaled Oxygen Concentration - - Weight 63.5 kg (140 lb) 08/18/2024 8:21 PM MEDICAL DATA ANALYST Height 172.7 cm (5' 8) 08/18/2024 8:21 PM MEDICAL DATA ANALYST Body Mass Index 21.29 08/18/2024 8:21 PM MEDICAL DATA ANALYST Plan of Treatment Health Maintenance Due Date [...] this topic Medical Devices Implanted Type Area Hub Borer Device Identifier Shelf Expiration Date Model / Serial / Lot Tecnis Simplicity System Implanted:Qty: 1 on 08/27/2023 by Elise Slaughter MD at [facility] Right: Eye [employer] [id number] 11/26/2025 DCB00 / [id number] / [id number] Tecnis 1-Piece Implanted:Qty: 1 on 09/24/2023 by Elise Slaughter MD at [facility] Left: Eye DCB00 / [id number] / Insurance Advance Directives * Full Code (Latest Code Status on File) Date Activated Date Inactivated Comments 08/18/2024 9:19 PM 08/19/2024 5:13 PM Care Teams Pharmacy Clinical Specialist Relationship Specialty Start Date End Date Krysta Lopes FNP [address] [place] [address] PCP - General NURSE PRACTITIONER 08/18/24 Elise Slaughter MD [address] [place] [id number] Consulting Physician OPHTHALMOLOGY 08/18/24
[2025-07-04 11:18] VITALS: BP 155/85; PULSE 82; RESP 17; TEMP 36.6; O2SAT 100
== END 2025-07-04 11:18 | disposition home or self-care (01) ==
PROVIDERS: Emergency Provider Emergency Medicine; PCP Nurse Practitioner Family
DX: M25.551 Pain in right hip (principal); E11.9 Type 2 diabetes mellitus without complications; I10 Essential (primary) hypertension; E78.5 Hyperlipidemia, unspecified; W10.9XXA Fall (on) (from) unspecified stairs and steps, initial encounter
CPT/HCPCS: 72131; 73700; 99284; A9270